=== PATIENT | male | born 1945 | race Caucasian/White ===

== ENCOUNTER → 2017-09-06 08:28 | Outpatient (CLI) | payer OTHER, SELFPAY ==
[2017-09-06 11:47] LABS: Hemoglobin A1C 7.4 % (4.5-6.2)
== END ==
PROVIDERS: PCP Family Medicine; Visit Provider Family Medicine
DX: E11.9 Type 2 diabetes mellitus without complications (principal)
CPT/HCPCS: 36415; 83036

== ENCOUNTER 2018-03-05 10:18 | Outpatient (CLI) | payer OTHER, SELFPAY ==
[2018-03-05 11:39] LABS: Hemoglobin A1C 7.7 % (4.5-6.2)
[2018-03-05 11:51] LABS: Anion Gap 10.9 mmol/L (3-11); BUN 19 mg/dL (7-18); CO2 28.1 mmol/L (21.0-32.0); CREATININE 0.82 mg/dL (0.70-1.30); Calcium 9.5 mg/dL (8.5-10.1); Chloride 101 mmol/L (98-107); Glucose 154 mg/dL (70-100); Potassium 4.8 mmol/L (3.5-5.1); Sodium 140 mmol/L (136-145)
== END 2018-03-05 10:38 ==
PROVIDERS: PCP Family Medicine; Visit Provider Family Medicine
DX: E11.9 Type 2 diabetes mellitus without complications (principal)
CPT/HCPCS: 36415; 80048; 83036

== ENCOUNTER 2018-06-04 09:30 | Outpatient (CLI) | payer OTHER, SELFPAY ==
[2018-06-04 11:18] LABS: Hemoglobin A1C 7.7 % (4.5-6.2)
== END 2018-06-04 09:50 ==
PROVIDERS: PCP Family Medicine; Visit Provider Family Medicine
DX: E11.9 Type 2 diabetes mellitus without complications (principal)
CPT/HCPCS: 36415; 83036

== ENCOUNTER 2019-01-28 07:51 | Outpatient (CLI) | payer OTHER, SELFPAY ==
--- NOTE | 2019-01-28 08:14 | DI.RAD_ITS ---
EXAM: XR KNEE RT 3V AP,LAT,FLAVIA INDICATION: Right knee pain M25.561. COMPARISON: No exams were available for comparison TECHNIQUE: 2D digital imaging was performed. FINDINGS: There is marked narrowing of the medial femoral tibial joint space. Periarticular spurring is seen i nvolving all 3 joint compartments. No acute fracture or dislocation is identified. Soft tissues are unremarkable. IMPRESSION: Osteoarthritis of the right knee.
== END 2019-01-28 08:11 ==
PROVIDERS: PCP Family Medicine; Visit Provider Family Medicine
DX: M25.561 Pain in right knee (principal); M17.11 Unilateral primary osteoarthritis, right knee
CPT/HCPCS: 73562

== ENCOUNTER 2019-04-02 07:56 | Outpatient (CLI) | payer OTHER, SELFPAY ==
[2019-04-02 10:42] LABS: Anion Gap 9.5 mmol/L (3-11); BUN 19 mg/dL (7-18); CO2 27.5 mmol/L (21.0-32.0); CREATININE 0.82 mg/dL (0.70-1.30); Calcium 9.2 mg/dL (8.5-10.1); Calculated LDL 108 mg/dL (<100); Chloride 103 mmol/L (98-107); Cholesterol 172 mg/dL (<200); Glucose 157 mg/dL (74-106); HDL Cholesterol 36 mg/dL (40-60); Hemoglobin A1C 8.1 % (3.8-5.6); Potassium 4.6 mmol/L (3.5-5.1); Sodium 140 mmol/L (136-145); Triglyceride 144 mg/dL (<150)
== END 2019-04-02 08:16 ==
PROVIDERS: PCP Family Medicine; Visit Provider Family Medicine
DX: I10 Essential (primary) hypertension (principal); E11.9 Type 2 diabetes mellitus without complications
CPT/HCPCS: 36415; 80048; 80061; 83036

== ENCOUNTER 2020-06-08 02:31 | Outpatient (CLI) | payer OTHER, SELFPAY ==
[2020-06-08 12:03] LABS: Hemoglobin A1C 6.9 % (<5.7)
[2020-06-08 12:38] LABS: Calculated LDL 105 mg/dL (<100); Cholesterol 179 mg/dL (<200); HDL Cholesterol 34 mg/dL (40-60); Triglyceride 201 mg/dL (<150)
== END 2020-06-08 02:32 | disposition home or self-care (01) ==
LOC: LBO 02:32
PROVIDERS: PCP Family Medicine; Visit Provider Nurse Practitioner Family
DX: E11.9 Type 2 diabetes mellitus without complications (principal); E78.5 Hyperlipidemia, unspecified; N40.1 Benign prostatic hyperplasia with lower urinary tract symptoms; N13.8 Other obstructive and reflux uropathy
CPT/HCPCS: 36415; 80061; 83036; 84154

== ENCOUNTER 2020-11-21 06:31 | Inpatient (IN) | payer OTHER, SELFPAY ==
[2020-11-21] VITALS (48 sets, daily range): BP systolic 117–158; BP diastolic 45–75; PULSE 46–79; RESP 14–30; TEMP 36.2–37.1; O2SAT 89–96
--- NOTE | 2020-11-21 06:42 | ED.GENADUL_ITS ---
Discharge Plan Disposition Patient Disposition: [facility] INPATIENT Condition: Fair Discharge Details Clinical Impression: Cellulitis of left lower extremity Primary Care Provider: Arsh Holland ED Provider: Keith Faulkner [place] Meds and New Rx's Prescriptions: No Action metoprolol succinate 100 mg tablet extended release 24 hr 100 mg PO DAILY Qty: 90 RF: 4 aspirin [Aspir-81] 81 MG tablet,delayed release (DR/EC) 81 mg PO DAILY Qty: 90 RF: 4 (DME) blood-glucose meter [FreeStyle Lite Meter] 1 EACH kit 1 ea Miscellaneous BID Qty: 1 RF: 0 (DME) lancets [FreeStyle Lancets] 28 gauge misc 1 ea Miscellaneous BID Qty: 200 RF: 5 (DME) FreeStyle Lite Strips Strip 1 ea Miscellaneous BID Qty: 200 RF: 4 glipizide 10 mg tablet 10 mg PO DAILY Qty: 90 RF: 4 metformin 1,000 mg tablet 1,000 mg PO BID Qty: 180 RF: 4 tamsulosin 0.4 mg capsule See Rx Instructions PO HS Qty: 180 RF: 4 amlodipine 10 mg tablet 10 mg PO DAILY Qty: 90 RF: 4 losartan-hydrochlorothiazide 100-25 mg tablet 1 tab PO DAILY Qty: 90 RF: 4 ibuprofen 800 mg tablet 800 mg PO DAILY Qty: 90 RF: 3 empagliflozin 10 mg tablet 20 mg PO QAM Qty: 180 RF: 4 Fish Oil 1 EACH capsule 2,000 mg PO DAILY RF: 0 Medical Decision Making Patient presenting with left lower extremity cellulitis that has worsened rather rapidly. He does not appear toxic. He is diabetic with venous stasis, peripheral vascular disease, prior history of MRSA though not recent. He is not febrile here. He does report rapid progression of pain, redness, swelling. IV established and laboratory studies sent including blood cultures. Will dose with IV vancomycin and consider brief admission for continued IV antibiotic until symptomatic improvement. Labs look okay. White count minimally elevated. Sugar a little high but electrolytes and kidney function otherwise normal. Will discuss with hospitalist regarding admission for IV antibiotics. HPI General Mode of arrival: ambulatory . Date/Time Provider Initiated Documentation: 11/21/20 06:41 . Limitations to Documentation: no limitations . Information obtained by: patient, RN notes reviewed and old records reviewed . HPI Narrative: Patient presents to the ED with left lower extremity pain and redness. Patient is followed at [facility] in the wound clinic there for right lower extremity venous ulcers. He was seen there on Sunday. He did have a small open area on his left johnson but did not think much of it and did not have them look at it. Since that visit his left leg has become painful, red, hot to touch, more swollen. He felt hot and had chills overnight. Leg more painful this morning. No drainage. Does have history of diabetes. Just finished round of ampicillin for the right lower extremity a week ago. Has remote history of MRSA. 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 He denies any cough, chest pain, shortness of breath, abdominal pain. His blood sugars have been elevated since Sunday. Related Data Home Medications Medication Instructions Recorded Confirmed omega-3 fatty acids-fish oil [Fish 2,000 mg PO DAILY 01/17/13 11/21/20 Oil 1,000 mg Capsule] aspirin [Aspir 81] 81 mg PO DAILY #90 tab-cap 03/12/15 11/21/20 blood-glucose meter [Freestyle #1 kit 07/05/16 11/21/20 Lite Meter] metoprolol succinate 100 mg 100 mg PO DAILY #90 tab-cap 10/24/19 11/21/20 tablet,extended release 24 hr lancets 28 gauge #200 each 01/02/20 11/21/20 blood sugar diagnostic #200 strip 02/17/20 11/21/20 glipizide 10 mg tablet 10 mg PO DAILY #90 tab 03/18/20 11/21/20 metformin 1,000 mg tablet 1,000 mg PO BID #180 tab-cap 03/18/20 11/21/20 tamsulosin 0.4 mg capsule See Rx Instructions PO HS #180 cap 03/18/20 11/21/20 amlodipine 10 mg tablet 10 mg PO DAILY #90 tab 04/28/20 11/21/20 losartan 100 1 tab PO DAILY #90 tab 09/10/20 11/21/20 mg-hydrochlorothiazide 25 mg tablet ibuprofen 800 mg tablet 800 mg PO DAILY #90 tab-cap 10/06/20 11/21/20 empagliflozin 10 mg tablet 20 mg PO QAM #180 tab 10/08/20 11/21/20 Previous Rx's Medication Instructions Recorded metoprolol succinate 100 mg 100 mg PO DAILY #90 tab-cap 10/24/19 tablet,extended release 24 hr lancets 28 gauge #200 each 01/02/20 blood sugar diagnostic #200 strip 02/17/20 glipizide 10 mg tablet 10 mg PO DAILY #90 tab 03/18/20 metformin 1,000 mg tablet 1,000 mg PO BID #180 tab-cap 03/18/20 tamsulosin 0.4 mg capsule See Rx Instructions PO HS #180 cap 03/18/20 amlodipine 10 mg tablet 10 mg PO DAILY #90 tab 04/28/20 losartan 100 1 tab PO DAILY #90 tab 09/10/20 mg-hydrochlorothiazide 25 mg tablet ibuprofen 800 mg tablet 800 mg PO DAILY #90 tab-cap 10/06/20 empagliflozin 10 mg tablet 20 mg PO QAM #180 tab 10/08/20 Allergies Allergy/AdvReac Type Severity Reaction Status Date / Time atorvastatin calcium AdvReac INTOLERANCE Verified 11/21/20 06:44 [From Lipitor] Review of Systems Narrative: 11/18 Review of Systems completed and is negative except as stated above in HPI (Systems reviewed: Const, Eyes, ENT, Resp, CV, GI, , MSK, Skin, Neuro) [facility] Medical History Essential hypertension Hyperlipidemia Morbid obesity MRSA infection (09/03/15) ISAAC (obstructive sleep apnea) Peripheral vascular disease Tubular adenoma 07/24/14 DR. ALLEN X 3 Venous stasis ulcers of both lower extremities (03/09/16) Surgical History Amputation of toe of right foot 04/08/20 - Right second toe ([facility]) Appendectomy (~08/1973) Colonoscopy - MAC (~02/2004) neg FX ANKLE 02/2013; [facility] [place] [place] knee repair (~1964) cartilage repair Family History (Updated 06/07/20 @ 10:02 by Lainey Quintero) Mother , age 78 Cancer Father , age 70 Heart disease Cancer Sister Essential hypertension Hyperlipidemia Breast cancer Brother Essential hypertension Skin cancer Brother Diabetes Essential hypertension Heart disease Hyperlipidemia Alcohol abuse Substance abuse Cancer Maternal Grandfather Heart disease Paternal Grandfather No problems noted. Maternal Grandmother Diabetes Essential hypertension Paternal Grandmother Heart disease Son Essential hypertension Heart disease Hyperlipidemia Daughter No problems noted. Daughter No problems noted. Brother , age 69 Diabetes Essential hypertension Hyperlipidemia Social History Smoking/Tobacco Use Status: Never Second Hand Exposure: Yes Smoking risk assessment performed?: Yes Alcohol Intake: never Drug use: Never Substance use type: does not use Caregiver/Support person: No Household members: spouse Housing: house Communication Needs: Corrective Lenses Pets and animals: Yes Pets and animals: cat(s) and dog(s) Sexually active: No Do you think of yourself as: straight/heterosexual Current gender identity: male What is your relationship status?: How often do you talk on the phone with friends or family?: once per week How often do you get together with friends or relatives?: once per week How often do you attend latter day or lutheran services?: 4 or more times per year Do you belong to any clubs or organized social groups?: no Panel score (0-1 are the most socially isolated patients): 2 What type of physical activity do you participate in: decline to answer Duration: decline to answer Frequency: decline to answer Mally/Pentecostal: Restorationism Special mally needs: No Seatbelt use: sometimes Helmet use: No 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 HEENT: NC/AT. Normal facial exam. Eyes: Normal conjunctiva and sclera. Neck: Supple. Trachea midline. Lungs: Normal respiratory effort. Cor: RRR. DP pulses present. GI: Soft. ND. Neuro: A+O x 3. Normal speech, mentation. Cranial nerves II - XII grossly intact. No gross motor or sensory deficit. Ext: No C/C. Venous stasis changes noted. Left lower extremity edema. Marked and erythema with tenderness involving majority of left anterior johnson. Right lower extremity in dressing/Unna boot. Skin: Warm and dry. Changes as noted above on the extremities.
[2020-11-21 07:30] LABS: Lactate 1.7 mmol/L (0.9-1.7)
[2020-11-21 07:31] LABS: Abs Immature Grans 0.06 10^3/uL (0.0-0.06); Absolute Basophil Count 0.05 10^3/uL (0.0-0.2); Absolute Eosinophil Count 0.02 10^3/uL (0.0-0.7); Absolute Lymphocyte Count 1.34 10^3/uL (1.2-3.4); Absolute Monocyte Count 1.04 10^3/uL (0.1-0.8); Absolute Neutrophil Count 8.75 10^3/uL (1.2-6.7); Basophils % 0.4; Eosinophils % 0.2; HCT 46.7 % (40.0-50.0); HGB 14.8 g/dL (13.5-17.5); Immature Grans % 0.5; Lymphocytes % 11.9; MCH 29.1 pg (27.0-33.0); MCHC 31.7 % (32.0-36.0); MCV 91.7 fL (80-95); MPV 9.3 fL (8.0-11.0); Monocytes % 9.2; Neutrophils % 77.8; Nucleated RBC 0 %; Platelet Count 164 10^3/uL (130-400); RBC 5.09 10^6/uL (4.36-5.78); RDW 14.4 % (11.8-14.1); RDW-SD 48.8 fL; WBC 11.25 10^3/uL (4.4-10.8)
[2020-11-21] MEDS: Normal Saline 1,000 ML 125 ML IV ×2 (07:32→16:20)
[2020-11-21 07:36] LABS: Anion Gap 8.5 mmol/L (3-11); BUN 18 mg/dL (7-18); CO2 30.5 mmol/L (21.0-32.0); Calcium 9.3 mg/dL (8.5-10.1); Chloride 105 mmol/L (98-107); Glucose 173 mg/dL (74-106); Potassium 3.9 mmol/L (3.5-5.1); Sodium 144 mmol/L (136-145)
[2020-11-21] MEDS: VANCOMYCIN/WATER (PEG) 2 GM/400 ML BAG IV (07:43)
[2020-11-21 08:16] LABS: Source Nasal/Nares
[2020-11-21] MEDS: cefTRIAXone 2 GM/50 ML BAG IVPB (10:02)
[2020-11-21] MEDS: Enoxaparin 40 MG/0.4 ML SYR SC (10:40)
[2020-11-21 16:01] LABS: COVID-19 PCR Negative (Negative)
--- NOTE | 2020-11-21 16:18 | W.PM.HP.N ---
Date of service: 11/21/20 Time of Service: 16:19 Assessment and Plan Assessment and plan (1) Cellulitis of left lower extremity: Start date: 11/21/20 Start time: 13:00 Status: Acute Assessment and plan: LLE cellulitis started on Sunday worsening today. found to have erythema with scab in middle of leg. Initiated on vanco an ceftriaxone. Blood cultures pending MRSA swab pending. (2) Wound of right lower extremity: Start date: 11/21/20 Start time: 13:00 Status: Acute Assessment and plan: Seen at [facility] for wound care of RLE. At this time it is wrapped and unable to visulize He has appt on sunday to have it looked at. Qualifiers: Encounter type: initial encounter Qualified Code(s): S81.801A - Unspecified open wound, right lower leg, initial encounter (3) Peripheral vascular disease: Start date: 11/21/20 Start time: 13:00 Status: Chronic Assessment and plan: Poor circulation with lymphedema contributing to wounds and cellulitis, may require longer course of antibiotic therapy due to PVD (4) Diabetic neuropathy: Start date: 11/21/20 Start time: 13:00 Status: Chronic Assessment and plan: Very little to no feeling in his feet. Qualifiers: Diabetes mellitus type: type 2 Diabetes mellitus complication detail: diabetic mononeuropathy Qualified Code(s): E11.41 - Type 2 diabetes mellitus with diabetic mononeuropathy (5) BPH w urinary obs/LUTS: Start date: 11/21/20 Start time: 16:34 Status: Chronic Assessment and plan: continue flomax (6) Essential hypertension: Start date: 11/21/20 Start time: 13:00 Status: Chronic Assessment and plan: continue home regimen and monitor bp (7) Hyperlipidemia: Start date: 11/21/20 Start time: 13:00 Status: Chronic Assessment and plan: on omega 3 fatty acids will continue along with Heart healthy/ cho diet. Qualifiers: Hyperlipidemia type: mixed hyperlipidemia Qualified Code(s): E78.2 - Mixed hyperlipidemia (8) Morbid obesity: Start date: 11/21/20 Start time: 13:00 Status: Chronic Assessment and plan: Dietary consult (9) Type 2 diabetes mellitus without complication, without long-term current use of insulin: Start date: 11/21/20 Start time: 13:00 Status: Chronic Assessment and plan: SSI monitor FS Hold orals at this time (10) Discharge planning issues: Start date: 11/21/20 Start time: 13:00 Status: Acute Assessment and plan: Home when medically ready (11) DVT prophylaxis: Start date: 11/21/20 Start time: 13:00 Status: Acute Assessment and plan: Enoxaparin discussed with Dr. Fisher History of Present Illness History of Present Illness Chief Complaint: LLE cellulitis Narrative: 74 y.o male with PMH of DM 2, HTN, HLD, BPH, morbid obesity, RLE wounds followed by [facility] wound clinic, PVD, OA, ISAAC, presents to [facility] with c/o LLE pain and erythema to johnson. He first noticed an ulcer to his leg on Sunday but it has progressively gotten worse since and today it is red from below the knee to mid johnson half way around the leg to calf. Labs in ED significant for wbc 11.23, afebrile. Blood cx pending. he has been asked to be admitted for further management. He has been initiated on vanco and ceftriaxone. MRSA swab ordered and pending. He will be on SSI. He denies CP, SOB , N/V/d. Review of Systems All systems reviewed & are unremarkable except as noted in HPI and below Constitutional Constitutional: Reports as per HPI [facility] Medical History (Updated 11/21/20 @ 16:33 by Angelica Palacio NP) Essential hypertension Fatty liver (08/04/16) Hyperlipidemia Morbid obesity MRSA infection (09/03/15) ISAAC (obstructive sleep apnea) Peripheral vascular disease Tubular adenoma 07/24/14 DR. ALLEN X 3 Venous stasis ulcers of both lower extremities (03/09/16) Surgical History Amputation of toe of right foot 04/08/20 - Right second toe ([facility]) Appendectomy (~08/1973) Colonoscopy - MAC (~02/2004) neg FX [place]KLE 02/2013[place] [facility] [place] repair (~1964) cartilage repair Family History (Updated 06/07/20 @ 10:02 by Lainey Quintero) Mother , age 78 Cancer Father , age 70 Heart disease Cancer Sister Essential hypertension Hyperlipidemia Breast cancer Brother Essential hypertension Skin cancer Brother Diabetes Essential hypertension Heart disease Hyperlipidemia Alcohol abuse Substance abuse Cancer Maternal Grandfather Heart disease Paternal Grandfather No problems noted. Maternal Grandmother Diabetes Essential hypertension Paternal Grandmother Heart disease Son Essential hypertension Heart disease Hyperlipidemia Daughter No problems noted. Daughter No problems noted. Brother , age 69 Diabetes Essential hypertension Hyperlipidemia Social History Smoking/Tobacco Use Status: Never Second Hand Exposure: Yes Smoking risk assessment performed?: Yes Alcohol Intake: never Drug use: Never Substance use type: does not use Caregiver/Support person: No Household members: spouse Housing: house Communication Needs: Corrective Lenses Pets and animals: Yes Pets and animals: cat(s) and dog(s) Sexually active: No Do you think of yourself as: straight/heterosexual Current gender identity: male What is your relationship status?: How often do you talk on the phone with friends or family?: once per week How often do you get together with friends or relatives?: once per week How often do you attend yarsanism or latter-day services?: 4 or more times per year Do you belong to any clubs or organized social groups?: no Panel score (0-1 are the most socially isolated patients): 2 What type of physical activity do you participate in: decline to answer Duration: decline to answer Frequency: decline to answer Mally/Church: Congregation Special mally needs: No Seatbelt use: sometimes Helmet use: No 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 Do you feel safe at home: Yes Do you feel safe in your relationship?: Yes Meds Allergies and Home Medications Allergies Allergy/AdvReac Type Severity Reaction Status Date / Time atorvastatin calcium AdvReac INTOLERANCE Verified 11/21/20 06:44 [From Lipitor] Home Medications Medication Instructions Recorded Confirmed Type omega-3 fatty acids-fish oil [Fish 2,000 mg PO DAILY 01/17/13 11/21/20 History Oil 1,000 mg Capsule] aspirin [Aspir 81] 81 mg PO DAILY #90 tab-cap 03/12/15 11/21/20 History blood-glucose meter [Freestyle #1 kit 07/05/16 11/21/20 History Lite Meter] metoprolol succinate 100 mg 100 mg PO DAILY #90 tab-cap 10/24/19 11/21/20 Rx tablet,extended release 24 hr lancets 28 gauge #200 each 01/02/20 11/21/20 Rx blood sugar diagnostic #200 strip 02/17/20 11/21/20 Rx glipizide 10 mg tablet 10 mg PO DAILY #90 tab 03/18/20 11/21/20 Rx metformin 1,000 mg tablet 1,000 mg PO BID #180 tab-cap 03/18/20 11/21/20 Rx tamsulosin 0.4 mg capsule See Rx Instructions PO HS #180 cap 03/18/20 11/21/20 Rx amlodipine 10 mg tablet 10 mg PO DAILY #90 tab 04/28/20 11/21/20 Rx losartan 100 1 tab PO DAILY #90 tab 09/10/20 11/21/20 Rx mg-hydrochlorothiazide 25 mg tablet ibuprofen 800 mg tablet 800 mg PO DAILY #90 tab-cap 10/06/20 11/21/20 Rx empagliflozin 10 mg tablet 20 mg PO QAM #180 tab 10/08/20 11/21/20 Rx Exam Const General: cooperative, comfortable and no acute distress Nutritional Appearance: obese Orientation: alert, awake and oriented x3 Eyes Eyelids: eyelids normal Pupils: PERRL EOM: EOM intact bilaterally Neck Neck: normal visual inspection and no JVD Lymphatic: no lymphadenopathy noted Resp Effort & Inspection: normal respiratory effort Auscultation: clear to auscultation bilaterally Cardio Jugular venous pressure: no JVD Rhythm: regular rhythm Heart Sounds: S1 normal GI Auscultation: normal bowel sounds General: No CVA tenderness and deferred Skin General skin exam: no rashes or lesions noted Neuro General: patient alert, patient awake and patient oriented x3 Cognition: normal cognition Speech: speech normal Gait: normal gait Extrem General: full ROM Right lower extremity: abnormal to inspection (unable to visulaize as patient has wrapped from [facility] ) Left lower extremity: lower leg Details: erythema Location: of the mid lower leg (johnson with ulcer to mid area. ) Location: anteriorly; abnormal to inspection Results Labs Result diagrams: 11/21/20 07:14 11/21/20 07:14 Labs: Laboratory Results - last 24 hr 11/21/20 11/21/20 11/21/20 07:14 07:14 07:14 WBC 11.25 H RBC 5.09 Hgb 14.8 Hct 46.7 MCV 91.7 MCH 29.1 MCHC 31.7 L RDW 14.4 H Plt Count 164 MPV 9.3 Immature Gran % 0.5 Neutrophils % 77.8 Lymphocytes % 11.9 Monocytes % 9.2 Eosinophils % 0.2 Basophils % 0.4 Nucleated RBC % 0 Absolute Neutrophils 8.75 H Absolute Lymphocytes 1.34 Absolute Monocytes 1.04 H Absolute Eosinophils 0.02 Absolute Basophils 0.05 VBG Lactate 1.7 Sodium 144 Potassium 3.9 Chloride 105 Carbon Dioxide 30.5 Anion Gap 8.5 BUN 18 Creatinine 1.0 Estimated GFR/1.73 m2 >= 60.00 Glucose 173 H Calcium 9.3 COVID-19 Source SARS-CoV-2 (PCR) 11/21/20 08:12 WBC RBC Hgb Hct MCV MCH MCHC RDW Plt Count MPV Immature Gran % Neutrophils % Lymphocytes % Monocytes % Eosinophils % Basophils % Nucleated RBC % Absolute Neutrophils Absolute Lymphocytes Absolute Monocytes Absolute Eosinophils Absolute Basophils VBG Lactate Sodium Potassium Chloride Carbon Dioxide Anion Gap BUN Creatinine Estimated GFR/1.73 m2 Glucose Calcium COVID-19 Source Nasal/Nares SARS-CoV-2 (PCR) Negative Last Vital Signs Temp 36.2 C L 11/21/20 11:09 Pulse 65 11/21/20 11:09 Resp 20 11/21/20 11:09 BP 117/63 11/21/20 11:09 Pulse Ox 94 11/21/20 11:09
[2020-11-21] MEDS: VANCOMYCIN/WATER (PEG) 1.5 GM/300 ML BAG IV (19:46)
[2020-11-21] MEDS: Tamsulosin 0.4 MG CAPCR 0.8 MG PO (22:16)
[2020-11-22] MEDS: Normal Saline 1,000 ML 125 ML IV ×2 (01:33→13:04)
[2020-11-22 03:42] VITALS: BP 144/76; PULSE 64; RESP 20; TEMP 36.8; O2SAT 90
[2020-11-22 07:24] LABS: Abs Immature Grans 0.05 10^3/uL (0.0-0.06); Absolute Basophil Count 0.03 10^3/uL (0.0-0.2); Absolute Eosinophil Count 0.08 10^3/uL (0.0-0.7); Absolute Lymphocyte Count 1.19 10^3/uL (1.2-3.4); Absolute Neutrophil Count 6.45 10^3/uL (1.2-6.7); Basophils % 0.3; Eosinophils % 0.9; HCT 46.5 % (40.0-50.0); HGB 14.5 g/dL (13.5-17.5); Immature Grans % 0.6; Lymphocytes % 13.8; MCH 28.7 pg (27.0-33.0); MCHC 31.2 % (32.0-36.0); MCV 92.1 fL (80-95); MPV 9.2 fL (8.0-11.0); Monocytes % 9.3; Neutrophils % 75.1; Nucleated RBC 0 %; Platelet Count 154 10^3/uL (130-400); RBC 5.05 10^6/uL (4.36-5.78); RDW 14.5 % (11.8-14.1); RDW-SD 49.1 fL
[2020-11-22 07:31] LABS: Anion Gap 9.5 mmol/L (3-11); BUN 14 mg/dL (7-18); CO2 25.5 mmol/L (21.0-32.0); CREATININE 0.7 mg/dL (0.70-1.30); Calcium 8.5 mg/dL (8.5-10.1); Chloride 106 mmol/L (98-107); Glucose 149 mg/dL (74-106); Magnesium 1.9 mg/dL (1.8-2.4); Potassium 4.2 mmol/L (3.5-5.1); Sodium 141 mmol/L (136-145)
[2020-11-22 07:41] VITALS: BP 155/76; PULSE 72; RESP 20; TEMP 36.3; O2SAT 95
[2020-11-22] MEDS: Aspirin E.C. 81 MG TABEC PO (08:21)
[2020-11-22] MEDS: Metoprolol CR 100 MG TABCR PO (08:21)
[2020-11-22] MEDS: Losartan 50 MG TAB 100 MG PO (08:21)
[2020-11-22] MEDS: hydroCHLOROthiazide 25 MG TAB PO (08:22)
[2020-11-22] MEDS: amLODIPine 10 MG TAB PO (08:22)
[2020-11-22] MEDS: Omega-3 Fatty Acids 1000 MG CAP 2000 MG PO (08:22)
[2020-11-22] MEDS: cefTRIAXone 2 GM/50 ML BAG IVPB (08:23)
[2020-11-22] MEDS: Normal Saline Flush 10 ML SYR IVP (08:24)
--- NOTE | 2020-11-22 09:28 | INITIAL_ITS ---
- If Service Date Differs Date of service: 11/22/20 Time of Service: 09:28 Care Management Initial Assess REASON FOR HOSPITALIZATION:: Cellulitis. PAST MEDICAL HISTORY/PAST SURGICAL HISTORY:: Medical History: Essential hypertension, Fatty liver (08/04/16), Hyperlipidemia, Morbid obesity, MRSA infection (09/03/15), ISAAC (obstructive sleep apnea), Peripheral vascular disease, Tubular adenoma - 07/24/14 DR. ALLEN X 3, and Venous stasis ulcers of both lower extremities (03/09/16). Surgical History: Amputation of toe of right foot - 04/08/20 - Right second toe ([facility]), Appendectomy (~08/1973), Colonoscopy - MAC (~02/2004) - neg, FX ANKLE - 02/2013; [facility] [place], and. knee repair (~1964) - cartilage repair. PREVIOUS FUNCTIONAL STATUS/SOCIAL/FAMILY SUPPORTS:: Sukhjinder lives in [place] with his , Wendi. 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 He was also in the [employer] for 27 years. He now spends his time caring for their property and playing with their [employer] lab. His and adult children are supportive of him. CURRENT FUNCTIONAL STATUS:: Sukhjinder is sitting in a chair watching television when CM comes to meet with him. He is pleasant and easily engages in conversation. He shares that he has an appointment at the Wound [facility] at [facility] tomorrow morning at 8:00 am that he can't miss. CM reassures him that he will be discharged in enough time to make that appointment. ADVANCE DIRECTIVES:: On file; daughter Mary Hagen is appointed as Health Care Agent. Has patient been provided with info about the portal/API?: Yes Did the patient sign up for the portal?: No CODE STATUS:: Full Code INSURANCE COVERAGE / FINANCIAL ISSUES:: [employer] and Medicare. CURRENT HOME/COMMUNITY SERVICES/EQUIPMENT:: Sukhjinder is independent at baseline and has no in-home or community services. He owns a C-PAP machine, walker and cane. PRIMARY CARE PHYSICIAN:: TORY Cloud ([facility]). POTENTIAL DISCHARGE NEEDS:: Follow up appointment with PCP and discharge plan of care. PATIENT/FAMILY EDUCATION NEEDS:: Review discharge instructions re medications, activity level and follow up plan of care, and discuss Ask Me Three. ANTICIPATED BARRIERS TO DISCHARGE:: No anticipated barriers at this time. TRANSPORTATION:: Via private vehicle with family. PLAN:: Sukhjinder will likely be discharged home with no new services when medically cleared by provider. He will follow up with his PCP, the [facility] as previously scheduled, and discharge plan of care as directed. His , Wendi, will drive him home via private vehicle when ready. CM will continue to follow.
[2020-11-22] MEDS: VANCOMYCIN/WATER (PEG) 1.5 GM/300 ML BAG IV (10:35)
[2020-11-22] MEDS: Enoxaparin 40 MG/0.4 ML SYR SC (10:46)
--- NOTE | 2020-11-22 11:49 | W.NUTCONSULT ---
Date of service: 11/22/20 Time of Service: 11:49 Nutritional Consult ASSESSMENT: Unable to meet with Sukhjinder today as busy with treatment when visited. Sukhjinder is a 74 year old male with right foot Dm ulcer that is followed by wound care. PMH: PVD, DM2, HTN, HLD, DM neuropathy, fatty liver with class 3 obesity. DM meds include jardiance 10 mg qd, glipizide 10 mg qd and metformin 1000 mg BID. Most recent A1C (11/05/20) 7% indicating good glycemic control on current home DM meds. Following CHO/low salt diet with excellent intake. Recommend supplementing diet with liquid protein 1 oz TID, MVI, Vit C 500 mg BID, 220 zinc sulfate x 14 days to aid in wound healing. Estimated Needs: 2088 (BEE x 1.2 ABW), 120-130 g pro (1.2-1.3 g pro/kg ABW), 2400 ml fluid NUTRITIONAL DIAGNOSIS: class 3 obesity as evidenced by BMI 55 Increased nutrient needs due to increased macro/micro nutrient requirements for optimal wound healing INTERVENTION: continue current meal plan 1 oz liquid protein TID, 500 mg Vit C BID, 220 mg Zinc Sulfate qd x 14 days MONITORING AND EVALUATION: weight, po intake, labs Time Spent in Nutritional Counseling and Treatment: 0
[2020-11-22] MEDS: Insulin Aspart 300 UNITS/3 ML PEN SC ×2 (12:02→16:54)
[2020-11-22 13:22] VITALS: O2SAT 89
--- NOTE | 2020-11-22 14:43 | PGE_ITS ---
Date of Service Date of service: 11/22/20 Time of Service: 12:30 Assessment and Plan Assessment and plan (1) Cellulitis of left lower extremity: Start date: 11/22/20 Start time: 12:30 Status: Acute Assessment and plan: LLE cellulitis started on Sunday worsening, no improvement will add doxy for psuedomonas coverage, d/c vanco at this time as MRSA swab negative. no receeding in markings Continue 2 gm ceftriaxone Blood cultures NGTD MRSA negative (2) Wound of right lower extremity: Start date: 11/22/20 Start time: 12:30 Status: Acute Assessment and plan: Seen at weeks for wound care of RLE. At this time it is wrapped and unable to visulize Appt tomorrow see note for plan Qualifiers: Encounter type: initial encounter Qualified Code(s): S81.801A - Unspecified open wound, right lower leg, initial encounter (3) Peripheral vascular disease: Start date: 11/22/20 Start time: 12:30 Status: Chronic Assessment and plan: Poor circulation with lymphedema contributing to wounds and cellulitis, may require longer course of antibiotic therapy due to PVD venous stasis discoloration to bilater lower extremities (4) Diabetic neuropathy: Start date: 11/22/20 Start time: 12:30 Status: Chronic Assessment and plan: Very little to no feeling in his feet. Qualifiers: Diabetes mellitus type: type 2 Diabetes mellitus complication detail: diabetic mononeuropathy Qualified Code(s): E11.41 - Type 2 diabetes mellitus with diabetic mononeuropathy (5) BPH w urinary obs/LUTS: Start date: 11/22/20 Start time: 12:30 Status: Chronic Assessment and plan: continue flomax (6) Essential hypertension: Start date: 11/22/20 Start time: 12:30 Status: Chronic Assessment and plan: continue home regimen and monitor bp (7) Hyperlipidemia: Start date: 11/22/20 Start time: 12:30 Status: Chronic Assessment and plan: on omega 3 fatty acids will continue along with Heart healthy/ cho diet. Qualifiers: Hyperlipidemia type: mixed hyperlipidemia Qualified Code(s): E78.2 - Mi xed hyperlipidemia (8) Morbid obesity: Start date: 11/22/20 Start time: 12:30 Status: Chronic Assessment and plan: Dietary consult (9) Type 2 diabetes mellitus without complication, without long-term current use of insulin: Start date: 11/22/20 Start time: 12:30 Status: Chronic Assessment and plan: SSI monitor FS 160 at this time Hold orals at this time (10) Discharge planning issues: Start date: 11/22/20 Start time: 12:30 Status: Acute Assessment and plan: Home when medically ready (11) DVT prophylaxis: Start date: 11/22/20 Start time: 12:30 Status: Acute Assessment and plan: Enoxaparin discussed with Dr. Fisher Subjective Subjective Patient reports: other Interval history since last seen: Patient wound looking the same. His oxygen status with ear probe 99%. He does not require oxygen at this time. However will place on psudeomonas coverage in a diabetic. He had an appt with [facility] wound care for f/u for RLE wound change, will have administrative office specialist get orders from them, consult wound and follow orders for wound care. Otherwise monitor LLE. Markings have not receeded. Continues to be erythemic, MRSA swab negative. D/C doxy continue ceftriaxone 2 gm and add doxy Exam Const General: cooperative, comfortable and no acute distress Nutritional Appearance: obese Orientation: alert, awake and oriented x3 Eyes Eyelids: eyelids normal Pupils: PERRL EOM: EOM intact bilaterally Neck Neck: normal visual inspection and no JVD Lymphatic: no lymphadenopathy noted Resp Effort & Inspection: normal respiratory effort Auscultation: clear to auscultation bilaterally Cardio Jugular venous pressure: no JVD Rhythm: regular rhythm Heart Sounds: S1 normal GI Auscultation: normal bowel sounds General: No CVA tenderness and deferred Skin General skin exam: no rashes or lesions noted Neuro General: patient alert, patient awake and patient oriented x3 Cognition: normal cognition Speech: speech normal Gait: normal gait Extrem General: full ROM Right lower extremity: abnormal to inspection (unable to visulaize as patient has wrapped from weeks ) Left lower extremity: lower leg Details: erythema Location: of the mid lower leg (johnson with ulcer to mid area. ) Location: anteriorly; abnormal to inspection Objective Last Vital Signs Temp 36.3 C L 11/22/20 07:41 Pulse 72 11/22/20 07:41 Resp 20 11/22/20 07:41 BP 155/76 H 11/22/20 07:41 Pulse Ox 89 L 11/22/20 13:22 Laboratory Results - last 24 hr 11/21/20 11/22/20 11/22/20 08:12 07:08 07:08 WBC 8.60 RBC 5.05 Hgb 14.5 Hct 46.5 MCV 92.1 MCH 28.7 MCHC 31.2 L RDW 14.5 H Plt Count 154 MPV 9.2 Immature Gran % 0.6 Neutrophils % 75.1 Lymphocytes % 13.8 Monocytes % 9.3 Eosinophils % 0.9 Basophils % 0.3 Nucleated RBC % 0 Absolute Neutrophils 6.45 Absolute Lymphocytes 1.19 L Absolute Monocytes 0.80 Absolute Eosinophils 0.08 Absolute Basophils 0.03 Sodium 141 Potassium 4.2 Chloride 106 Carbon Dioxide 25.5 Anion Gap 9.5 BUN 14 Creatinine 0.7 Estimated GFR/1.73 m2 >= 60.00 Glucose 149 H Calcium 8.5 Magnesium 1.9 SARS-CoV-2 (PCR) Negative
[2020-11-22 15:23] VITALS: BP 159/64; PULSE 66; RESP 20; TEMP 36.2; O2SAT 92
--- NOTE | 2020-11-22 15:39 | PHACLINREV_ITS ---
Pharmacy Admission Review - Admission Clinical Review (Last Updated 11/21/20 @ 16:28 by Angelica Palacio NP) Wound of right lower extremity (Acute) DVT prophylaxis (Acute) Discharge planning issues (Acute) Cellulitis of left lower extremity (Acute) atorvastatin calcium [From Lipitor] Adverse Reaction (Verified 11/21/20 06:44) INTOLERANCE Resuscitation Status Full Code Height 5 ft 10 in Weight 175.4 kg - Renal Dosing Renal Dosing: BUN 14 mg/dL (7-18) 11/22/20 07:08 Creatinine 0.7 mg/dL (0.70-1.30) 11/22/20 07:08 Medications needing adjustments: Reviewed (Crcl over 100 mL/min using adjusted body weight. Current meds okay.) - Anticoagulation Anticoagulation: Hgb 14.5 g/dL (13.5-17.5) 11/22/20 07:08 Hct 46.5 % (40.0-50.0) 11/22/20 07:08 Plt Count 154 10^3/uL (130-400) 11/22/20 07:08 Creatinine 0.7 mg/dL (0.70-1.30) 11/22/20 07:08 DVT Prophylaxis: Reviewed Medications: Enoxaparin Therapeutic Anticoagulation: N/A - Opiate Usage Evaluate Pain Scale/Pains Meds: N/A - Relevant Labs Sodium 141 mmol/L (136-145) 11/22/20 07:08 Potassium 4.2 mmol/L (3.5-5.1) 11/22/20 07:08 Chloride 106 mmol/L (98-107) 11/22/20 07:08 Magnesium 1.9 mg/dL (1.8-2.4) 11/22/20 07:08 Electrolytes, C-Reactive P, ESR: Reviewed - DM Control DM Control: Glucose 149 mg/dL (74-106) H 11/22/20 07:08 Finger Stick Blood Glucose 160 Finger Stick Blood Glucose 160 Finger Stick Blood Glucose 160 Finger Stick Blood Glucose 139 Finger Stick Blood Glucose 139 Finger Stick Blood Glucose 139 Insulin Dosing: Reviewed (Sliding scale aspart ordered.) - Heart Failure/ND EF%, DWIGHT's, B-Blockers, Diuretics: N/A - BP Control BP Control: Blood Pressure 159/64 Blood Pressure 155/76 Blood Pressure 144/76 If elevated: Reviewed (BP has been elevated so far today. Was up and down ye sterday. Amlodipine, HCTZ, losartan and metoprolol currently ordered.) - Qtc Review If Elevated: N/A - IV to PO Switch IV Medications: Reviewed - Home Meds Home Med List reviewed: Reviewed Relevent Home Meds Not ordered & why?: empagliflozin, glipizide, ibuprofen, metformin (has sliding scale aspart ordered). - Current meds Current Medication Order Review: Reviewed - Comments Comments/Follow Ups: Watch BP, BG, labs, for culture results and for med changes. Antibiotic Activity - Pharmacy Antibiotic Review Pharmacy Antibiotic Activity: C/S review (MRSA swab was negative so vanco was discontinued. Blood cultures no growth @24 hours. Ceftriaxone (day 2) and doxycycline (day 1) ordered.)
[2020-11-22] MEDS: DOXYCYCLINE 100 MG in Normal Saline 100 ML IVPB (16:07)
[2020-11-22 16:13] VITALS: O2SAT 97
[2020-11-22] MEDS: levoFLOXacin 750 MG/150 ML BAG 100 MG IVPB (17:58)
[2020-11-22] MEDS: Tamsulosin 0.4 MG CAPCR 0.8 MG PO (21:52)
[2020-11-22 22:50] VITALS: BP 125/69; PULSE 66; RESP 20; TEMP 36.5; O2SAT 93
[2020-11-23 04:26] VITALS: BP 131/68; PULSE 58; RESP 18; TEMP 35.6; O2SAT 96
[2020-11-23 07:29] VITALS: BP 120/72; PULSE 68; RESP 18; TEMP 36; O2SAT 95
[2020-11-23] MEDS: Normal Saline 500 ML 30 ML IV (08:04)
[2020-11-23] MEDS: cefTRIAXone 2 GM/50 ML BAG IVPB (08:05)
[2020-11-23] MEDS: Insulin Aspart 300 UNITS/3 ML PEN SC ×3 (08:06→17:21)
[2020-11-23] MEDS: amLODIPine 10 MG TAB PO (08:07)
[2020-11-23] MEDS: Omega-3 Fatty Acids 1000 MG CAP 2000 MG PO (08:07)
[2020-11-23] MEDS: Aspirin E.C. 81 MG TABEC PO (08:07)
[2020-11-23] MEDS: Metoprolol CR 100 MG TABCR PO (08:07)
[2020-11-23] MEDS: hydroCHLOROthiazide 25 MG TAB PO (08:07)
[2020-11-23] MEDS: Losartan 50 MG TAB 100 MG PO (08:07)
[2020-11-23] MEDS: Normal Saline Flush 10 ML SYR IVP (08:11)
[2020-11-23] MEDS: Enoxaparin 40 MG/0.4 ML SYR SC (10:17)
--- NOTE | 2020-11-23 12:35 | PGE_ITS ---
Date of Service Date of service: 11/23/20 Time of Service: 12:35 Assessment and Plan Assessment and plan (1) Cellulitis of left lower extremity: Status: Acute Assessment and plan: improved on levaquin. Blood cultures NGTD MRSA negative (2) Wound of right lower extremity: Status: Acute Assessment and plan: followed by [facility] Qualifiers: Encounter type: initial encounter Qualified Code(s): S81.801A - Unspecified open wound, right lower leg, initial encounter (3) Peripheral vascular disease: Status: Chronic Assessment and plan: Poor circulation with lymphedema contributing to wounds and cellulitis, may require longer course of antibiotic therapy due to PVD venous stasis discoloration to bilater lower extremities (4) Diabetic neuropathy: Status: Chronic Assessment and plan: Very little to no feeling in his feet. Qualifiers: Diabetes mellitus type: type 2 Diabetes mellitus complication detail: diabetic mononeuropathy Qualified Code(s): E11.41 - Type 2 diabetes mellitus with diabetic mononeuropathy (5) BPH w urinary obs/LUTS: Status: Chronic Assessment and plan: continue flomax (6) Essential hypertension: Status: Chronic Assessment and plan: continue home regimen and monitor bp (7) Hyperlipidemia: Status: Chronic Assessment and plan: on omega 3 fatty acids will continue along with Heart healthy/ cho diet. Qualifiers: Hyperlipidemia type: mixed hyperlipidemia Qualified Code(s): E78.2 - Mixed hyperlipidemia (8) Morbid obesity: Status: Chronic Assessment and plan: Dietary consult (9) Type 2 diabetes mellitus without complication, without long-term current use of insulin: Status: Chronic Assessment and plan: SSI monitor FS 160 at this time Hold orals at this time (10) Discharge planning issues: Status: Acute Assessment and plan: Home when medically ready (11) DVT prophylaxis: Status: Acute Assessment and plan: Enoxaparin discussed with Dr. Fisher Subjective Subjective Patient reports: no new complaints Exam Const General: cooperative, comfortable and no acute distress Nutritional Appearance: obese Orientation: alert, awake and oriented x3 Eyes Eyelids: eyelids normal Pupils: PERRL EOM: EOM intact bilaterally Neck Neck: normal visual inspection and no JVD Lymphatic: no lymphadenopathy noted Resp Effort & Inspection: normal respiratory effort Auscultation: clear to auscultation bilaterally Cardio Jugular venous pressure: no JVD Rhythm: regular rhythm Heart Sounds: S1 normal GI Auscultation: normal bowel sounds General: No CVA tenderness and deferred Skin General skin exam: no rashes or lesions noted Neuro General: patient alert, patient awake and patient oriented x3 Cognition: normal cognition Speech: speech normal Gait: normal gait Extrem General: full ROM (well within skin markings, erythema improved per patient) Left lower extremity: lower leg Details: erythema Location: of the mid lower leg (johnson with ulcer to mid area. ) Location: anteriorly Objective Last Vital Signs Temp 36.0 C L 11/23/20 07:29 Pulse 68 11/23/20 07:29 Resp 18 11/23/20 07:29 BP 120/72 11/23/20 07:29 Pulse Ox 95 11/23/20 07:29
--- NOTE | 2020-11-23 13:08 | CMPROGNOTE_ITS ---
- If Service Date Differs Date of service: 11/23/20 Time of Service: 19:02 Care Management Progress Note S/O: Sukhjinder continues to be closely monitored and treated for cellulitis. Per provider, likely Ed will be able to discharge on oral antibiotics and follow up with [facility] wound clinic-Ed anticipates on Sunday. Wendi was sitting next to him, CM reviewed options for Portal access. No concerns shared at this time. CM continues to follow. A: 74 year old male admitted to [facility] 11/21/20 for Cellulitis P: Sukhjinder will likely be discharged home with no new services when medically cleared by provider. He will follow up with his PCP, the Wound Clinic at [facility] as previously scheduled, and discharge plan of care as directed. His , Wendi, will drive him home via private vehicle when ready. CM will continue to follow.
--- NOTE | 2020-11-23 13:41 | WOUNDCONS_ITS ---
- If Service Date Differs Date of service: 11/23/20 Time of Service: 13:42 Wound Initial Evaluation Narrative: Patient is a 74 yom, he is seen here for left leg cellulitis. Patient is followed by [facility] wound clinic for a chronic wound on his right medial ankle and an amputated right second toe. Besides reading patient's H&P. I spoke to Stacia, who's a nurse at [facility] wound clinic and is familiar with the patient. She sent me his progress notes from last week back to the start of his treatment in 2019. After reviewing all of the progress notes with the patient , he consented to the wound consult. - Wound Right Medial Ankle Wound Type: Statis Ulcer Wound General Appearance: Reddened, Draining Wound Bed Greatest Portion: Red (Granulation) Wound Surrounding Tissue Appearance: Dark Red, Edematous-pitting Percent of Wound Bed Granulated/Red: 100 Wound Length: 1.2 cm Wound Width: 0.4 cm Wound Depth: 0.3 cm Wound Drainage Amount: Minimal Wound Drainage Odor: None/Absent Wound Drainage Description: Bloody Wound Topical Solution/Irrigant: Saline Irrigant Wound Debridement Method: Gauze Wound Debridement Result: Healthy Tissue Revealed Wound Debridement Amount of Tissue Removed: Minimal - Circulation, Sensation, Motion Edema Degree: 2+ Peripheral Pulse Strength: Weak Capillary Refill: Less than 3 seconds Sensation Description: Numbness, Tingling Skin Temperature: Warm Skin Color: Normal, Erythema - GORDO Comment:: not indicated Patient has been treating this wound at [facility] for nearly 2 years, it closes over and opens up again. Wang things to note, 2+ pitting edema on the medial ankle, 1+ pitting edema on the foot. Patient stated he felt current treatment was being effective. Speaking to Stacia, A wound nurse at [facility], she concurs that she feels patients course of treatment is being effective. Current treatment will be recommended to continue while patient is here. construction secretary is aware, that [facility] wants patient scheduled for a follow up there upon discharge - Treatment/Dressing Change Topicals/Ointments: None Dressing Types: Foam, Mepilex (contact layer), Other Dressing Comment: coflex - Recomendation Recomendation:: Cleanse leg with Skintegrity and gauze, then pat dry. Apply a piece of Aquacell AG cut big enough to fit in the wound bed. Cover with a Mepilex foam 6X6 cut in half. Secure with Coflex 2 layer compression system. Change twice weekly or PRN. Physcian/Nurse Practioner Notified: Yes (Dr. Fisher)
[2020-11-23 15:41] VITALS: BP 138/68; PULSE 74; RESP 24; TEMP 37.1; O2SAT 97
--- NOTE | 2020-11-23 17:30 | CHAPLAIN ---
Sukhjinder was sitting up in his chair watching TV when I visited. He told me that his is Wendi Suarez RN, who was a supervisor word processing at [employer] for many years. He expects that Wendi will be in to visit later today.
[2020-11-23] MEDS: levoFLOXacin 750 MG/150 ML BAG 100 MG IVPB (17:50)
[2020-11-23] MEDS: Tamsulosin 0.4 MG CAPCR 0.8 MG PO (20:31)
[2020-11-23 20:39] VITALS: BP 122/63; PULSE 74; RESP 20; TEMP 35.9; O2SAT 94
[2020-11-23 20:46] VITALS: RESP 18
[2020-11-24 05:41] VITALS: BP 110/72; PULSE 65; RESP 22; TEMP 35.8; O2SAT 94
[2020-11-24] MEDS: cefTRIAXone 2 GM/50 ML BAG IVPB (07:52)
[2020-11-24] MEDS: amLODIPine 10 MG TAB PO (07:53)
[2020-11-24] MEDS: Normal Saline Flush 10 ML SYR IVP (07:53)
[2020-11-24] MEDS: hydroCHLOROthiazide 25 MG TAB PO (07:53)
[2020-11-24] MEDS: Omega-3 Fatty Acids 1000 MG CAP 2000 MG PO (07:53)
[2020-11-24] MEDS: Aspirin E.C. 81 MG TABEC PO (07:53)
[2020-11-24] MEDS: Losartan 50 MG TAB 100 MG PO (07:53)
[2020-11-24] MEDS: Metoprolol CR 100 MG TABCR PO (07:53)
[2020-11-24 07:55] VITALS: BP 117/72; PULSE 73; RESP 20; TEMP 36.5; O2SAT 91
[2020-11-24] MEDS: Insulin Aspart 300 UNITS/3 ML PEN SC ×2 (08:14→11:41)
--- NOTE | 2020-11-24 10:15 | DSE_ITS ---
Date of service: 11/24/20 Time of Service: 10:15 DS: Diagnosis Discharge Diagnosis (1) Cellulitis of left lower extremity: Status: Acute (2) Wound of right lower extremity: Status: Acute (3) Peripheral vascular disease: Status: Chronic (4) Diabetic neuropathy: Status: Chronic (5) BPH w urinary obs/LUTS: Status: Chronic (6) Essential hypertension: Status: Chronic (7) Hyperlipidemia: Status: Chronic (8) Morbid obesity: Status: Chronic (9) Type 2 diabetes mellitus without complication, without long-term current use of insulin: Status: Chronic Discharge Plan Disposition Patient Disposition: HOME Condition: Improving Discharge Details Reason For Visit: Cellulitis Admit Date/Time: 11/21/20 08:05 Admit Provider: Huseyin Fisher Attending Provider: Huseyin Fisher Primary Care Provider: Arsh Holland Hospital Course Hospital Course: This is a 74 year old male with history of diabetes mellitus type 2, morbid obesity, hypertension, BPH, non healing RLE wounds followed by wound care center in [facility] who presented to the ED after developing pain swelling and increased redness to his left lower extremity. He was initiated on ceftriaxone and vancomycin but area worsened quickly so vanco discontinued and levaquin added. His symptoms improved rapidly on levaquin. His blood cultures remained with no growth. He was afebrile with normalized white count. He is stable and ready for discharge and will be discharged to home to complete 10 days of levaquin. discharge discussed with Dr Fisher. Home Meds and New Rx's Prescriptions: New levofloxacin 750 mg tablet 750 mg PO DAILY Qty: 10 RF: 0 Continued metoprolol succinate 100 mg tablet extended release 24 hr 100 mg PO DAILY Qty: 90 RF: 4 aspirin [Aspir-81] 81 MG tablet,delayed release (DR/EC) 81 mg PO DAILY Qty: 90 RF: 4 (DME) blood-glucose meter [FreeStyle Lite Meter] 1 EACH kit 1 ea Miscellaneous BID Qty: 1 RF: 0 (DME) lancets [FreeStyle Lancets] 28 gauge misc 1 ea Miscellaneous BID Qty: 200 RF: 5 (DME) FreeStyle Lite Strips Strip 1 ea Miscellaneous BID Qty: 200 RF: 4 glipizide 10 mg tablet 10 mg PO DAILY Qty: 90 RF: 4 metformin 1,000 mg tablet 1,000 mg PO BID Qty: 180 RF: 4 tamsulosin 0.4 mg capsule See Rx Instructions PO HS Qty: 180 RF: 4 amlodipine 10 mg tablet 10 mg PO DAILY Qty: 90 RF: 4 losartan-hydrochlorothiazide 100-25 mg tablet 1 tab PO DAILY Qty: 90 RF: 4 ibuprofen 800 mg tablet 800 mg PO DAILY Qty: 90 RF: 3 empagliflozin 10 mg tablet 20 mg PO QAM Qty: 180 RF: 4 Fish Oil 1 EACH capsule 2,000 mg PO DAILY RF: 0 Discharge Instructions Instructions: Cellulitis (DC) Additional Instructions: elevate lower extremity above the level of your heart as much as possible during the day. call your pcp or return for worsening symptoms immediately. wound care instruction: Cleanse leg with Skintegrity and gauze, then pat dry. Apply a piece of Aquacell AG cut big enough to fit in the wound bed. Cover with a Mepilex foam 6X6 cut in half. Secure with Coflex 2 layer compression system. Change twice weekly or PRN. or as directed by wound care center. follow up with wound care center as soon as possible. Stand Alone Forms: Nursing Discharge Form Referrals: Arsh Holland SCHEDULING AGENT [Primary Care Provider] - Activity:: Activity as Tolerated Equipment/Supplies:: No Equipment Needed Diet:: Carb Counting Discharge Orders Discharge Orders: Discharge Order (Routine); Ordered 11/24/20 Ordered By: Ashley Garcia DS: Summary Time Spent with Patient providing and/or coordinating discharge services: Greater than 30 minutes Status at Discharge Functional status at discharge: uses cane/walker Overall status at discharge: patient is progressing back to baseline Mental Status: mental status grossly normal Speech and Movement: speech and movement normal Mood: congruent mood Affect: normal affect Exam Const General: cooperative, comfortable and no acute distress Nutritional Appearance: obese Orientation: alert, awake and oriented x3 Eyes Eyelids: eyelids normal Pupils: PERRL EOM: EOM intact bilaterally Neck Neck: normal visual inspection and no JVD Lymphatic: no lymphadenopathy noted Resp Effort & Inspection: normal respiratory effort Auscultation: clear to auscultation bilaterally Cardio Jugular venous pressure: no JVD Rhythm: regular rhythm Heart Sounds: S1 normal GI Auscultation: normal bowel sounds General: No CVA tenderness and deferred Skin General skin exam: no rashes or lesions noted Neuro General: patient alert, patient awake and patient oriented x3 Cognition: normal cognition Speech: speech normal Gait: normal gait Extrem General: full ROM (well within skin markings, erythema improved per patient) Left lower extremity: lower leg Details: erythema Location: of the mid lower leg (johnson with ulcer to mid area. ) Location: anteriorly Psych Mental Status: mental status grossly normal Speech and Movement: speech and movement normal Mood: congruent mood Affect: normal affect DS: Data Vitals/I&O Vitals and I&O: Vital Signs Temperature 36.5 C 11/24/20 07:55 Temperature Source Temporal Artery Scan 11/24/20 07:55 Pulse 73 11/24/20 07:55 Pulse Rhythm Regular 11/24/20 07:55 Pulse 56 L 11/21/20 10:40 Respiratory Rate 20 11/24/20 07:55 Respiratory Effort Short of Breath 11/24/20 07:55 Respiratory Depth Normal 11/24/20 07:55 Respiratory Pattern Normal 11/24/20 07:55 Blood Pressure 117/72 11/24/20 07:55 Blood Pressure Mean 84 11/21/20 10:31 Blood Pressure Position Supine 11/21/20 06:37 Pulse Oximetry 91 L 11/24/20 07:55 Oxygen Delivery Method Room Air 11/24/20 07:55 Oxygen Flow Rate 0 11/24/20 07:55 Fraction of Inspired Oxygen (FIO2) 30 11/23/20 20:46 Pain Level 0 11/24/20 07:55 Intake & Output 11/23/20 11/23/20 11/24/20 11:59 23:59 11:59 Intake Total 160 / 560 400 / 560 850 / 850 Output Total 1550 / 2225 675 / 2225 1075 / 1075 Balance -1390 / -1665 -275 / -1665 -225 / -225 Intake: IV 60 / 70 10 510 / 510 Oral 100 / 490 390 / 490 340 / 340 Output: Urine 1550 / 2225 675 / 2225 1075 / 1075 Other: Urine Color Yellow Yellow Yellow Urine Appearance Clear Cloudy Cloudy Urine Odor Normal Normal Normal Comment void x 1 Voiding Methods Toilet Urinal Toilet Data Completed and Pending Labs on day of discharge: Preliminary micro results at discharge 11/21/20 07:35 Blood Culture - Preliminary Blood NO GROWTH 72 HOURS 11/21/20 07:14 Blood Culture - Preliminary Blood NO GROWTH 72 HOURS [facility] Medical History (Updated 11/21/20 @ 16:33 by Angelica Palacio NP) Essential hypertension Fatty liver (08/04/16) Hyperlipidemia Morbid obesity MRSA infection (09/03/15) ISAAC (obstructive sleep apnea) Peripheral vascular disease Tubular adenoma 07/24/14 DR. ALLEN X 3 Venous stasis ulcers of both lower extremities (03/09/16) Surgical History Amputation of toe of right foot 04/08/20 - Right second toe ([facility]) Appendectomy (~08/1973) Colonoscopy - MAC (~02/2004) neg FX [place] 02/2013[place] [facility] [place] ([place]) cartilage repair Family History (Updated 06/07/20 @ 10:02 by Lainey Quintero) Mother , age 78 Cancer Father , age 70 Heart disease Cancer Sister Essential hypertension Hyperlipidemia Breast cancer Brother Essential hypertension Skin cancer Brother Diabetes Essential hypertension Heart disease Hyperlipidemia Alcohol abuse Substance abuse Cancer Maternal Grandfather Heart disease Paternal Grandfather No problems noted. Maternal Grandmother Diabetes Essential hypertension Paternal Grandmother Heart disease Son Essential hypertension Heart disease Hyperlipidemia Daughter No problems noted. Daughter No problems noted. Brother , age 69 Diabetes Essential hypertension Hyperlipidemia Social History Smoking/Tobacco Use Status: Never Second Hand Exposure: Yes Smoking risk assessment performed?: Yes Alcohol Intake: never Drug use: Never Substance use type: does not use Caregiver/Support person: No Household members: spouse Housing: house Communication Needs: Corrective Lenses Pets and animals: Yes Pets and animals: cat(s) and dog(s) Sexually active: No Do you think of yourself as: straight/heterosexual Current gender identity: male What is your relationship status?: How often do you talk on the phone with friends or family?: once per week How often do you get together with friends or relatives?: once per week How often do you attend mu-ism or bahai services?: 4 or more times per year Do you belong to any clubs or organized social groups?: no Panel score (0-1 are the most socially isolated patients): 2 What type of physical activity do you participate in: decline to answer Duration: decline to answer Frequency: decline to answer Mally/Jewish: Faith Special mally needs: No Seatbelt use: sometimes Helmet use: No Drive intox or 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 guard driver: No Do you feel safe at home: Yes Do you feel safe in your relationship?: Yes
[2020-11-24] MEDS: Enoxaparin 40 MG/0.4 ML SYR SC (11:01)
--- NOTE | 2020-11-24 17:36 | PDOC.CMDIS ---
- If Service Date Differs Date of service: 11/24/20 Time of Service: 17:36 LACE Index Scoring Tool - Questions: Length of Stay (in days): 3 Acuity (Admit via E.D.?): Yes Comorbidities: Diabetes w/o Complication E.D. Visits: 1 - Answers: Total Score: 8 Risk of Readmission: Low Risk Care Management Discharge Reason for Hospitalization: Cellulitis. Discharge Plan: Sukhjinder will return home today with no new services. His will drive him home via private vehicle. He will follow up with his PCP and discharge plan of care. He is happy to be going home. Patient/Family Education Needs: Review discharge instructions regarding activity levels and medications, discussion of self care needs including ask me three.
== END 2020-11-24 14:31 | disposition home or self-care (01) | DRG 603 ==
LOC: ER 08:48 → MS 10:55
PROVIDERS: Emergency Medicine; Nurse Practitioner Family; Admitting Provider Family Medicine; Emergency Provider Emergency Medicine; PCP Nurse Practitioner Family; Visit Provider Family Medicine
DX: L03.116 Cellulitis of left lower limb (principal); Z68.43 Body mass index [BMI] 50.0-59.9, adult; L97.829 Non-pressure chronic ulcer of other part of left lower leg with unspecified severity; E11.42 Type 2 diabetes mellitus with diabetic polyneuropathy; I73.9 Peripheral vascular disease, unspecified; I89.0 Lymphedema, not elsewhere classified; N40.1 Benign prostatic hyperplasia with lower urinary tract symptoms; I10 Essential (primary) hypertension; E78.5 Hyperlipidemia, unspecified; E66.01 Morbid (severe) obesity due to excess calories; Z79.84 Long term (current) use of oral hypoglycemic drugs; G47.33 Obstructive sleep apnea (adult) (pediatric); K76.0 Fatty (change of) liver, not elsewhere classified; I87.2 Venous insufficiency (chronic) (peripheral); L97.519 Non-pressure chronic ulcer of other part of right foot with unspecified severity
CPT/HCPCS: 36415; 80048; 87040; 87081; 87635; 96361; 96365; 96366; 96372; 99285; J1650; 83605; 83735; 85025; 94660; 99222; 99232; 99233; 99239; J1956

== ENCOUNTER 2020-11-29 09:52 | Outpatient (CLI) | payer OTHER, SELFPAY ==
[2020-11-29 12:31] LABS: COMMENT (LAB VIEW ONLY) 94.33 mg/dL; Microalb ug/mg Crea 18.2 ug/mg Cr
[2020-11-29 12:35] LABS: Anion Gap 8.5 mmol/L (3-11); BUN 16 mg/dL (7-18); CO2 30.5 mmol/L (21.0-32.0); CREATININE 0.8 mg/dL (0.70-1.30); Calcium 9.3 mg/dL (8.5-10.1); Chloride 103 mmol/L (98-107); Glucose 111 mg/dL (74-106); Potassium 4.2 mmol/L (3.5-5.1); Sodium 142 mmol/L (136-145)
== END 2020-11-29 09:53 | disposition home or self-care (01) ==
LOC: LOS 09:53
PROVIDERS: PCP Nurse Practitioner Family; Visit Provider Family Medicine
DX: E11.621 Type 2 diabetes mellitus with foot ulcer (principal); E11.40 Type 2 diabetes mellitus with diabetic neuropathy, unspecified; L97.519 Non-pressure chronic ulcer of other part of right foot with unspecified severity
CPT/HCPCS: 36415; 80048; 82043; 82570

== ENCOUNTER 2021-08-31 04:04 | Outpatient (CLI) | payer OTHER, SELFPAY ==
[2021-08-31 12:45] LABS: Calculated LDL 98 mg/dL (<100); Cholesterol 175 mg/dL (<200); HDL Cholesterol 36 mg/dL (40-60); Triglyceride 209 mg/dL (<150)
== END 2021-08-31 04:05 | disposition home or self-care (01) ==
LOC: LOS 04:04
PROVIDERS: PCP Nurse Practitioner Family; Visit Provider Nurse Practitioner Family
DX: E78.5 Hyperlipidemia, unspecified (principal)
CPT/HCPCS: 80061

== ENCOUNTER 2021-10-24 18:56 | Inpatient (IN) | payer OTHER, SELFPAY ==
[2021-10-24] VITALS (33 sets, daily range): BP systolic 81–127; BP diastolic 37–62; PULSE 45–133; RESP 15–28; TEMP 35.8–36.2; O2SAT 86–97
[2021-10-24] MEDS: dilTIAZem 125 MG in Normal Saline 100 ML 12 MG IV ×2 (10:00→20:05)
--- NOTE | 2021-10-24 19:40 | HPE_ITS ---
Date of service: 10/24/21 Time of Service: 19:40 Assessment and Plan Assessment and plan (1) PSVT (paroxysmal supraventricular tachycardia): Status: Acute Assessment and plan: Despite being on Toprol XL 100 mg at home the patient still went into this rhythm. For tonight he will be treated w/ diltiazem drip; oral diltiazem has been added. I will ask Dr. Sanches to assist w/ management in the morning. Will check echo to evaluate for any structural heart disease. Patient denie any hx of CHF, or HI and no cardiac cath. He has ISAAC which is a major contributor to supraventricular arrhythmias although he says he uses his CPAP (2) Essential hypertension: Assessment and plan: cont. losartan/HCTZ, cont. Toprol XL (3) ISAAC (obstructive sleep apnea): Assessment and plan: cont. CPAP (4) Type 2 diabetes mellitus without complication, without long-term current use of insulin: Status: Chronic Assessment and plan: cont. metformin (patient has not required any contrast studies); use Novolog sliding scale and monitor glucose AC/HS History of Present Illness History of Present Illness Chief Complaint: PSVT Narrative: 75-year-old male type II diabetic with history hypertension hyperlipidemia morbid obesity, obstructive sleep apnea, diabetic peripheral neuropathy, peripheral vascular disease, fatty liver, BPH, osteoarthritis who presented emergency department after presenting to [facility] for outpatient elective colonoscopy where he was found to be in PSVT with a heart rate of 160 bpm he was totally asymptomatic but was sent down the emergency department at [facility] for evaluation. He denies any palpitations shortness of breath dizziness or lightheadedness. He was evaluated by the emergency doctor at [facility] Dr. Miguel. Patient initially was given a 6 mg dose of adenosine without effect. Second dose of 12 mg was administered he had brief moments was heart rate came down in the 80s and then he went back into an SVT in the 160s. They tried him on some metoprolol to no effect. When he was in sinus rhythm he was found to have first-degree AV block. He finally was given a bolus of diltiazem and started on diltiazem drip which I titrated. Dr. Miguel call me for transfer to [facility] as there were no beds available at [facility] and he had already tried [facility] also had no bed availability. Bed was available at but patient's declined transfer to [facility]. A fter coordinating with the nursing blending supervisor and delaying transfer while we arranged to move patients out of ICU out to the medical/surgical floor patient was eventually transferred to [facility] intensive care unit on diltiazem drip at a rate of 12 mg/h. Patient would intermittently go back into a normal sinus rhythm with some PACs and PVCs but then would have runs of PSVT into the 130s and 140s. At other times he appears to be in a sinus tachycardia in the 110s to 120s. Prior to transfer I did recommend the Dr. Miguel that the patient be started on oral diltiazem he was given 120 mg of diltiazem CD at [facility] but of no avail. Patient is admitted to the intensive care unit at [facility] for further titration of his diltiazem drip and administration of oral calcium channel blockers. Patient will have an echocardiogram in the morning. Laboratory work-up that [facility] was unremarkable. CBC showed normal white count 6800 normal hemoglobin hematocrit 15.749% normal platelet count 186,000. TSH was normal at 1.58. Troponin I level was 35 ng/L with an upper limit of normal being 76. Chemistry profile showed some mild elevation of his transaminases with an ALT of 67 AST of 50 with a normal bilirubin of 0.9. Alkaline phosphatase was normal at 68. Of note patient has known had hepatic steatosis. Electrolytes are within normal limits. Blood sugar was 178. BUN 23 creatinine 1.13. Patient remains pain-free denies any shortness of breath or palpitations. We will do a second troponin so that we have at least 2 points of reference so that we can say that he ruled out for an acute ischemic event. We will get an echocardiogram and repeat his EKG in the morning. If oral and IV diltiazem is not working we will try beta-blockers. Review of Systems Constitutional Constitutional: Reports as per HPI PFSH All Active Problems (Updated 10/24/21 @ 20:29 by Beto Bailey MD) PSVT (paroxysmal supraventricular tachycardia) (Acute) Inguinal hernia (Acute) Carotid artery stenosis (Acute) Fatty liver (Chronic 08/04/16) Peripheral vascular disease (Chronic) Diabetic neuropathy (Chronic) Right knee pain (Acute) BPH w urinary obs/LUTS (Chronic) Essential hypertension (Chronic) Generalized osteoarthrosis (Chronic) knees; R>L Hyperlipidemia (Chronic) Type IV Morbid obesity (Chronic) Obstructive sleep apnea, adult (Chronic) C-PAP Spondylolisthesis (Chronic) L5-S1 Type 2 diabetes mellitus without complication, without long-term current use of insulin (Chronic 07/04/16) Medical History (Updated 10/24/21 @ 20:29 by Beto Bailey MD) Essential hypertension Hyperlipidemia Morbid obesity MRSA infection (09/03/15) ISAAC (obstructive sleep apnea) Tubular adenoma 07/24/14 DR. ALLEN X 3 Umbilical hernia Repaired Venous stasis ulcers of both lower extremities (03/09/16) Surgical History (Updated 10/24/21 @ 20:17 by Beto Bailey MD) Amputation of toe of right foot 04/08/20 - Right second toe ([facility]) Appendectomy (~08/1973) Colonoscopy - MAC (~02/2004) neg FX ANKLE 02/2013; [facility] [place] knee repair (~1964) cartilage repair Family History Mother , age 78 Cancer Father , age 70 Heart disease Cancer Sister Essential hypertension Hyperlipidemia Breast cancer Brother Essential hypertension Skin cancer Brother Diabetes Essential hypertension Heart disease Hyperlipidemia Alcohol abuse Substance abuse Cancer Maternal Grandfather Heart disease Paternal Grandfather No problems noted. Maternal Grandmother Diabetes Essential hypertension Paternal Grandmother Heart disease Son Essential hypertension Heart disease Hyperlipidemia Daughter No problems noted. Daughter No problems noted. Brother , age 69 Diabetes Essential hypertension Hyperlipidemia Social History (Updated 05/30/21 @ 12:12 by Bethany Atkins) Smoking/Tobacco Use Status: Never Second Hand Exposure: Yes Smoking risk assessment performed?: Yes Alcohol Intake: never Drug use: Never Substance use type: does not use Household members: spouse Communication Needs: Corrective Lenses Do you need help understanding health information?: Rarely Pets and animals: Yes Pets and animals: cat(s) and dog(s) Do you think of yourself as: straight/heterosexual Current gender identity: male What is your relationship status?: How often do you talk on the phone with friends or family?: twice per week How often do you get together with friends or relatives?: twice per week Do you belong to any clubs or organized social groups?: no Panel score (0-1 are the most socially isolated patients): 2 Mally/Orthodox: Oriental Orthodox Special mally needs: No Seatbelt use: sometimes Helmet use: No Drive intox or 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 driver material handler: No Do you feel safe at home: Yes Do you feel safe in your relationship?: Yes Meds Allergies and Home Medications Allergies Allergy/AdvReac Type Severity Reaction Status Date / Time atorvastatin calcium AdvReac INTOLERANCE Verified 08/31/21 09:26 [From Lipitor] Home Medications Medication Instructions Recorded Confirmed Type omega-3 fatty acids-fish oil 340 2,000 mg PO DAILY 01/17/13 10/24/21 History mg-1,000 mg capsule (Fish Oil) aspirin 81 mg tablet,delayed 81 mg PO DAILY #90 tab-caps 03/12/15 10/24/21 History release (Aspir-) blood-glucose meter (FreeStyle ##1 07/05/16 10/24/21 History Lite Meter kit) lancets 28 gauge (FreeStyle #200 ea 01/02/20 10/24/21 Rx Lancets) metoprolol succinate 100 mg 100 mg PO DAILY #90 tab-caps 01/26/21 10/24/21 Rx tablet,extended release 24 hr blood sugar diagnostic (FreeStyle #200 strips 04/01/21 10/24/21 Rx Lite Strips) metformin 1,000 mg tablet 1,000 mg PO BID #180 tab-caps 04/14/21 10/24/21 Rx glipizide 10 mg tablet 10 mg PO DAILY #90 tabs 05/13/21 10/24/21 Rx empagliflozin 10 mg tablet 20 mg PO QAM #180 tabs 06/17/21 10/24/21 Rx amlodipine 10 mg tablet 10 mg PO DAILY #90 tabs 07/12/21 10/24/21 Rx ibuprofen 800 mg tablet 800 mg PO DAILY 10/24/21 10/24/21 History losartan 100 1 tab PO DAILY 10/24/21 10/24/21 History mg-hydrochlorothiazide 25 mg tablet red yeast rice 600 mg capsule 1,200 mg PO BID 10/24/21 10/24/21 History tamsulosin 0.4 mg capsule 0.8 mg PO HS 10/24/21 10/24/21 History Exam Narrative Exam Narrative: Alert and oriented x4 HEENT: Atraumatic normocephalic, pupils equally round reactive to light and accommodation, extraocular motion intact, TMs intact, nares moist and patent without exudate or bleeding, oropharynx noninjected without exudate, Neck: short and obese, supple, nontender, without thyromegaly or lymphadenopathy or JVD. Normal carotid pulses Lungs: Clear to auscultation and percussion although diminished at the bases Heart: variable rate control, varying between regular and controlled to tachycardia; no appreciable murmur, rub or gallop Abdomen: Nondistended, normal bowel sounds, nontender to palpation or percussion, no organomegaly, no bruits, no palpable masses, he had abdominal wall hernia Genitalia and rectal exam: Deferred Extremities: Normal range of motion with normal strength. He has stasis dermatitis bronze discoloration of his legs and some thickening of the skin; right foot s/p amputation of the 2nd toe at the MTP joint, skin is macerated and reddened w/ some serous drainage Neurologic: Cranial nerves II through XII grossly within normal limits. normal strength, sensory decreased light touch over feet. Results Imaging EKG: image reviewed Last Vital Signs Temp 35.8 C L 10/24/21 18:38 Pulse 74 10/24/21 19:01 Resp 18 10/24/21 19:10 BP 117/62 10/24/21 19:01 Pulse Ox 92 10/24/21 19:10
[2021-10-24] MEDS: Enoxaparin 40 MG/0.4 ML SYR SC (19:41)
[2021-10-24] MEDS: dilTIAZem 25 MG/5 ML VIAL 15 MG IVP (19:45)
[2021-10-24] MEDS: dilTIAZem 30 MG TAB 60 MG PO (19:46)
[2021-10-24 20:04] LABS: Troponin I < 50 ng/L (<or=60)
[2021-10-24 22:51] LABS: Lab Add On Test DONE
[2021-10-25] VITALS (44 sets, daily range): BP systolic 105–159; BP diastolic 42–100; PULSE 46–151; RESP 10–25; TEMP 36.3–37.1; O2SAT 82–96
[2021-10-25 06:43] LABS: Hemoglobin A1C 7.6 % (<5.7)
--- NOTE | 2021-10-25 08:00 | RT.EKG_ITS ---
APPROVED REPORT Exam: Resting ECG Reason for Exam: PSVT Patient Location: I HR:77 bpm ECG Measurements Heart Rate 77 AXIS MS 232 P -2 QRSd 113 QRS -25 QT 436 T 101 QTc 494 Conclusion Sinus rhythm...normal P axis, V-rate 50- 99 Atrial premature complex...SV complex w/ short R-R interval Prolonged MS interval...MS >220, V-rate 50- [address]-T abnormalities
--- NOTE | 2021-10-25 08:00 | DI.US_ITS ---
APPROVED REPORT EXAM: Comprehensive 2D, Doppler, and color-flow Echocardiogram Patient Location: In-Patient Room/Bed: 222 ICU Diaphragm Builder: Mariposa Glover RDCS (AE) Indications: PSVT Other Information Study Quality: Fair. Technically limited study due to body habitus, inability to position patient exa m done siupine bedside. Conclusion Left ventricle is top normal in size. There is mild concentric left ventricular hypertrophy. Estima brittny ejection fraction is 50 to 55%. There are no segmental wall motion abnormalities Right ventricle appears grossly normal in size. Wall motion could not be assessed Both atria are normal in size The aortic valve is sclerotic and trileaflet with mild regurgitation Normal mitral valve with trace to mild regurgitation Normal tricuspid valve with trace to mild regurgitation. Right ventricular systolic pressure could n ot be estimated Mildly dilated aortic root and ascending aorta Patient was in supraventricular tachycardia rate approximately 1 30-1 35 throughout the majority of t he recording, briefly in sinus rhythm with first-degree AV block Wall motion Left Ventricle LV is top normal in size Left ventricular systolic function is mildly decreased. Mild concentric left ventricular hypertrophy. There are no segmental wall motion abnormalities There is no ventricular se ptal defect visualized. LVEF is 50-55%. Right Ventricle Right ventricle is grossly normal in size. Right ventricular systolic function could not be assessed. Atria The left atrium size is normal. The right atrium size is normal. The interatrial septum is intact wit h no evidence for an atrial septal defect. Aortic Valve The Aortic valve is sclerotic. There is no aortic valvular stenosis. Mild aortic regurgitation. Mitral Valve The mitral valve is normal in structure. No evidence of mitral valve stenosis. Trace to mild mitral r egurgitation. Tricuspid Valve The tricuspid valve is normal in structure. There is no tricuspid valve stenosis. Trace to mild tricu spid regurgitation. Pulmonic Valve The pulmonary valve is normal in structure. There is no pulmonic valvular stenosis. Trace pulmonic re gurgitation. Great Vessels Aortic root is mildly dilated. The ascending aorta is mildly dilated. The IVC was not visualized. Pericardium Technically limited subcostal views. 2D Dimensions IVSD d PLAX 1.34 cm M: 0.6-1.2 LV Vol A2C d MOD 205.6 mL LVPW d PLAX 1.33 cm M: 0.6 - 1.2 LV Vol A4C d MOD 164.2 mL LVID d PLAX 5.87 cm M: 4.2 - 5.8 LA vol/ BSA A2C s A-L 39.5 mL/m2 LVDs 4.45 cm M: 2.5 - 4.0 LA vol/ BSA A4C s A-L 28.3 mL/m2 Ao Root d 4.17 cm M: 3.1 - 3.7 LA Vol/ BSA Biplane s A-L 34.8 mL/m2 RA Area A4C 18.74 cm2 LA Area A4C s MOD 24.73 cm2 RA Vol/ BSA A4C s A-L 16.6 mL/m2 LA Area A2C s MOD 28.05 cm2 Ao Asc Diam d 3.82 cm M: 2.6 - 3.4 LV EF A4C MOD 50.9 % LV EF Teichholz 46.4 % LV EF A2C MOD 51.2 % LVEF (Troy's) 51.58 % M: 52 - 72 LV EF Biplane MOD 51.6 % LV Volume 127.03 mL M: 62 - 150 SV 95.90 mL LV Volume Index 46.53 mL/m2 M: 34 - 74 SV Index 35.15 mL/m2 LV Vol Biplane MOD 185.9 mL FS 23.55 % M-Mode TAPSE 0.95 cm (M/F) >1.7 Aortic Valve LVOT Area 4.06 cm2 AoV Area Vmax 2.92 cm2 LVOT Vmax 0.87 m/s AoV Area/ BSA (Vmax) 1.07 cm2/m2 LVOT Mean Orlin. 0.57 m/s DEBORAH Mean Orlin. 2.49 cm2 LVOT Peak Grad 3.0 mmHg DEBORAH Mean Orlin. Index 0.91 cm2/m2 LVOT Mean Grad 1.5 mmHg LVOT VTI 0.114 m LVOT Diam s 2.25 cm AoV Vmax 1.21 m/s Velocity Ratio 0.71 AoV Mean Orlin. 0.93 m/s AoV Peak Grad 5.8 mmHg LVOT SV 46.44 mL AoV Mean Grad 3.8 mmHg AoV VTI 0.156 m AoV Area VTI 2.97 cm2 AoV Area/ BSA (VTI) 1.09 cm/m2 Mitral Valve MR Vmax 1.09 m/s MR VTI 0.168 m MR Peak Grad 4.7 mmHg MR Mean Grad 2.5 mmHg Pulmonary Valve PV Vmax 0.77 (0.5-1.5 m/s) RVOT Peak Gr. 1.16 mmHg PV Peak Grad 2.4 mmHg RVOT Mean Gr. 0.70 mmHg PV Mean Grad 1.4 mmHg RVOT VTI 0.089 m PV VTI 0.125 m RVOT Vmax 0.54 m/s Tricuspid Valve TR Peak Grad 27.7 mmHg TR Vmax 2.64 m/s
[2021-10-25 08:06] LABS: Anion Gap 8.7 mmol/L (3-11); BUN 16 mg/dL (7-18); CO2 26.3 mmol/L (21.0-32.0); CREATININE 0.8 mg/dL (0.70-1.30); Calcium 8.8 mg/dL (8.5-10.1); Chloride 105 mmol/L (98-107); Estimated GFR 92.29 (mL/min/1.73m2); Glucose 144 mg/dL (74-106); Potassium 3.9 mmol/L (3.5-5.1); Sodium 140 mmol/L (136-145)
[2021-10-25 08:15] LABS: ALT 54 U/L (16-63); AST 36 U/L (15-37); Albumin 3.1 g/dL (3.4-5.0); Alkaline Phosphatase 64 U/L (46-116); Bilirubin, Direct 0.2 mg/dL (0.0-0.2); Bilirubin, Total 0.9 mg/dL (0.2-1.0); Total Protein 6.5 g/dL (6.4-8.2); Troponin I < 50 ng/L (<or=60)
[2021-10-25] MEDS: metFORMIN 500 MG TAB 1000 MG PO ×2 (08:44→18:01)
[2021-10-25] MEDS: Empaglifozin 10 MG TAB 20 MG PO (08:44)
[2021-10-25] MEDS: dilTIAZem 60 MG TAB PO ×3 (08:44→21:15)
[2021-10-25] MEDS: Metoprolol CR 100 MG TABCR PO (08:45)
[2021-10-25] MEDS: hydroCHLOROthiazide 25 MG TAB PO (08:45)
[2021-10-25] MEDS: Aspirin E.C. 81 MG TABEC PO (08:45)
[2021-10-25] MEDS: Losartan 50 MG TAB 100 MG PO (08:45)
[2021-10-25] MEDS: Enoxaparin 40 MG/0.4 ML SYR SC ×2 (08:45→21:15)
--- NOTE | 2021-10-25 08:58 | PDOC.CMIN ---
- If Service Date Differs Date of service: 10/25/21 Time of Service: 08:58 Care Management Initial Assess REASON FOR HOSPITALIZATION:: PSVT PAST MEDICAL HISTORY/PAST SURGICAL HISTORY:: All Active Problems (Updated 10/24/21 @ 20:29 by Beto Bailey MD). PSVT (paroxysmal supraventricular tachycardia) (Acute). Inguinal hernia (Acute). Carotid artery stenosis (Acute). Fatty liver (Chronic 08/04/16). Peripheral vascular disease (Chronic). Diabetic neuropathy (Chronic). Right knee pain (Acute). BPH w urinary obs/LUTS (Chronic). Essential hypertension (Chronic). Generalized osteoarthrosis (Chronic). knees; R>L. Hyperlipidemia (Chronic). Type IV. Morbid obesity (Chronic). Obstructive sleep apnea, adult (Chronic). C-PAP. Spondylolisthesis (Chronic). L5-S1. Type 2 diabetes mellitus without complication, without long-term current use of insulin (Chronic 07/04/16). Medical History (Updated 10/24/21 @ 20:29 by Beto Bailey MD). Essential hypertension. Hyperlipidemia. Morbid obesity. MRSA infection (09/03/15). ISAAC (obstructive sleep apnea). Tubular adenoma. 07/24/14 DR. ALLEN X 3. Umbilical hernia. Repaired. Venous stasis ulcers of both lower extremities (03/09/16). Surgical History (Updated 10/24/21 @ 20:17 by Beto Bailey MD). Amputation of toe of right foot. 04/08/20 - Right second toe ([facility]). Appendectomy (~08/1973). Colonoscopy - MAC (~02/2004). neg. FX ANKLE. 02/2013; [facility] [place]. knee repair (~1964). cartilage repair. . PREVIOUS FUNCTIONAL STATUS/SOCIAL/FAMILY SUPPORTS:: Sukhjinder lives in [place] with his , Wendi. 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 He was also in the [employer] for 27 years. He now spends his time caring for their property and playing with their [employer] lab. His and adult children are supportive of him. CURRENT FUNCTIONAL STATUS:: Sukhjinder was lying in bed visiting with his Wendi when met with him. He is awake, alert and able to engage in conversation. He is using his own CPAP during this admission and requires close cardiac monitoring and medication management. He has a non-healing wound on his RLE and a wound care consult is ordered. ADVANCE DIRECTIVES:: On file; daughter Mary Hagen is appointed as Health Care Agent. Has patient been provided with info about the portal/API?: Yes Did the patient sign up for the portal?: Yes (Prior to admission) CODE STATUS:: Full Code INSURANCE COVERAGE / FINANCIAL ISSUES:: Medicare. [facility] CURRENT HOME/COMMUNITY SERVICES/EQUIPMENT:: Sukhjinder is independent at baseline and has no in-home or community services. He owns a C-PAP machine, walker and cane. PRIMARY CARE PHYSICIAN:: [facility] POTENTIAL DISCHARGE NEEDS:: Follow up appointment with PCP, cardiology, podiatry and discharge plan of care. [facility] RN for wound care. PATIENT/FAMILY EDUCATION NEEDS:: Review discharge instructions, limitations, medications and plan to follow up with community providers. Review Ask Me Three. ANTICIPATED BARRIERS TO DISCHARGE:: No anticipated barriers at this time. TRANSPORTATION:: Via private vehicle with family. PLAN:: Sukhjinder requires close cardiac monitoring and treatment and Podiatry consult. Anticipate Sukhjinder will discharge home via private vehicle with family when medically ready. He will likely need follow up appointments with his PCP, Furnace Repairer and podiatry in addition to [facility] RN services for wound care.
--- NOTE | 2021-10-25 09:32 | W.PM.PROGNOT ---
Date of Service Date of service: 10/25/21 Time of Service: 09:32 Assessment and Plan Assessment and plan (1) PSVT (paroxysmal supraventricular tachycardia): Status: Acute Assessment and plan: This morning, back to SVT. Trialing lopressor 2.5 mg IV push. If ineffective, Would resume cardizem gtt. Did receive both cardizem 60 mg PO and toprol XL 100 mg PO x1. Await echo. Keep in ICU. (2) Essential hypertension: Assessment and plan: No change in tx (3) ISAAC (obstructive sleep apnea): Assessment and plan: continue CPAP (4) Type 2 diabetes mellitus without complication, without long-term current use of insulin: Status: Chronic Assessment and plan: continue metformin, SSI (5) Non-healing wound of right lower extremity: Status: Acute Assessment and plan: C/s podiatry; await wound care consult (6) DVT prophylaxis: Status: Acute Assessment and plan: SC enoxaparin (7) Discharge planning issues: Status: Acute Assessment and plan: Full code Keep in ICU Subjective Subjective Interval history since last seen: Mr Suarez states that he feels a smidge dizzy, and he is wondering if it's because his ears feel plugged up. Otherwise, he is completely unaware of his HR being in 150s right now. He denies CP, palpitations, SOB, nausea. He spent the night on CPAP. He was taken off of cardizem gtt last night and had been in NSR until this am. Exam Narrative Exam Narrative: General: Pleasant obese male who is sitting up at the edge of the bed, A&Ox3, NAD HEENT: EOMI, MMM Heart: RRR, tachycardic, no m/r/g Lungs: CTAB Abdomen: soft, obese, nontender Extremities: RLE wound post 2nd toe amputation appears to be extending beyond dressing, serosanguenous drainage. Objective Last Vital Signs Temp 36.4 C L 10/25/21 04:00 Pulse 63 10/25/21 04:00 Resp 18 10/25/21 04:00 BP 123/79 10/25/21 04:00 Pulse Ox 93 10/25/21 04:00 Laboratory Results - last 24 hr 10/24/21 10/24/21 10/24/21 19:36 19:36 22:44 Sodium Potassium Chloride Carbon Dioxide Anion Gap BUN Creatinine Est GFR (CKD-EPI 2020) Glucose Hemoglobin A1c Calcium Magnesium 2.0 Total Bilirubin Conjugated Bilirubin AST ALT Alkaline Phosphatase Troponin I < 50 Total Protein Albumin Add-On Test Request DONE 10/25/21 10/25/21 10/25/21 05:31 05:31 07:32 Sodium Potassium Chloride Carbon Dioxide Anion Gap BUN Creatinine Est GFR (CKD-EPI 2020) Glucose Hemoglobin A1c 7.6 H Calcium Magnesium 2.0 Cancelled Total Bilirubin Conjugated Bilirubin AST ALT Alkaline Phosphatase Troponin I Total Protein Albumin Add-On Test Request 10/25/21 10/25/21 07:42 07:42 Sodium 140 Potassium 3.9 Chloride 105 Carbon Dioxide 26.3 Anion Gap 8.7 BUN 16 Creatinine 0.8 Est GFR (CKD-EPI 2020) 92.29 Glucose 144 H Hemoglobin A1c Calcium 8.8 Magnesium Total Bilirubin 0.9 Conjugated Bilirubin 0.2 AST 36 ALT 54 Alkaline Phosphatase 64 Troponin I < 50 Total Protein 6.5 Albumin 3.1 L Add-On Test Request
[2021-10-25] MEDS: Omega-3 Fatty Acids 1000 MG CAP 2000 MG PO (09:37)
[2021-10-25] MEDS: Insulin Aspart 300 UNITS/3 ML PEN SC ×2 (09:38→17:55)
[2021-10-25] MEDS: Metoprolol 5 MG/5 ML VIAL 2.5 MG IVP (09:39)
--- NOTE | 2021-10-25 15:25 | PHA.REVIEW2 ---
Pharmacy Admission Review - Admission Clinical Review (Last Updated 06/17/21 @ 15:36 by Arsh Holland NP) Discharge planning issues (Acute) DVT prophylaxis (Acute) Non-healing wound of right lower extremity (Acute) PSVT (paroxysmal supraventricular tachycardia) (Acute) atorvastatin calcium [From Lipitor] Adverse Reaction (Verified 08/31/21 09:26) INTOLERANCE Resuscitation Status Full Code Weight 173.7 kg - Renal Dosing Renal Dosing: BUN 16 mg/dL (7-18) 10/25/21 07:42 Creatinine 0.8 mg/dL (0.70-1.30) 10/25/21 07:42 Medications needing adjustments: Reviewed (eCrCl >100) - Anticoagulation Anticoagulation: Creatinine 0.8 mg/dL (0.70-1.30) 10/25/21 07:42 DVT Prophylaxis: Reviewed Medications: Enoxaparin (BID dosing due to BMI) - Opiate Usage Evaluate Pain Scale/Pains Meds: N/A - Relevant Labs Sodium 140 mmol/L (136-145) 10/25/21 07:42 Potassium 3.9 mmol/L (3.5-5.1) 10/25/21 07:42 Chloride 105 mmol/L (98-107) 10/25/21 07:42 Magnesium Cancelled 10/25/21 07:32 Electrolytes, C-Reactive P, ESR: Reviewed (all WNL) - DM Control DM Control: Glucose 144 mg/dL (74-106) H 10/25/21 07:42 Hemoglobin A1c 7.6 % (<5.7) H 10/25/21 05:31 Finger Stick Blood Glucose 119 Finger Stick Blood Glucose 119 Finger Stick Blood Glucose 119 Finger Stick Blood Glucose 144 Finger Stick Blood Glucose 144 DM Control: Reviewed (aspart per SS while acute (NIDDM)) - Cardiac Review Cardiac Review: Troponin I < 50 ng/L (<or=60) 10/25/21 07:42 BP, HR, EF%: Reviewed - Qtc Review If Elevated, List meds needing intervention: QTc 494 on admission - IV to PO Switch IV Medications: Reviewed - Home Meds Home Med List reviewed: Reviewed (not ordered: amlodipine, glipizide) - Current meds Current Medication Order Review: Reviewed (dilt gtt stopped, PO started today + metoprolol IVP prn)
--- NOTE | 2021-10-25 15:58 | CHAPLAIN ---
Sukhjinder was sitting on the edge of his bed when I visited, his , Wendi, a former [facility] Nursing Trace Clerk, was with him. Sukhjinder and his are [place]. He remembered meeting me at this last admission. I offered support and let them know grain cleaner is available 28/08. I will continue to visit.
--- NOTE | 2021-10-25 15:58 | WOUNDCONS ---
- If Service Date Differs Date of service: 10/25/21 Time of Service: 15:58 Wound Initial Evaluation Narrative: Patient is a 75 yom. He is seen here in the ICU for PVST. He also has a hx significant for morbid obesity, Diabetes, ISAAC, He had a toe amputated in May of 2020, The wound has not fully healed since then. Patient is seen by the wound clinic at [facility]. Current treatment from the clinic is donating Collagen to the wound , covering and changing every 2 days. Both patient and his spouse have expressed they feel the treatment has helped the wound get closer to closing over. Discussed Goal of care with patient. Also discussed other modalities to help with healing, such as protein diet, and off loading pressure, and having podiatry consult. Patient consents to the wound consult. - Wound right second toe Wound Type: Amputation Wound General Appearance: Reddened, Draining, Unapproximated Wound Bed Greatest Portion: Red (Granulation) Wound Bed Lesser Portion: Pale [place] Wound Surrounding Tissue Appearance: Taut Percent of Wound Bed Granulated/Red: 95 Percent of Wound Bed Slough/Yellow: 0 Percent of Wound Bed Eschar/Black: 0 Wound Length: 3.7 cm Wound Width: 0.8 cm Wound Depth: 0.3 cm Wound Drainage Amount: Minimal Wound Drainage Odor: None/Absent Wound Drainage Description: Bloody Wound Topical Solution/Irrigant: Saline Irrigant Wound Debridement Method: Gauze Wound Debridement Result: Healthy Tissue Revealed Wound Debridement Amount of Tissue Removed: Minimal - Circulation, Sensation, Motion Edema Degree: 2+ Peripheral Pulse Strength: Weak Capillary Refill: Greater than 3 seconds Sensation Description: Numbness, Tingling (No feeling on the underside of his feet) - Pain Pain Level: 0 Long standing wound that has not closed over. Current wound care clinic is donating Collagen to the wound bed. Both the patient and spouse feel that improvement has been see with the treatment. Will continue to add collagen to the wound. Discussed diet, in regards to protein. He stated he has had the discussion and feels he has a strong protein intake. He is open to having podiatry consult as well. - Photo Photo: - Treatment/Dressing Change Topicals/Ointments: None Cleanse With: Saline Dressing Types: Collagen (Promagran Prism, Telfa - Recomendation Recomendation:: Right Second Toe: Clean with normal saline, then pat dry. Fit a piece of slightly moistened Promagan Prism in the wound bed. Cover with Telfa pad. Secure with tape. Change every other day or PRN. Physcian/Nurse Practioner Notified: Yes (Dr. Dc) Referrals: Dietary, Podiatry Treatment Time - Time Total Time Spent with Patient: 35 minutes - Patient Will be Seen Weekly Treatment: 3x/wk - For: For:: 1 week
[2021-10-25] MEDS: Tamsulosin 0.4 MG CAPCR 0.8 MG PO (21:15)
[2021-10-25] MEDS: Nystatin POWDER 60 GM JAR TP (21:16)
[2021-10-26] VITALS (29 sets, daily range): BP systolic 104–133; BP diastolic 44–72; PULSE 44–147; RESP 13–32; TEMP 36.3–37.1; O2SAT 81–95
[2021-10-26] MEDS: dilTIAZem 60 MG TAB PO (02:36)
[2021-10-26 07:08] LABS: Abs Immature Grans 0.02 10^3/uL (0.0-0.06); Absolute Basophil Count 0.03 10^3/uL (0.0-0.2); Absolute Eosinophil Count 0.06 10^3/uL (0.0-0.7); Absolute Lymphocyte Count 1.45 10^3/uL (1.2-3.4); Absolute Monocyte Count 0.59 10^3/uL (0.1-0.8); Absolute Neutrophil Count 3.54 10^3/uL (1.2-6.7); Basophils % 0.5; Eosinophils % 1.1; HCT 45.8 % (40.0-50.0); HGB 14.5 g/dL (13.5-17.5); Immature Grans % 0.4; Lymphocytes % 25.5; MCH 28.7 pg (27.0-33.0); MCHC 31.7 % (32.0-36.0); MCV 91 fL (80-95); MPV 9.9 fL (8.0-11.0); Monocytes % 10.4; Neutrophils % 62.1; Platelet Count 164 10^3/uL (130-400); RBC 5.05 10^6/uL (4.36-5.78); RDW 14.1 % (11.8-14.1); WBC 5.69 10^3/uL (4.4-10.8)
[2021-10-26 07:14] LABS: Anion Gap 10.8 mmol/L (3-11); BUN 16 mg/dL (7-18); CO2 25.2 mmol/L (21.0-32.0); CREATININE 0.8 mg/dL (0.70-1.30); Calcium 8.7 mg/dL (8.5-10.1); Calculated LDL 87 mg/dL (<100); Chloride 105 mmol/L (98-107); Cholesterol 149 mg/dL (<200); Estimated GFR 92.29 (mL/min/1.73m2); Glucose 130 mg/dL (74-106); HDL Cholesterol 30 mg/dL (40-60); Magnesium 1.9 mg/dL (1.8-2.4); Potassium 3.8 mmol/L (3.5-5.1); Sodium 141 mmol/L (136-145); Triglyceride 161 mg/dL (<150)
[2021-10-26] MEDS: Metoprolol CR 100 MG TABCR PO (08:14)
[2021-10-26] MEDS: metFORMIN 500 MG TAB 1000 MG PO (08:14)
[2021-10-26] MEDS: Aspirin E.C. 81 MG TABEC PO (08:14)
[2021-10-26] MEDS: Empaglifozin 10 MG TAB 20 MG PO (08:14)
[2021-10-26] MEDS: Omega-3 Fatty Acids 1000 MG CAP 2000 MG PO (08:14)
[2021-10-26] MEDS: Losartan 50 MG TAB 100 MG PO (08:15)
[2021-10-26] MEDS: hydroCHLOROthiazide 25 MG TAB PO (08:15)
[2021-10-26] MEDS: Enoxaparin 40 MG/0.4 ML SYR SC (08:15)
--- NOTE | 2021-10-26 08:37 | PDOC.CMPRO ---
- If Service Date Differs Date of service: 10/26/21 Time of Service: 08:37 Care Management Progress Note S/O: A: 75 year old male admitted to [facility] on 10/24/21 with PSVT P: Edward requires close cardiac monitoring and treatment and Podiatry consult. Anticipate, Edward will discharge home via private vehicle with family when medically ready. He will likely need follow up appointments with his PCP, [employer] [facility] and podiatry in addition to [facility] RN services for wound care.
[2021-10-26 08:49] LABS: Lab Add On Test DONE
[2021-10-26] MEDS: dilTIAZem CD 120 MG CAPCR 240 MG PO (09:07)
[2021-10-26] MEDS: Metoprolol 5 MG/5 ML VIAL IVP (09:10)
[2021-10-26 09:14] LABS: TSH 1.73 uIU/mL (0.36-3.74)
[2021-10-26] MEDS: Nystatin POWDER 60 GM JAR TP (09:14)
[2021-10-26] MEDS: Insulin Aspart 300 UNITS/3 ML PEN SC (13:08)
--- NOTE | 2021-10-26 13:17 | DSE_ITS ---
Date of service: 10/26/21 Time of Service: 13:18 DS: Diagnosis Discharge Diagnosis (1) PSVT (paroxysmal supraventricular tachycardia): Status: Acute (2) Essential hypertension: (3) ISAAC (obstructive sleep apnea): (4) Type 2 diabetes mellitus without complication, without long-term current use of insulin: Status: Chronic (5) Non-healing wound of right lower extremity: Status: Acute Discharge Plan Disposition Patient Disposition: HOME Condition: Stable Discharge Details Reason For Visit: PSVT Admit Date/Time: 10/24/21 18:56 Admit Provider: Beto Bailey Attending Provider: Beto Bailey Primary Care Provider: Arsh Holland Hospital Course Hospital Course: Mr Suarez is a 75 year old male with PMHx of NIDDM2, Hypertension, ISAAC on CPAP, obesity with BMI of 56 kg/m2, who was a patient in [facility] ICU from 10/24/21 until 10/26/21 for paroxysmal SVT. He was transferred to our facility from the [facility] where he was found to be in SVT having presented for a routine outpatient colonoscopy there. His HR at the [facility] was 160. Two doses of adenosine did not have an effect. Metoprolol also had no effect. He was started on diltiazem gtt and transferred to our facility, where he was transitioned to cardizem 60 mg PO q6hrs and eventually to cardizem CD 240 mg PO daily in addition to maintenance of his metoprolol XL 100 mg daily. With this, he had a couple of brief episodes of breakthrough SVT but has done significantly better. He is asymptomatic of his SVT. His echo did not reveal any significant abnormalities. His LVEF was 50-55% without segmental wall motion abnormalities. RV and both atria appeared normal in size. RVSP could not be estimated. There were no hemodynamically significant valvular issues. He is being discharged home today with a cardiac event recorder and follow up with his PCP and cardiology. In regards to his poorly healing wound on his R foot from amputation of the 2nd digit, the patient follws with Elsa at the [facility] and should follow up with her ISAÍAS. Care for patient as well as completion of his discharge summary on day of discharge took 40 minutes. Home Meds and New Rx's Prescriptions: New diltiazem HCl 240 mg capsule,extended release 24hr 240 mg PO DAILY Qty: 30 0RF Continued empagliflozin 10 mg tablet 20 mg PO QAM Qty: 180 4RF aspirin [Aspir-81] 81 MG tablet,delayed release (DR/EC) 81 mg PO DAILY Qty: 90 metoprolol succinate 100 mg tablet extended release 24 hr 100 mg PO DAILY Qty: 90 4RF metformin 1,000 mg tablet 1,000 mg PO BID Qty: 180 4RF glipizide 10 mg tablet 10 mg PO DAILY Qty: 90 4RF Fish Oil 1 EACH capsule 2,000 mg PO DAILY ibuprofen 800 mg tablet 800 mg PO DAILY Rx Instructions: Take 1 tablet by mouth daily losartan-hydrochlorothiazide 100-25 mg tablet 1 tab PO DAILY Rx Instructions: Take 1 tablet by mouth daily tamsulosin 0.4 mg capsule 0.8 mg PO HS red yeast rice 600 mg capsule 1,200 mg PO BID Rx Instructions: give with meal/snack Discontinued amlodipine 10 mg tablet 10 mg PO DAILY Qty: 90 4RF No Action (DME) blood-glucose meter [FreeStyle Lite Meter] 1 EACH kit 1 ea Miscellaneous BID Qty: 1 (DME) lancets [FreeStyle Lancets] 28 gauge misc 1 ea Miscellaneous BID Qty: 200 5RF Rx Instructions: One BID (DME) FreeStyle Lite Strips Strip 1 ea Miscellaneous BID Qty: 200 4RF Rx Instructions: 1 twice a day Discharge Instructions Instructions: Diltiazem (By mouth), Supraventricular Tachycardia (DC) Additional Instructions: Return to the hospital with any fever, bleeding, chest pain, shortness of breath, fainting. Follow up with your PCP in 1-2 weeks. Follow up with podiatry and wound care ISAÍAS. Follow up with cardiology - referral was sent. Referrals: Arsh Holland NP [Primary Care Provider] - Michelle Sanches MD [ [facility] STAFF PHYSICIAN] - Activity:: Activity as Tolerated Equipment/Supplies:: cardiac event recorder Diet:: heart healthy carb consistent Discharge Orders Discharge Orders: Discharge Order (Routine); Ordered 10/26/21 Ordered By: Rola Dc Other Ambulatory Orders: Cardiac Event Recorder (Routine) Timeframe: 1 Day Facility: [facility] - Location: Respiratory Therapy Ordered By: Rola Dc DS: Summary Time Spent with Patient providing and/or coordinating discharge services: Greater than 30 minutes Status at Discharge Functional status at discharge: independent ambulation Overall status at discharge: patient is back to baseline Mental Status: mental status grossly normal Speech and Movement: speech and movement normal Mood: congruent mood Affect: normal affect Exam Narrative Exam Narrative: General: Pleasant obese male who is sitting up at the edge of the bed, A&Ox3, NAD HEENT: EOMI, MMM Heart: RRR, not tachycardic, no m/r/g Lungs: CTAB Abdomen: soft, obese, nontender Extremities: RLE wound post 2nd toe amputation appears to be extending beyond dressing, serosanguenous drainage. Psych Mental Status: mental status grossly normal Speech and Movement: speech and movement normal Mood: congruent mood Affect: normal affect DS: Data Vitals/I&O Vitals and I&O: Vital Signs Temperature 36.3 C L 10/26/21 08:00 Temperature Source Temporal Artery Scan 10/26/21 08:00 Pulse 55 L 10/26/21 10:01 Pulse 74 10/26/21 11:00 Respiratory Rate 19 10/26/21 11:00 Respiratory Effort 10/26/21 08:00 Respiratory Depth Normal 10/26/21 08:00 Respiratory Pattern Tachypnea 10/26/21 08:00 Blood Pressure 133/66 10/26/21 10:01 Blood Pressure Mean 75 10/26/21 10:01 Blood Pressure Position Right Lateral 10/26/21 08:00 Pulse Oximetry 87 L 10/26/21 11:00 Oxygen Delivery Method Room Air 10/26/21 08:30 Oxygen Flow Rate 0 10/26/21 08:30 Pain Level 0 10/26/21 08:00 Intake & Output 10/25/21 10/26/21 10/26/21 23:59 11:59 23:59 Intake Total 480.042 / 480.042 720 / 720 Output Total 750 / 1600 1799 / 1999 / 1999 Balance -269.958 / -1119.958 -1080 / -1280 -200 / -1280 Weight 173.7 kg 171.9 kg Intake: IV 0.042 / 0.042 Oral 480 / 480 720 / 720 Output: Urine 750 / 1600 1800 / 1999 / 1999 Other: Urine Color Yellow Yellow Yellow Urine Appearance Clear Clear Urine Odor Normal None Comment urine clear yuni Stool Size Large Stool Characteristics Soft Formed Liquid Voiding Methods Urinal Urinal Data Completed and Pending Completed studies during hospitalization [Text1]: echo; Left ventricle is top normal in size.? There is mild concentric left ventricular hypertrophy.? Estimated ejection fraction is 50 to 55%.? There are no segmental wall motion abnormalities Right ventricle appears grossly normal in size.? Wall motion could not be assessed Both atria are normal in size The aortic valve is sclerotic and trileaflet with mild regurgitation Normal mitral valve with trace to mild regurgitation Normal tricuspid valve with trace to mild regurgitation.? Right ventricular systolic pressure could not be estimated Mildly dilated aortic root and ascending aorta Patient was in supraventricular tachycardia rate approximately 1 30-1 35 throughout the majority of the recording, briefly in sinus rhythm with first- degree AV block Labs on day of discharge: Labs from last 24 hours 10/26/21 10/26/21 10/26/21 08:48 05:40 05:40 WBC 5.69 RBC 5.05 Hgb 14.5 Hct 45.8 MCV 91 MCH 28.7 MCHC 31.7 L RDW 14.1 Plt Count 164 MPV 9.9 Immature Gran % 0.4 Neutrophils % 62.1 Lymphocytes % 25.5 Monocytes % 10.4 Eosinophils % 1.1 Basophils % 0.5 Nucleated RBC % 0.0 Absolute Neutrophils 3.54 Absolute Lymphocytes 1.45 Absolute Monocytes 0.59 Absolute Eosinophils 0.06 Absolute Basophils 0.03 Sodium Potassium Chloride Carbon Dioxide Anion Gap BUN Creatinine Est GFR (CKD-EPI 2020) Glucose Calcium Magnesium Triglycerides Total Cholesterol LDL Cholesterol, Calc HDL Cholesterol TSH 1.73 Add-On Test Request DONE 10/26/21 05:40 WBC RBC Hgb Hct MCV MCH MCHC RDW Plt Count MPV Immature Gran % Neutrophils % Lymphocytes % Monocytes % Eosinophils % Basophils % Nucleated RBC % Absolute Neutrophils Absolute Lymphocytes Absolute Monocytes Absolute Eosinophils Absolute Basophils Sodium 141 Potassium 3.8 Chloride 105 Carbon Dioxide 25.2 Anion Gap 10.8 BUN 16 Creatinine 0.8 Est GFR (CKD-EPI 2020) 92.29 Glucose 130 H Calcium 8.7 Magnesium 1.9 Triglycerides 161 H Total Cholesterol 149 LDL Cholesterol, Calc 87 HDL Cholesterol 30 L TSH Add-On Test Request PFSH All Active Problems (Updated 10/25/21 @ 09:38 by Rola Dc MD) Discharge planning issues (Acute) DVT prophylaxis (Acute) Non-healing wound of right lower extremity (Acute) PSVT (paroxysmal supraventricular tachycardia) (Acute) Inguinal hernia (Acute) Carotid artery stenosis (Acute) Fatty liver (Chronic 08/04/16) Peripheral vascular disease (Chronic) Diabetic neuropathy (Chronic) Right knee pain (Acute) BPH w urinary obs/LUTS (Chronic) Essential hypertension (Chronic) Generalized osteoarthrosis (Chronic) knees; R>L Hyperlipidemia (Chronic) Type IV Morbid obesity (Chronic) Obstructive sleep apnea, adult (Chronic) C-PAP Spondylolisthesis (Chronic) L5-S1 Type 2 diabetes mellitus without complication, without long-term current use of insulin (Chronic 07/04/16) Medical History (Updated 10/25/21 @ 09:38 by Rola Dc MD) Essential hypertension Hyperlipidemia Morbid obesity MRSA infection (09/03/15) ISAAC (obstructive sleep apnea) Tubular adenoma 07/24/14 DR. ALLEN X 3 Umbilical hernia Repaired Venous stasis ulcers of both lower extremities (03/09/16) Surgical History (Updated 10/24/21 @ 20:17 by Beto Bailey MD) Amputation of toe of right foot 04/08/20 - Right second toe ([facility]) Appendectomy (~08/1973) Colonoscopy - MAC (~02/2004) neg FX ANKLE 02/2013; [facility] [place] knee repair (~1964) cartilage repair Family History Mother , age 78 Cancer Father , age 70 Heart disease Cancer Sister Essential hypertension Hyperlipidemia Breast cancer Brother Essential hypertension Skin cancer Brother Diabetes Essential hypertension Heart disease Hyperlipidemia Alcohol abuse Substance abuse Cancer Maternal Grandfather Heart disease Paternal Grandfather No problems noted. Maternal Grandmother Diabetes Essential hypertension Paternal Grandmother Heart disease Son Essential hypertension Heart disease Hyperlipidemia Daughter No problems noted. Daughter No problems noted. Brother , age 69 Diabetes Essential hypertension Hyperlipidemia Social History (Updated 05/30/21 @ 12:12 by Bethany Atkins) Smoking/Tobacco Use Status: Never Second Hand Exposure: Yes Smoking risk assessment performed?: Yes Alcohol Intake: never Drug use: Never Substance use type: does not use Household members: spouse Communication Needs: Corrective Lenses Do you need help understanding health information?: Rarely Pets and animals: Yes Pets and animals: cat(s) and dog(s) Do you think of yourself as: straight/heterosexual Current gender identity: male What is your relationship status?: How often do you talk on the phone with friends or family?: twice per week How often do you get together with friends or relatives?: twice per week Do you belong to any clubs or organized social groups?: no Panel score (0-1 are the most socially isolated patients): 2 Mally/Sikh: Anglican Special mally needs: No Seatbelt use: sometimes Helmet use: No Drive intox or 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 dumpcart driver: No Do you feel safe at home: Yes Do you feel safe in your relationship?: Yes
--- NOTE | 2021-10-26 14:15 | PDOC.CMDIS ---
- If Service Date Differs Date of service: 10/26/21 Time of Service: 14:15 LACE Index Scoring Tool - Questions: Length of Stay (in days): 2 Acuity (Admit via E.D.?): No Comorbidities: PVD E.D. Visits: 1 - Answers: Total Score: 4 Risk of Readmission: Low Risk Care Management Discharge Reason for Hospitalization: PSVT Discharge Plan: Sukhjinder is discharged home via private vehicle with . New RX for diltiazem is printed. Cardiac Recorder is ordered for tomorrow, and will be issued by [facility] as an outpatient. Sukhjinder will follow up with his PCP/ Arsh Holland on 11/03/21 and [facility]Elsa Bridges on 11/02/21 for wound care, as scheduled. A referral is sent to Dr. Sanches in Cardiology and will reach out to Sukhjinder directly to schedule. Sukhjinder is encouraged to follow up with community providers and discharge plan of care as precribed. In the meantime, he should return to the hospital with any fever, bleeding, chest pain, shortness of breath or fainting. There is no anticipated need at this time for [facility] services to follow discharge. Patient/Family Education Needs: Review discharge instructions, limitations, medications and plan to follow up with community providers. Discuss ask me three.: Services Needed at Discharge: Outpatient Therapy (Cardiology and Woundcare), Respiratory Care Services (satellite project site monitor needed. Time Frame: 1 day)
== END 2021-10-26 16:15 | disposition home or self-care (01) | DRG 309 ==
PROVIDERS: Internal Medicine; Admitting Provider Internal Medicine; PCP Nurse Practitioner Family; Visit Provider Internal Medicine
DX: I47.1 Supraventricular tachycardia (principal); Z68.43 Body mass index [BMI] 50.0-59.9, adult; I10 Essential (primary) hypertension; G47.33 Obstructive sleep apnea (adult) (pediatric); Z79.84 Long term (current) use of oral hypoglycemic drugs; E78.5 Hyperlipidemia, unspecified; E66.01 Morbid (severe) obesity due to excess calories; E11.42 Type 2 diabetes mellitus with diabetic polyneuropathy; I73.9 Peripheral vascular disease, unspecified; K76.0 Fatty (change of) liver, not elsewhere classified; I44.0 Atrioventricular block, first degree; N40.1 Benign prostatic hyperplasia with lower urinary tract symptoms; M15.9 Polyosteoarthritis, unspecified; M43.17 Spondylolisthesis, lumbosacral region; I87.2 Venous insufficiency (chronic) (peripheral); T87.89 Other complications of amputation stump
CPT/HCPCS: 36415; 80048; 80061; 80076; 93306; J1650; 83036; 83735; 84443; 84484; 85025; 93005; 93010; 99223; 99233; 99239

== ENCOUNTER 2021-10-26 15:03 | Outpatient (CLI) | payer OTHER, SELFPAY | END 2021-10-26 15:04 | disposition home or self-care (01) | LOC: RT 15:04 | PROVIDERS: PCP Nurse Practitioner Family; Visit Provider Nurse Practitioner Family | DX: I47.1 Supraventricular tachycardia (principal) | CPT/HCPCS: 93270 ==

== ENCOUNTER 2021-11-28 14:37 | Outpatient (CLI) | payer OTHER, SELFPAY ==
--- NOTE | 2021-11-28 15:11 | W.CARDEVENT ---
Date of service: 11/28/21 Time of Service: 15:11 Cardiac Event Recorder Referring Provider:: Arsh Holland Indications:: Supraventricular tachycardia Cardiac Event Note: This is a 30-day event monitor Predominant rhythm was sinus with an average heart rate of 75. Minimum was 57, maximum 122. First-degree AV block was present There were rare ventricular ectopic beats. Several runs of nonsustained ventricular tachycardia were seen. These ranged from 5-10 beats in duration Periods of supraventricular tachycardia were noted. Rates of SVT were 150 -160. These were regular. It is possible they were atrial flutter. SVT lasted up to a maximum of 45 seconds No atrial fibrillation was seen There was no high-grade AV block, no pauses greater than 3 seconds It was unclear if there were any patient's symptom
== END 2021-11-28 14:38 | disposition home or self-care (01) ==
LOC: CARDOPNVT 14:37
PROVIDERS: PCP Nurse Practitioner Family; Visit Provider Internal Medicine Cardiovascular Disease
DX: I47.1 Supraventricular tachycardia (principal); I49.3 Ventricular premature depolarization

== ENCOUNTER 2022-03-23 03:06 | Observation (INO) | payer OTHER, SELFPAY ==
[2022-03-23] VITALS (54 sets, daily range): BP systolic 105–149; BP diastolic 48–84; PULSE 50–150; RESP 16–29; TEMP 35.9–36.6; O2SAT 92–96
--- NOTE | 2022-03-23 | DI.US_ITS ---
APPROVED REPORT EXAM: Comprehensive 2D, Doppler, and color-flow Echocardiogram Patient Location: In-Patient Room/Bed: 231 Cleat Feeder: Mariposa Glover RDCS (AE) Indications: Paroxysmal SVT, Concern for cardiomyopathy Other Information Study Quality: Adequate. Technically limited study due to body habitus, inability to position patient exam done supine bedside.. Conclusion Technically difficult study Mildly dilated left ventricle. Wall thickness is normal. Estimated ejection fraction is 50%. There are no segmental wall motion abnormalities Normal right ventricular size and systolic function The left atrium is mildly dilated. Right atrial size is normal Aortic valve sclerosis with mild to moderate regurgitation Normal mitral valve with trace to mild regurgitation Estimated right ventricular systolic pressure is 27 mmHg Dilated aortic root and ascending aorta Wall motion Left Ventricle Left ventricle is moderately dilated. Left ventricular systolic function is mild to moderately decre ased. There is normal left ventricular wall thickness. There is global hypokinesis of the left ventri jovany. There is no ventricular septal defect visualized. LVEF is50%. Right Ventricle The right ventricle is normal size. The RVSP is 27.4_ mmHg. Atria Left atrium is mildly dilated. The right atrium size is normal. The interatrial septum is intact with no evidence for an atrial septal defect. Aortic Valve The Aortic valve is sclerotic. Number of aortic valve leaflets could not be assessed. There is no aor tic valvular stenosis. Mild to moderate aortic regurgitation. Mitral Valve The mitral valve is normal in structure. No evidence of mitral valve stenosis. Trace to mild mitral r egurgitation. Tricuspid Valve The tricuspid valve is normal in structure. There is no tricuspid valve stenosis. Trace tricuspid reg urgitation. Pulmonic Valve Pulmonic valve is not well visualized. There is no pulmonic valvular stenosis. Trace pulmonic regurgi tation. Great Vessels Aortic root is severely dilated. The ascending aorta is mildly dilated. Aortic arch is not well visua lized. IVC is normal in size and collapses >50% with inspiration. Pericardium There is no pericardial effusion. 2D Dimensions IVSD d PLAX 1.13 cm M: 0.6-1.2 LV Vol A2C d MOD 151.9 mL LVPW d PLAX 1.18 cm M: 0.6 - 1.2 LV Vol A4C d MOD 245.3 mL LVID d PLAX 6.35 cm M: 4.2 - 5.8 LA vol/ BSA A2C s A-L 21.1 mL/m2 LVDs 4.90 cm M: 2.5 - 4.0 LA vol/ BSA A4C s A-L 30.8 mL/m2 Ao Root d 4.29 cm M: 3.1 - 3.7 LA Vol/ BSA Biplane s A-L 27.5 mL/m2 Ao Asc Diam d 3.84 cm M: 2.6 - 3.4 LA Area A4C s MOD 25.71 cm2 LV EF Teichholz 44.2 % LA Area A2C s MOD 19.75 cm2 LVEF (Troy's) 42.00 % M: 52 - 72 LV EF A4C MOD 40.5 % LV Volume 132.15 mL M: 62 - 150 LV EF A2C MOD 46.5 % LV Volume Index 48.05 mL/m2 M: 34 - 74 LV EF Biplane MOD 42.0 % LV Vol Biplane MOD 193.7 mL SV 81.37 mL FS 22.40 % SV Index 29.64 mL/m2 M-Mode TAPSE 1.60 cm (M/F) >1.7 LV Diastology MV E' medial 0.064 (>0.07 m/s) E/A Ratio 0.7 LV E/e MED 8.60 (<14) MV E Vmax 0.55 (0.4-1.3 m/s) MV E' lateral 0.102 (>0.1 m/s) MV A Vmax 0.75 (0.4-1.3 m/s) LV E/e LAT 5.35 (<14) MV E/A Ratio 0.72 MV E/E' medial 8.62 MV E/E' lateral 5.38 Aortic Valve LVOT Area 3.49 cm2 AoV Area Vmax 2.19 cm2 LVOT Vmax 1.02 m/s AoV Area/ BSA (Vmax) 0.80 cm2/m2 LVOT Mean Orlin. 0.68 m/s DEBORAH Mean Orlin. 2.00 cm2 LVOT Peak Grad 4.1 mmHg DEBORAH Mean Orlin. Index 0.73 cm2/m2 LVOT Mean Grad 2.2 mmHg AR DT 2113 msec LVOT VTI 0.239 m AR PHT 613 msec LVOT Diam s 2.10 cm AoV Vmax 1.62 m/s Velocity Ratio 0.63 AoV Mean Orlin. 1.19 m/s AoV Peak Grad 10.5 mmHg LVOT SV 83.49 mL AoV Mean Grad 6.2 mmHg AoV VTI 0.347 m AoV Area VTI 2.41 cm2 AoV Area/ BSA (VTI) 0.88 cm/m2 Mitral Valve MV DT 385 (160-240 msec) MV PHT 112 msec MV Area PHT 1.97 cm2 MV VTI 0.199 m MV Area VTI 4.20 (4.0-6.0 cm2) Pulmonary Valve PV Vmax 0.88 (0.5-1.5 m/s) RVOT Peak Gr. 1.09 mmHg PV Peak Grad 3.1 mmHg RVOT Mean Gr. 0.65 mmHg PV Mean Grad 1.9 mmHg RVOT VTI 0.132 m PV VTI 0.182 m RVOT Vmax 0.52 m/s Tricuspid Valve TR Peak Grad 24.3 mmHg TR Vmax 2.47 m/s RA Pressure 3.00 mmHg RVSP (TR) 27.4 mmHg
--- NOTE | 2022-03-23 02:45 | RT.EKG_ITS ---
APPROVED REPORT Exam: Resting ECG Reason for Exam: rapid heart rate Patient Location: E HR:80 bpm ECG Measurements Heart Rate 80 AXIS [place] 233 P 14 QRSd 119 QRS -23 QT 387 T 54 QTc 446 Conclusion Sinus rhythm Atrial premature complex.. Prolonged [place] interval. Nonspecific intraventricular conduction delay
--- NOTE | 2022-03-23 03:09 | W.ED.GENAD ---
Discharge Plan Disposition Patient Disposition: Admit to [facility] Condition: Stable Discharge Details Clinical Impression: PSVT (paroxysmal supraventricular tachycardia) Admit Date/Time: 03/23/22 06:22 Admit Provider: Rola Dc Attending Provider: Rola Dc Primary Care Provider: Arsh Holland ED Provider: Munir Jackson Discharge Data Discharge Date/Time-TO BE ENTERED AT DEPARTURE: 03/23/22 08:36 Medical Decision Making 76-year-old male with previous history of SVT once in the past. He called the ambulance tonight after feeling weakness, slight shortness of breath and rapid heart rate approximately 11 PM. He was found to have SVT with a rate of approximately 160 on arrival by EMS. As IV access was established the patient spontaneously converted to a normal sinus rhythm with a narrow complex QRS. He was subsequent transported to the emergency department and arrives feeling improved, no persistent weakness or shortness of breath. He arrives with a pulse in the 70s. Records reviewed which note the patient first had SVT in association with prep for colonoscopy in the fall of this year. He was admitted to the ICU at [facility] and eventually converted to a normal sinus rhythm. At that time an echocardiogram noted?LVEF was 50-55% without segmental wall motion abnormalities. Differential diagnosis today would include dehydration, electrolyte abnormality provoking recurrent SVT. 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 CBC shows white count 7, hematocrit 51, platelets 177. Chemistries will note a sodium 141, potassium 4.1, chloride 103, bicarb 26, BUN 19, creatinine 1.0. Magnesium is 1.9. Troponin negative. Chest x-ray: formal read pending After approximately 2-1/2 hours in the emergency department, the patient rolled over to try and get up and perform a urine sample. This provoked recurrent SVT for which the patient was given 6 mg and then 12 mg of adenosine with successful conversion to sinus rhythm. A previous event monitor had recorded episodes of SVT, and during his admission this fall the patient did have some breakthrough SVT. He may require more AV magda blockade. I have initiated his morning dose of diltiazem and will discuss an observation admission with the hospitalist team. HPI General Mode of arrival: EMS. Date/Time Provider Initiated Documentation: 03/23/22 03:19. Limitations to Documentation: no limitations. Information obtained by: patient and EMS. History of Present Illness 76 year old M presents to the emergency department with the chief complaint of Weakness and rapid heart rate, improved, described as moderate, Quality is described as other (Weakness), Patient started experiencing this hour(s) and it has been now resolved. No relieving factors improve symptom(s), No exacerbating factors reported . Patient notes cough, shortness of breath and weakness; denies chest pain and syncope. Patient did receive the following treatments prior to arrival, none Related Data Home Medications Medication Instructions Recorded Confirmed omega-3 fatty acids-fish oil 340 2,000 mg PO DAILY 01/17/13 03/26/22 mg-1,000 mg capsule (Fish Oil) aspirin 81 mg tablet,delayed 81 mg PO DAILY #90 tab-caps 03/12/15 03/26/22 release (Aspir-) blood-glucose meter (FreeStyle ##1 07/05/16 03/26/22 Lite Meter kit) lancets 28 gauge (FreeStyle #200 ea 01/02/20 03/26/22 Lancets) metoprolol succinate 100 mg 100 mg PO DAILY #90 tab-caps 01/26/21 03/26/22 tablet,extended release 24 hr blood sugar diagnostic (FreeStyle #200 strips 04/01/21 03/26/22 Lite Strips) metformin 1,000 mg tablet 1,000 mg PO BID #180 tab-caps 04/14/21 03/26/22 glipizide 10 mg tablet 10 mg PO DAILY #90 tabs 05/13/21 03/26/22 empagliflozin 10 mg tablet 20 mg PO QAM #180 tabs 06/17/21 03/26/22 ibuprofen 800 mg tablet 800 mg PO DAILY 10/24/21 03/26/22 losartan 100 1 tab PO DAILY 10/24/21 03/26/22 mg-hydrochlorothiazide 25 mg tablet red yeast rice 600 mg capsule 1,200 mg PO BID 10/24/21 03/26/22 tamsulosin 0.4 mg capsule 0.8 mg PO HS 10/24/21 03/26/22 diltiazem HCl 240 mg 240 mg PO DAILY #90 caps 11/07/21 03/26/22 capsule,extended release 24 hr cefpodoxime 200 mg tablet 200 mg PO BID #14 tabs 03/24/22 03/26/22 Previous Rx's Medication Instructions Recorded lancets 28 gauge (FreeStyle #200 ea 01/02/20 Lancets) metoprolol succinate 100 mg 100 mg PO DAILY #90 tab-caps 01/26/21 tablet,extended release 24 hr blood sugar diagnostic (FreeStyle #200 strips 04/01/21 Lite Strips) metformin 1,000 mg tablet 1,000 mg PO BID #180 tab-caps 04/14/21 glipizide 10 mg tablet 10 mg PO DAILY #90 tabs 05/13/21 empagliflozin 10 mg tablet 20 mg PO QAM #180 tabs 06/17/21 diltiazem HCl 240 mg 240 mg PO DAILY #90 caps 11/07/21 capsule,extended release 24 hr cefpodoxime 200 mg tablet 200 mg PO BID #14 tabs 03/24/22 Allergies Allergy/AdvReac Type Severity Reaction Status Date / Time atorvastatin calcium AdvReac INTOLERANCE Verified 03/26/22 00:44 [From Lipitor] General JOSE: 2 Review of Systems Narrative: Recently . Noted a cough today. No congestion or sputum production. Believes he has had SVT beginning approximately 11 PM. Now improved. 8 systems were reviewed. PFSH All Active Problems (Updated 03/26/22 @ 15:24 by Beto Bailey MD) Elevated troponin I level (Acute) SVT (supraventricular tachycardia) (Chronic) Chest pain (Acute) Grief (Chronic) Cerumen impaction (Acute) Non-healing wound of right lower extremity (Acute) PSVT (paroxysmal supraventricular tachycardia) (Acute) Inguinal hernia (Acute) Carotid artery stenosis (Acute) Fatty liver (Chronic 08/04/16) Peripheral vascular disease (Chronic) Diabetic neuropathy (Chronic) Right knee pain (Acute) BPH w urinary obs/LUTS (Chronic) Essential hypertension (Chronic) Generalized osteoarthrosis (Chronic) knees; R>L Hyperlipidemia (Chronic) Type IV Morbid obesity (Chronic) Obstructive sleep apnea, adult (Chronic) C-PAP Spondylolisthesis (Chronic) L5-S1 Type 2 diabetes mellitus without complication, without long-term current use of insulin (Chronic 07/04/16) Medical History Essential hypertension Hyperlipidemia Morbid obesity MRSA infection (09/03/15) ISAAC (obstructive sleep apnea) Tubular adenoma 07/24/14 DR. ALLEN X 3 Umbilical hernia Repaired Venous stasis ulcers of both lower extremities (03/09/16) Surgical History Amputation of toe of right foot 04/08/20 - Right second toe ([facility]) Appendectomy (~08/1973) Colonoscopy - MAC (~02/2004) neg FX [place]KLE 02[place]2013[place] [facility] [place]) cartilage repair Family History Mother , age 78 Cancer Father , age 70 Heart disease Cancer Sister Essential hypertension Hyperlipidemia Breast cancer Brother Essential hypertension Skin cancer Brother Diabetes Essential hypertension Heart disease Hyperlipidemia Alcohol abuse Substance abuse Cancer Maternal Grandfather Heart disease Paternal Grandfather No problems noted. Maternal Grandmother Diabetes Essential hypertension Paternal Grandmother Heart disease Son Essential hypertension Heart disease Hyperlipidemia Daughter No problems noted. Daughter No problems noted. Brother , age 69 Diabetes Essential hypertension Hyperlipidemia Social History Smoking/Tobacco Use Status: Never Second Hand Exposure: Yes Smoking risk assessment performed?: Yes Alcohol Intake: never Drug use: Never Substance use type: does not use Household members: spouse Communication Needs: Corrective Lenses Do you need help understanding health information?: Rarely Pets and animals: Yes Pets and animals: cat(s) and dog(s) Do you think of yourself as: straight/heterosexual Current gender identity: male What is your relationship status?: How often do you talk on the phone with friends or family?: twice per week How often do you get together with friends or relatives?: twice per week Do you belong to any clubs or organized social groups?: no Panel score (0-1 are the most socially isolated patients): 2 Mally/Roman Catholic: Zoroastrianism Special mally needs: No Seatbelt use: sometimes Helmet use: No 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 Pleasant, well groomed, interactive. HEAD: Normocephalic, atraumatic ENT: Mucous membranes moist, oropharynx unremarkable, External ear exam unremarkable EYES: PERRL, EOMI NECK: Full ROM, no BARTOLO, no menigismus CHEST/RESP: Nontender, clear to auscultation bilateral, no wheeze/rhonchi/rales CARDIOVASCULAR: RRR, no murmur, rub kalyan. 2+ Rad pulse bilateral ABDOMEN: Soft, nontender, no mass. +Bowel sounds EXT: Full ROM, pretibial edema bilaterally Neuro: Grossly normal neurologic exam, conversant, interactive. Psych: Speech fluent, thoughts congruent, affect normal
--- NOTE | 2022-03-23 03:15 | DI.RAD_ITS ---
Exam(s) XR CHEST 2V PA LATERAL EXAM: XR CHEST 2V PA LATERAL CLINICAL HISTORY: rapid HR. TECHNIQUE: 2D digital imaging was performed. COMPARISON: No exams were available for comparison FINDINGS: 2 views: Study limited by artifact over the lower half of the chest. Cardiomegaly. Mediastinum unremarkable Lungs are clear. No infiltrates nor pleural effusions. IMPRESSION: No acute pulmonary findings.Cardiomegaly. DATA REPOSITORY: RADIATION DOSE DELIVERED:
[2022-03-23 03:29] LABS: Abs Immature Grans 0.03 10^3/uL (0.0-0.06); Absolute Basophil Count 0.04 10^3/uL (0.0-0.2); Absolute Eosinophil Count 0.06 10^3/uL (0.0-0.7); Absolute Lymphocyte Count 1.37 10^3/uL (1.2-3.4); Absolute Monocyte Count 0.67 10^3/uL (0.1-0.8); Absolute Neutrophil Count 5.14 10^3/uL (1.2-6.7); Basophils % 0.5; Eosinophils % 0.8; HGB 16.4 g/dL (13.5-17.5); Immature Grans % 0.4; Lymphocytes % 18.7; MCH 28.8 pg (27.0-33.0); MCHC 32.2 % (32.0-36.0); MCV 90 fL (80-95); MPV 9.3 fL (8.0-11.0); Monocytes % 9.2; Neutrophils % 70.4; Platelet Count 177 10^3/uL (130-400); RDW 14.5 % (11.8-14.1); WBC 7.31 10^3/uL (4.4-10.8)
[2022-03-23 04:11] LABS: ALT 47 U/L (16-63); AST 27 U/L (15-37); Albumin 3.5 g/dL (3.4-5.0); Alkaline Phosphatase 88 U/L (46-116); Anion Gap 11.7 mmol/L (3-11); BUN 19 mg/dL (7-18); Bilirubin, Total 0.4 mg/dL (0.2-1.0); CO2 26.3 mmol/L (21.0-32.0); Calcium 9.5 mg/dL (8.5-10.1); Chloride 103 mmol/L (98-107); Glucose 190 mg/dL (74-106); Magnesium 1.9 mg/dL (1.8-2.4); Potassium 4.1 mmol/L (3.5-5.1); Sodium 141 mmol/L (136-145); Total Protein 6.7 g/dL (6.4-8.2); Troponin I < 50 ng/L (<or=60)
[2022-03-23] MEDS: Normal Saline 250 ML IV (04:42)
--- NOTE | 2022-03-23 05:15 | RT.EKG_ITS ---
APPROVED REPORT Exam: Resting ECG Reason for Exam: elevasted HR Patient Location: E HR:148 bpm ECG Measurements Heart Rate 148 AXIS HI [id number] P 0 QRSd 103 QRS -26 QT 322 T 59 QTc 507 Conclusion Supraventricular tachycardia.. Multiform ventricular premature complexes. ST depression, probably rate related.
[2022-03-23] MEDS: Adenosine 6 MG/2 ML VIAL (05:42)
[2022-03-23] MEDS: Adenosine 6 MG/2 ML VIAL 12 MG IVP (05:44)
--- NOTE | 2022-03-23 05:45 | RT.EKG_ITS ---
APPROVED REPORT Exam: Resting ECG Reason for Exam: rhythm change Patient Location: E HR:76 bpm ECG Measurements Heart Rate 76 AXIS AR 255 P 31 QRSd 112 QRS -12 QT 431 T 67 QTc 488 Conclusion Sinus rhythm Multiple premature complexes Prolonged AR interval
--- NOTE | 2022-03-23 06:26 | NUR.NOTE ---
@0557 pt requested to use urinal, pt rolled on right side and heart rhythm changed to svt, rate 143, pt continues to be A&O, denies pain. Dr Jackson made aware. Orders for adenosine rec'd and carried out with MD at bedside. See MAR. Pt tolerated well, converted to sinus rhythm.
--- NOTE | 2022-03-23 06:28 | HPE_ITS ---
Date of service: 03/23/22 Time of Service: 06:28 Assessment and Plan Assessment and plan (1) PSVT (paroxysmal supraventricular tachycardia): Status: Acute Assessment and plan: Observe on telemetry with an increased dose of metoprolol 50 mg PO Q6 hrs and home dose of cardizem CD 240 mg. Obtain TSH, echocardiogram, pro-BNP. (2) Non-healing wound of right lower extremity: Status: Acute Assessment and plan: Obtain XR R foot and CRP. Normally follows with [facility]. THe wound has been there for 1 year. Obtain podiatry consult. (3) Type 2 diabetes mellitus without complication, without long-term current use of insulin: Status: Chronic Assessment and plan: Continue home medications. (4) Essential hypertension: Assessment and plan: Hold HCTZ/acei while adjusting the dose of metoprolol and continuing cardizem. (5) Hyperlipidemia: Assessment and plan: Continue red yeast rice and fish oil. (6) Obstructive sleep apnea, adult: Status: Chronic Assessment and plan: Contiue home CPAP (7) DVT prophylaxis: Status: Acute Assessment and plan: SC enoxaparin (8) Discharge planning issues: Status: Acute Assessment and plan: DNI per my conversation with the patient. History of Present Illness History of Present Illness Chief Complaint: not feeling well, SVT Narrative: Mr Suarez is a 76 year old male with PMHx of paroxysmal SVT, NIDDM2, HTN, Hyperlipidemia, ISAAC on CPAP, who was brought to [facility] ED by ambulance for SVT. Mr Suarez just recently lost his and has not been feeling well at home starting at 11 pm last night. When EMS arrived to his house, he was found to be in SVT, but converted spontaneously to NSR when an IV was being placed into him. On arrival to the ER, he was feeling better and was in NSR, but then went back into SVT when rolling over. He was given adenosine 6 mg followed by 12 mg with conversion to NSR. Clinically, he was felt to be dehydrated and received a 250 cc bolus of LR. Observation on hospitalist service was requested while medications are being adjusted. The patient is being given his home cardizem CD 240 mg and, rather than the long acting toprol XL 100 mg, is being converted to an effectively increased dose of metoprolol tartrate 50 mg PO Q6H. The patient states that he has had no palpitations, chest pain, dizziness, nausea. He does endorse RUE pain which lasted for a couple of hours last night but resolved on its own. He is not sure that it was associated with the heart rate. His SULTANA appears to be chronic. He does note that his chronically non-healing wound on RLE is being followed by [facility] and that his right foot is generally a little bit darker than the R. Review of Systems All systems reviewed & are unremarkable except as noted in HPI and below PFSH All Active Problems (Updated 03/23/22 @ 06:44 by Rola Dc MD) Discharge planning issues (Acute) DVT prophylaxis (Acute) Cerumen impaction (Acute) Non-healing wound of right lower extremity (Acute) PSVT (paroxysmal supraventricular tachycardia) (Acute) Inguinal hernia (Acute) Carotid artery stenosis (Acute) Fatty liver (Chronic 08/04/16) Peripheral vascular disease (Chronic) Diabetic neuropathy (Chronic) Right knee pain (Acute) BPH w urinary obs/LUTS (Chronic) Essential hypertension (Chronic) Generalized osteoarthrosis (Chronic) knees; R>L Hyperlipidemia (Chronic) Type IV Morbid obesity (Chronic) Obstructive sleep apnea, adult (Chronic) C-PAP Spondylolisthesis (Chronic) L5-S1 Type 2 diabetes mellitus without complication, without long-term current use of insulin (Chronic 07/04/16) Medical History Essential hypertension Hyperlipidemia Morbid obesity MRSA infection (09/03/15) ISAAC (obstructive sleep apnea) Tubular adenoma 07/24/14 DR. ALLEN X 3 Umbilical hernia Repaired Venous stasis ulcers of both lower extremities (03/09/16) Surgical History Amputation of toe of right foot 04/08/20 - Right second toe ([facility]) Appendectomy (~08/1973) Colonoscopy - MAC (~02/2004) neg FX ANKLE 02/2013; [facility] [place] repair (~1964) cartilage repair Family History Mother , age 78 Cancer Father , age 70 Heart disease Cancer Sister Essential hypertension Hyperlipidemia Breast cancer Brother Essential hypertension Skin cancer Brother Diabetes Essential hypertension Heart disease Hyperlipidemia Alcohol abuse Substance abuse Cancer Maternal Grandfather Heart disease Paternal Grandfather No problems noted. Maternal Grandmother Diabetes Essential hypertension Paternal Grandmother Heart disease Son Essential hypertension Heart disease Hyperlipidemia Daughter No problems noted. Daughter No problems noted. Brother , age 69 Diabetes Essential hypertension Hyperlipidemia Social History Smoking/Tobacco Use Status: Never Second Hand Exposure: Yes Smoking risk assessment performed?: Yes Alcohol Intake: never Drug use: Never Substance use type: does not use Household members: spouse Communication Needs: Corrective Lenses Do you need help understanding health information?: Rarely Pets and animals: Yes Pets and animals: cat(s) and dog(s) Do you think of yourself as: straight/heterosexual Current gender identity: male What is your relationship status?: How often do you talk on the phone with friends or family?: twice per week How often do you get together with friends or relatives?: twice per week Do you belong to any clubs or organized social groups?: no Panel score (0-1 are the most socially isolated patients): 2 Mally/Mormonism: Hindu Special mally needs: No Seatbelt use: sometimes Helmet use: No 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 Do you feel safe at home: Yes Do you feel safe in your relationship?: Yes Meds Allergies and Home Medications Allergies Allergy/AdvReac Type Severity Reaction Status Date / Time atorvastatin calcium AdvReac INTOLERANCE Verified 03/03/22 09:30 [From Lipitor] Home Medications Medication Instructions Recorded Confirmed Type omega-3 fatty acids-fish oil 340 2,000 mg PO DAILY 01/17/13 03/23/22 History mg-1,000 mg capsule (Fish Oil) aspirin 81 mg tablet,delayed 81 mg PO DAILY #90 tab-caps 03/12/15 03/23/22 History release (Aspir-) blood-glucose meter (FreeStyle ##1 07/05/16 03/23/22 History Lite Meter kit) lancets 28 gauge (FreeStyle #200 ea 01/02/20 03/23/22 Rx Lancets) metoprolol succinate 100 mg 100 mg PO DAILY #90 tab-caps 01/26/21 03/23/22 Rx tablet,extended release 24 hr blood sugar diagnostic (FreeStyle #200 strips 04/01/21 03/23/22 Rx Lite Strips) metformin 1,000 mg tablet 1,000 mg PO BID #180 tab-caps 04/14/21 03/23/22 Rx glipizide 10 mg tablet 10 mg PO DAILY #90 tabs 05/13/21 03/23/22 Rx empagliflozin 10 mg tablet 20 mg PO QAM #180 tabs 06/17/21 03/23/22 Rx ibuprofen 800 mg tablet 800 mg PO DAILY 10/24/21 03/23/22 History losartan 100 1 tab PO DAILY 10/24/21 03/23/22 History mg-hydrochlorothiazide 25 mg tablet red yeast rice 600 mg capsule 1,200 mg PO BID 10/24/21 03/23/22 History tamsulosin 0.4 mg capsule 0.8 mg PO HS 10/24/21 03/23/22 History diltiazem HCl 240 mg 240 mg PO DAILY #90 caps 11/07/21 03/23/22 Rx capsule,extended release 24 hr Exam Narrative Exam Narrative: General: Very pleasant obese male, A&Ox3, appears mildly dyspneic after just moving Neurological: A&Ox3, no focal deficits Psychiatric: tearful (appropriately) Skin: R foot erythema; nonhealed wound post 2nd digit amputation is dressed, chronic venous stasis BLEs. HEENT: Atraumatic, normocephalic, EOMI, dry MM, clear oropharynx, no submandibular or cervical lymphadenopathy, ?goiter, no JVD. Cardiovascular: RRR,no m/r/g Lungs: crackles R base Gastrointestinal: soft, nontender, nondistended Genitourinary: deferred Extremities: see skin exam; 1 + pedal pulse B. +1 BLE edema. R foot is slightly more swollen than left. Results Imaging Additional studies: CXR: official read pending. Per my read, poor inspiratory effort. Cardiomegaly, suggestion of cephalization/pulmonary vascular congestion. EKG #1: NSR, HR 80, 1st degree AV block, no aucte ischemia EKG #2: HR 148, SVT, inferiolateral ST depressions EKG#3: NSR, 1st degree AV block, HR 76, no acute ischemia Labs 03/23/22 03:15 03/23/22 03:15 Labs: Laboratory Results - last 24 hr 03/23/22 03/23/22 03:15 03:15 WBC 7.31 RBC 5.70 Hgb 16.4 Hct 51.0 H MCV 90 MCH 28.8 MCHC 32.2 RDW 14.5 H Plt Count 177 MPV 9.3 Immature Gran % 0.4 Neutrophils % 70.4 Lymphocytes % 18.7 Monocytes % 9.2 Eosinophils % 0.8 Basophils % 0.5 Nucleated RBC % 0.0 Absolute Neutrophils 5.14 Absolute Lymphocytes 1.37 Absolute Monocytes 0.67 Absolute Eosinophils 0.06 Absolute Basophils 0.04 Sodium 141 Potassium 4.1 Chloride 103 Carbon Dioxide 26.3 Anion Gap 11.7 H BUN 19 H Creatinine 1.0 Est GFR (CKD-EPI 2020) 78.00 Glucose 190 H Calcium 9.5 Magnesium 1.9 Total Bilirubin 0.4 AST 27 ALT 47 Alkaline Phosphatase 88 Troponin I < 50 Total Protein 6.7 Albumin 3.5 Last Vital Signs Temp 36.6 C 03/23/22 03:06 Pulse 67 03/23/22 05:16 Resp 21 03/23/22 05:20 BP 135/65 03/23/22 05:16 Pulse Ox 96 03/23/22 03:06 Time Spent Time spent with Patient: 55-74 minutes Time was spent: preparing to see the patient(eg.review tests), obtaining and/or reviewing separately otained hiistory, ordering medications,tests, procedures, referring, communicating with other health care team coordinator scheduler, indepentently interpreting results, counseling the patient and care coordination
[2022-03-23 06:50] LABS: Troponin I 52 ng/L (<or=60)
--- NOTE | 2022-03-23 06:55 | DI.VRAD_ITS ---
PROCEDURE INFORMATION: Exam: XR Chest Exam date and time: 03/23/2022 4:21 AM Age: 76 years old Clinical indication: Other: Rapid hr TECHNIQUE: Imaging protocol: Radiologic exam of the chest. Views: 2 views. COMPARISON: No relevant prior studies available. FINDINGS: Limitations: The presence of soft tissue density or pannus overlying the right lung base and cardiac silhouette limits evaluation. Lungs: There is incomplete lung expansion and crowding of the vascular markings. There is no evidence of focal pulmonary consolidation. Pleural spaces: No pleural effusion or pneumothorax. Heart/Mediastinum: Normal in size. Bones/joints: No acute fracture is identified. IMPRESSION: 1. Cardiomegaly. 2. No acute findings. 3. Limited examination as above. Dictated and Authenticated by: Cuate Villalobos MD. Ordering:YOHAN Amaral MD
[2022-03-23 07:14] LABS: Lab Add On Test DONE
[2022-03-23 07:21] LABS: Source Nasal/Nares
--- NOTE | 2022-03-23 07:27 | DI.RAD_ITS ---
Exam(s) XR FOOT RT COMPLETE EXAM: XR FOOT RT COMPLETE CLINICAL HISTORY: diabetic foot infection. TECHNIQUE: 2D digital imaging was performed. COMPARISON: No exams were available for comparison FINDINGS: 3 views Hardware noted in both malleoli at level the ankles. Inferior calcaneal spur noted. Distally there is absence of the phalanges of the 2nd toe. No evidence of fracture nor dislocation. No radiographic evidence of osteomyelitis. No osseous lesions nor erosions. No metatarsal fracture s. Lisfranc joint unremarkable. Soft tissue swelling noted dorsally. IMPRESSION: Dorsal soft tissue swelling. Absence phalanges of the 2nd toe. No fractures evident. DATA REPOSITORY: RADIATION DOSE DELIVERED:
[2022-03-23 07:32] LABS: C-Reactive Protein 1.36 mg/dL (0.0-0.3)
[2022-03-23 07:43] LABS: NT-proBNP 318 pg/mL (<300)
[2022-03-23] MEDS: Metoprolol 50 MG TAB PO ×3 (07:44→17:40)
--- NOTE | 2022-03-23 07:49 | DI.VRAD_ITS ---
PROCEDURE INFORMATION: Exam: XR Right Foot Exam date and time: 03/23/2022 7:24 AM Age: 76 years old Clinical indication: Pain; Right; Patient HX: Diabetic foot injection. TECHNIQUE: Imaging protocol: Radiologic exam of the Right foot. Views: 3 or more views. COMPARISON: CR XR KNEE RT 3V AP,LAT,FLAVIA 01/28/2019 8:14 AM FINDINGS: Bones/joints: There is partially visualized orthopedic hardware of the distal tibia and fibula without evidence of complication. There has been disarticulation of the 2nd metatarsophalangeal joint. The reminder of the joints maintain anatomic alignment. There is no acute fracture. There is nonspecific solid periosteal reaction at the base of the proximal 3rd metatarsal bone. Soft tissues: There is soft tissue swelling of the forefoot. No radiopaque foreign body is identified. IMPRESSION: 1. Right foot soft tissue swelling. 2. No evidence of acute fracture, dislocation or bone destruction. 3. 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 4. Mild nonspecific periostitis at the base of the 3rd metatarsal. Dictated and Authenticated by: Cuate Villalobos MD. Ordering:ISELA Canela MD
[2022-03-23 07:53] LABS: COVID-19 PCR Negative (Negative)
[2022-03-23] MEDS: dilTIAZem CD 120 MG CAPCR 240 MG PO (08:10)
[2022-03-23 08:13] LABS: Lab Add On Test DONE; TSH (W/Ref FT4) 1.36 uIU/mL (0.36-3.74)
[2022-03-23 08:44] LABS: Procalcitonin < 0.1 ng/mL
[2022-03-23] MEDS: Omega-3 Fatty Acids 1000 MG CAP 2000 MG PO (09:52)
[2022-03-23] MEDS: metFORMIN 500 MG TAB 1000 MG PO ×2 (09:52→17:41)
[2022-03-23] MEDS: glipiZIDE 10 MG TAB PO (09:53)
[2022-03-23] MEDS: Ibuprofen 800 MG TAB PO (09:53)
[2022-03-23] MEDS: Empaglifozin 10 MG TAB 20 MG PO (09:53)
[2022-03-23] MEDS: Aspirin E.C. 81 MG TABEC PO (09:53)
[2022-03-23] MEDS: Enoxaparin 40 MG/0.4 ML SYR SC (09:53)
[2022-03-23] MEDS: Furosemide 20 MG/2 ML VIAL IVP (09:54)
--- NOTE | 2022-03-23 12:06 | PT.INIE ---
Date of service: 03/23/22 Time of Service: 10:36 PT Notes Visit Reasons: Paroxysmal SVT Physical Therapy Inpatient Initial Evaluation Date: 03/23/2022 Referring Doctor: Rola Dc MD PT Orders: PT CONSULT: Limited ability Precautions: Standard. Activity as tolerated. Patient Profile/Admitting Diagnosis: Sukhjinder is a 76-year-old male who presented to the ED on 03/23/2022 for management of of PSVT, nonhealing wound of right LE, type II DM, essential hypertension, hyperlipidemia, and ISAAC. PMHX: All Active Problems?(Updated 03/23/22 @ 06:44 by Rola Dc MD) Discharge planning issues (Acute) DVT prophylaxis (Acute) Cerumen impaction (Acute) Non-healing wound of right lower extremity (Acute) PSVT (paroxysmal supraventricular tachycardia) (Acute) Inguinal hernia (Acute) Carotid artery stenosis (Acute) Fatty liver (Chronic 08/04/16) Peripheral vascular disease (Chronic) Diabetic neuropathy (Chronic) Right knee pain (Acute) BPH w urinary obs/LUTS (Chronic) Essential hypertension (Chronic) Generalized osteoarthrosis (Chronic) knees; R>L Hyperlipidemia (Chronic) Type IV Morbid obesity (Chronic) Obstructive sleep apnea, adult (Chronic) C-PAP Spondylolisthesis (Chronic) L5-S1 Type 2 diabetes mellitus without complication, without long-term current use of insulin (Chronic 07/04/16) Medical History? Essential hypertension Hyperlipidemia Morbid obesity MRSA infection (09/03/15) ISAAC (obstructive sleep apnea) Tubular adenoma 07/24/14 DR. ALLEN X 3 Umbilical hernia RepairedVenous stasis ulcers of both lower extremities (03/09/16) Surgical History? Amputation of toe of right foot 04/08/20 - Right second toe ([facility]) Appendectomy (~08/1973) Colonoscopy - MAC (~02/2004) neg FX ANKLE 02/2013; [facility] [place] knee repair (~1964) cartilage repair Social History/Home Situation: Lives with a family member in a private home with 6 steps to enter with rails on both sides. recently passed. Independent with all mobility ADL performance using 4 wheeled walker. Still drives. Does his own groceries. Equipment Owned/DME: FWW, 4WW Subjective: Denies headache, lightheadedness throughout session. Denies pain in right LE. Objective: General Observation: Telemetry monitoring in place. In NAD. High BMI. Abdominal panniculus does not limit bed mobility, transfers, and ambulation Mental Status: Alert and oriented as to person, place, time, and purpose. Able to pay attention, focus, and respond appropriately. Pain: Denies Vital Signs: No vital signs abnormality during ambulation activity as monitored via telemetry ROM: Right Upper Extremity: Shoulder Flexion WFL. Shoulder abduction WFL. Elbow flexion WFL. Wrist flexion WFL. Functional opening and closing of hand WFL. Left Upper Extremity: Shoulder Flexion WFL. Shoulder abduction WFL. Elbow flexion WFL. Wrist flexion WFL. Functional opening and closing of hand WFL. Right Lower Extremity: Hip flexion WFL. Hip abduction WFL. Knee flexion WFL. Ankle dorsiflexion WFL. Ankle plantarflexion WFL. Left Lower Extremity: Hip flexion WFL. Hip abduction WFL. Knee flexion WFL. Ankle dorsiflexion WFL. Ankle plantarflexion WFL. Strength: Right Upper Extremity: Shoulder flexors 4/5. Shoulder abductors 4/5. Elbow flexors 5/5. Elbow extensors 5/5. Manager Business Information strong. Left Upper Extremity: Shoulder flexors 4/5. Shoulder abductors 4/5. Elbow flexors 5/5. Elbow extensors 5/5. Manager Business Information strong. Right Lower Extremity: Hip flexors 4/5. Hip abductors 4/5. Knee flexors 5/5. Knee extensors 4/5. Ankle dorsiflexors 5/5. Ankle plantarflexors 5/5. Left Lower Extremity: Hip flexors 4/5. Hip abductors 4/5. Knee flexors 5/5. Knee extensors 4/5. Ankle dorsiflexors 5/5. Ankle plantarflexors 5/5. Bed Mobility/Transfers: Rolling independent Supine to sit independent with HOB at 30 degrees Sit to stand stand by assist with FWW Stand to sit stand by assist with FWW Bed to reclining chair stand by assist with FWW Gait: Instructed patient with level surface ambulation of 150 feet requiring stand by assist. Gait mildly antalgic but no report of pain in R LE. Minimally short of breath. Balance: Static Sitting: Normal Dynamic Sitting: Normal Static Standing: Fair Dynamic Standing: Fair Special Tests: Mobility Limitations Standardized Measure [facility] AM-PAC 6 clicks Basic Mobility Inpatient Short Form: Raw Score: 23 CMS Score: 11% deficit Informed Consent/Education: Patient was instructed in purpose of PT consult and plan of care. Agreeable to proceed with established PT POC to achieve personal goals. Assessment: Sukhjinder is a 76-year-old male who presented to the ED on 03/23/2022 for management of of PSVT, nonhealing wound of right LE, type II DM, essential hypertension, hyperlipidemia, and ISAAC. Patient presents with clinical signs and symptoms consistent with current/admitting diagnoses that have resulted to mobility limitations, gait instability, generalized weakness, and overall ADL decline as demonstrated by the following impairment level findings: 1. Impaired activity tolerance 2. Shortness of breath 3. Non-healing wound in R LE Impairments are contributing to the following functional limitations: 1. Increased completion time for mobility ADL performance 2. Increased risk for falls 3. Difficulty with managing steps alone safely [place] 39590 moderate complexity based on the following: History: 76-year-old male with past medical history as indicated above Examination: Demonstrable impairment in strength, balance, and mobility level with underlying impairments and functional limitations as exhibited above as well as deficit score of 11% utilizing the [facility] Mobility Inpatient Short Form Presentation: Evolving Decision Makin moderate complexity Goals: Goals X1 week 1. Supine-Sit independent 2. Sit-Supine independent 3. Sit-Stand independent 4. Stand-Sit independent with 4WW 5. Bed-Chair independent with 4WW 6. Chair-Bed independent with 4WW 7. Independent gait on level surface with use of 4WW for at least 300 feet without report of pain nor dyspnea 8. Independent stair negotiation while holding onto B rails for at least 6 steps without report of pain nor dyspnea 9. Independent with home exercise program 10. Good static and dynamic standing balance/tolerance Plan of Care/Treatment Plan: 1-2x/day, 7 days/week x 1 week. Plan of care has been reviewed with the NURSING CARE ATTENDANT providing the service under Physical Therapy direction. Initiate Physical Therapy intervention for pain management as needed, strengthening, bed mobility, transfers, gait, stairs, balance training, and use of assistive device. DISCHARGE RECOMMENDATIONS: [] Home with no services [] [X] Home with services. Patient will benefit from home health PT services in order to progress mobility level using least restrictive assistive ambulatory device, assess home safety, identify additional equipment needs, and establish a functional maintenance program that will increase ability of patient to remain at home. [] Home with outpatient PT [] [] SNF for continued rehabilitation [] [] Correction Care [] [] SNF versus LTC based on ability to participate and progress [] TREATMENT CODE/TIME: 93816 x 20 minutes, 47798 x 15 minutes beginning at 10:36 AM. Thank you for the opportunity to participate in the care of this patient. Mine Kauffman PT, DPT, CLT [facility] [place], [place]
[2022-03-23] MEDS: Insulin Aspart 300 UNITS/3 ML PEN SC (12:09)
--- NOTE | 2022-03-23 13:32 | POCOE_ITS ---
Date of service: 03/23/22 Time of Service: 12:30 Assessment and Plan Assessment and plan (1) Venous stasis ulcers of both lower extremities: (2) Type 2 diabetes mellitus without complication, without long-term current use of insulin: Status: Chronic (3) Peripheral vascular disease: Status: Chronic (4) Diabetic neuropathy: Status: Chronic Qualifiers: Diabetes mellitus type: type 2 Diabetes mellitus complication detail: diabetic mononeuropathy Qualified Code(s): E11.41 - Type 2 diabetes mellitus with diabetic mononeuropathy (5) Non-healing wound of right lower extremity: Status: Acute Assessment and plan: The patient was evaluated at bedside for a R foot wound, Type II DM, PAD, managed by [facility], with next appt Sunday. Notes have been requested to determine if any trends exist with labs (CRP history). Xrays are inconclusive with no definitive signs of osteomyelitis. CRP only slightly elevated at 1.36 but CBC not elevated at 7. Recommend continued management at [facility]. Further intervention not indicated at this time. Call with questions, History of Present Illness History of Present Illness Chief Complaint: R foot wound, possible infection Narrative: Sukhjinder Suarez is a 76 year old male with diabetes whom I've been asked to evaluate at bedside today for a R foot wound and possible infection. He reports he is treated at [facility] for the wound, present since the 2nd digital amputation that he underwent nearly a year ago. When asked if the area ever healed up, he reports it had once, but then the skin peals off and it opens up again. When asked about any redness, he reports that the foot and toe is not any more red or swollen than baseline, that he was told his feet are red ordinarily due to his circulation. He denies N/V/NS/F. He denies red streaks. He has been keeping the area covered and his daughter will be bringing in the dressings prescribed by the wound center. He reports his daughter can also bring the notes from the wound center, which are in the car Consults Consult date: 03/23/22 [facility] All Active Problems (Updated 03/23/22 @ 06:44 by Rola Dc MD) Discharge planning issues (Acute) DVT prophylaxis (Acute) Cerumen impaction (Acute) Non-healing wound of right lower extremity (Acute) PSVT (paroxysmal supraventricular tachycardia) (Acute) Inguinal hernia (Acute) Carotid artery stenosis (Acute) Fatty liver (Chronic 08/04/16) Peripheral vascular disease (Chronic) Diabetic neuropathy (Chronic) Right knee pain (Acute) BPH w urinary obs/LUTS (Chronic) Essential hypertension (Chronic) Generalized osteoarthrosis (Chronic) knees; R>L Hyperlipidemia (Chronic) Type IV Morbid obesity (Chronic) Obstructive sleep apnea, adult (Chronic) C-PAP Spondylolisthesis (Chronic) L5-S1 Type 2 diabetes mellitus without complication, without long-term current use of insulin (Chronic 07/04/16) Medical History Essential hypertension Hyperlipidemia Morbid obesity MRSA infection (09/03/15) ISAAC (obstructive sleep apnea) Tubular adenoma 07/24/14 DR. ALLEN X 3 Umbilical hernia Repaired Venous stasis ulcers of both lower extremities (03/09/16) Surgical History Amputation of toe of right foot 04/08/20 - Right second toe ([facility]) Appendectomy (~08/1973) Colonoscopy - MAC (~02/2004) neg FX ANKLE 02/2013; [facility] [place] knee repair (~1964) cartilage repair Family History Mother , age 78 Cancer Father , age 70 Heart disease Cancer Sister Essential hypertension Hyperlipidemia Breast cancer Brother Essential hypertension Skin cancer Brother Diabetes Essential hypertension Heart disease Hyperlipidemia Alcohol abuse Substance abuse Cancer Maternal Grandfather Heart disease Paternal Grandfather No problems noted. Maternal Grandmother Diabetes Essential hypertension Paternal Grandmother Heart disease Son Essential hypertension Heart disease Hyperlipidemia Daughter No problems noted. Daughter No problems noted. Brother , age 69 Diabetes Essential hypertension Hyperlipidemia Social History Smoking/Tobacco Use Status: Never Second Hand Exposure: Yes Smoking risk assessment performed?: Yes Alcohol Intake: never Drug use: Never Substance use type: does not use Household members: spouse Communication Needs: Corrective Lenses Do you need help understanding health information?: Rarely Pets and animals: Yes Pets and animals: cat(s) and dog(s) Do you think of yourself as: straight/heterosexual Current gender identity: male What is your relationship status?: How often do you talk on the phone with friends or family?: twice per week How often do you get together with friends or relatives?: twice per week Do you belong to any clubs or organized social groups?: no Panel score (0-1 are the most socially isolated patients): 2 Mally/Lutheran: Lutheran Special mally needs: No Seatbelt use: sometimes Helmet use: No Drive intox or 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 equipment driver: No Do you feel safe at home: Yes Do you feel safe in your relationship?: Yes Exam Cardio Other: DP/PT 1/4 bilaterally with thin shiny skin, dependent rubor, bilateral LE edema, hyperpigmentary skin changes, and atrophic skin changes Skin Other: partial thickness wound at the proximal lateral aspect of the L hallux, without deep probe, undermining, surrounding erythema, purulence, fluctuance or even significant drainage noted on the dressing (small amount of serosanguinous drainage) Neuro Other: protective sensation absent Extrem Other: Lesser digital deformities noted, reducible, with prominent metatarsal heads plantarly. Decreased ROM of bilateral ankle joints is noted. No other significant musculoskeletal abnormalities noted. No pain to palpation Results Last Vital Signs Temp 97.5 F L 03/23/22 11:26 Pulse 66 03/23/22 11:26 Resp 17 03/23/22 11:26 BP 131/67 03/23/22 11:26 Pulse Ox 92 03/23/22 11:26 Labs 03/23/22 03:15 03/23/22 03:15 Labs: Laboratory Results - last 24 hr 03/23/22 03/23/22 03/23/22 03:15 03:15 06:20 WBC 7.31 RBC 5.70 Hgb 16.4 Hct 51.0 H MCV 90 MCH 28.8 MCHC 32.2 RDW 14.5 H Plt Count 177 MPV 9.3 Immature Gran % 0.4 Neutrophils % 70.4 Lymphocytes % 18.7 Monocytes % 9.2 Eosinophils % 0.8 Basophils % 0.5 Nucleated RBC % 0.0 Absolute Neutrophils 5.14 Absolute Lymphocytes 1.37 Absolute Monocytes 0.67 Absolute Eosinophils 0.06 Absolute Basophils 0.04 Sodium 141 Potassium 4.1 Chloride 103 Carbon Dioxide 26.3 Anion Gap 11.7 H BUN 19 H Creatinine 1.0 Est GFR (CKD-EPI 2020) 78.00 Glucose 190 H Calcium 9.5 Magnesium 1.9 Total Bilirubin 0.4 AST 27 ALT 47 Alkaline Phosphatase 88 Troponin I < 50 52 C-Reactive Protein NT-Pro-B Natriuret Pep Total Protein 6.7 Albumin 3.5 Procalcitonin TSH COVID-19 Source SARS-CoV-2 (PCR) Add-On Test Request 03/23/22 03/23/22 03/23/22 06:20 06:20 06:20 WBC RBC Hgb Hct MCV MCH MCHC RDW Plt Count MPV Immature Gran % Neutrophils % Lymphocytes % Monocytes % Eosinophils % Basophils % Nucleated RBC % Absolute Neutrophils Absolute Lymphocytes Absolute Monocytes Absolute Eosinophils Absolute Basophils Sodium Potassium Chloride Carbon Dioxide Anion Gap BUN Creatinine Est GFR (CKD-EPI 2020) Glucose Calcium Magnesium Total Bilirubin AST ALT Alkaline Phosphatase Troponin I C-Reactive Protein 1.36 H NT-Pro-B Natriuret Pep Total Protein Albumin Procalcitonin TSH COVID-19 Source SARS-CoV-2 (PCR) Add-On Test Request DONE DONE 03/23/22 03/23/22 03/23/22 06:20 06:20 06:20 WBC RBC Hgb Hct MCV MCH MCHC RDW Plt Count MPV Immature Gran % Neutrophils % Lymphocytes % Monocytes % Eosinophils % Basophils % Nucleated RBC % Absolute Neutrophils Absolute Lymphocytes Absolute Monocytes Absolute Eosinophils Absolute Basophils Sodium Potassium Chloride Carbon Dioxide Anion Gap BUN Creatinine Est GFR (CKD-EPI 2020) Glucose Calcium Magnesium Total Bilirubin AST ALT Alkaline Phosphatase Troponin I C-Reactive Protein NT-Pro-B Natriuret Pep 318 H Total Protein Albumin Procalcitonin TSH 1.36 COVID-19 Source SARS-CoV-2 (PCR) Add-On Test Request DONE 03/23/22 03/23/22 06:20 07:16 WBC RBC Hgb Hct MCV MCH MCHC RDW Plt Count MPV Immature Gran % Neutrophils % Lymphocytes % Monocytes % Eosinophils % Basophils % Nucleated RBC % Absolute Neutrophils Absolute Lymphocytes Absolute Monocytes Absolute Eosinophils Absolute Basophils Sodium Potassium Chloride Carbon Dioxide Anion Gap BUN Creatinine Est GFR (CKD-EPI 2020) Glucose Calcium Magnesium Total Bilirubin AST ALT Alkaline Phosphatase Troponin I C-Reactive Protein NT-Pro-B Natriuret Pep Total Protein Albumin Procalcitonin < 0.1 TSH COVID-19 Source Nasal/Nares SARS-CoV-2 (PCR) Negative Add-On Test Request
--- NOTE | 2022-03-23 13:48 | PTTR_ITS ---
Date of service: 03/23/22 Time of Service: 12:49 PT Notes Visit Reasons: Paroxysmal SVT Physical Therapy Inpatient Treatment Note Date: 03/23/2022 Precautions: Standard. Activity as tolerated. Subjective: Denies headache, lightheadedness throughout session.? Denies pain in right LE. Objective: General Observation: Telemetry monitoring in place.? In NAD.? High BMI.? Abdominal panniculus does not limit bed mobility, transfers, and ambulation Mental Status: Alert and oriented as to person, place, time, and purpose. Able to pay attention, focus, and respond appropriately. Pain: Denies Vital Signs: No vital signs abnormality during ambulation activity as monitored via telemetry Bed Mobility/Transfers: Rolling independent Supine to sit independent with HOB at 30 degrees Sit to stand supervision with FWW Stand to sit supervision with FWW Bed to reclining chair supervisionwith FWW Gait: Instructed patient with level surface ambulation of 150 feet requiring stand by assist. Gait mildly antalgic but no report of pain in R LE.? Minimally short of breath. Balance: Static Sitting: Normal Dynamic Sitting: Normal Static Standing: Fair Dynamic Standing: Fair Assessment: Sukhjinder is a 76-year-old male who presented to the ED on 03/23/2022 for management of of PSVT, nonhealing wound of right LE, type II DM, essential hypertension, hyperlipidemia, and ISAAC. Patient presents with clinical signs and symptoms consistent with current/admitting diagnoses that have resulted to mobility limitations, gait instability, generalized weakness, and overall ADL decline as demonstrated by the following impairment level findings: 1.? Impaired activity tolerance 2.? Shortness of breath 3.? Non-healing wound in R LE Impairments are contributing to the following functional limitations: 1.? Increased completion time for mobility ADL performance 2.? Increased risk for falls 3.? Difficulty with managing steps alone safely DISCHARGE RECOMMENDATIONS: [] ? Home with no services [] [X] ? Home with services.? Patient will benefit from home health PT services in order to progress mobility level using least restrictive assistive ambulatory device, assess home safety, identify additional equipment needs, and establish a functional maintenance program that will increase ability of patient to remain at home. [] ? Home with outpatient PT [] [] ? SNF for continued rehabilitation [] [] ? Implementation Analyst Care [] [] ? SNF versus LTC based on ability to participate and progress [] TREATMENT CODE/TIME: 12466 x 14 minutes beginning at 12:49 PM.
[2022-03-23] MEDS: Acetaminophen 325 MG TAB PO (18:21)
[2022-03-23] MEDS: Tamsulosin 0.4 MG CAPCR 0.8 MG PO (21:07)
[2022-03-24] VITALS: PULSE 52
--- NOTE | 2022-03-24 | DI.CT_ITS ---
Exam(s) CT ABDOMEN PELVIS WO EXAM: CT ABDOMEN PELVIS WO CLINICAL HISTORY: UTI, ? obstructive pathology. TECHNIQUE: Imaging Protocol: Axial computed tomography images with coronal and sagittal reformatted images were created and reviewed. Oral: / no COMPARISON: CT CT PELVIC WO from 10/13/2021 FINDINGS: Exam is limited by patient body habitus. ABDOMEN: Lung Bases: Normal where visualized. Liver: Enlarged with severe fatty infiltration. No measurable mass. Gallbladder and biliary tract: Single gallstone visible. No gallbladder wall thickening. No radiode nse biliary dilation. Stomach and small bowel: No dilatation. No wall thickening. Pancreas: Normal density, no abnormal calcifications or inflammatory process. Spleen: Normal. Kidneys: Normal size, contour and axis. No radiodense stones or obstructive uropathy. Right renal cy sts. 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 Lymph nodes: Within normal limits. Abdominal Aorta: Abdominal portion non-dilated. Atherosclerotic changes. Soft tissues: Stable appearance of fatty containing umbilical hernia. Small amount of air seen withi n anterior dominant wall consistent with injection site. PELVIS: Bladder: Symmetric distention, no gross wall thickening. Bowel: No obstruction or bowel wall thickening. Peritoneal cavity: No ascites, collection or mesenteric inflammatory response. Reproductive organs: Within normal limits. Bones: Degenerative changes. Stable appearance of L5 spondylolysis and mild L5-S1 spondylolisthesis. IMPRESSION: No acute abnormality. No evidence of urinary tract calculi, hydronephrosis or bladder wall thickenin g. RADIATION DOSE DELIVERED: 3,601.08mGy.cm Total DLP DATA REPOSITORY: All CT scans at this facility are submitted to the National Radiology Data Registry (NRDR) Dose Index Registry (DIR) with the [employer] (ACR). RADIATION OPTIMIZATION: All CT scans at this facility use at least one of these dose optimization te chniques: automated exposure control; mA and/or kV adjustment per patient size (includes targeted exa ms where dose is matched to clinical indication); or iterative reconstruction.
[2022-03-24 03:10] VITALS: BP 100/50; PULSE 63; RESP 18; TEMP 36.7; O2SAT 97
[2022-03-24 06:29] LABS: Abs Immature Grans 0.02 10^3/uL (0.0-0.06); Absolute Basophil Count 0.06 10^3/uL (0.0-0.2); Absolute Eosinophil Count 0.08 10^3/uL (0.0-0.7); Absolute Lymphocyte Count 1.66 10^3/uL (1.2-3.4); Absolute Neutrophil Count 3.85 10^3/uL (1.2-6.7); Eosinophils % 1.3; HCT 48.9 % (40.0-50.0); HGB 15.8 g/dL (13.5-17.5); Immature Grans % 0.3; Lymphocytes % 26.9; MCH 28.8 pg (27.0-33.0); MCHC 32.3 % (32.0-36.0); MCV 89 fL (80-95); MPV 9.5 fL (8.0-11.0); Monocytes % 8.1; Neutrophils % 62.4; Platelet Count 175 10^3/uL (130-400); RBC 5.49 10^6/uL (4.36-5.78); RDW 14.7 % (11.8-14.1); RDW-SD 48.4 fL; WBC 6.17 10^3/uL (4.4-10.8)
--- NOTE | 2022-03-24 06:38 | NUR.NOTE ---
Nursing Note: 05:20 AM Patient converted from sinus sue to afib. ICU Tah CURRY confirmed hes afib.Held metoprolol 50 mg due for 06:00 03/24/22 due to patient's Heart rate dips to low 50's even though current reading is on high 60's to high 80's. ICU nurses advised to hold the metoprolol. Charge Nurse is aware and agreed to hold the metoprolol.
[2022-03-24 06:43] LABS: BUN 19 mg/dL (7-18); CREATININE 0.8 mg/dL (0.70-1.30); Calcium 9.3 mg/dL (8.5-10.1); Chloride 104 mmol/L (98-107); Estimated GFR 91.72 (mL/min/1.73m2); Glucose 148 mg/dL (74-106); Magnesium 1.8 mg/dL (1.8-2.4); Potassium 4.1 mmol/L (3.5-5.1); Sodium 140 mmol/L (136-145)
[2022-03-24 07:00] VITALS: PULSE 70
[2022-03-24 07:50] VITALS: BP 153/72; PULSE 67; RESP 16; TEMP 36.1; O2SAT 94
[2022-03-24] MEDS: glipiZIDE 10 MG TAB PO (08:32)
[2022-03-24] MEDS: Omega-3 Fatty Acids 1000 MG CAP 2000 MG PO (08:33)
[2022-03-24] MEDS: Insulin Aspart 300 UNITS/3 ML PEN SC (08:33)
[2022-03-24] MEDS: Ibuprofen 800 MG TAB PO (08:33)
[2022-03-24] MEDS: metFORMIN 500 MG TAB 1000 MG PO (08:33)
[2022-03-24] MEDS: Empaglifozin 10 MG TAB 20 MG PO (08:33)
[2022-03-24] MEDS: Aspirin E.C. 81 MG TABEC PO (08:33)
[2022-03-24 08:51] LABS: Bilirubin Negative (Negative); Blood Trace-intact (Negative); Clarity Cloudy (Clear); Glucose 500 mg/dL (Negative); Ketones 15 mg/dL (Negative); Leukocyte Esterase Trace (Negative); Nitrite Positive (Negative)
[2022-03-24 09:02] LABS: Bacteria Moderate HPF (Negative); C & S Indicated? Yes; Casts Negative LPF (Negative); Crystals Negative HPF (Negative); Epithelial Cells Rare HPF (Negative); Mucus Negative (Negative); RBC 0-2 HPF (0-2); WBC 20-50 HPF (0-5)
[2022-03-24] MEDS: Enoxaparin 40 MG/0.4 ML SYR SC (09:47)
[2022-03-24] MEDS: Normal Saline Flush 10 ML SYR IVP (11:49)
[2022-03-24] MEDS: Normal Saline 500 ML 30 ML IV (11:49)
[2022-03-24] MEDS: cefTRIAXone 1 GM/50 ML BAG IVPB (11:50)
--- NOTE | 2022-03-24 12:07 | W.PM.DS.N ---
Date of service: 03/24/22 Time of Service: 12:07 DS: Diagnosis Discharge Diagnosis (1) Venous stasis ulcers of both lower extremities: (2) Type 2 diabetes mellitus without complication, without long-term current use of insulin: Status: Chronic (3) Peripheral vascular disease: Status: Chronic (4) Diabetic neuropathy: Status: Chronic (5) Non-healing wound of right lower extremity: Status: Acute Discharge Plan Disposition Patient Disposition: Home Condition: Stable Discharge Details Reason For Visit: Paroxysmal SVT Admit Date/Time: 03/23/22 06:22 Admit Provider: Rola Dc Attending Provider: Rola Dc Primary Care Provider: Arsh Holland Hospital Course Hospital Course: Mr Suarez is a 76 year old male with history of paroxysmal SVT, NIDDM2, HTN, Hyperlipidemia, ISAAC on CPAP, who was brought to [facility] ED by ambulance for SVT. Mr Suarez just recently lost his and has not been feeling well. When EMS arrived to his house, he was found to be in SVT, but converted spontaneously to NSR when an IV was being placed into him. On arrival to the ER, he was feeling better and was in NSR, but then went back into SVT when rolling over. He was given adenosine 6 mg followed by 12 mg with conversion to NSR. Clinically, he was felt to be dehydrated and received a 250 cc bolus of LR. otherwise work up unremarkable. He was placed on observation on hospitalist service while medications are being adjusted. The patient is being given his home cardizem CD 240 mg and, rather than the long acting toprol XL 100 mg, is being converted to an effectively increased dose of metoprolol tartrate 50 mg PO Q6H. This was reduced back to his home dose for some bradycardia into the 30's. His delta troponin negative with no acute st segment changes. The patient states that he has had no palpitations, chest pain, dizziness, nausea. He does endorse RUE pain which lasted for a couple of hours last night but resolved on its own. He is not sure that it was associated with the heart rate. Also noted that his chronically non-healing wound on RLE is being followed by [facility] and that his right foot is generally a little bit darker than the right. He was seen by podiatry and thought not be experiencing an acute infection, advised to follow up with wound care as previously arranged. no change in current treatment added. he was also c/o dysuria and UA concerning for UTI. he was given ceftriaxone 1 gm IVPB and will be discharged on 7 days of cefpodoxime while cultures pending. he is being discharged with no new services and will f/u with pcp or return sooner for concerns. discussed with DR Bailey [place] Meds and New Rx's Prescriptions: New cefpodoxime 200 mg tablet 200 mg PO BID Qty: 14 0RF Rx Instructions: must administer with a meal/food Continued diltiazem HCl 240 mg capsule,extended release 24hr 240 mg PO DAILY Qty: 90 3RF empagliflozin 10 mg tablet 20 mg PO QAM Qty: 180 4RF aspirin [Aspir-81] 81 MG tablet,delayed release (DR/EC) 81 mg PO DAILY Qty: 90 (DME) blood-glucose meter [FreeStyle Lite Meter] 1 EACH kit 1 ea Miscellaneous BID Qty: 1 (DME) lancets [FreeStyle Lancets] 28 gauge misc 1 ea Miscellaneous BID Qty: 200 5RF Rx Instructions: One BID metoprolol succinate 100 mg tablet extended release 24 hr 100 mg PO DAILY Qty: 90 4RF (DME) FreeStyle Lite Strips Strip 1 ea Miscellaneous BID Qty: 200 4RF Rx Instructions: 1 twice a day metformin 1,000 mg tablet 1,000 mg PO BID Qty: 180 4RF glipizide 10 mg tablet 10 mg PO DAILY Qty: 90 4RF Fish Oil 1 EACH capsule 2,000 mg PO DAILY ibuprofen 800 mg tablet 800 mg PO DAILY Rx Instructions: Take 1 tablet by mouth daily losartan-hydrochlorothiazide 100-25 mg tablet 1 tab PO DAILY Rx Instructions: Take 1 tablet by mouth daily tamsulosin 0.4 mg capsule 0.8 mg PO HS red yeast rice 600 mg capsule 1,200 mg PO BID Rx Instructions: give with meal/snack Discharge Instructions Instructions: Supraventricular Tachycardia (DC), Urinary Tract Infection in Men (DC) Stand Alone Forms: Nursing Discharge Form Referrals: Arsh Holland NP [Primary Care Provider] - 03/31/22 11:20 am Activity:: Activity as Tolerated Equipment/Supplies:: No Equipment Needed Diet:: As Tolerated Discharge Orders Discharge Orders: Discharge Order (Routine); Ordered 03/24/22 Ordered By: Ashley Garcia Discharge Data Discharge Date/Time-TO BE ENTERED AT DEPARTURE: 03/24/22 14:24 DS: Summary Time Spent with Patient providing and/or coordinating discharge services: Less than 30 minutes Status at Discharge Functional status at discharge: independent ambulation Overall status at discharge: patient is progressing back to baseline Mental Status: mental status grossly normal Speech and Movement: speech and movement normal Mood: congruent mood Affect: normal affect Exam Const General: cooperative, healthy appearing and comfortable Nutritional Appearance: obese Orientation: alert HENMT Head: normal to inspection, normocephalic and atraumatic Mouth: oral mucosae normal Chest Chest: normal inspection of the chest Resp Effort & Inspection: normal respiratory effort Auscultation: clear to auscultation bilaterally Cardio Rate: regular rate Rhythm: regular rhythm GI Inspection: obesity Palpation: soft Auscultation: normal bowel sounds Skin General skin exam: no rashes or lesions noted Neuro General: patient alert, patient awake, patient oriented x3 and no focal motor deficits Cognition: normal cognition Speech: speech normal Gait: normal gait Motor: muscle tone normal throughout Extrem General: normal to inspection and full ROM Psych Mental Status: mental status grossly normal Speech and Movement: speech and movement normal Mood: congruent mood Affect: normal affect DS: Data Vitals/I&O Vitals and I&O: Vital Signs Temperature 36.1 C L 03/24/22 07:50 Temperature Source Tympanic 03/24/22 07:50 Pulse 67 03/24/22 07:50 Pulse Rhythm Regular 03/24/22 07:45 Pulse 70 03/23/22 08:10 Respiratory Rate 16 03/24/22 07:50 Respiratory Effort Normal, Non-Labored, Short of Breath 03/24/22 07:45 Respiratory Depth Normal 03/24/22 07:45 Respiratory Pattern Normal 03/24/22 07:45 Blood Pressure 153/72 H 03/24/22 07:50 Blood Pressure Mean 68 03/23/22 08:01 Blood Pressure Position Sitting 03/23/22 03:06 Pulse Oximetry 94 03/24/22 07:50 Oxygen Delivery Method Room Air 03/24/22 07:50 Oxygen Flow Rate 0 03/24/22 07:50 Fraction of Inspired Oxygen (FIO2) 21 03/24/22 10:25 Pain Level 0 03/24/22 07:50 Intake & Output 03/23/22 03/24/22 03/24/22 23:59 11:59 23:59 Intake Total 340 / 590 Output Total 200 / 500 600 / 600 Balance 140 / 90 -600 / -600 Weight 169.9 kg Intake: Oral 340 / 340 Output: Urine 200 / 500 600 / 600 Other: Urine Color Yellow Yellow Urine Appearance Clear Clear Urine Odor Normal None Voiding Methods Urinal Urinal Data Completed and Pending Labs on day of discharge: Labs from last 24 hours 03/24/22 03/24/22 03/24/22 05:55 05:55 05:15 WBC 6.17 RBC 5.49 Hgb 15.8 Hct 48.9 MCV 89 MCH 28.8 MCHC 32.3 RDW 14.7 H Plt Count 175 MPV 9.5 Immature Gran % 0.3 Neutrophils % 62.4 Lymphocytes % 26.9 Monocytes % 8.1 Eosinophils % 1.3 Basophils % 1.0 Nucleated RBC % 0.0 Absolute Neutrophils 3.85 Absolute Lymphocytes 1.66 Absolute Monocytes 0.50 Absolute Eosinophils 0.08 Absolute Basophils 0.06 Sodium 140 Potassium 4.1 Chloride 104 Carbon Dioxide 26.0 Anion Gap 10.0 BUN 19 H Creatinine 0.8 Est GFR (CKD-EPI 2020) 91.72 Glucose 148 H Calcium 9.3 Magnesium 1.8 Urine Color Yellow Urine Clarity Cloudy Urine pH 7.0 Ur Specific [place] 1.020 Urine Protein Negative Urine Ketones 15 H Urine Blood Trace-intact H Urine Nitrite Positive H Urine Bilirubin Negative Urine Urobilinogen 1.0 H Ur Leukocyte Esterase Trace H Urine RBC 0-2 Urine WBC 20-50 H Ur Epithelial Cells Rare Urine Crystals Negative Urine Bacteria Moderate Urine Casts Negative Urine Mucus Negative Ur Culture Indicated? Yes Urine Glucose 500 H 03/24/22 05:15 Urine - Reflex from Urine Culture - Pending Preliminary micro results at discharge 03/24/22 05:15 Urine Culture - Pending Urine - Reflex from [facility] All Active Problems (Updated 03/23/22 @ 06:44 by Rola Dc MD) Discharge planning issues (Acute) DVT prophylaxis (Acute) Cerumen impaction (Acute) Non-healing wound of right lower extremity (Acute) PSVT (paroxysmal supraventricular tachycardia) (Acute) Inguinal hernia (Acute) Carotid artery stenosis (Acute) Fatty liver (Chronic 08/04/16) Peripheral vascular disease (Chronic) Diabetic neuropathy (Chronic) Right knee pain (Acute) BPH w urinary obs/LUTS (Chronic) Essential hypertension (Chronic) Generalized osteoarthrosis (Chronic) knees; R>L Hyperlipidemia (Chronic) Type IV Morbid obesity (Chronic) Obstructive sleep apnea, adult (Chronic) C-PAP Spondylolisthesis (Chronic) L5-S1 Type 2 diabetes mellitus without complication, without long-term current use of insulin (Chronic 07/04/16) Medical History Essential hypertension Hyperlipidemia Morbid obesity MRSA infection (09/03/15) ISAAC (obstructive sleep apnea) Tubular adenoma 07/24/14 DR. ALLEN X 3 Umbilical hernia Repaired Venous stasis ulcers of both lower extremities (03/09/16) Surgical History Amputation of toe of right foot 04/08/20 - Right second toe ([facility]) Appendectomy (~08/1973) Colonoscopy - MAC (~02/2004) neg FX ANKLE 02/2013; [facility] [place] knee repair (~1964) cartilage repair Family History Mother , age 78 Cancer Father , age 70 Heart disease Cancer Sister Essential hypertension Hyperlipidemia Breast cancer Brother Essential hypertension Skin cancer Brother Diabetes Essential hypertension Heart disease Hyperlipidemia Alcohol abuse Substance abuse Cancer Maternal Grandfather Heart disease Paternal Grandfather No problems noted. Maternal Grandmother Diabetes Essential hypertension Paternal Grandmother Heart disease Son Essential hypertension Heart disease Hyperlipidemia Daughter No problems noted. Daughter No problems noted. Brother , age 69 Diabetes Essential hypertension Hyperlipidemia Social History Smoking/Tobacco Use Status: Never Second Hand Exposure: Yes Smoking risk assessment performed?: Yes Alcohol Intake: never Drug use: Never Substance use type: does not use Household members: spouse Communication Needs: Corrective Lenses Do you need help understanding health information?: Rarely Pets and animals: Yes Pets and animals: cat(s) and dog(s) Do you think of yourself as: straight/heterosexual Current gender identity: male What is your relationship status?: How often do you talk on the phone with friends or family?: twice per week How often do you get together with friends or relatives?: twice per week Do you belong to any clubs or organized social groups?: no Panel score (0-1 are the most socially isolated patients): 2 Mally/Alevism: Hinduism Special mally needs: No Seatbelt use: sometimes Helmet use: No Drive intox or 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
--- NOTE | 2022-03-24 12:08 | CHAPLAIN ---
Sukhjinder was sitting at the edge of his bed working on a word find when I visited. He was teary at times when we spoke about his Wendi, an [facility] [facility] nurse of 50 years) who recently. Her is tomorrow. We talked about how grief is wearing emotionally and physically. They were 53 years. Sukhjinder told me how they met. They both few up in [place] and knew each other when they were younger. 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 We talked about grief and loss and how much a person's world changes when their spouse dies. Sukhjinder is supported by his children and grandchildren. He recently had a new greatgrandson.
[2022-03-24 12:10] VITALS: BP 158/79; PULSE 67; RESP 16; TEMP 36.7; O2SAT 98
--- NOTE | 2022-03-24 13:03 | PT.INTREAT ---
PT Notes Visit Reasons: Paroxysmal SVT Precuation: Activity as tolerated SUBJECTIVE: ?pt sitting at the EOB working on word puzzles, pt looking froward to going home this afternoon.? OBJECTIVE: ? PAIN: No c/o pain ? BED MOBILITY/TRANSFERS? Sit-stand: S? Stand-sit: S ? GAIT? Assistive Device: FWW? Weight bearing: Full Assist: SBA ? Distance:? 300' ? Deviation: Cueing for increased step length, slow pacing ? STAIRS: Up/down 3x4 and 2x6 using B rails and a step-to pattern with SBA ? ASSESSMENT:? Patient tolerated session well without complaint.? She requires seated rests with gait training due to limited activity tolerance. PLAN: Continue with global strengthening and general conditioning for improved mobility and activity tolerance. TREATMENT CODE/TIME: ?30minutes;? [id number] (8:35-9:05am)
[2022-03-24 13:26] VITALS: PULSE 96
== END 2022-03-24 14:24 | disposition home or self-care (01) ==
LOC: ER 07:14 → MS 08:40
PROVIDERS: Internal Medicine; Admitting Provider Internal Medicine; Emergency Provider Emergency Medicine; PCP Nurse Practitioner Family; Visit Provider Internal Medicine
DX: I47.1 Supraventricular tachycardia (principal); T81.89XA Other complications of procedures, not elsewhere classified, initial encounter; E11.41 Type 2 diabetes mellitus with diabetic mononeuropathy; E86.0 Dehydration; R06.02 Shortness of breath; R53.1 Weakness; I65.29 Occlusion and stenosis of unspecified carotid artery; K76.0 Fatty (change of) liver, not elsewhere classified; I73.9 Peripheral vascular disease, unspecified; N40.1 Benign prostatic hyperplasia with lower urinary tract symptoms; I10 Essential (primary) hypertension; Z79.899 Other long term (current) drug therapy; M15.9 Polyosteoarthritis, unspecified; Z79.84 Long term (current) use of oral hypoglycemic drugs; E78.5 Hyperlipidemia, unspecified; E66.01 Morbid (severe) obesity due to excess calories; Z68.43 Body mass index [BMI] 50.0-59.9, adult; G47.33 Obstructive sleep apnea (adult) (pediatric); L97.829 Non-pressure chronic ulcer of other part of left lower leg with unspecified severity; L97.819 Non-pressure chronic ulcer of other part of right lower leg with unspecified severity; Z89.421 Acquired absence of other right toe(s); I44.0 Atrioventricular block, first degree
CPT/HCPCS: 36416; 80048; 80053; 82962; 84145; 87077; 87635; 93005; 96361; 96365; 96372; 96374; 96375; 97162; 97530; 99285; J1650; 71046; 73630; 74176; 81003; 81015; 83735; 83880; 84443; 84484; 85025; 86140; 87086; 87186; 93010; 93306; 99223; 99238; G0378; J0153; J0696; J1941

== ENCOUNTER 2022-03-26 00:35 | Inpatient (IN) | payer OTHER, SELFPAY ==
[2022-03-26] VITALS (69 sets, daily range): BP systolic 82–135; BP diastolic 31–76; PULSE 54–155; RESP 12–28; TEMP 36.2–36.8; O2SAT 90–98
--- NOTE | 2022-03-26 00:30 | RT.EKG_ITS ---
APPROVED REPORT Exam: Resting ECG Reason for Exam: SVT Patient Location: E HR:148 bpm ECG Measurements Heart Rate 148 AXIS RI 72 P 0 QRSd 99 QRS -43 QT 307 T 50 QTc 483 Conclusion Supraventricular tachycardia...V-rate>(220-age), QRSd<120 Paired ventricular premature complexes...sequence of 2 V complexes Left axis deviation...QRS axis (-30,-90) SVT. PVCs. Diffuse 1mm ST depression. No STEMI. I have reviewed and interpreted ECG and agree with software generated interpretation.
[2022-03-26] MEDS: Adenosine 6 MG/2 ML VIAL IVP (00:55)
[2022-03-26] MEDS: Normal Saline 1,000 ML 1000 ML IV (00:55)
[2022-03-26] MEDS: Adenosine 6 MG/2 ML VIAL 12 MG IVP ×2 (00:57→01:00)
--- NOTE | 2022-03-26 01:00 | RT.EKG_ITS ---
APPROVED REPORT Exam: Resting ECG Reason for Exam: chest tightness Patient Location: E HR:135 bpm ECG Measurements Heart Rate 135 AXIS NV [id number] P [id number] QRSd 102 QRS -21 QT 335 T 53 QTc 503 Conclusion Junctional tachycardia...absent P waves, rapid V-rate Prolonged QT interval...QTc >500mS. Junctional. 1mm ST depression in lead II, V3-6. No STEMI. I have reviewed and interpreted ECG and agree with software generated interpretation.
[2022-03-26] MEDS: Verapamil 5 MG/2 ML VIAL IVP ×2 (01:05→02:00)
--- NOTE | 2022-03-26 01:07 | W.ED.GENAD ---
Discharge Plan Disposition Patient Disposition: Admit to [facility] Discharge Details Clinical Impression: SVT (supraventricular tachycardia), Chest pain, Grief Admit Date/Time: 03/26/22 02:14 Admit Provider: David Torres Attending Provider: David Torres Primary Care Provider: Arsh Holland ED Provider: Rin Olmedo Discharge Data Discharge Date/Time-TO BE ENTERED AT DEPARTURE: 03/26/22 03:45 Medical Decision Making 0045 -- 76-year-old male with a history of morbid obesity, hypertension, hyperlipidemia, obstructive sleep apnea, diabetes, chronic venous stasis of lower extremities, peripheral vascular disease who was admitted here recently for SVT presents for feeling generalized weakness, chest tightness, shortness of breath and lightheadedness today. EKG on arrival notes a rate of 148, SVT with diffuse ST depression but no STEMI. His blood pressure on arrival is soft at 101/38. His oxygen saturation in the low to mid 90s on room air. Patient is morbidly obese, alert and oriented x3. He has chronic venous stasis in his lower extremities. Attempted modified Valsalva x3 without any response. Patient was given 3 doses of adenosine, 6 mg, 12 mg then 12 mg without any effect. His blood pressure became as low as 88/63 after these medications but with fluid bolus. He was then given 5 mg of verapamil with slight improvement of heart rate to 135 and junctional rhythm. May need cardioversion. Blood pressure 99/61. We will consult [facility] cardiology. 0145 --patient's heart rate remains 130s and now inching up to 140 again. His blood pressure has become more hypotensive, now 86/59. He is still mentating well and answering questions appropriately. He states his symptoms are overall improved. Still have not heard back from [facility] cardiology. We will call in respiratory for potential cardioversion. IV Fentanyl and Versed ordered. Will attempt another dose of IV verapamil to see if improvement while awaiting respiratory arrival. 0200 --within minutes of second dose of 5 mg verapamil IV, patient converted to sinus rhythm, heart rate 70s. Blood pressure significantly improved now 124/60. Patient feels better at this time, no acute complaints. Still awaiting callback from cardiology. Case discussed with hospitalist who accepts patient for admission. 0230 -- Case discussed with [facility] cardiology: -- initially he did not recommend any changes to his medications and states he can continue on his regular regimen. He had been previously seen by [facility] electrophysiology in January for SVT and they had discussed ablation but states his risks outweigh his benefits secondary to his multiple comorbidities -- Recommend follow-up with [facility] electrophysiology and Zio patch upon discharge. -- I discussed recommendations if patient converts back to SVT or family concerned about another episode --can increase his Cardizem to 360 mg daily as this is more of an antiarrhythmic. Can also consider increase in his metoprolol to [address] Torres informed of [facility] cardiology recommendations. We will plan to increase his Cardizem and spread the dose throughout the day. Cardizem 90 mg every 6 hours p.o. ordered. Medical Records Medical records reviewed: Yes I reviewed the patient's medical records. Imaging Data Radiologic Study: Radiologist's impression: XR Chest Exam date and time: 03/26/2022 1:28 AM Age: 76 years old Clinical indication: Other: Chest tightness, R/O acute disease TECHNIQUE: Imaging protocol: Radiologic exam of the chest. Views: 1 view. COMPARISON: CR XR CHEST 2V PA LATERAL 03/23/2022 4:21 AM FINDINGS: Lungs: Clear lungs. No infiltrates or edema. Pleural spaces: No pleural effusion. Heart/Mediastinum: Moderate cardiac enlargement. No acute features. Bones/joints: Unremarkable. IMPRESSION: 1. No infiltrates or edema. 2. No pleural effusion. 3. Moderate cardiac enlargement. No acute features. Lab Data Lab results reviewed: Yes I reviewed the patient's lab results. Labs: Laboratory Tests Range/Units 03/26/22 03/26/22 03/26/22 00:48 00:48 02:13 WBC (4.4-10.8) 10^3/uL 9.27 RBC (4.36-5.78) 10^6/uL 5.95 H Hgb (13.5-17.5) g/dL 17.3 Hct (40.0-50.0) % 52.6 H MCV (80-95) fL 88 MCH (27.0-33.0) pg 29.1 MCHC (32.0-36.0) % 32.9 RDW (11.8-14.1) % 14.5 H Plt Count (130-400) 10^3/uL 203 MPV (8.0-11.0) fL 9.9 Immature Gran % 0.3 Neutrophils % 63.5 Lymphocytes % 25.4 Monocytes % 9.4 Eosinophils % 0.9 Basophils % 0.5 Nucleated RBC % (0.0-0.3) % 0.0 Absolute Neutrophils (1.2-6.7) 10^3/uL 5.89 Absolute Lymphocytes (1.2-3.4) 10^3/uL 2.35 Absolute Monocytes (0.1-0.8) 10^3/uL 0.87 H Absolute Eosinophils (0.0-0.7) 10^3/uL 0.08 Absolute Basophils (0.0-0.2) 10^3/uL 0.05 Sodium (136-145) mmol/L 140 Potassium (3.5-5.1) mmol/L 4.1 Chloride (98-107) mmol/L 103 Carbon Dioxide (21.0-32.0) mmol/L 25.8 Anion Gap (3-11) mmol/L 11.2 H BUN (7-18) mg/dL 18 Creatinine (0.70-1.30) mg/dL 1.1 Est GFR (CKD-EPI 2020) (mL/min/1.73m2) 69.57 Glucose (74-106) mg/dL 188 H Calcium (8.5-10.1) mg/dL 9.4 Magnesium (1.8-2.4) mg/dL 1.9 Total Bilirubin (0.2-1.0) mg/dL 0.5 AST (15-37) U/L 47 H ALT (16-63) U/L 64 H Alkaline Phosphatase (46-116) U/L 83 Troponin I (<or=60) ng/L 51 Total Protein (6.4-8.2) g/dL 7.2 Albumin (3.4-5.0) g/dL 3.7 COVID-19 Source Nasal/Nares SARS-CoV-2 (PCR) (Negative) Negative ECG Data Attestation: I personally reviewed and interpreted this ECG (s) as follows: Interpretation: #1 -- rate of 148, svt, pvcs, diffuse 1mm st depression, no stemi. #2 -- rate of 135, junctional, diffuse 1mm st depression, no stemi. #3 -- rate of 76, sinus, no ST depression or elevation. HPI General Mode of arrival: wheelchair. Date/Time Provider Initiated Documentation: 03/26/22 00:38. Limitations to Documentation: physical limitation. Information obtained by: patient and family. HPI Narrative: Pt is a 76 yo M w/ a h/o morbid obesity, hypertension, hyperlipidemia, diabetes, obstructive sleep apnea, venous stasis b/l lower extremities who presents to the ED w/ a c/o generalized weakness, chest tightness, shortness of breath and lightheadedness today. Pt denies any fever, cough, abdominal pain, nausea or vomiting. Pt was admitted here a few days ago for paroxysmal SVT and continued on his home Cardizem dose at 240 mg once daily and metoprolol 100 mg once daily. The discharge summary had mentioned changing metoprolol to 50 mg every 6 but this was changed to continue on his normal home dose. Patient states he did take both these medications yesterday morning. Patient's recently and per his daughter he has been feeling very sad and it was thought that his grief has been contributing to his symptoms and SVT. Patient has not been sleeping or eating well. He was also diagnosed with possible dehydration and a UTI on this recent admission and started on cefpodoxime which she has been taking. Related Data Home Medications Medication Instructions Recorded Confirmed omega-3 fatty acids-fish oil 340 2,000 mg PO DAILY 01/17/13 03/26/22 mg-1,000 mg capsule (Fish Oil) aspirin 81 mg tablet,delayed 81 mg PO DAILY #90 tab-caps 03/12/15 03/26/22 release (Aspir-) blood-glucose meter (FreeStyle ##1 07/05/16 03/26/22 Lite Meter kit) lancets 28 gauge (FreeStyle #200 ea 01/02/20 03/26/22 Lancets) blood sugar diagnostic (FreeStyle #200 strips 04/01/21 03/26/22 Lite Strips) metformin 1,000 mg tablet 1,000 mg PO BID #180 tab-caps 04/14/21 03/26/22 glipizide 10 mg tablet 10 mg PO DAILY #90 tabs 05/13/21 03/26/22 empagliflozin 10 mg tablet 20 mg PO QAM #180 tabs 06/17/21 03/26/22 ibuprofen 800 mg tablet 800 mg PO DAILY 10/24/21 03/26/22 losartan 100 1 tab PO DAILY 10/24/21 03/26/22 mg-hydrochlorothiazide 25 mg tablet red yeast rice 600 mg capsule 1,200 mg PO BID 10/24/21 03/26/22 tamsulosin 0.4 mg capsule 0.8 mg PO HS 10/24/21 03/26/22 cefpodoxime 200 mg tablet 200 mg PO BID #14 tabs 03/24/22 03/26/22 citalopram 10 mg tablet 10 mg PO DAILY #30 tabs 03/28/22 diltiazem HCl 180 mg 180 mg PO QPM #30 caps 03/28/22 capsule,extended release 24 hr metoprolol succinate 100 mg 100 mg PO 0430 #90 tab-caps 03/28/22 03/26/22 tablet,extended release 24 hr polyethylene glycol 3350 17 gram 17 g PO DAILY PRN PRN Constipation 03/28/22 oral powder packet #0 ea Previous Rx's Medication Instructions Recorded lancets 28 gauge (FreeStyle #200 ea 01/02/20 Lancets) blood sugar diagnostic (FreeStyle #200 strips 04/01/21 Lite Strips) metformin 1,000 mg tablet 1,000 mg PO BID #180 tab-caps 04/14/21 glipizide 10 mg tablet 10 mg PO DAILY #90 tabs 05/13/21 empagliflozin 10 mg tablet 20 mg PO QAM #180 tabs 06/17/21 cefpodoxime 200 mg tablet 200 mg PO BID #14 tabs 03/24/22 citalopram 10 mg tablet 10 mg PO DAILY #30 tabs 03/28/22 diltiazem HCl 180 mg 180 mg PO QPM #30 caps 03/28/22 capsule,extended release 24 hr metoprolol succinate 100 mg 100 mg PO 0430 #90 tab-caps 03/28/22 tablet,extended release 24 hr polyethylene glycol 3350 17 gram 17 g PO DAILY PRN PRN Constipation 03/28/22 oral powder packet #0 ea Allergies Allergy/AdvReac Type Severity Reaction Status Date / Time atorvastatin calcium AdvReac INTOLERANCE Verified 03/26/22 00:44 [From Lipitor] General Stated Complaint: GenMedical JOSE: 2 Review of Systems All systems reviewed & are unremarkable except as noted in HPI and below Constitutional Constitutional: Reports as per HPI, Denies chills, Denies fever(s) and Reports weakness Eyes Eyes: Denies blurry vision ENT Ears, Nose, Mouth, and Throat: Reports dizziness, Denies sore throat and Denies throat swelling Cardiovascular Cardiovascular: Reports chest pain (chest tightness) and Reports dyspnea Respiratory Respiratory: Denies cough and Reports dyspnea Gastrointestinal Gastrointestinal: Denies abdominal pain, Denies diarrhea and Denies vomiting Genitourinary Genitourinary: Denies hematuria and Denies dysuria Musculoskeletal Musculoskeletal: Denies back pain and Denies numbness Integumentary/Breasts Skin/Breast: Denies lesions and Denies rash Neurologic Neurologic: Reports dizziness, Denies localized weakness, Denies numbness and Reports weakness Allergic/Immunologic Allergic/Immunologic: Denies throat swelling PFSH All Active Problems (Updated 03/29/22 @ 00:05 by EVELIN RIDDLE) SVT (supraventricular tachycardia) (Chronic) Grief (Chronic) Cerumen impaction (Acute) Non-healing wound of right lower extremity (Acute) PSVT (paroxysmal supraventricular tachycardia) (Acute) Inguinal hernia (Acute) Carotid artery stenosis (Acute) Fatty liver (Chronic 08/04/16) Peripheral vascular disease (Chronic) Diabetic neuropathy (Chronic) Right knee pain (Acute) BPH w urinary obs/LUTS (Chronic) Essential hypertension (Chronic) Generalized osteoarthrosis (Chronic) knees; R>L Hyperlipidemia (Chronic) Type IV Morbid obesity (Chronic) Obstructive sleep apnea, adult (Chronic) C-PAP Spondylolisthesis (Chronic) L5-S1 Type 2 diabetes mellitus without complication, without long-term current use of insulin (Chronic 07/04/16) Medical History Essential hypertension Hyperlipidemia Morbid obesity MRSA infection (09/03/15) ISAAC (obstructive sleep apnea) Tubular adenoma 07/24/14 DR. ALLEN X 3 Umbilical hernia Repaired Venous stasis ulcers of both lower extremities (03/09/16) Surgical History Amputation of toe of right foot 04/08/20 - Right second toe ([facility]) Appendectomy (~08/1973) Colonoscopy - MAC (~02/2004) neg FX ANK[place] 02/2013[place] [facility] [place] repair (~1964) cartilage repair Family History Mother , age 78 Cancer Father , age 70 Heart disease Cancer Sister Essential hypertension Hyperlipidemia Breast cancer Brother Essential hypertension Skin cancer Brother Diabetes Essential hypertension Heart disease Hyperlipidemia Alcohol abuse Substance abuse Cancer Maternal Grandfather Heart disease Paternal Grandfather No problems noted. Maternal Grandmother Diabetes Essential hypertension Paternal Grandmother Heart disease Son Essential hypertension Heart disease Hyperlipidemia Daughter No problems noted. Daughter No problems noted. Brother , age 69 Diabetes Essential hypertension Hyperlipidemia Social History Smoking/Tobacco Use Status: Never Second Hand Exposure: Yes Smoking risk assessment performed?: Yes Alcohol Intake: never Drug use: Never Substance use type: does not use Household members: spouse Communication Needs: Corrective Lenses Do you need help understanding health information?: Rarely Pets and animals: Yes Pets and animals: cat(s) and dog(s) Do you think of yourself as: straight/heterosexual Current gender identity: male What is your relationship status?: How often do you talk on the phone with friends or family?: twice per week How often do you get together with friends or relatives?: twice per week Do you belong to any clubs or organized social groups?: no Panel score (0-1 are the most socially isolated patients): 2 Mally/Roman Catholic: Taoism Special mally needs: No Seatbelt use: sometimes Helmet use: No Drive intox or 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 clark driver: No Do you feel safe at home: Yes Do you feel safe in your relationship?: Yes Exam Const General: cooperative Nutritional Appearance: obese morbidly obese Orientation: alert, awake and oriented x3 HENMT Head: normal to inspection Face and sinus: normal facial exam Eyes General: appearance normal, both eyes and all related structures Pupils: PERRL EOM: EOM intact bilaterally Neck Neck: normal visual inspection and No submandibular swelling Lymphatic: no lymphadenopathy noted Chest Chest: normal inspection of the chest and no tenderness Resp Effort & Inspection: normal respiratory effort and able to speak in complete sentences Auscultation: clear to auscultation bilaterally Cardio Rate: tachycardic Rhythm: regular rhythm GI Inspection: normal to inspection Palpation: soft, not firm, not rigid and nontender Auscultation: normal bowel sounds Skin General skin exam: no rashes or lesions noted Neuro General: patient alert, patient awake and patient oriented x3 Cognition: normal cognition Speech: speech normal Motor: muscle tone normal throughout Sensory Exam: no sensory deficits noted Extrem General: normal to inspection, full ROM and capillary refill normal Other: b/l lower extremities with purplish/brownish discoloration c/w venous stasis. Stage II open ulcer noted to area between right 1st/2nd toes with yellow fibrous tissue around edges but no significant erythema, induration or fluctuance. B/L DP pulses intact. Psych Appearance: grossly normal Mental Status: mental status grossly normal Speech and Movement: speech and movement normal Affect: normal affect Course Vital Signs Vital signs: Vital Signs Temperature 97.2 F L 03/26/22 00:38 Pulse 148 H 03/26/22 00:38 Respiratory Rate 22 03/26/22 00:38 Blood Pressure 101/38 L 03/26/22 00:38 Pulse Oximetry 91 L 03/26/22 00:38 Temperature 97.2 F L 03/26/22 00:38 Pulse 148 H 03/26/22 00:38 Respiratory Rate 22 03/26/22 00:38 Respiratory Effort Short of Breath 03/26/22 00:38 Blood Pressure 101/38 L 03/26/22 00:38 Blood Pressure Position Supine 03/26/22 00:38 Pulse Oximetry 91 L 03/26/22 00:38 Oxygen Delivery Method Room Air 03/26/22 00:38 Oxygen Flow Rate 0 03/26/22 00:38 Pain Level 4 03/26/22 00:38 Critical Care Time Critical Care Time Critical Care Time: Yes Total Critical Care Time: 120 Attestation: I spent 120 minutes of critical care time with this patient. This does not include time spent on separately reported billable procedures.
--- NOTE | 2022-03-26 01:23 | NUR.NOTE ---
EKG sent to [facility] [place] for consult:
[2022-03-26] MEDS: LORazepam 2 MG/ML VIAL 0.5 MG IVP (01:27)
--- NOTE | 2022-03-26 01:30 | DI.RAD_ITS ---
Exam(s) XR PORTABLE CHEST AP EXAM: XR PORTABLE CHEST AP CLINICAL HISTORY: chest tightness, r/o acute disease TECHNIQUE: 2D digital imaging was performed. COMPARISON: CR,XR XR CHEST 2V PA LATERAL from 03/23/2022 FINDINGS: Exam limited by patient body habitus. There is artifact from leads of over the chest. LUNGS: Grossly clear. No pleural abnormality seen. HEART: Enlarged AORTA: Normal diameter. BONES: Unremarkable for age. Soft tissues: Unremarkable. IMPRESSION: Limited exam. Cardiomegaly. No acute findings. DATA REPOSITORY: RADIATION DOSE DELIVERED:
[2022-03-26] MEDS: Normal Saline 1,000 ML 100 ML IV ×2 (01:38→10:12)
[2022-03-26 01:50] LABS: Abs Immature Grans 0.03 10^3/uL (0.0-0.06); Absolute Basophil Count 0.05 10^3/uL (0.0-0.2); Absolute Eosinophil Count 0.08 10^3/uL (0.0-0.7); Absolute Lymphocyte Count 2.35 10^3/uL (1.2-3.4); Absolute Monocyte Count 0.87 10^3/uL (0.1-0.8); Absolute Neutrophil Count 5.89 10^3/uL (1.2-6.7); Basophils % 0.5; Eosinophils % 0.9; HCT 52.6 % (40.0-50.0); HGB 17.3 g/dL (13.5-17.5); Immature Grans % 0.3; Lymphocytes % 25.4; MCH 29.1 pg (27.0-33.0); MCHC 32.9 % (32.0-36.0); MCV 88 fL (80-95); MPV 9.9 fL (8.0-11.0); Monocytes % 9.4; Neutrophils % 63.5; Platelet Count 203 10^3/uL (130-400); RBC 5.95 10^6/uL (4.36-5.78); RDW 14.5 % (11.8-14.1); WBC 9.27 10^3/uL (4.4-10.8)
--- NOTE | 2022-03-26 02:00 | RT.EKG_ITS ---
APPROVED REPORT Exam: Resting ECG Reason for Exam: chest pain Patient Location: E HR:76 bpm ECG Measurements Heart Rate 76 AXIS KS 290 P 23 QRSd 106 QRS -12 QT 392 T 61 QTc 440 Conclusion Sinus rhythm...normal P axis, V-rate 60- 99 Multiform ventricular premature complexes...short R-R, variable morphology Prolonged KS interval...KS >220, V-rate 50- 90. Sinus. PVCs. No ST depression or elevation. I have reviewed and interpreted ECG and agree with software generated interpretation.
--- NOTE | 2022-03-26 02:04 | DI.VRAD_ITS ---
PROCEDURE INFORMATION: Exam: XR Chest Exam date and time: 03/26/2022 1:28 AM Age: 76 years old Clinical indication: Other: Chest tightness, R/O acute disease TECHNIQUE: Imaging protocol: Radiologic exam of the chest. Views: 1 view. COMPARISON: CR XR CHEST 2V PA LATERAL 03/23/2022 4:21 AM FINDINGS: Lungs: Clear lungs. No infiltrates or edema. Pleural spaces: No pleural effusion. Heart/Mediastinum: Moderate cardiac enlargement. No acute features. Bones/joints: Unremarkable. IMPRESSION: 1. No infiltrates or edema. 2. No pleural effusion. 3. Moderate cardiac enlargement. No acute features. Dictated and Authenticated by: José Larson MD. Ordering:BEREKET Gar MD
[2022-03-26 02:08] LABS: ALT 64 U/L (16-63); AST 47 U/L (15-37); Albumin 3.7 g/dL (3.4-5.0); Alkaline Phosphatase 83 U/L (46-116); Anion Gap 11.2 mmol/L (3-11); BUN 18 mg/dL (7-18); Bilirubin, Total 0.5 mg/dL (0.2-1.0); CO2 25.8 mmol/L (21.0-32.0); CREATININE 1.1 mg/dL (0.70-1.30); Calcium 9.4 mg/dL (8.5-10.1); Chloride 103 mmol/L (98-107); Estimated GFR 69.57 (mL/min/1.73m2); Glucose 188 mg/dL (74-106); Magnesium 1.9 mg/dL (1.8-2.4); Potassium 4.1 mmol/L (3.5-5.1); Sodium 140 mmol/L (136-145); Total Protein 7.2 g/dL (6.4-8.2); Troponin I 51 ng/L (<or=60)
[2022-03-26 02:23] LABS: Source Nasal/Nares
[2022-03-26 02:53] LABS: COVID-19 PCR Negative (Negative)
[2022-03-26] MEDS: dilTIAZem 30 MG TAB 90 MG PO ×2 (05:55→11:41)
--- NOTE | 2022-03-26 05:57 | HPE_ITS ---
Date of service: 03/26/22 Time of Service: 05:58 Assessment and Plan Assessment and plan (1) PSVT (paroxysmal supraventricular tachycardia): Start date: 03/26/22 Status: Acute Assessment and plan: This is a 76-year-old gentleman with a history of PSVT presenting with tachycardia and hypotension with persistent SVT causing chest pressure with a negative troponin and no acute EKG changes. He did eventually convert with IV verapamil and was admitted for adjustment of oral therapy not being a surgical candidate for ablation. He did almost require cardioversion in the ED which was aborted when he converted to normal sinus rhythm. He does tend to be sinus bradycardic but does not have a soft blood pressure chronically and in fact has hypertension with medications adjusted with his soft blood pressure upon this admission. He will continue on increased dose of Cardizem 90 mg every 6 hours which was at a total dose of 240 mg daily previously now attempting 360 mg daily. His antihypertensive may need to be adjusted with this increased and Cardizem. For now his losartan with hydrochlorothiazide is being held. He is a full code. (2) Chest pain: Start date: 03/26/22 Status: Acute Assessment and plan: Patient did have chest pressure when he had tachycardia with low blood pressure but this has resolved. His first troponin was negative and this will be repeated in the morning. Monitor closely for ischemic changes. He is on telemetry. (3) Essential hypertension: Status: Chronic Assessment and plan: Patient's systolic blood pressure is slightly soft when he presented with SVT w hich was prompting consideration of cardioversion. He is on multiple medical therapies which could cause low blood pressure and for now his losartan/HCTZ will be held while adjusting his oral Cardizem up to 360 mg daily dose. This can be reinitiated possibly at a lower dose if needed. He will continue his metoprolol with his increasing Cardizem for treatment of PSVT which is more problematic. (4) Type 2 diabetes mellitus without complication, without long-term current use of insulin: Status: Chronic Assessment and plan: With patient being generally stable he will continue his outpatient oral medical therapy for diabetes mellitus type 2. He appears fairly well controlled over hi s last measurements when hospitalized. His admission glucose was not markedly elevated despite stress. He is not in metabolic acidosis. (5) Hyperlipidemia: Status: Chronic Assessment and plan: Patient is on fish oil and red yeast rice which will be continued if available. He is intolerant of statins. Qualifiers: Hyperlipidemia type: mixed hyperlipidemia Qualified Code(s): E78.2 - Mixed hyperlipidemia (6) Obstructive sleep apnea, adult: Status: Chronic Assessment and plan: Continue treatment with BiPAP during the night. (7) Grief: Status: Chronic Assessment and plan: Supportive care and consider antidepressant. Patient should have ongoing counseling and appears to have a supportive family. History of Present Illness History of Present Illness Chief Complaint: Palpitations with chest pressure and shortness of breath Narrative: This is a 76-year-old male patient who was just discharged 2 days ago who has a history of morbid obesity with ISAAC, hypertension with PSVT and hyperlipidemia as well as recent UTI with urinary outlet obstruction symptoms on Flomax as well as comorbidities of diabetes and peripheral vascular disease with chronic peripheral edema who presented to the ED with generalized weakness and chest tightness with shortness of breath and lightheadedness with palpitations the evening prior to presentation. He was recently admitted for SVT with discharge 03/24/2022 and presented with recurrent SVT in the ED. His EKG revealed no acute ischemic or ST-T changes and blood pressure was soft with systolic around 101. His heart rate was about 148 and he did receive 2 doses of adenosine but did not break his tachyarrhythmia and was about to be cardioverted when he was given 1 more dose of IV verapamil which converted him to sinus rhythm. Presently he is in sinus bradycardia and not hypotensive but is on multiple medications for hypertension which will be reviewed and adjusted while advancing his Cardizem with split dosing during this acute hospitalization. During his last hospitalization it was entertained whether he should have ablation for his PSVT but was thought not to be a surgical candidate because of his multiple comorbid diseases. [facility] was reconsulted in the ED by . He is still on antibiotics for his UTI and this will be continued. He feels much better and when I approached the patient he was on BiPAP for his night treatment for admitted early in the morning. He was comfortable lying flat in bed and not complaining of chest discomfort or palpitations. He was not short of breath. He is grieving the loss of his recently and does have a very supportive family. He is a full code. Review of Systems Narrative: 13 point review of systems otherwise unrevealing or stable. PFSH All Active Problems SVT (supraventricular tachycardia) (Chronic) Chest pain (Acute) Grief (Chronic) Cerumen impaction (Acute) Non-healing wound of right lower extremity (Acute) PSVT (paroxysmal supraventricular tachycardia) (Acute) Inguinal hernia (Acute) Carotid artery stenosis (Acute) Fatty liver (Chronic 08/04/16) Peripheral vascular disease (Chronic) Diabetic neuropathy (Chronic) Right knee pain (Acute) BPH w urinary obs/LUTS (Chronic) Essential hypertension (Chronic) Generalized osteoarthrosis (Chronic) knees; R>L Hyperlipidemia (Chronic) Type IV Morbid obesity (Chronic) Obstructive sleep apnea, adult (Chronic) C-PAP Spondylolisthesis (Chronic) L5-S1 Type 2 diabetes mellitus without complication, without long-term current use of insulin (Chronic 07/04/16) Medical History Essential hypertension Hyperlipidemia Morbid obesity MRSA infection (09/03/15) ISAAC (obstructive sleep apnea) Tubular adenoma 07/24/14 DR. ALLEN X 3 Umbilical hernia Repaired Venous stasis ulcers of both lower extremities (03/09/16) Surgical History Amputation of toe of right foot 04/08/20 - Right second toe ([facility]) Appendectomy (~08/1973) Colonoscopy - MAC (~02/2004) neg FX ANKLE 02/2013; [facility] knee repair (~1964) cartilage repair Family History Mother , age 78 Cancer Father , age 70 Heart disease Cancer Sister Essential hypertension Hyperlipidemia Breast cancer Brother Essential hypertension Skin cancer Brother Diabetes Essential hypertension Heart disease Hyperlipidemia Alcohol abuse Substance abuse Cancer Maternal Grandfather Heart disease Paternal Grandfather No problems noted. Maternal Grandmother Diabetes Essential hypertension Paternal Grandmother Heart disease Son Essential hypertension Heart disease Hyperlipidemia Daughter No problems noted. Daughter No problems noted. Brother , age 69 Diabetes Essential hypertension Hyperlipidemia Social History Smoking/Tobacco Use Status: Never Second Hand Exposure: Yes Smoking risk assessment performed?: Yes Alcohol Intake: never Drug use: Never Substance use type: does not use Household members: spouse Communication Needs: Corrective Lenses Do you need help understanding health information?: Rarely Pets and animals: Yes Pets and animals: cat(s) and dog(s) Do you think of yourself as: straight/heterosexual Current gender identity: male What is your relationship status?: How often do you talk on the phone with friends or family?: twice per week How often do you get together with friends or relatives?: twice per week Do you belong to any clubs or organized social groups?: no Panel score (0-1 are the most socially isolated patients): 2 Mally/Mosque: Hoahaoism Special mally needs: No Seatbelt use: sometimes Helmet use: No Drive intox or 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 auto carrier driver: No Do you feel safe at home: Yes Do you feel safe in your relationship?: Yes Meds Allergies and Home Medications Allergies Allergy/AdvReac Type Severity Reaction Status Date / Time atorvastatin calcium AdvReac INTOLERANCE Verified 03/26/22 00:44 [From Lipitor] Home Medications Medication Instructions Recorded Confirmed Type omega-3 fatty acids-fish oil 340 2,000 mg PO DAILY 01/17/13 03/26/22 History mg-1,000 mg capsule (Fish Oil) aspirin 81 mg tablet,delayed 81 mg PO DAILY #90 tab-caps 03/12/15 03/26/22 History release (Aspir-) blood-glucose meter (FreeStyle ##1 07/05/16 03/26/22 History Lite Meter kit) lancets 28 gauge (FreeStyle #200 ea 01/02/20 03/26/22 Rx Lancets) metoprolol succinate 100 mg 100 mg PO DAILY #90 tab-caps 01/26/21 03/26/22 Rx tablet,extended release 24 hr blood sugar diagnostic (FreeStyle #200 strips 04/01/21 03/26/22 Rx Lite Strips) metformin 1,000 mg tablet 1,000 mg PO BID #180 tab-caps 04/14/21 03/26/22 Rx glipizide 10 mg tablet 10 mg PO DAILY #90 tabs 05/13/21 03/26/22 Rx empagliflozin 10 mg tablet 20 mg PO QAM #180 tabs 06/17/21 03/26/22 Rx ibuprofen 800 mg tablet 800 mg PO DAILY 10/24/21 03/26/22 History losartan 100 1 tab PO DAILY 10/24/21 03/26/22 History mg-hydrochlorothiazide 25 mg tablet red yeast rice 600 mg capsule 1,200 mg PO BID 10/24/21 03/26/22 History tamsulosin 0.4 mg capsule 0.8 mg PO HS 10/24/21 03/26/22 History diltiazem HCl 240 mg 240 mg PO DAILY #90 caps 11/07/21 03/26/22 Rx capsule,extended release 24 hr cefpodoxime 200 mg tablet 200 mg PO BID #14 tabs 03/24/22 03/26/22 Rx Exam Narrative Exam Narrative: General: Patient appears older than stated age, alert and oriented at least to person and place, in no acute distress wearing BiPAP being awakened for exam. He is morbidly obese. HEENT: Normocephalic, coarsened facial features, eyes with pupils equal and react to light symmetrically, extraocular movement tact and sclera anicteric. Oropharynx with moist mucosa. Neck: Supple without JVD. Back: Stooped posture without CVA tenderness. Lungs: Fair aeration and clear to auscultation and percussion. Heart: Distant heart sounds with regular rhythm and bradycardic rate, no appreciable murmur or gallop. Abdomen: Obese contour, soft and nontender to palpation with no palpable hepatosplenomegaly. Bowel sounds positive in all quadrants. Genitalia/rectal: Exam deferred. Extremities: Moderate 2+ edema with trace pitting lower extremity bilaterally with skin changes of loss of hair, slightly atrophic skin but no hyper pigmentation or ulceration. There is no atrophy. Decreased cap refill both lower extremities. Joints have fair range of motion with no acute joint swelling. Skin: Normal color, warm and dry. Neuro: Cranial nerves II through XII grossly intact, no focalized motor deficits and no tremor. Psych: Flattened affect with depressed mood. No abnormal thought processes. Remote and recent memory appear grossly intact. Results Imaging Imaging Studies: Exam: XR Chest Exam date and time: 03/26/2022 1:28 AM Age: 76 years old Clinical indication: Other: Chest tightness, R/O acute disease TECHNIQUE: Imaging protocol: Radiologic exam of the chest. Views: 1 view. COMPARISON: CR XR CHEST 2V PA LATERAL 03/23/2022 4:21 AM FINDINGS: Lungs: Clear lungs. No infiltrates or edema. Pleural spaces: No pleural effusion. Heart/Mediastinum: Moderate cardiac enlargement. No acute features. Bones/joints: Unremarkable. IMPRESSION: 1. No infiltrates or edema. 2. No pleural effusion. 3. Moderate cardiac enlargement. No acute features. Labs 03/26/22 00:48 03/26/22 00:48 Labs: Laboratory Results - last 24 hr 03/26/22 03/26/22 03/26/22 00:48 00:48 02:13 WBC 9.27 RBC 5.95 H Hgb 17.3 Hct 52.6 H MCV 88 MCH 29.1 MCHC 32.9 RDW 14.5 H Plt Count 203 MPV 9.9 Immature Gran % 0.3 Neutrophils % 63.5 Lymphocytes % 25.4 Monocytes % 9.4 Eosinophils % 0.9 Basophils % 0.5 Nucleated RBC % 0.0 Absolute Neutrophils 5.89 Absolute Lymphocytes 2.35 Absolute Monocytes 0.87 H Absolute Eosinophils 0.08 Absolute Basophils 0.05 Sodium 140 Potassium 4.1 Chloride 103 Carbon Dioxide 25.8 Anion Gap 11.2 H BUN 18 Creatinine 1.1 Est GFR (CKD-EPI 2020) 69.57 Glucose 188 H Calcium 9.4 Magnesium 1.9 Total Bilirubin 0.5 AST 47 H ALT 64 H Alkaline Phosphatase 83 Troponin I 51 Total Protein 7.2 Albumin 3.7 COVID-19 Source Nasal/Nares SARS-CoV-2 (PCR) Negative Last Vital Signs Temp 36.3 C L 03/26/22 04:17 Pulse 63 03/26/22 05:55 Resp 23 03/26/22 04:17 BP 120/63 03/26/22 05:55 Pulse Ox 94 03/26/22 05:55 Time Spent Time spent with Patient: >75 minutes Time was spent: preparing to see the patient(eg.review tests), obtaining and/or reviewing separately otained hiistory, ordering medications,tests, procedures, referring, communicating with other health foster care social worker, indepentently interpreting results and care coordination
[2022-03-26 07:37] LABS: TSH (W/Ref FT4) 1.58 uIU/mL (0.36-3.74)
[2022-03-26 07:49] LABS: Troponin I 70 ng/L (<or=60)
--- NOTE | 2022-03-26 08:00 | RT.EKG_ITS ---
APPROVED REPORT Exam: Resting ECG Reason for Exam: rising troponin Patient Location: I HR:58 bpm ECG Measurements Heart Rate 58 AXIS NY 268 P 13 QRSd 110 QRS -28 QT 426 T 48 QTc 419 Conclusion Sinus rhythm...normal P axis, V-rate 50- 99 Supraventricular bigeminy...bigeminy string>4 w/ SV complexes Prolonged NY interval...NY >220, V-rate 50- 90 Borderline left axis deviation...QRS axis (-15,-29) Abnormal R-wave progression, early transition...QRS area>0 in V2 Borderline T wave abnormalities...T/QRS ratio < 1/20 or flat T
[2022-03-26] MEDS: Omega-3 Fatty Acids 1000 MG CAP 2000 MG PO (08:02)
[2022-03-26] MEDS: Aspirin E.C. 81 MG TABEC PO (08:02)
[2022-03-26] MEDS: Ibuprofen 800 MG TAB PO (08:02)
[2022-03-26] MEDS: Enoxaparin 40 MG/0.4 ML SYR SC (08:02)
[2022-03-26] MEDS: glipiZIDE 10 MG TAB PO (08:02)
[2022-03-26] MEDS: Metoprolol CR 100 MG TABCR PO (08:03)
[2022-03-26] MEDS: Empaglifozin 10 MG TAB 20 MG PO (08:03)
[2022-03-26] MEDS: metFORMIN 500 MG TAB 1000 MG PO ×2 (08:03→16:34)
[2022-03-26] MEDS: Cefpodoxime 200 MG TAB PO ×2 (08:35→20:47)
--- NOTE | 2022-03-26 10:45 | PGE_ITS ---
Date of Service Date of service: 03/26/22 Time of Service: 10:45 Assessment and Plan Assessment and plan (1) SVT (supraventricular tachycardia): Status: Chronic Assessment and plan: Resumption of home dose of diltiazem CD tonight continue Toprol XL. Recommend referral to EP cardiology upon discharge as well as manager monitoring to assess stability of his rhythm. (2) Chest pain: Status: Acute Assessment and plan: Likely d/t SVT, no ongoing CP, no ischemic EKG changes. troponin I mildly elevated in the 70's (3) Elevated troponin I level: Status: Acute Assessment and plan: as above. No evidence for ACS either clinically nor on EKG. (4) Type 2 diabetes mellitus without complication, without long-term current use of insulin: Status: Chronic Assessment and plan: continue home meds glipizied and metformin; monitor glucose AC and cover w/ low dose sliding scale if over 180 (5) Obstructive sleep apnea, adult: Status: Chronic Assessment and plan: continue home CPAP (6) Essential hypertension: Status: Chronic Assessment and plan: losartan/HCTZ on hold while titration of his cardizem and metoprolol. However he appears to have some mild CHF for which I will give him couple doses of lasix. (7) Amputation of toe of right foot: Assessment and plan: resume wound care as he has been having through [facility] (8) Grief: Status: Chronic Assessment and plan: consider anti-depressants Subjective Subjective Interval history since last seen: Mr. Suarez came in the hospital last night with palpitations and chest pressure and dyspnea. He was found to be in PSVT. He converted back to sinus rhythm after IV verapamil. He remains in normal sinus rhythm with first-degree AV block. He is now on short acting diltiazem 90 mg every 6 hours as well as his Toprol XL 100 mg daily. He is also finishing out oral antibiotic treatment for recent UTI. I talked with Sukhjinder about going to [facility] and seeing an information technology specialist. He believes that he has been to [facility] and has seen a glass polisher there but cannot recall her name. Upon discharge we will be sure that he has an appointment set up with an information technology specialist as I feel that he would benefit from cardio ablation of his SVT pathway. Exam Narrative Exam Narrative: Sukhjinder is sitting up at the bedside, he is in no acute distress, currently pain free, does not appear to be dyspneic Neck: obese, difficult to discern JVD LUngs: some bibasilar rales; no rhonchi or wheezing Heart: regular Legs: 1+pedal and pretibial edema, venous stasis skin changes w/ bronze, dark red skin changes; right 2nd MTP s/p resection of 2nd digit; chronic wound w/out purulent discharge Abdomen: obese, soft, nontender Objective Last Vital Signs Temp 36.5 C 03/26/22 07:47 Pulse 61 03/26/22 07:47 Resp 20 03/26/22 07:47 BP 110/69 03/26/22 07:47 Pulse Ox 92 03/26/22 08:50 Laboratory Results - last 24 hr 03/26/22 03/26/22 03/26/22 00:48 00:48 02:13 WBC 9.27 RBC 5.95 H Hgb 17.3 Hct 52.6 H MCV 88 MCH 29.1 MCHC 32.9 RDW 14.5 H Plt Count 203 MPV 9.9 Immature Gran % 0.3 Neutrophils % 63.5 Lymphocytes % 25.4 Monocytes % 9.4 Eosinophils % 0.9 Basophils % 0.5 Nucleated RBC % 0.0 Absolute Neutrophils 5.89 Absolute Lymphocytes 2.35 Absolute Monocytes 0.87 H Absolute Eosinophils 0.08 Absolute Basophils 0.05 Sodium 140 Potassium 4.1 Chloride 103 Carbon Dioxide 25.8 Anion Gap 11.2 H BUN 18 Creatinine 1.1 Est GFR (CKD-EPI 2020) 69.57 Glucose 188 H Calcium 9.4 Magnesium 1.9 Total Bilirubin 0.5 AST 47 H ALT 64 H Alkaline Phosphatase 83 Troponin I 51 Total Protein 7.2 Albumin 3.7 TSH COVID-19 Source Nasal/Nares SARS-CoV-2 (PCR) Negative 03/26/22 07:03 WBC RBC Hgb Hct MCV MCH MCHC RDW Plt Count MPV Immature Gran % Neutrophils % Lymphocytes % Monocytes % Eosinophils % Basophils % Nucleated RBC % Absolute Neutrophils Absolute Lymphocytes Absolute Monocytes Absolute Eosinophils Absolute Basophils Sodium Potassium Chloride Carbon Dioxide Anion Gap BUN Creatinine Est GFR (CKD-EPI 2020) Glucose Calcium Magnesium Total Bilirubin AST ALT Alkaline Phosphatase Troponin I 70 H* Total Protein Albumin TSH 1.58 COVID-19 Source SARS-CoV-2 (PCR) Time Spent with Patient Time Spent with Patient: <25 minutes Time was spent: care coordination
[2022-03-26] MEDS: Potassium Chloride 10 MEQ CAPCR 20 MEQ PO (11:05)
[2022-03-26] MEDS: Furosemide 20 MG/2 ML VIAL IVP (11:05)
[2022-03-26 11:21] LABS: Troponin I 74 ng/L (<or=60)
--- NOTE | 2022-03-26 13:16 | PDOC.CMIN ---
- If Service Date Differs Date of service: 03/26/22 Time of Service: 13:16 Care Management Initial Assess REASON FOR HOSPITALIZATION:: PSVT, Chest Pain PAST MEDICAL HISTORY/PAST SURGICAL HISTORY:: All Active Problems. SVT (supraventricular tachycardia) (Chronic). Chest pain (Acute). Grief (Chronic). Cerumen impaction (Acute). Non-healing wound of right lower extremity (Acute). PSVT (paroxysmal supraventricular tachycardia) (Acute). Inguinal hernia (Acute). Carotid artery stenosis (Acute). Fatty liver (Chronic 08/04/16). Peripheral vascular disease (Chronic). Diabetic neuropathy (Chronic). Right knee pain (Acute). BPH w urinary obs/LUTS (Chronic). Essential hypertension (Chronic). Generalized osteoarthrosis (Chronic). knees; R>L. Hyperlipidemia (Chronic). Type IV. Morbid obesity (Chronic). Obstructive sleep apnea, adult (Chronic). C-PAP. Spondylolisthesis (Chronic). L5-S1. Type 2 diabetes mellitus without complication, without long-term current use of insulin (Chronic 07/04/16). Medical History. Essential hypertension. Hyperlipidemia. Morbid obesity. MRSA infection (09/03/15). ISAAC (obstructive sleep apnea). Tubular adenoma. 07/24/14 DR. ALLEN X 3. Umbilical hernia. Repaired. Venous stasis ulcers of both lower extremities (03/09/16). Surgical History. Amputation of toe of right foot. 04/08/20 - Right second toe ([facility]). Appendectomy (~08/1973). Colonoscopy - MAC (~02/2004). neg. FX ANKLE. 02/2013; [facility]. knee repair (~1964). cartilage repair PREVIOUS FUNCTIONAL STATUS/SOCIAL/FAMILY SUPPORTS:: Sukhjinder lives in [place]. He recently lost his of over 50 years. He has a very supportive family, including his daughter, Mary, who lives nearby. 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 He was also in the [employer] for 27 years. He is independent with ADL's at baseline. CURRENT FUNCTIONAL STATUS:: Ed was lying in bed when CM met with him. He reported that he is doing ok today, and feeling better than when he arrived. Per report, is adjusting his meds and will make a referral to [facility], as he would benefit from cardio ablation of his SVT pathway. He is on tele currently. Nursing advocated for a shower, once he is no longer requiring tele. Ed stated that he does his own dressing changes but may benefit from some support from HH RN. He is not home bound, although he stated that he has a child care center administrator through his insurance, [employer], that he talks to monthly. CM will advocate for HH services, if indicated. CM will continue to follow. ADVANCE DIRECTIVES:: On file. Mary listed as agent. Dada listed as alternate agent. Has patient been provided with info about the portal/API?: Yes Did the patient sign up for the portal?: Yes (active) CODE STATUS:: Full Code INSURANCE COVERAGE / FINANCIAL ISSUES:: [employer] CURRENT HOME/COMMUNITY SERVICES/EQUIPMENT:: No current services. He owns a CPAP machine, walker and cane. PRIMARY CARE PHYSICIAN:: Arsh Holland POTENTIAL DISCHARGE NEEDS:: Evaluations for further needs, follow up appointments. PATIENT/FAMILY EDUCATION NEEDS:: Review discharge instructions, limitations, medications and plan to follow up with community providers. Review [employer]. ANTICIPATED BARRIERS TO DISCHARGE:: None. TRANSPORTATION:: Via private vehicle by family. PLAN:: Edmatt will likely return home once medically cleared. His daughter will drive him home via private vehicle. He will follow up with his PCP and discharge plan of care. CM will continue to follow.
[2022-03-26] MEDS: Potassium Chloride 20 MEQ TABCR PO (20:48)
[2022-03-26] MEDS: dilTIAZem CD 180 MG CAPCR PO (20:48)
[2022-03-26] MEDS: Normal Saline Flush 10 ML SYR IVP (20:48)
[2022-03-26] MEDS: Nystatin POWDER 60 GM JAR TP (20:49)
[2022-03-26] MEDS: Tamsulosin 0.4 MG CAPCR 0.8 MG PO (23:03)
[2022-03-27] VITALS (10 sets, daily range): BP systolic 122–150; BP diastolic 61–81; PULSE 51–152; RESP 16–18; TEMP 36–36.8; O2SAT 92–98
[2022-03-27 06:50] LABS: HCT 46.9 % (40.0-50.0); HGB 14.7 g/dL (13.5-17.5); MCH 28.1 pg (27.0-33.0); MCHC 31.3 % (32.0-36.0); MCV 90 fL (80-95); MPV 9.9 fL (8.0-11.0); Platelet Count 156 10^3/uL (130-400); RBC 5.23 10^6/uL (4.36-5.78); RDW 14.4 % (11.8-14.1); RDW-SD 47.1 fL; WBC 5.99 10^3/uL (4.4-10.8)
[2022-03-27 07:17] LABS: Magnesium 1.9 mg/dL (1.8-2.4); Troponin I 57 ng/L (<or=60)
[2022-03-27 07:36] LABS: ALT 52 U/L (16-63); AST 35 U/L (15-37); Albumin 3.2 g/dL (3.4-5.0); Alkaline Phosphatase 63 U/L (46-116); Anion Gap 8.4 mmol/L (3-11); BUN 15 mg/dL (7-18); Bilirubin, Total 0.8 mg/dL (0.2-1.0); CO2 25.6 mmol/L (21.0-32.0); CREATININE 0.6 mg/dL (0.70-1.30); Calcium 9.1 mg/dL (8.5-10.1); Chloride 107 mmol/L (98-107); Estimated GFR 100.04 (mL/min/1.73m2); Glucose 129 mg/dL (74-106); Potassium 4.1 mmol/L (3.5-5.1); Sodium 141 mmol/L (136-145); Total Protein 6.1 g/dL (6.4-8.2)
[2022-03-27] MEDS: Enoxaparin 40 MG/0.4 ML SYR SC (08:04)
[2022-03-27] MEDS: Nystatin POWDER 60 GM JAR TP ×2 (08:04→20:39)
[2022-03-27] MEDS: Omega-3 Fatty Acids 1000 MG CAP 2000 MG PO (08:05)
[2022-03-27] MEDS: Cefpodoxime 200 MG TAB PO ×2 (08:05→20:39)
[2022-03-27] MEDS: glipiZIDE 10 MG TAB PO (08:05)
[2022-03-27] MEDS: Empaglifozin 10 MG TAB 20 MG PO (08:05)
[2022-03-27] MEDS: Metoprolol CR 100 MG TABCR PO (08:05)
[2022-03-27] MEDS: Ibuprofen 800 MG TAB PO (08:05)
[2022-03-27] MEDS: Potassium Chloride 20 MEQ TABCR PO (08:05)
[2022-03-27] MEDS: Aspirin E.C. 81 MG TABEC PO (08:05)
[2022-03-27] MEDS: metFORMIN 500 MG TAB 1000 MG PO ×2 (08:05→17:05)
--- NOTE | 2022-03-27 15:27 | PDOC.CMPRO ---
- If Service Date Differs Date of service: 03/27/22 Time of Service: 15:27 Care Management Progress Note S/O: Ed was sitting up in his chair when CM met with him. His daughter Mary was in the room visiting. CM discussed home health services with Ed, as he had stated previously that he may benefit from additional support at home. His daughter agreed that it would be helpful to have HH services, even if it is for a short period of time, as he has been hospitalized twice in the last week. Ed stated that he expects to speak to his care attendant through [employer], and he will advocate for support in the home as well. Per MD, Ed will remain overnight for observation as his medications were adjusted today. Ed had an appointment at [facility] for wound care scheduled for tomorrow morning, which Mary rescheduled for 04/04/22. CM will continue to follow. A: Sukhjinder is a 76 year old male admitted to [facility] on 03/26/22 for PSVT, Chest Pain. P: Anticipate Ed will return home with new HH RN, PT, OT, GEOGRAPHIC INFORMATION SYSTEM ANALYST when medically cleared. His daughter will drive him home via private vehicle. He will follow up with [facility] wound care, his PCP and his discharge plan of care. CM will continue to follow.
--- NOTE | 2022-03-27 15:54 | W.PM.PROGNOT ---
Date of Service Date of service: 03/27/22 Time of Service: 15:55 Assessment and Plan Assessment and plan (1) SVT (supraventricular tachycardia): Status: Chronic Assessment and plan: Resumption of diltiazem CD 180mg last night; continue Toprol XL. Recommend referral to EP cardiology upon discharge as well as personnel monitor to assess stability of his rhythm. HR was stable overnight and this AM then had a short period of a HR up to 150; prior to receiving his AM dose of metoprolol. Will have metoprolol scheduled for 6AM. (2) Chest pain: Status: Acute Assessment and plan: Likely d/t SVT, no ongoing CP, no ischemic EKG changes. troponin I mildly elevated in the 70's (3) Elevated troponin I level: Status: Acute Assessment and plan: as above. No evidence for ACS either clinically nor on EKG. (4) Type 2 diabetes mellitus without complication, without long-term current use of insulin: Status: Chronic Assessment and plan: continue home meds glipizied and metformin; monitor glucose AC and cover w/ low dose sliding scale if over 180 (5) Obstructive sleep apnea, adult: Status: Chronic Assessment and plan: continue home CPAP (6) Essential hypertension: Status: Chronic Assessment and plan: losartan/HCTZ on hold while titration of his cardizem and metoprolol. However he appears to have some mild CHF and was administered couple doses of lasix prior to today. (7) Amputation of toe of right foot: Assessment and plan: resume wound care as he has been having through [facility] (8) Grief: Status: Chronic Assessment and plan: consider anti-depressants His just last week. Subjective Subjective Patient reports: no new complaints, feels better and afebrile; denies nausea, vomiting or shortness of breath Interval history since last seen: Mildly lightheaded this AM with rapid HR; prior to taking AM metoprolol. Exam Narrative Exam Narrative: Sukhjinder is sitting in chair. In no acute distress Neck: obese, difficult to discern JVD Lungs: some bibasilar rales; no rhonchi or wheezing. No increased WOB Heart: regular Legs: 1+pedal and pretibial edema, venous stasis skin changes w/ bronze, dark red skin changes; right 2nd MTP s/p resection of 2nd digit; chronic wound w/out purulent discharge Abdomen: obese, soft, nontender Objective Last Vital Signs Temp 36.0 C L 03/27/22 11:03 Pulse 57 L 03/27/22 11:03 Resp 17 03/27/22 11:03 BP 127/71 03/27/22 11:03 Pulse Ox 93 03/27/22 11:03 Laboratory Results - last 24 hr 03/27/22 03/27/22 03/27/22 05:56 05:56 05:56 WBC 5.99 RBC 5.23 Hgb 14.7 D Hct 46.9 MCV 90 MCH 28.1 MCHC 31.3 L RDW 14.4 H Plt Count 156 MPV 9.9 Sodium 141 Potassium 4.1 Chloride 107 Carbon Dioxide 25.6 Anion Gap 8.4 BUN 15 Creatinine 0.6 L Est GFR (CKD-EPI 2020) 100.04 Glucose 129 H Calcium 9.1 Magnesium 1.9 Total Bilirubin 0.8 AST 35 ALT 52 Alkaline Phosphatase 63 Troponin I 57 Total Protein 6.1 L Albumin 3.2 L Time Spent with Patient Time Spent with Patient: 25-34 minutes Time was spent: preparing to see the patient(eg.review tests), ordering medications,tests, procedures, indepentently interpreting results and counseling the patient
[2022-03-27] MEDS: Normal Saline Flush 10 ML SYR IVP (20:39)
[2022-03-27] MEDS: dilTIAZem CD 180 MG CAPCR PO (20:39)
[2022-03-27] MEDS: Tamsulosin 0.4 MG CAPCR 0.8 MG PO (22:56)
[2022-03-28 02:53] VITALS: BP 122/67; PULSE 64; RESP 16; TEMP 36.8; O2SAT 94
[2022-03-28] MEDS: Metoprolol CR 100 MG TABCR PO (05:24)
[2022-03-28 05:27] VITALS: BP 133/79; PULSE 144
[2022-03-28] MEDS: Metoprolol 5 MG/5 ML VIAL IVP (05:27)
[2022-03-28] MEDS: Normal Saline Flush 10 ML SYR IVP ×2 (05:28→05:39)
--- NOTE | 2022-03-28 05:52 | W.EVENT ---
Date of service: 03/28/22 Time of Service: 05:53 Event Note: Called for SVT. Chart reviewed, here with PSVT, currently on Lopressor and Cardizem. Initially presented with SVT, failed Adenosine, converted with Verapamil. Patient reports some tighness in chest and lightheadedness. Pulse 145/regular, BP 132/sys. No response to CSP. Given 5 mg Lopressor IV along with early dose of usual Toprol. Within approx 15 minutes converted to NSR rate approx 70 with BP 180/sys. Feels fine, no further CP or lightheadedness. Time Spent with Patient Time spent in critical care(minutes): 30 minutes Time Spent Included: Chart review, Documenting critically ill care, Time at immediate bedside and Discussing critically ill care with other medical staff
[2022-03-28 05:56] VITALS: BP 180/90
[2022-03-28 06:02] VITALS: BP 128/60; PULSE 57; RESP 18; O2SAT 97
[2022-03-28 07:11] VITALS: BP 128/76; PULSE 56; RESP 17; TEMP 36; O2SAT 96
[2022-03-28] MEDS: Nystatin POWDER 60 GM JAR TP (08:34)
[2022-03-28] MEDS: metFORMIN 500 MG TAB 1000 MG PO (08:34)
[2022-03-28] MEDS: glipiZIDE 10 MG TAB PO (08:34)
[2022-03-28] MEDS: Ibuprofen 800 MG TAB PO (08:34)
[2022-03-28] MEDS: Aspirin E.C. 81 MG TABEC PO (08:34)
[2022-03-28] MEDS: Omega-3 Fatty Acids 1000 MG CAP 2000 MG PO (08:35)
[2022-03-28] MEDS: Cefpodoxime 200 MG TAB PO (08:35)
[2022-03-28] MEDS: Empaglifozin 10 MG TAB 20 MG PO (08:35)
[2022-03-28] MEDS: Enoxaparin 40 MG/0.4 ML SYR SC (08:35)
[2022-03-28] MEDS: Citalopram 10 MG TAB PO (08:57)
--- NOTE | 2022-03-28 10:18 | DSE_ITS ---
Date of service: 03/28/22 Time of Service: 10:29 DS: Diagnosis Discharge Diagnosis (1) SVT (supraventricular tachycardia): Status: Chronic (2) Chest pain: Status: Acute (3) Elevated troponin I level: Status: Acute (4) Type 2 diabetes mellitus without complication, without long-term current use of insulin: Status: Chronic (5) Obstructive sleep apnea, adult: Status: Chronic (6) Essential hypertension: Status: Chronic (7) Amputation of toe of right foot: (8) Grief: Status: Chronic Discharge Plan Disposition Patient Disposition: Home Condition: Improving Discharge Details Reason For Visit: PSVT, Chest Pain, Grief with Loss of Admit Date/Time: 03/26/22 02:14 Admit Provider: David Torres Attending Provider: David Torres Primary Care Provider: Arsh Holland Home Meds and New Rx's Prescriptions: New polyethylene glycol 3350 17 gram Powder In Packet 17 g PO DAILY PRN PRN (Reason: Constipation) Qty: 0 0RF diltiazem HCl 180 mg Capsule,Extended Release 24hr 180 mg PO QPM Qty: 30 0RF citalopram 10 mg Tablet 10 mg PO DAILY Qty: 30 0RF Continued empagliflozin 10 mg tablet 20 mg PO QAM Qty: 180 4RF aspirin [Aspir-81] 81 MG tablet,delayed release (DR/EC) 81 mg PO DAILY Qty: 90 metformin 1,000 mg tablet 1,000 mg PO BID Qty: 180 4RF glipizide 10 mg tablet 10 mg PO DAILY Qty: 90 4RF Fish Oil 1 EACH capsule 2,000 mg PO DAILY ibuprofen 800 mg tablet 800 mg PO DAILY Rx Instructions: Take 1 tablet by mouth daily losartan-hydrochlorothiazide 100-25 mg tablet 1 tab PO DAILY Rx Instructions: Take 1 tablet by mouth daily tamsulosin 0.4 mg capsule 0.8 mg PO HS red yeast rice 600 mg capsule 1,200 mg PO BID Rx Instructions: give with meal/snack cefpodoxime 200 mg tablet 200 mg PO BID Qty: 14 0RF Rx Instructions: must administer with a meal/food Changed metoprolol succinate 100 mg tablet extended release 24 hr 100 mg PO 0430 Qty: 90 4RF Discontinued diltiazem HCl 240 mg capsule,extended release 24hr 240 mg PO DAILY Qty: 90 3RF No Action (DME) blood-glucose meter [FreeStyle Lite Meter] 1 EACH kit 1 ea Miscellaneous BID Qty: 1 (DME) lancets [FreeStyle Lancets] 28 gauge misc 1 ea Miscellaneous BID Qty: 200 5RF Rx Instructions: One BID (DME) FreeStyle Lite Strips Strip 1 ea Miscellaneous BID Qty: 200 4RF Rx Instructions: 1 twice a day Discharge Instructions Stand Alone Forms: Nursing Discharge Form Activity:: Activity as Tolerated Equipment/Supplies:: No Equipment Needed Diet:: Resume usual home diet DS: Summary Time Spent with Patient providing and/or coordinating discharge services: Greater than 30 minutes Status at Discharge Functional status at discharge: independent ambulation Overall status at discharge: patient is progressing back to baseline Mental Status: mental status grossly normal Speech and Movement: speech and movement normal Mood: congruent mood Affect: sad Exam Narrative Exam Narrative: Sukhjinder is sitting in chair. In no acute distress but tearful when speaking about his recently . Neck: obese, difficult to discern JVD Lungs: Clear anteriorly. Heart: regular Legs: 1+pedal and pretibial edema, venous stasis skin changes w/ bronze, dark red skin changes; right 2nd MTP s/p resection of 2nd digit; chronic wound w/out purulent discharge Abdomen: obese, soft, nontender Psych Mental Status: mental status grossly normal Speech and Movement: speech and movement normal Mood: congruent mood Affect: sad DS: Data Vitals/I&O Vitals and I&O: Vital Signs Temperature 36.0 C L 03/28/22 07:11 Temperature Source Tympanic 03/28/22 07:11 Pulse 56 L 03/28/22 07:11 Pulse Rhythm Irregular 03/28/22 06:53 Pulse 68 03/26/22 03:20 Respiratory Rate 17 03/28/22 07:11 Respiratory Effort Normal, Non-Labored 03/28/22 06:53 Respiratory Depth Normal 03/28/22 06:53 Respiratory Pattern Normal 03/28/22 06:53 Blood Pressure 128/76 03/28/22 07:11 Blood Pressure Mean 61 03/26/22 03:11 Blood Pressure Position Supine 03/26/22 00:38 Pulse Oximetry 96 03/28/22 07:11 Oxygen Delivery Method Nasal Cannula 03/28/22 06:02 Oxygen Flow Rate 2 03/28/22 06:02 Fraction of Inspired Oxygen (FIO2) 03/27/22 20:40 Pain Level 0 03/28/22 02:53 Comment RN Notified 03/26/22 23:20 Intake & Output 03/27/22 03/27/22 03/28/22 11:59 23:59 11:59 Intake Total 250 / 510 260 / 510 Output Total 400 / 650 250 / 650 600 / 600 Balance -150 / -140 10 / -140 -600 / -600 Weight 167.149 kg Intake: IV Oral 250 / 500 250 / 500 Output: Urine 400 / 650 250 / 650 600 / 600 Other: Urine Color Yellow Yellow Yellow Urine Appearance Clear Clear Clear Stool Size Moderate Voiding Methods Urinal Urinal Urinal PFSH All Active Problems Elevated troponin I level (Acute) SVT (supraventricular tachycardia) (Chronic) Chest pain (Acute) Grief (Chronic) Cerumen impaction (Acute) Non-healing wound of right lower extremity (Acute) PSVT (paroxysmal supraventricular tachycardia) (Acute) Inguinal hernia (Acute) Carotid artery stenosis (Acute) Fatty liver (Chronic 08/04/16) Peripheral vascular disease (Chronic) Diabetic neuropathy (Chronic) Right knee pain (Acute) BPH w urinary obs/LUTS (Chronic) Essential hypertension (Chronic) Generalized osteoarthrosis (Chronic) knees; R>L Hyperlipidemia (Chronic) Type IV Morbid obesity (Chronic) Obstructive sleep apnea, adult (Chronic) C-PAP Spondylolisthesis (Chronic) L5-S1 Type 2 diabetes mellitus without complication, without long-term current use of insulin (Chronic 07/04/16) Medical History Essential hypertension Hyperlipidemia Morbid obesity MRSA infection (09/03/15) ISAAC (obstructive sleep apnea) Tubular adenoma 07/24/14 DR. ALLEN X 3 Umbilical hernia Repaired Venous stasis ulcers of both lower extremities (03/09/16) Surgical History Amputation of toe of right foot 04/08/20 - Right second toe ([facility]) Appendectomy (~08/1973) Colonoscopy - MAC (~02/2004) neg FX ANKLE 02/2013; [facility] [place] [place] knee repair (~1965) cartilage repair Family History Mother , age 78 Cancer Father , age 70 Heart disease Cancer Sister Essential hypertension Hyperlipidemia Breast cancer Brother Essential hypertension Skin cancer Brother Diabetes Essential hypertension Heart disease Hyperlipidemia Alcohol abuse Substance abuse Cancer Maternal Grandfather Heart disease Paternal Grandfather No problems noted. Maternal Grandmother Diabetes Essential hypertension Paternal Grandmother Heart disease Son Essential hypertension Heart disease Hyperlipidemia Daughter No problems noted. Daughter No problems noted. Brother , age 69 Diabetes Essential hypertension Hyperlipidemia Social History Smoking/Tobacco Use Status: Never Second Hand Exposure: Yes Smoking risk assessment performed?: Yes Alcohol Intake: never Drug use: Never Substance use type: does not use Household members: spouse Communication Needs: Corrective Lenses Do you need help understanding health information?: Rarely Pets and animals: Yes Pets and animals: cat(s) and dog(s) Do you think of yourself as: straight/heterosexual Current gender identity: male What is your relationship status?: How often do you talk on the phone with friends or family?: twice per week How often do you get together with friends or relatives?: twice per week Do you belong to any clubs or organized social groups?: no Panel score (0-1 are the most socially isolated patients): 2 Mally/Congregational: Sabianist Special mally needs: No Seatbelt use: sometimes Helmet use: No Drive intox or 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 escort car driver: No Do you feel safe at home: Yes Do you feel safe in your relationship?: Yes Time Spent with Patient Time Spent with Patient: <45 minutes Time was spent: indepentently interpreting results, counseling the patient and care coordination
--- NOTE | 2022-03-28 10:38 | DSE_ITS ---
Date of service: 03/28/22 Time of Service: 10:42 DS: Diagnosis Discharge Diagnosis (1) SVT (supraventricular tachycardia): Status: Chronic Asessment and Plan: He did eventually convert with IV verapamil and was admitted for adjustment of oral therapy not being a surgical candidate for ablation.? He did almost require cardioversion in the ED which was aborted when he converted to normal sinus rhythm.? He did tend to be sinus bradycardic but does not have a soft blood pressure chronically and in fact has hypertension with medications adjusted with his soft blood pressure upon this admission.? His Cardizem dose was adjusted and was eventually continued at 180mg and changed to an evening dose. His metoprolol was given in the AM at his usual home dose of 100mg. He did continue to have breakthrough SVT early in the AM on the last 2 days of admission so the dose will be scheduled at 4:30AM; pt agreeable to this since he wakens typically at 4 AM. (2) Chest pain: Status: Acute Asessment and Plan: Patient did have chest pressure when he had tachycardia with low blood pressure but that resolved.? His first troponin was negative with subsequent low levels of elevation: 70 > 74 > 57..? He was monitored closely for ischemic changes and on telemetry. . (3) Elevated troponin I level: Status: Acute Asessment and Plan: As above. Echocardiogram: Study Quality: Adequate. Technically limited study due to body habitus, inability to position patient exam done supine bedside.. Conclusion Technically difficult study Mildly dilated left ventricle.? Wall thickness is normal.? Estimated ejection fraction is 50%.? There are no segmental wall motion abnormalities Normal right ventricular size and systolic function The left atrium is mildly dilated.? Right atrial size is normal Aortic valve sclerosis with mild to moderate regurgitation Normal mitral valve with trace to mild regurgitation Estimated right ventricular systolic pressure is 27 mmHg Dilated aortic root and ascending aorta (4) Type 2 diabetes mellitus without complication, without long-term current use of insulin: Status: Chronic Asessment and Plan: He was continued on his outpatient oral medical therapy for diabetes mellitus type 2. A1c of 7.3 on 03/03/22. (5) Obstructive sleep apnea, adult: Status: Chronic Asessment and Plan: Continued treatment with BiPAP during the night. (6) Essential hypertension: Status: Chronic Asessment and Plan: Losartan/HCTZ initially held until day of d/c due to low normal blood pressures. Cont with diltiazem and metoprolol as well as Losartan/HCTZ (7) Grief: Status: Chronic Asessment and Plan: Discussed with patient and daughter. Situational d/t spouses' recent . Citalopram 10mg po initiated on day of discharge. Artur need f/u with PCP to evaluate for effectiveness and any untoward side effects, including the possibility of hyponatremia. Discharge Plan Disposition Patient Disposition: Home Condition: Improving Discharge Details Reason For Visit: PSVT, Chest Pain, Grief with Loss of Admit Date/Time: 03/26/22 02:14 Admit Provider: David Torres Attending Provider: David Torres Primary Care Provider: Arsh Holland Hospital Course Hospital Course: This is a 76-year-old male patient who was just discharged 2 days ago who has a history of morbid obesity with ISAAC, hypertension with PSVT and hyperlipidemia as well as recent UTI with urinary outlet obstruction symptoms on Flomax as well as comorbidities of diabetes and peripheral vascular disease with chronic peripheral edema who presented to the ED with generalized weakness and chest tightness with shortness of breath and lightheadedness with palpitations the evening prior to presentation.? He was recently admitted for SVT with discharge 03/24/2022 and presented with recurrent SVT in the ED.? His EKG revealed no acute ischemic or ST-T changes and blood pressure was soft with systolic around 101.? His heart rate was about 148 and he did receive 2 doses of adenosine but did not break his tachyarrhythmia and was about to be cardioverted when he was given 1 more dose of IV verapamil which converted him to sinus rhythm.? Presently he is in sinus bradycardia and not hypotensive but is on multiple medications for hypertension which will be reviewed and adjusted while advancing his Cardizem with split dosing during this acute hospitalization.? During his last hospitalization it was entertained whether he should have ablation for his PSVT but was thought not to be a surgical candidate because of his multiple comorbid diseases.? [facility] [place] in the [place] by .? He is still on antibiotics for his UTI and this will be continued.? He was comfortable lying flat in bed and not complaining of chest discomfort or palpitations.? He was not short of breath.? He was grieving the loss of his recently and does have a very supportive family.? He is a full code. *See Diagnosis Pt has f/u scheduled for this Sunday with his PCP Home Meds and New Rx's Prescriptions: New polyethylene glycol 3350 17 gram Powder In Packet 17 g PO DAILY PRN PRN (Reason: Constipation) Qty: 0 0RF diltiazem HCl 180 mg Capsule,Extended Release 24hr 180 mg PO QPM Qty: 30 0RF citalopram 10 mg Tablet 10 mg PO DAILY Qty: 30 0RF Continued empagliflozin 10 mg tablet 20 mg PO QAM Qty: 180 4RF aspirin [Aspir-81] 81 MG tablet,delayed release (DR/EC) 81 mg PO DAILY Qty: 90 metformin 1,000 mg tablet 1,000 mg PO BID Qty: 180 4RF glipizide 10 mg tablet 10 mg PO DAILY Qty: 90 4RF Fish Oil 1 EACH capsule 2,000 mg PO DAILY ibuprofen 800 mg tablet 800 mg PO DAILY Rx Instructions: Take 1 tablet by mouth daily losartan-hydrochlorothiazide 100-25 mg tablet 1 tab PO DAILY Rx Instructions: Take 1 tablet by mouth daily tamsulosin 0.4 mg capsule 0.8 mg PO HS red yeast rice 600 mg capsule 1,200 mg PO BID Rx Instructions: give with meal/snack cefpodoxime 200 mg tablet 200 mg PO BID Qty: 14 0RF Rx Instructions: must administer with a meal/food Changed metoprolol succinate 100 mg tablet extended release 24 hr 100 mg PO 0430 Qty: 90 4RF Discontinued diltiazem HCl 240 mg capsule,extended release 24hr 240 mg PO DAILY Qty: 90 3RF No Action (DME) blood-glucose meter [FreeStyle Lite Meter] 1 EACH kit 1 ea Miscellaneous BID Qty: 1 (DME) lancets [FreeStyle Lancets] 28 gauge misc 1 ea Miscellaneous BID Qty: 200 5RF Rx Instructions: One BID (DME) FreeStyle Lite Strips Strip 1 ea Miscellaneous BID Qty: 200 4RF Rx Instructions: 1 twice a day Discharge Instructions Instructions: Supraventricular Tachycardia (DC), Chest Pain (DC) Stand Alone Forms: Nursing Discharge Form Referrals: Arsh Holland NP [Primary Care Provider] - 03/31/22 11:20 am Activity:: Activity as Tolerated Equipment/Supplies:: No Equipment Needed Diet:: Resume usual home diet Discharge Orders Discharge Orders: Discharge Order (Routine); Ordered 03/28/22 Ordered By: Huseyin Fisher DS: Summary Time Spent with Patient providing and/or coordinating discharge services: Greater than 30 minutes Status at Discharge Functional status at discharge: independent ambulation Overall status at discharge: patient is progressing back to baseline Mental Status: mental status grossly normal Speech and Movement: speech and movement normal Mood: congruent mood Affect: sad Exam Narrative Exam Narrative: Sukhjinder is sitting in chair. In no acute distress but tearful when speaking about his recently . Neck: obese, difficult to discern JVD Lungs: Clear anteriorly. Heart: regular Legs: 1+pedal and pretibial edema, venous stasis skin changes w/ bronze, dark red skin changes; right 2nd MTP s/p resection of 2nd digit; chronic wound w/out purulent discharge Abdomen: obese, soft, nontender Psych Mental Status: mental status grossly normal Speech and Movement: speech and movement normal Mood: congruent mood Affect: sad DS: Data Vitals/I&O Vitals and I&O: Vital Signs Temperature 36.0 C L 03/28/22 07:11 Temperature Source Tympanic 03/28/22 07:11 Pulse 56 L 03/28/22 07:11 Pulse Rhythm Irregular 03/28/22 06:53 Pulse 68 03/26/22 03:20 Respiratory Rate 17 03/28/22 07:11 Respiratory Effort Normal, Non-Labored 03/28/22 06:53 Respiratory Depth Normal 03/28/22 06:53 Respiratory Pattern Normal 03/28/22 06:53 Blood Pressure 128/76 03/28/22 07:11 Blood Pressure Mean 61 03/26/22 03:11 Blood Pressure Position Supine 03/26/22 00:38 Pulse Oximetry 96 03/28/22 07:11 Oxygen Delivery Method Nasal Cannula 03/28/22 06:02 Oxygen Flow Rate 2 03/28/22 06:02 Fraction of Inspired Oxygen (FIO2) 21 03/27/22 20:40 Pain Level 0 03/28/22 02:53 Comment RN Notified 03/26/22 23:20 Intake & Output 03/27/22 03/27/22 03/28/22 11:59 23:59 11:59 Intake Total 250 / 510 260 / 510 Output Total 400 / 650 250 / 650 600 / 600 Balance -150 / -140 10 / -140 -600 / -600 Weight 167.149 kg Intake: IV Oral 250 / 500 250 / 500 Output: Urine 400 / 650 250 / 650 600 / 600 Other: Urine Color Yellow Yellow Yellow Urine Appearance Clear Clear Clear Stool Size Moderate Voiding Methods Urinal Urinal Urinal PFSH All Active Problems Elevated troponin I level (Acute) SVT (supraventricular tachycardia) (Chronic) Chest pain (Acute) Grief (Chronic) Cerumen impaction (Acute) Non-healing wound of right lower extremity (Acute) PSVT (paroxysmal supraventricular tachycardia) (Acute) Inguinal hernia (Acute) Carotid artery stenosis (Acute) Fatty liver (Chronic 08/04/16) Peripheral vascular disease (Chronic) Diabetic neuropathy (Chronic) Right knee pain (Acute) BPH w urinary obs/LUTS (Chronic) Essential hypertension (Chronic) Generalized osteoarthrosis (Chronic) knees; R>L Hyperlipidemia (Chronic) Type IV Morbid obesity (Chronic) Obstructive sleep apnea, adult (Chronic) C-PAP Spondylolisthesis (Chronic) L5-S1 Type 2 diabetes mellitus without complication, without long-term current use of insulin (Chronic 07/04/16) Medical History Essential hypertension Hyperlipidemia Morbid obesity MRSA infection (09/03/15) ISAAC (obstructive sleep apnea) Tubular adenoma 07/24/14 DR. ALLEN X 3 Umbilical hernia Repaired Venous stasis ulcers of both lower extremities (03/09/16) Surgical History Amputation of toe of right foot 04/08/20 - Right second toe ([facility]) Appendectomy (~08/1973) Colonoscopy - MAC (~02/2004) neg FX ANKLE 02/2013[place] [facility] [place] [place] [facility] ([place]) cartilage repair Family History Mother , age 78 Cancer Father , age 70 Heart disease Cancer Sister Essential hypertension Hyperlipidemia Breast cancer Brother Essential hypertension Skin cancer Brother Diabetes Essential hypertension Heart disease Hyperlipidemia Alcohol abuse Substance abuse Cancer Maternal Grandfather Heart disease Paternal Grandfather No problems noted. Maternal Grandmother Diabetes Essential hypertension Paternal Grandmother Heart disease Son Essential hypertension Heart disease Hyperlipidemia Daughter No problems noted. Daughter No problems noted. Brother , age 69 Diabetes Essential hypertension Hyperlipidemia Social History Smoking/Tobacco Use Status: Never Second Hand Exposure: Yes Smoking risk assessment performed?: Yes Alcohol Intake: never Drug use: Never Substance use type: does not use Household members: spouse Communication Needs: Corrective Lenses Do you need help understanding health information?: Rarely Pets and animals: Yes Pets and animals: cat(s) and dog(s) Do you think of yourself as: straight/heterosexual Current gender identity: male What is your relationship status?: How often do you talk on the phone with friends or family?: twice per week How often do you get together with friends or relatives?: twice per week Do you belong to any clubs or organized social groups?: no Panel score (0-1 are the most socially isolated patients): 2 Mally/Orthodoxy: Yarsani Special mally needs: No Seatbelt use: sometimes Helmet use: No Drive intox or 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 regional company flatbed truck driver: No Do you feel safe at home: Yes Do you feel safe in your relationship?: Yes Time Spent with Patient Time Spent with Patient: <45 minutes Time was spent: preparing to see the patient(eg.review tests), indepentently interpreting results, counseling the patient and care coordination
--- NOTE | 2022-03-28 10:39 | CMPROGNOTE_ITS ---
- If Service Date Differs Date of service: 03/28/22 Time of Service: 10:39 Care Management Progress Note S/O: Ed remains inpatient. CM will continue to follow. A: Sukhjinder is a 76 year old male admitted to [facility] on 03/26/22 for PSVT, Chest Pain. P: Anticipate Ed will return home with new RN, PT, OT, TANK PUMPER PANELBOARD when medically cleared. His daughter will drive him home via private vehicle. He will follow up with [facility], his PCP and his discharge plan of care. CM will continue to follow.
--- NOTE | 2022-03-28 10:41 | CMDISCH_ITS ---
- If Service Date Differs Date of service: 03/28/22 Time of Service: 10:41 LACE Index Scoring Tool - Questions: Length of Stay (in days): 2 Acuity (Admit via E.D.?): Yes Comorbidities: PVD, Chronic Pulmonary Disease E.D. Visits: 2 - Answers: Total Score: 10 Risk of Readmission: High Risk Care Management Discharge Reason for Hospitalization: PSVT, Chest Pain Discharge Plan: Ed will return home with new RN, PT, OT, PICK AND SHOVEL WORKER when medically cleared. His daughter will drive him home via private vehicle. He will follow up with [facility], his PCP and his discharge plan of care. Patient/Family Education Needs: Review discharge instructions, discuss Ask Me Three. Services Needed at Discharge: Home Health Care Services (RN, PT, OT, PICK AND SHOVEL WORKER)
[2022-03-28 11:38] VITALS: PULSE 99
--- NOTE | 2022-03-28 11:44 | PDOC.HHF2F_ITS ---
Home Health Referral Registered Nurse: Check all that apply Instruct on new or changed medication(s)/assess compliance: Ordered Assess for exacerbation of medical condition, instruct patient/caregivers on signs and symptoms to report for early detection: Ordered Physical Therapist: Check all that apply Increase strength & endurance for safe mobility at home: Ordered Occupational Therapist: Evaluate and treat for patient unable to perform ADL/IADL/self-care: Ordered [employer]: Assist with community resources: Ordered Home Bound Status Assistance of another person (Describe assistance and medical necessity): Deconditioned state from hospitalization. Describe why leaving home would require a considerable and taxing effort: Requires frequent rest periods Encounter Date and Reason: I certify that a FTF encounter for this patient was performed on March 28, 2022 and that such encounter was related to the primary reason the patient requires home health services. The encounter was conducted in the following manner: * By me as the certifying physician, HOBBING PRESS OPERATOR, PA or * By an inpatient physician, HOBBING PRESS OPERATOR or PA during an inpatient stay who communicated findings to me, Certification And Authentication I certify that I composed the above information based on my clinical judgment relating to this patient's medical condition and, if applicable, clinical findings communicated to me by the NPP or inpatient physician who performed the FTF encounter. Name of Provider that will be monitoring home health services: Arsh Holland
== END 2022-03-28 11:38 | disposition home or self-care (01) | DRG 309 ==
LOC: ER 02:18 → MS 03:38
PROVIDERS: Internal Medicine; Admitting Provider Family Medicine; Emergency Provider Physician Assistant; PCP Nurse Practitioner Family; Visit Provider Family Medicine
DX: I47.1 Supraventricular tachycardia (principal); N39.0 Urinary tract infection, site not specified; Z68.43 Body mass index [BMI] 50.0-59.9, adult; I95.9 Hypotension, unspecified; R07.89 Other chest pain; I10 Essential (primary) hypertension; E78.2 Mixed hyperlipidemia; G47.33 Obstructive sleep apnea (adult) (pediatric); F43.29 Adjustment disorder with other symptoms; E66.01 Morbid (severe) obesity due to excess calories; K40.90 Unilateral inguinal hernia, without obstruction or gangrene, not specified as recurrent; K76.0 Fatty (change of) liver, not elsewhere classified; I73.9 Peripheral vascular disease, unspecified; E11.40 Type 2 diabetes mellitus with diabetic neuropathy, unspecified; N40.1 Benign prostatic hyperplasia with lower urinary tract symptoms; M15.9 Polyosteoarthritis, unspecified; I65.29 Occlusion and stenosis of unspecified carotid artery; Z79.84 Long term (current) use of oral hypoglycemic drugs; I87.2 Venous insufficiency (chronic) (peripheral); L97.512 Non-pressure chronic ulcer of other part of right foot with fat layer exposed; R74.8 Abnormal levels of other serum enzymes; Z89.421 Acquired absence of other right toe(s)
CPT/HCPCS: 36415; 80053; 85027; 87635; 93005; 96361; 96374; 96375; 97162; 97530; 99291; 99292; J1650; 71045; 83735; 84443; 84484; 85025; 93010; 99223; 99232; 99239; J0153; J1941; J2060

== ENCOUNTER 2022-06-14 20:00 | Inpatient (IN) | payer OTHER, SELFPAY ==
[2022-06-14] VITALS (29 sets, daily range): BP systolic 102–136; BP diastolic 41–78; PULSE 78–122; RESP 17–34; TEMP 38.5; O2SAT 90–94
--- NOTE | 2022-06-14 19:45 | RT.EKG_ITS ---
APPROVED REPORT Exam: Resting ECG Reason for Exam: weakness Patient Location: E HR:97 bpm ECG Measurements Heart Rate 97 AXIS ND [id number] P [id number] QRSd 104 QRS -18 QT 356 T 20 QTc 454 Conclusion sinus with pvc
--- NOTE | 2022-06-14 20:30 | DI.RAD_ITS ---
Exam(s) XR KNEE RT 4V AP,LAT,FLAVIA,PAT EXAM: XR KNEE RT 4V AP,LAT,FLAVIA,PAT CLINICAL HISTORY: pain anterior. TECHNIQUE: 2D digital imaging was performed. COMPARISON: CR XR KNEE RT 3V AP,LAT,FLAVIA from 01/28/2019 FINDINGS: Four views No evidence of acute fracture. May be a small joint effusion here. Again noted is vegg-vd-ishy narrowing the medial compartment. Lateral compartment continues to exhib it normal height and mild chondrocalcinosis. Mild degenerative changes patellofemoral compartment. Bone density normal. No osseous lesions. IMPRESSION: Degenerative changes with ubsd-me-ycba narrowing of the medial compartment. Small joint effusion. N o obvious fractures. DATA REPOSITORY: RADIATION DOSE DELIVERED:
[2022-06-14 20:31] LABS: Lactate 2.9 mmol/L (0.6-1.4)
--- NOTE | 2022-06-14 20:39 | DI.RAD_ITS ---
Exam(s) XR CHEST 1V IN DI DEPT EXAM: XR CHEST 1V IN DI DEPT CLINICAL HISTORY: fever. TECHNIQUE: 2D digital imaging was performed. COMPARISON: CR,XR XR PORTABLE CHEST AP from 03/26/2022 FINDINGS: Single AP portable view. Four-suboptimal inspiratory effort. Cardiomegaly. Mediastinum not widened No obvious infiltrates realized limitations of portable semi-erect view significant body habitus limi tations. IMPRESSION: No obvious acute pulmonary findings on this single AP portable view of the chest.Cardiomegaly. Recom mend nonportable PA and lateral clinically possible. DATA REPOSITORY: RADIATION DOSE DELIVERED:
--- NOTE | 2022-06-14 20:44 | W.ED.GENAD ---
Discharge Plan Disposition Patient Disposition: Admit to [facility] Discharge Details Clinical Impression: Cellulitis of abdominal wall, Sepsis Primary Care Provider: Arsh Holland ED Provider: Travis Multani Home Meds and New Rx's Prescriptions: No Action (DME) diabetic shoes See Rx Instructions .Route .MEDSUPPLY Qty: 1 0RF Rx Instructions: As directed - Custom molded diabetic shoes - 1 pair. empagliflozin 10 mg tablet 20 mg PO QAM Qty: 180 4RF aspirin [Aspir-81] 81 MG tablet,delayed release (DR/EC) 81 mg PO DAILY Qty: 90 (DME) blood-glucose meter [FreeStyle Lite Meter] 1 EACH kit 1 ea Miscellaneous BID Qty: 1 (DME) lancets [FreeStyle Lancets] 28 gauge misc 1 ea Miscellaneous BID Qty: 200 5RF Rx Instructions: One BID citalopram 10 mg tablet 10 mg PO DAILY Qty: 90 0RF diltiazem HCl 180 mg capsule,extended release 24hr 180 mg PO QPM Qty: 90 0RF turmeric root extract 500 mg capsule 500 mg PO BID metformin 1,000 mg tablet 1,000 mg PO BID Qty: 180 4RF tamsulosin 0.4 mg capsule 0.8 mg PO HS Qty: 180 3RF metoprolol succinate 100 mg tablet extended release 24 hr 100 mg PO 0430 Qty: 90 4RF (DME) FreeStyle Lite Strips Strip 1 ea Miscellaneous BID Qty: 200 4RF Rx Instructions: 1 twice a day glipizide 10 mg tablet 10 mg PO DAILY Qty: 90 4RF Fish Oil 1 EACH capsule 2,000 mg PO DAILY ibuprofen 800 mg tablet 800 mg PO DAILY Rx Instructions: Take 1 tablet by mouth daily losartan-hydrochlorothiazide 100-25 mg tablet 1 tab PO DAILY Rx Instructions: Take 1 tablet by mouth daily red yeast rice 600 mg capsule 1,200 mg PO BID Rx Instructions: give with meal/snack polyethylene glycol 3350 17 gram Powder In Packet 17 g PO DAILY PRN PRN (Reason: Constipation) Qty: 0 0RF Medical Decision Making 2100 --76-year-old male with multiple medical problems including history of gml-auhxkib-gthepcgqo diabetes type 2, obesity, here with generalized weakness, fever, abdominal cellulitis on exam. Patient does have faint expiratory wheeze on exam. Saturating well in no respiratory distress. He was given neb treatment by EMS for wheezing. Patient febrile and borderline tachycardic. Normotensive. Lactate elevated. Patient with sepsis secondary to likely abdominal wall cellulitis. Plan to initiate broad-spectrum coverage with vancomycin 2 g IV and cefepime 2 g IV. I will give to 250 mL IV fluid bolus and establish second IV. Patient also with complaint of right knee pain with past couple days. Does not recall any trauma. Patient has tenderness over suprapatellar and patellar area. Consider patellar fracture. Plan to obtain x-ray. 2339 -- Chest x-ray was interpreted by radiology: Moderate hypoaeration changes. Otherwise unremarkable chest. EKG was reviewed and interpreted by me: Please see report, nondiagnostic. Labs reviewed and leukocytosis noted. Repeat lactate improved after 250 cc bolus. I will repeat to 50 cc bolus. Patient received acetaminophen 1 g IV. Patient was reassessed and remains hemodynamically stable. I called and spoke with on-call hospitalist, Dr. Torres, discussed ED presentation and course, he will admit the patient. Care transitioned at time of admission. Lab Data Lab results reviewed: Yes I reviewed the patient's lab results. Labs: 06/14/22 20:50 Blood Blood Culture - Pending 06/14/22 20:40 Blood Blood Culture - Pending Laboratory Tests Range/Units 06/14/22 06/14/22 06/14/22 20:17 20:17 20:17 WBC (4.4-10.8) 10^3/uL 13.15 H RBC (4.36-5.78) 10^6/uL 5.40 Hgb (13.5-17.5) g/dL 15.6 Hct (40.0-50.0) % 48.5 MCV (80-95) fL 90 MCH (27.0-33.0) pg 28.9 MCHC (32.0-36.0) % 32.2 RDW (11.8-14.1) % 14.6 H Plt Count (130-400) 10^3/uL 167 MPV (8.0-11.0) fL 9.1 Immature Gran % 0.6 Neutrophils % 90.3 Lymphocytes % 3.2 Monocytes % 4.9 Eosinophils % 0.3 Basophils % 0.7 Nucleated RBC % (0.0-0.3) % 0.0 Absolute Neutrophils (1.2-6.7) 10^3/uL 11.87 H Absolute Lymphocytes (1.2-3.4) 10^3/uL 0.42 L Absolute Monocytes (0.1-0.8) 10^3/uL 0.64 Absolute Eosinophils (0.0-0.7) 10^3/uL 0.04 Absolute Basophils (0.0-0.2) 10^3/uL 0.09 VBG Lactate (0.6-1.4) mmol/L 2.9 H* Sodium (136-145) mmol/L 135 L Potassium (3.5-5.1) mmol/L 4.2 Chloride (98-107) mmol/L 100 Carbon Dioxide (21.0-32.0) mmol/L 26.5 Anion Gap (3-11) mmol/L 8.5 BUN (7-18) mg/dL 25 H Creatinine (0.70-1.30) mg/dL 1.0 Est GFR (CKD-EPI 2020) (mL/min/1.73m2) 78.00 Glucose (74-106) mg/dL 190 H Calcium (8.5-10.1) mg/dL 9.6 Total Bilirubin (0.2-1.0) mg/dL 0.9 AST (15-37) U/L 22 ALT (16-63) U/L 36 Alkaline Phosphatase (46-116) U/L 83 Total Protein (6.4-8.2) g/dL 7.1 Albumin (3.4-5.0) g/dL 3.5 Urine Color (Yellow) Urine Clarity (Clear) Urine pH (5-8) Ur Specific [place] (1.005-1.025) Urine Protein (Negative) mg/dL Urine Ketones (Negative) mg/dL Urine Blood (Negative) Urine Nitrite (Negative) Urine Bilirubin (Negative) Urine Urobilinogen (Up to 0.2) mg/dL Ur Leukocyte Esterase (Negative) Urine RBC (0-2) HPF Urine WBC (0-5) HPF Ur Epithelial Cells (Negative) HPF Urine Crystals (Negative) HPF Urine Bacteria (Negative) HPF Urine Mucus (Negative) Ur Culture Indicated? Urine Glucose (Negative) mg/dL COVID-19 Source SARS-CoV-2 (PCR) (Negative) Range/Units 06/14/22 06/14/22 06/14/22 20:41 21:26 23:03 WBC (4.4-10.8) 10^3/uL RBC (4.36-5.78) 10^6/uL Hgb (13.5-17.5) g/dL Hct (40.0-50.0) % MCV (80-95) fL MCH (27.0-33.0) pg MCHC (32.0-36.0) % RDW (11.8-14.1) % Plt Count (130-400) 10^3/uL MPV (8.0-11.0) fL Immature Gran % Neutrophils % Lymphocytes % Monocytes % Eosinophils % Basophils % Nucleated RBC % (0.0-0.3) % Absolute Neutrophils (1.2-6.7) 10^3/uL Absolute Lymphocytes (1.2-3.4) 10^3/uL Absolute Monocytes (0.1-0.8) 10^3/uL Absolute Eosinophils (0.0-0.7) 10^3/uL Absolute Basophils (0.0-0.2) 10^3/uL VBG Lactate (0.6-1.4) mmol/L 2.2 H* Sodium (136-145) mmol/L Potassium (3.5-5.1) mmol/L Chloride (98-107) mmol/L Carbon Dioxide (21.0-32.0) mmol/L Anion Gap (3-11) mmol/L BUN (7-18) mg/dL Creatinine (0.70-1.30) mg/dL Est GFR (CKD-EPI 2020) (mL/min/1.73m2) Glucose (74-106) mg/dL Calcium (8.5-10.1) mg/dL Total Bilirubin (0.2-1.0) mg/dL AST (15-37) U/L ALT (16-63) U/L Alkaline Phosphatase (46-116) U/L Total Protein (6.4-8.2) g/dL Albumin (3.4-5.0) g/dL Urine Color (Yellow) Yellow Urine Clarity (Clear) Clear Urine pH (5-8) 5.5 Ur Specific [place] (1.005-1.025) 1.015 Urine Protein (Negative) mg/dL Negative Urine Ketones (Negative) mg/dL Negative Urine Blood (Negative) Trace-intact H Urine Nitrite (Negative) Negative Urine Bilirubin (Negative) Negative Urine Urobilinogen (Up to 0.2) mg/dL 0.2 Ur Leukocyte Esterase (Negative) Negative Urine RBC (0-2) HPF 3-5 H Urine WBC (0-5) HPF 0-2 Ur Epithelial Cells (Negative) HPF Moderate Urine Crystals (Negative) HPF Negative Urine Bacteria (Negative) HPF Few Urine Mucus (Negative) Moderate Ur Culture Indicated? No Urine Glucose (Negative) mg/dL 500 H COVID-19 Source Nasal/Nares SARS-CoV-2 (PCR) (Negative) Negative HPI General Mode of arrival: EMS. Date/Time Provider Initiated Documentation: 06/14/22 20:23. Limitations to Documentation: no limitations. Information obtained by: patient and family. HPI Narrative: 76-year-old male with multiple medical problems including history of SVT, noninsulin-dependent type 2 diabetes, hyperlipidemia, hypertension, morbid obesity, urinary tract infections in the past, diabetic neuropathy, here with complaint of generalized weakness. Weakness increasing over the past couple days. Patient severely weak and unable to get off the toilet today. Patient has associated diaphoresis per EMS. Patient noted to have some wheezing was given albuterol neb treatment by EMS. On arrival patient denies pain. No complaint but does acknowledge recent weakness. Patient denies focal deficit. Related Data Home Medications Medication Instructions Recorded Confirmed omega-3 fatty acids-fish oil 340 2,000 mg PO DAILY 01/17/13 06/14/22 mg-1,000 mg capsule (Fish Oil) aspirin 81 mg tablet,delayed 81 mg PO DAILY #90 tab-caps 03/12/15 06/14/22 release (Aspir-) blood-glucose meter (FreeStyle ##1 07/05/16 06/14/22 Lite Meter kit) lancets 28 gauge (FreeStyle #200 ea 01/02/20 06/14/22 Lancets) empagliflozin 10 mg tablet 20 mg PO QAM #180 tabs 06/17/21 06/14/22 ibuprofen 800 mg tablet 800 mg PO DAILY 10/24/21 06/14/22 losartan 100 1 tab PO DAILY 10/24/21 06/14/22 mg-hydrochlorothiazide 25 mg tablet red yeast rice 600 mg capsule 1,200 mg PO BID 10/24/21 06/14/22 polyethylene glycol 3350 17 gram 17 g PO DAILY PRN PRN Constipation 03/28/22 06/14/22 oral powder packet #0 ea citalopram 10 mg tablet 10 mg PO DAILY #90 tabs 04/05/22 06/14/22 diltiazem HCl 180 mg 180 mg PO QPM #90 caps 04/05/22 06/14/22 capsule,extended release 24 hr diabetic shoes #1 ea 04/07/22 06/14/22 turmeric root extract 500 mg 500 mg PO BID 04/18/22 06/14/22 capsule metformin 1,000 mg tablet 1,000 mg PO BID #180 tab-caps 05/03/22 06/14/22 metoprolol succinate 100 mg 100 mg PO 0430 #90 tab-caps 05/03/22 06/14/22 tablet,extended release 24 hr tamsulosin 0.4 mg capsule 0.8 mg PO HS #180 caps 05/03/22 06/14/22 blood sugar diagnostic (FreeStyle #200 strips 06/07/22 06/14/22 Lite Strips) glipizide 10 mg tablet 10 mg PO DAILY #90 tabs 06/07/22 06/14/22 Previous Rx's Medication Instructions Recorded lancets 28 gauge (FreeStyle #200 ea 01/02/20 Lancets) empagliflozin 10 mg tablet 20 mg PO QAM #180 tabs 06/17/21 polyethylene glycol 3350 17 gram 17 g PO DAILY PRN PRN Constipation 03/28/22 oral powder packet #0 ea citalopram 10 mg tablet 10 mg PO DAILY #90 tabs 04/05/22 diltiazem HCl 180 mg 180 mg PO QPM #90 caps 04/05/22 capsule,extended release 24 hr diabetic shoes #1 ea 04/07/22 metformin 1,000 mg tablet 1,000 mg PO BID #180 tab-caps 05/03/22 metoprolol succinate 100 mg 100 mg PO 0430 #90 tab-caps 05/03/22 tablet,extended release 24 hr tamsulosin 0.4 mg capsule 0.8 mg PO HS #180 caps 05/03/22 blood sugar diagnostic (FreeStyle #200 strips 06/07/22 Lite Strips) glipizide 10 mg tablet 10 mg PO DAILY #90 tabs 06/07/22 Allergies Allergy/AdvReac Type Severity Reaction Status Date / Time atorvastatin calcium AdvReac INTOLERANCE Verified 05/17/22 13:58 [From Lipitor] General Stated Complaint: GenMedical JOSE: 3 Review of Systems Constitutional Constitutional: Reports as per HPI, Reports fatigue and Reports weakness Cardiovascular Cardiovascular: Denies chest pain Neurologic Neurologic: Reports weakness Endocrine Endocrine: Reports fatigue PFSH All Active Problems Cellulitis of abdominal wall (Acute) Sepsis (Acute) Lower urinary tract symptoms (LUTS) (Acute) SVT (supraventricular tachycardia) (Chronic) Grief (Chronic) Non-healing wound of right lower extremity (Acute) PSVT (paroxysmal supraventricular tachycardia) (Acute) Inguinal hernia (Acute) Carotid artery stenosis (Acute) Fatty liver (Chronic 08/04/16) Peripheral vascular disease (Chronic) Diabetic neuropathy (Chronic) Right knee pain (Acute) BPH w urinary obs/LUTS (Chronic) Essential hypertension (Chronic) Generalized osteoarthrosis (Chronic) knees; R>L Hyperlipidemia (Chronic) Type IV Morbid obesity (Chronic) Obstructive sleep apnea, adult (Chronic) C-PAP Spondylolisthesis (Chronic) L5-S1 Type 2 diabetes mellitus without complication, without long-term current use of insulin (Chronic 07/04/16) Medical History MRSA infection (09/03/15) Tubular adenoma 07/24/14 DR. ALLEN X 3 Umbilical hernia Repaired Venous stasis ulcers of both lower extremities (03/09/16) Surgical History Amputation of toe of right foot 04/08/20 - Right second toe ([facility]) Appendectomy (~08/1973) Colonoscopy - MAC (~02/2004) neg FX ANKLE 02/2013; [facility] [place] [place] knee repair (~1964) cartilage repair Family History Mother , age 78 Cancer Father , age 70 Heart disease Cancer Sister Essential hypertension Hyperlipidemia Breast cancer Brother Essential hypertension Skin cancer Brother Diabetes Essential hypertension Heart disease Hyperlipidemia Alcohol abuse Substance abuse Cancer Maternal Grandfather Heart disease Paternal Grandfather No problems noted. Maternal Grandmother Diabetes Essential hypertension Paternal Grandmother Heart disease Son Essential hypertension Heart disease Hyperlipidemia Daughter No problems noted. Daughter No problems noted. Brother , age 69 Diabetes Essential hypertension Hyperlipidemia Social History Smoking/Tobacco Use Status: Never Second Hand Exposure: Yes Smoking risk assessment performed?: Yes Alcohol Intake: never Drug use: Never Substance use type: does not use Household members: other Details: Nephew Housing: house Communication Needs: Corrective Lenses Do you need help understanding health information?: Rarely Pets and animals: Yes Pets and animals: cat(s) and dog(s) Sexually active: No Do you think of yourself as: straight/heterosexual Current gender identity: male What is your relationship status?: How often do you talk on the phone with friends or family?: three or more times per week How often do you get together with friends or relatives?: once per week How often do you attend anabaptism or sabianist services?: 4 or more times per year Do you belong to any clubs or organized social groups?: no Panel score (0-1 are the most socially isolated patients): 2 What type of physical activity do you participate in: none Frequency: does not exercise Mally/Islam: Yarsani Special mally needs: No Seatbelt use: sometimes Helmet use: No Drive intox or 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 school bus driver/teacher assistant: No Do you feel safe at home: Yes Do you feel safe in your relationship?: Yes Exam Const General: cooperative and no acute distress Nutritional Appearance: obese Orientation: alert and awake HENOK Mouth: moist mucous membranes Eyes Conjunctivae: normal conjunctivae Sclera: normal sclerae Neck Neck: trachea midline and supple Resp Effort & Inspection: normal respiratory effort and not labored Auscultation: clear to auscultation bilaterally, no rales, no rhonchi and wheezes (faint bilateral) Cardio Rate: regular rate and not tachycardic Rhythm: regular rhythm GI Palpation: soft, not firm, no guarding, no masses, not rigid and nontender Skin Rashes: rashes noted (Large abdominal cellulitis) Neuro General: patient alert and patient awake Cognition: normal cognition Speech: speech normal Motor: muscle tone normal throughout Extrem General: no edema Right lower extremity: hip/thigh Details: normal to inspection; no tenderness and knee Details: tenderness Location: of the patella Psych Appearance: grossly normal Mental Status: mental status grossly normal Course Vital Signs Vital signs: Vital Signs Temperature 38.5 C H 06/14/22 19:57 Pulse 97 H 06/14/22 19:57 Respiratory Rate 22 06/14/22 19:57 Blood Pressure 136/58 L 06/14/22 19:57 Pulse Oximetry 94 06/14/22 19:57 Temperature 38.5 C H 06/14/22 19:57 Temperature Source Tympanic 06/14/22 19:57 Pulse 97 H 06/14/22 19:57 Respiratory Rate 26 H 06/14/22 20:09 Respiratory Effort Normal 06/14/22 20:09 Respiratory Depth Normal 06/14/22 20:09 Respiratory Pattern Tachypnea 06/14/22 20:09 Blood Pressure 136/58 L 06/14/22 19:57 Blood Pressure Position Supine 06/14/22 19:57 Pulse Oximetry 94 06/14/22 19:57 Oxygen Delivery Method Nasal Cannula 06/14/22 19:57 Oxygen Flow Rate 4 06/14/22 19:57 Pain Level 0 06/14/22 19:57 Lab/Test Results Lab/Test Results: 06/14/22 20:23 Blood Blood Culture - Pending 06/14/22 20:23 Blood Blood Culture - Pending Laboratory Tests Range/Units 06/14/22 20:17 VBG Lactate (0.6-1.4) mmol/L 2.9 H*
[2022-06-14 20:52] LABS: Abs Immature Grans 0.08 10^3/uL (0.0-0.06); Absolute Basophil Count 0.09 10^3/uL (0.0-0.2); Absolute Eosinophil Count 0.04 10^3/uL (0.0-0.7); Absolute Lymphocyte Count 0.42 10^3/uL (1.2-3.4); Absolute Neutrophil Count 11.87 10^3/uL (1.2-6.7); Basophils % 0.7; Eosinophils % 0.3; HCT 48.5 % (40.0-50.0); HGB 15.6 g/dL (13.5-17.5); Immature Grans % 0.6; Lymphocytes % 3.2; MCH 28.9 pg (27.0-33.0); MCHC 32.2 % (32.0-36.0); MCV 90 fL (80-95); MPV 9.1 fL (8.0-11.0); Monocytes % 4.9; Neutrophils % 90.3; Platelet Count 167 10^3/uL (130-400); RDW 14.6 % (11.8-14.1); RDW-SD 47.4 fL; WBC 13.15 10^3/uL (4.4-10.8)
[2022-06-14 20:52] LABS: Source Nasal/Nares
[2022-06-14 20:54] LABS: Absolute Monocyte Count 0.64 10^3/uL (0.1-0.8)
[2022-06-14 21:02] LABS: ALT 36 U/L (16-63); AST 22 U/L (15-37); Albumin 3.5 g/dL (3.4-5.0); Alkaline Phosphatase 83 U/L (46-116); Anion Gap 8.5 mmol/L (3-11); BUN 25 mg/dL (7-18); Bilirubin, Total 0.9 mg/dL (0.2-1.0); CO2 26.5 mmol/L (21.0-32.0); Calcium 9.6 mg/dL (8.5-10.1); Chloride 100 mmol/L (98-107); Glucose 190 mg/dL (74-106); Potassium 4.2 mmol/L (3.5-5.1); Sodium 135 mmol/L (136-145); Total Protein 7.1 g/dL (6.4-8.2)
[2022-06-14] MEDS: CEFEPIME 2 GM in Normal Saline 100 ML IVPB (21:08)
[2022-06-14] MEDS: Normal Saline 250 ML 1000 ML IV (21:09)
[2022-06-14] MEDS: VANCOMYCIN 2,000 MG in Normal Saline 500 ML 250 MG IVPB (21:09)
[2022-06-14 21:33] LABS: COVID-19 PCR Negative (Negative)
[2022-06-14 21:33] LABS: Bilirubin Negative (Negative); Blood Trace-intact (Negative); Clarity Clear (Clear); Glucose 500 mg/dL (Negative); Ketones Negative (Negative); Leukocyte Esterase Negative (Negative); Nitrite Negative (Negative); Specific Gravity 1.015 (1.005-1.025); Urobilinogen 0.2 mg/dL (Up to 0.2); pH 5.5 (5-8)
[2022-06-14 21:41] LABS: Bacteria Few HPF (Negative); Epithelial Cells Moderate HPF (Negative); WBC 0-2 HPF (0-5)
[2022-06-14 21:50] LABS: C & S Indicated? No; Crystals Negative HPF (Negative); Mucus Moderate (Negative)
--- NOTE | 2022-06-14 22:51 | DI.VRAD_ITS ---
PROCEDURE INFORMATION: Exam: XR Chest Exam date and time: 06/14/2022 10:08 PM Age: 76 years old Clinical indication: Fever TECHNIQUE: Imaging protocol: Radiologic exam of the chest. Views: 1 view. COMPARISON: CR XR PORTABLE CHEST AP 03/26/2022 1:28 AM FINDINGS: Lungs: Lung volumes are low with crowding of the pulmonary vasculature. No sarita pulmonary consolidation. Pleural spaces: Unremarkable. No pleural effusion. No pneumothorax. Heart/Mediastinum: Cardiac silhouette is top-normal in size and stable. Bones/joints: Unremarkable. IMPRESSION: Moderate hypoaeration changes. Otherwise unremarkable chest. Dictated and Authenticated by: Phill Fairbanks MD. Ordering:DREW Robles MD
--- NOTE | 2022-06-14 23:01 | DI.VRAD_ITS ---
PROCEDURE INFORMATION: Exam: XR right knee Exam date and time: 06/14/2022 10:10 PM Age: 76 years old Clinical indication: Pain; Knee; Right; Additional info: Anterior knee pain TECHNIQUE: Imaging protocol: Radiologic exam of the right knee. Views: 4 or more views. COMPARISON: No relevant prior studies available. FINDINGS: Bones/joints: There is significant joint space narrowing in the medial compartment with associated genu varum. There is moderate tricompartmental osteophyte formation. No acute fracture. No significant joint fluid. Soft tissues: Normal. IMPRESSION: Osteoarthritis most pronounced in the medial compartment with associated genu varum. No definite acute abnormality. Dictated and Authenticated by: Phill Fairbanks MD. Ordering:DREW Robles MD
[2022-06-14] MEDS: Acetaminophen 500 MG TAB 1000 MG PO (23:09)
--- NOTE | 2022-06-14 23:13 | W.PM.HP.N ---
Date of service: 06/14/22 Time of Service: 23:38 Assessment and Plan Assessment and plan (1) Sepsis: Start date: 06/14/22 Status: Acute Assessment and plan: Presentation with fever and weakness and probable source cellulitis over her abdomen with patient appearing unkempt and morbidly obese with little mobility. He was started on vancomycin with cefepime which will be continued with follow-up blood cultures. Gentle IV hydration with follow-up labs in the morning. (2) Cellulitis of abdominal wall: Start date: 06/14/22 Status: Acute Assessment and plan: Over right abdomen with excoriations as possible nidus with patient scratching his skin and feeling pruritus frequently. He is morbidly obese and unkempt with poor hygiene. Antibiotic coverage with vancomycin and cefepime as mentioned and follow-up blood cultures. (3) Type 2 diabetes mellitus without complication, without long-term current use of insulin: Status: Chronic Assessment and plan: Glucometer measurements before meals and at bedtime with continuation of Farxiga but with holding other oral agents while acutely ill. Diabetic diet. (4) Lower urinary tract symptoms (LUTS): Status: Chronic Assessment and plan: Urinalysis was performed and urine culture will be followed up. (5) PSVT (paroxysmal supraventricular tachycardia): Status: Chronic Assessment and plan: Continue outpatient medical regimen and monitored with cardiac monitoring with patient being a full code. History of Present Illness History of Present Illness Chief Complaint: Progressive generalized weakness for days Narrative: This is a 76-year-old male patient with a history of multiple medical problems living at home who had a problem getting up from his toilet or to urinate after having 3 days of increasing weakness with fever the day of presentation but no diaphoresis. He was driving 2 days prior to admission. He has diabetic and morbidly obese with hypertension and history of UTI in the past. In the ED was found to have no focal neurological deficits but slight tachycardia with elevated WBC and low-grade fever. He also was slightly tachypneic. He was thought to be septic and source appeared to be abdominal wall with cellulitis. He was initiated on vancomycin and cefepime and will be admitted for IV antibiotic therapy and close monitoring with gentle IV hydration. He is a full code. Review of Systems Narrative: 13 point review of systems otherwise unrevealing or stable. [facility] All Active Problems (Updated 06/15/22 @ 06:34 by David Torres) Cellulitis of abdominal wall (Acute) Sepsis (Acute) Lower urinary tract symptoms (LUTS) (Chronic) SVT (supraventricular tachycardia) (Chronic) Grief (Chronic) Non-healing wound of right lower extremity (Acute) PSVT (paroxysmal supraventricular tachycardia) (Chronic) Inguinal hernia (Acute) Carotid artery stenosis (Acute) Fatty liver (Chronic 08/04/16) Peripheral vascular disease (Chronic) Diabetic neuropathy (Chronic) Right knee pain (Acute) BPH w urinary obs/LUTS (Chronic) Essential hypertension (Chronic) Generalized osteoarthrosis (Chronic) knees; R>L Hyperlipidemia (Chronic) Type IV Morbid obesity (Chronic) Obstructive sleep apnea, adult (Chronic) C-PAP Spondylolisthesis (Chronic) L5-S1 Type 2 diabetes mellitus without complication, without long-term current use of insulin (Chronic 07/04/16) Medical History MRSA infection (09/03/15) Tubular adenoma 07/24/14 DR. ALLEN X 3 Umbilical hernia Repaired Venous stasis ulcers of both lower extremities (03/09/16) Surgical History Amputation of toe of right foot 04/08/20 - Right second toe ([facility]) Appendectomy (~08/1973) Colonoscopy - MAC (~02/2004) neg [place]KLE [place] [facility] [place]) cartilage repair Family History Mother , age 78 Cancer Father , age 70 Heart disease Cancer Sister Essential hypertension Hyperlipidemia Breast cancer Brother Essential hypertension Skin cancer Brother Diabetes Essential hypertension Heart disease Hyperlipidemia Alcohol abuse Substance abuse Cancer Maternal Grandfather Heart disease Paternal Grandfather No problems noted. Maternal Grandmother Diabetes Essential hypertension Paternal Grandmother Heart disease Son Essential hypertension Heart disease Hyperlipidemia Daughter No problems noted. Daughter No problems noted. Brother , age 69 Diabetes Essential hypertension Hyperlipidemia Social History Smoking/Tobacco Use Status: Never Second Hand Exposure: Yes Smoking risk assessment performed?: Yes Alcohol Intake: never Drug use: Never Substance use type: does not use Household members: other Details: Nephew Housing: house Communication Needs: Corrective Lenses Do you need help understanding health information?: Rarely Pets and animals: Yes Pets and animals: cat(s) and dog(s) Sexually active: No Do you think of yourself as: straight/heterosexual Current gender identity: male What is your relationship status?: How often do you talk on the phone with friends or family?: three or more times per week How often do you get together with friends or relatives?: once per week How often do you attend bahai or denominational services?: 4 or more times per year Do you belong to any clubs or organized social groups?: no Panel score (0-1 are the most socially isolated patients): 2 What type of physical activity do you participate in: none Frequency: does not exercise Mally/Mu-Ism: Yarsani Special mally needs: No Seatbelt use: sometimes Helmet use: No Drive intox or 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 customer service driver: No Do you feel safe at home: Yes Do you feel safe in your relationship?: Yes Meds Allergies and Home Medications Allergies Allergy/AdvReac Type Severity Reaction Status Date / Time atorvastatin calcium AdvReac INTOLERANCE Verified 05/17/22 13:58 [From Lipitor] Home Medications Medication Instructions Recorded Confirmed Type omega-3 fatty acids-fish oil 340 2,000 mg PO DAILY 01/17/13 06/14/22 History mg-1,000 mg capsule (Fish Oil) aspirin 81 mg tablet,delayed 81 mg PO DAILY #90 tab-caps 03/12/15 06/14/22 History release (Aspir-) blood-glucose meter (FreeStyle ##1 07/05/16 06/14/22 History Lite Meter kit) lancets 28 gauge (FreeStyle #200 ea 01/02/20 06/14/22 Rx Lancets) empagliflozin 10 mg tablet 20 mg PO QAM #180 tabs 06/17/21 06/14/22 Rx ibuprofen 800 mg tablet 800 mg PO DAILY 10/24/21 06/14/22 History losartan 100 1 tab PO DAILY 10/24/21 06/14/22 History mg-hydrochlorothiazide 25 mg tablet red yeast rice 600 mg capsule 1,200 mg PO BID 10/24/21 06/14/22 History polyethylene glycol 3350 17 gram 17 g PO DAILY PRN PRN Constipation 03/28/22 06/14/22 Rx oral powder packet #0 ea citalopram 10 mg tablet 10 mg PO DAILY #90 tabs 04/05/22 06/14/22 Rx diltiazem HCl 180 mg 180 mg PO QPM #90 caps 04/05/22 06/14/22 Rx capsule,extended release 24 hr diabetic shoes #1 ea 04/07/22 06/14/22 Rx turmeric root extract 500 mg 500 mg PO BID 04/18/22 06/14/22 History capsule metformin 1,000 mg tablet 1,000 mg PO BID #180 tab-caps 05/03/22 06/14/22 Rx metoprolol succinate 100 mg 100 mg PO 0430 #90 tab-caps 05/03/22 06/14/22 Rx tablet,extended release 24 hr tamsulosin 0.4 mg capsule 0.8 mg PO HS #180 caps 05/03/22 06/14/22 Rx blood sugar diagnostic (FreeStyle #200 strips 06/07/22 06/14/22 Rx Lite Strips) glipizide 10 mg tablet 10 mg PO DAILY #90 tabs 06/07/22 06/14/22 Rx Exam Narrative Exam Narrative: General: Patient appears older than stated age, morbidly obese and very immobile. He has a strong odor. He appears to be deconditioned and does not appear to be very active by his physical appearance. He is in moderate distress from his discomfort over his abdomen with swelling and erythema with slight tenderness, alert and oriented at least to person and place. HEENT: Normocephalic, eyes with pupils equal reactive to light symmetrically, extraocular movement tact and sclera anicteric. Oropharynx with slightly dry mucosa fair dentition. Neck: Supple without JVD. Back: Stooped posture without CVA tenderness. Lungs: Bronchovesicular breath sounds diffusely with occasional rhonchi and coarse crackle and slight expiratory wheeze but no increased expiratory phase. No focalizing rales. Heart: Distant heart sounds with regular rate and rhythm and no appreciable murmur. Abdomen: Obese with large pannus, large area of erythema with slight swelling and induration over right lower and mid abdomen with aches correlated ulcerations which are dry larger over the lateral aspect of this large erythematous patch and smaller medially with tenderness to touch increased warmth to touch, soft palpation over other areas of the abdomen with bowel sounds positive. No palpable hepatosplenomegaly. Genitalia/rectal: Exam deferred. Extremities: Palpapable tenderness over the right patellar region without fluctuance with negative imaging for acute process, no clubbing or or cyanosis. Nonpitting edema which is 2+ and greater on the left and right ankle and foot with atrophic scar over medial right ankle with slight deformity of the joints and decreased range of motion of ankles. Shiny atrophic skin which appears cyanotic over the ankle and foot with pigmentation increased and loss of hair but no ulcerations. Decreased cap refill over both lower extremities but normal over upper extremities. All joints appear to have decreased range of motion. Skin: Skin changes over lower extremities and over abdomen as described, otherwise normal color, warm and dry. Neuro: Cranial nerves II through XII grossly intact, no focalizing motor deficits. No tremor. Psych: Flattened affect with depressed mood, no abnormal thought processes. Remote and recent memory grossly intact. Results Imaging Imaging Studies: Exam: XR Chest Exam date and time: 06/14/2022 10:08 PM Age: 76 years old Clinical indication: Fever TECHNIQUE: Imaging protocol: Radiologic exam of the chest. Views: 1 view. COMPARISON: CR XR PORTABLE CHEST AP 03/26/2022 1:28 AM FINDINGS: Lungs: Lung volumes are low with crowding of the pulmonary vasculature. No sarita pulmonary consolidation. Pleural spaces: Unremarkable. No pleural effusion. No pneumothorax. Heart/Mediastinum: Cardiac silhouette is top-normal in size and stable. Bones/joints: Unremarkable. IMPRESSION: Moderate hypoaeration changes.? Otherwise unremarkable chest. Exam: XR right knee Exam date and time: 06/14/2022 10:10 PM Age: 76 years old Clinical indication: Pain; Knee; Right; Additional info: Anterior knee pain TECHNIQUE: Imaging protocol: Radiologic exam of the right knee. Views: 4 or more views. COMPARISON: No relevant prior studies available. FINDINGS: Bones/joints: There is significant joint space narrowing in the medial compartment with associated genu varum. There is moderate tricompartmental osteophyte formation. No acute fracture. No significant joint fluid. Soft tissues: Normal. IMPRESSION: Osteoarthritis most pronounced in the medial compartment with associated genu varum.? No definite acute abnormality. Labs 06/14/22 20:17 06/14/22 20:17 Labs: Laboratory Results - last 24 hr 06/14/22 06/14/22 06/14/22 20:17 20:17 20:17 WBC 13.15 H RBC 5.40 Hgb 15.6 Hct 48.5 MCV 90 MCH 28.9 MCHC 32.2 RDW 14.6 H Plt Count 167 MPV 9.1 Immature Gran % 0.6 Neutrophils % 90.3 Lymphocytes % 3.2 Monocytes % 4.9 Eosinophils % 0.3 Basophils % 0.7 Nucleated RBC % 0.0 Absolute Neutrophils 11.87 H Absolute Lymphocytes 0.42 L Absolute Monocytes 0.64 Absolute Eosinophils 0.04 Absolute Basophils 0.09 VBG Lactate 2.9 H* Sodium 135 L Potassium 4.2 Chloride 100 Carbon Dioxide 26.5 Anion Gap 8.5 BUN 25 H Creatinine 1.0 Est GFR (CKD-EPI 2020) 78.00 Glucose 190 H Calcium 9.6 Total Bilirubin 0.9 AST 22 ALT 36 Alkaline Phosphatase 83 Total Protein 7.1 Albumin 3.5 Urine Color Urine Clarity Urine pH Ur Specific [place] Urine Protein Urine Ketones Urine Blood Urine Nitrite Urine Bilirubin Urine Urobilinogen Ur Leukocyte Esterase Urine RBC Urine WBC Ur Epithelial Cells Urine Crystals Urine Bacteria Urine Mucus Ur Culture Indicated? Urine Glucose COVID-19 Source SARS-CoV-2 (PCR) 06/14/22 06/14/22 20:41 21:26 WBC RBC Hgb Hct MCV MCH MCHC RDW Plt Count MPV Immature Gran % Neutrophils % Lymphocytes % Monocytes % Eosinophils % Basophils % Nucleated RBC % Absolute Neutrophils Absolute Lymphocytes Absolute Monocytes Absolute Eosinophils Absolute Basophils VBG Lactate Sodium Potassium Chloride Carbon Dioxide Anion Gap BUN Creatinine Est GFR (CKD-EPI 2020) Glucose Calcium Total Bilirubin AST ALT Alkaline Phosphatase Total Protein Albumin Urine Color Yellow Urine Clarity Clear Urine pH 5.5 Ur Specific [place] 1.015 Urine Protein Negative Urine Ketones Negative Urine Blood Trace-intact H Urine Nitrite Negative Urine Bilirubin Negative Urine Urobilinogen 0.2 Ur Leukocyte Esterase Negative Urine RBC 3-5 H Urine WBC 0-2 Ur Epithelial Cells Moderate Urine Crystals Negative Urine Bacteria Few Urine Mucus Moderate Ur Culture Indicated? No Urine Glucose 500 H COVID-19 Source Nasal/Nares SARS-CoV-2 (PCR) Negative Last Vital Signs Temp 38.5 C H 06/14/22 19:57 Pulse 78 06/14/22 22:31 Resp 32 H 06/14/22 22:31 BP 119/44 L 06/14/22 22:31 Pulse Ox 91 L 06/14/22 22:31 Time Spent Time spent with Patient: >75 minutes Time was spent: preparing to see the patient(eg.review tests), obtaining and/or reviewing separately otained hiistory, ordering medications,tests, procedures, referring, communicating with other health wound care coordinator, indepentently interpreting results and care coordination
[2022-06-14 23:16] LABS: Lactate 2.2 mmol/L (0.6-1.4)
[2022-06-14 23:58] LABS: TSH (W/Ref FT4) 1.23 uIU/mL (0.36-3.74)
[2022-06-15] VITALS (10 sets, daily range): BP systolic 96–148; BP diastolic 49–64; PULSE 62–89; RESP 14–24; TEMP 36.5–37.9; O2SAT 92–97
[2022-06-15] MEDS: VANCOMYCIN 1,000 MG in Normal Saline 250 ML 166.667 MG IVPB (02:01)
[2022-06-15] MEDS: CEFEPIME 2 GM in Normal Saline 50 ML IVPB (04:01)
[2022-06-15 06:52] LABS: HCT 44.4 % (40.0-50.0); HGB 14.2 g/dL (13.5-17.5); MCV 91 fL (80-95); MPV 9.3 fL (8.0-11.0); Platelet Count 147 10^3/uL (130-400); RBC 4.89 10^6/uL (4.36-5.78); RDW 14.7 % (11.8-14.1); RDW-SD 49.1 fL; WBC 11.22 10^3/uL (4.4-10.8)
[2022-06-15 07:16] LABS: ALT 32 U/L (16-63); AST 27 U/L (15-37); Albumin 2.9 g/dL (3.4-5.0); Alkaline Phosphatase 61 U/L (46-116); Anion Gap 8.8 mmol/L (3-11); BUN 19 mg/dL (7-18); Bilirubin, Total 1.1 mg/dL (0.2-1.0); CO2 26.2 mmol/L (21.0-32.0); CREATININE 0.8 mg/dL (0.70-1.30); Calcium 8.8 mg/dL (8.5-10.1); Chloride 103 mmol/L (98-107); Estimated GFR 91.72 (mL/min/1.73m2); Glucose 169 mg/dL (74-106); Magnesium 1.8 mg/dL (1.8-2.4); Potassium 3.9 mmol/L (3.5-5.1); Sodium 138 mmol/L (136-145); Total Protein 6.2 g/dL (6.4-8.2)
[2022-06-15 08:27] LABS: Lactate 1.6 mmol/L (0.6-1.4)
[2022-06-15 08:32] LABS: Lab Add On Test DONE
[2022-06-15] MEDS: Insulin Aspart 300 UNITS/3 ML PEN SC ×3 (08:37→16:36)
[2022-06-15] MEDS: hydroCHLOROthiazide 25 MG TAB PO (08:39)
[2022-06-15] MEDS: Aspirin E.C. 81 MG TABEC PO (08:39)
[2022-06-15] MEDS: Ibuprofen 800 MG TAB PO (08:39)
[2022-06-15] MEDS: Omega-3 Fatty Acids 1000 MG CAP 2000 MG PO (08:39)
[2022-06-15] MEDS: Empaglifozin 10 MG TAB 20 MG PO (08:40)
[2022-06-15] MEDS: Citalopram 10 MG TAB PO (08:40)
[2022-06-15] MEDS: Losartan 50 MG TAB 100 MG PO (08:40)
[2022-06-15] MEDS: Metoprolol CR 100 MG TABCR PO (08:40)
[2022-06-15] MEDS: Enoxaparin 40 MG/0.4 ML SYR SC ×2 (08:40→21:17)
[2022-06-15 08:43] LABS: Vancomycin, Trough 10.7 ug/mL (10.0-20.0)
[2022-06-15 09:17] LABS: Procalcitonin 0.7 ng/mL
[2022-06-15] MEDS: VANCOMYCIN/WATER (PEG) 1 GM/200 ML BAG IV ×3 (10:15→21:59)
[2022-06-15] MEDS: CEFEPIME 2 GM in Normal Saline 100 ML IVPB ×2 (11:51→21:15)
[2022-06-15 13:11] LABS: Vancomycin, Peak 19.6 ug/mL (25.0-40.0)
--- NOTE | 2022-06-15 13:26 | PT.INIE ---
Date of service: 06/15/22 Time of Service: 10:20 PT Notes Visit Reasons: Sepsis, Cellulitis Physical Therapy Inpatient Initial Evaluation Date: 06/15/2022 Referring Doctor: David Torres MD PT Orders: PT CONSULT: Safety consult for D/C Precautions: Standard. Activity as tolerated. Patient Profile/Admitting Diagnosis:? Sukhjinder is a 76-year-old male who presented to the ED on 03/23/2022 for management of sepsis, nonhealing wound of right LE, type II DM, UTI, and PSVT. PMHX: All Active Problems?(Updated 06/15/22 @ 06:34 by David Torres) Cellulitis of abdominal wall (Acute) Sepsis (Acute) Lower urinary tract symptoms (LUTS) (Chronic) SVT (supraventricular tachycardia) (Chronic) Grief (Chronic) Non-healing wound of right lower extremity (Acute) PSVT (paroxysmal supraventricular tachycardia) (Chronic) Inguinal hernia (Acute) Carotid artery stenosis (Acute) Fatty liver (Chronic 08/04/16) Peripheral vascular disease (Chronic) Diabetic neuropathy (Chronic) Right knee pain (Acute) BPH w urinary obs/LUTS (Chronic) Essential hypertension (Chronic) Generalized osteoarthrosis (Chronic) knees; R>L Hyperlipidemia (Chronic) Type IV Morbid obesity (Chronic) Obstructive sleep apnea, adult (Chronic) C-PAP Spondylolisthesis (Chronic) L5-S1 Type 2 diabetes mellitus without complication, without long-term current use of insulin (Chronic 07/04/16) Medical History? MRSA infection (09/03/15) Tubular adenoma 07/24/14 DR. ALLEN X 3 Umbilical hernia RepairedVenous stasis ulcers of both lower extremities (03/09/16) Surgical History? Amputation of toe of right foot 04/08/20 - Right second toe ([facility]) Appendectomy (~08/1973) Colonoscopy - MAC (~02/2004) neg FX [place]KLE 02/2013[place] [facility] [place] ([place]) cartilage repair Social History/Home Situation: Lives with a family member in a private home with 6 steps to enter with rails on both sides.? recently passed.? Independent with all mobility ADL performance using 4 wheeled walker.? Still drives.? Does his own groceries. Nephew no longer able to provide neede support at home as nephew is not well himself. Equipment Owned/DME: FWW, 4WW Subjective: Denies headache, lightheadedness throughout session.? Denies headache, chest pain, and lightheadedness throughout. Agreeable to walking to and from bathroom using FWW for a bowel movement. Agreeable to doing short-term rehab prior to going home to become more independent. States that he has good support at home from family whenever needed. Objective: General Observation: Telemetry monitoring in place.? In NAD.? High BMI.? Abdominal panniculus minimally limit bed mobility, transfers, and ambulation Mental Status: Alert and oriented as to person, place, time, and purpose. Able to pay attention, focus, and respond appropriately. Pain: Denies Vital Signs: No vital signs abnormality during ambulation activity as monitored via telemetry ROM: Right Upper Extremity: ? Shoulder Flexion WFL. Shoulder abduction WFL. Elbow flexion WFL. Wrist flexion WFL. Functional opening and closing of hand WFL. Left Upper Extremity:? Shoulder Flexion WFL. Shoulder abduction WFL. Elbow flexion WFL. Wrist flexion WFL. Functional opening and closing of hand WFL. Right Lower Extremity: Hip flexion WFL. Hip abduction WFL. Knee flexion WFL. Ankle dorsiflexion WFL. Ankle plantarflexion WFL. Left Lower Extremity: Hip flexion WFL. Hip abduction WFL. Knee flexion WFL. Ankle dorsiflexion WFL. Ankle plantarflexion WFL. Strength: Right Upper Extremity: Shoulder flexors 4-/5. Shoulder abductors 4-/5. Elbow flexors 4-/5. Elbow extensors 4-/5. Senior Game Advisor strong. Left Upper Extremity: Shoulder flexors 4-/5. Shoulder abductors 4-/5. Elbow flexors 4-/5. Elbow extensors 4-/5. Senior Game Advisor strong. Right Lower Extremity: Hip flexors 4-/5. Hip abductors 4-/5. Knee flexors 4-/5. Knee extensors 4-/5. Ankle dorsiflexors 4-/5. Ankle plantarflexors 4-/5. Left Lower Extremity: Hip flexors 4-/5. Hip abductors 4-/5. Knee flexors 4-/5. Knee extensors 4-/5. Ankle dorsiflexors 4-/5. Ankle plantarflexors 4-/5. Bed Mobility/Transfers: Supine to sit independent with HOB at 30 degrees Sit to stand stand by assist with FWW Stand to sit stand by assist with FWW Bed to reclining chair stand by assist with FWW Gait: Instructed patient with level surface ambulation of 20 feet + 20 feet requiring contact assist. Shortness of breath limited mobility performance but no LOB. Balance: Static Sitting: Normal Dynamic Sitting: Normal Static Standing: Fair Dynamic Standing: Fair Special Tests: Mobility Limitations Standardized Measure [facility] AM-PAC 6 clicks Basic Mobility Inpatient Short Form: Raw Score: 22? CMS Score: 21% deficit? ? ? Informed Consent/Education:? Patient was instructed in purpose of PT consult and plan of care. Agreeable to proceed with established PT POC to achieve personal goals. Assessment: Sukhjinder is a 76-year-old male who presented to the ED on 03/23/2022 for management of sepsis, nonhealing wound of right LE, type II DM, UTI, and PSVT. Patient presents with clinical signs and symptoms consistent with current/admitting diagnoses that have resulted to mobility limitations, gait instability, generalized weakness, and overall ADL decline as demonstrated by the following impairment level findings: 1.? Impaired activity tolerance 2.? Shortness of breath 3.? Non-healing wound in R LE 4. Decreased strength in B UE/LE increasing risk for falls Impairments are contributing to the following functional limitations: 1.? Increased completion time for mobility ADL performance 2.? Increased risk for falls 3.? Difficulty with managing steps alone safely Patient is assessed as a 35331 moderate complexity based on the following: History: 76-year-old male with past medical history as indicated above Examination: Demonstrable impairment in strength, balance, and mobility level with underlying impairments and functional limitations as exhibited above as well as deficit score of 11% utilizing the [facility] Mobility Inpatient Short Form Presentation: Evolving Decision Makin moderate complexity Goals: Goals X1 week 1. Supine-Sit independent 2. Sit-Supine independent 3. Sit-Stand independent 4. Stand-Sit independent with 4WW 5. Bed-Chair independent with 4WW 6. Chair-Bed independent with 4WW 7. Independent gait on level surface with use of 4WW for at least 300 feet without report of pain nor dyspnea 8. Independent stair negotiation while holding onto B rails for at least 6 steps without report of pain nor dyspnea 9. Independent with home exercise program 10. Good static and dynamic standing balance/tolerance PLAN OF CARE/TREATMENT PLAN: 1-2x/day, 7 days/week x 1 week. Plan of care has been reviewed with the MANAGER EMPLOYMENT providing the service under Physical Therapy direction. Monitor oxygen saturation and HR during and after sessions. Initiate Physical Therapy intervention for pain management as needed, strengthening, bed mobility, transfers, gait, stairs, balance training, and use of assistive device. May require wheelchair follow for safety. DISCHARGE RECOMMENDATIONS: [] ? Home with no services [] [] ? Home with services [] ? Home with outpatient PT [] [] ? SNF for continued rehabilitation [] [] ? [facility] [] [] ? SNF versus LTC based on ability to participate and progress [] [X] SNF vs PT based on ability to progress towards goals TREATMENT CODE/TIME: 78129 x 20 minutes, 56219 x 17 minutes beginning at 10:20 AM. Thank you for the opportunity to participate in the care of this patient. Mine Kauffman PT, DPT, CLT [facility] [place], [place]
[2022-06-15] MEDS: Nystatin POWDER 60 GM JAR TP ×2 (14:20→23:44)
--- NOTE | 2022-06-15 15:27 | CHAPLAIN ---
I had a brief visit with Ed. His daughter, Mary Daniela RN, director of public works for [facility], was visiting with him. Ed's , Wendi, within the past year. Wendi was a nursing house supervisor at [facility]. Ed and I know each other from previous admissions. I left when Ed' day care worker arrived and I will try to visit again tomorrow.
--- NOTE | 2022-06-15 17:16 | PTTR_ITS ---
Date of service: 06/15/22 Time of Service: 15:45 PT Notes Visit Reasons: Sepsis, Cellulitis Physical Therapy Inpatient Tretament Note Date: 06/15/2022 Precautions: Standard. Activity as tolerated. Subjective: Denies headache, chest pain, and lightheadedness throughout session.? Worsening SOB required one seated rest but with no desaturation episode. Objective: General Observation: Telemetry monitoring in place.? In NAD.? High BMI.? Abdominal panniculus minimally limit bed mobility, transfers, and ambulation. Truncal swelling noted. Erythema to trunk noted. Hemosiderin staining to B legs. Mental Status: Alert and oriented as to person, place, time, and purpose. Able to pay attention, focus, and respond appropriately. Pain: Denies Vital Signs: No vital signs abnormality during ambulation activity as monitored via telemetry Gait: Instructed patient with level surface ambulation of 100 feet + 120 feet requiring stand by assist. Wheelchair follow provided. Moderate shortness of breath needing one seated rest but no desaturation episode on room air. Balance: Static Sitting: Normal Dynamic Sitting: Normal Static Standing: Fair Dynamic Standing: Fair Assessment: Tolerated this afternoon's activity without the need for oxygen supplementation despite minimal shortness of breath. Required one seated ret due to fatigue level and breathlessness but oxygen sauration remained above 90% on room air. Continue PT POC to achive initially established goals. PLAN OF CARE/TREATMENT PLAN: 1-2x/day, 7 days/week x 1 week. Plan of care has been reviewed with the VICE PRESIDENT OF SOFTWARE DEVELOPMENT providing the service under Physical Therapy direction. Monitor oxygen saturation and HR during and after sessions. Initiate Physical Therapy intervention for pain management as needed, strengthening, bed mobility, transfers, gait, stairs, balance training, and use of assistive device. May require wheelchair follow for safety. DISCHARGE RECOMMENDATIONS: [] ? Home with no services [] [] ? Home with services [] ? Home with outpatient PT [] [] ? SNF for continued rehabilitation [] [] ? Group Home Care [] [] ? SNF versus LTC based on ability to participate and progress [] [X]? SNF vs HH PT based on ability to progress towards goals TREATMENT CODE/TIME: 97019 x 24 minutes beginning at 15:45 PM.
--- NOTE | 2022-06-15 19:06 | INITIAL_ITS ---
Date of service: 06/15/22 Time of Service: 19:06 Care Management Initial Assmt Initial Assessment REASON FOR HOSPITALIZATION:: Sepsis, Cellulitis PREVIOUS FUNCTIONAL STATUS/SOCIAL/FAMILY SUPPORTS:: Sukhjinder lives in [place]. He recently lost his of over 50 years. He has a very supportive family, including his daughter, Mary, who lives nearby. 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 He was also in the [employer] for 27 years. He is independent with ADL's at baseline. CURRENT FUNCTIONAL STATUS:: Ed was sitting up in his chair when CM met with him. He stated that he is feeling much better today than he did yesterday. He reported that he has been doing ok at home, and has maintained his independence, and he stated that his family is very supportive. He was evaluated by PT today, who recommended SNF vs HH, depending on his progress during this hospitalization. CM discussed these options with Ed and his daughter, Mary. He stated that he would prefer to return home, but he would consider short term rehab, if indicated. He agreed to referrals being sent to the [facility] and [facility], which are the closest facilities to his home. CM faxed these referrals today. CM will continue to follow. ADVANCE DIRECTIVES:: On file. Mary listed as agent. Dada listed as alternate agent. Has patient been provided with info about the portal/API?: Yes Did the patient sign up for the portal?: Yes CODE STATUS:: Full Code INSURANCE COVERAGE / FINANCIAL ISSUES:: [place] CURRENT HOME/COMMUNITY SERVICES/EQUIPMENT:: No current services. He owns a CPAP machine, walker and cane. PRIMARY CARE PHYSICIAN:: Arsh Holland POTENTIAL DISCHARGE NEEDS:: Evaluations for further needs, SNF placement vs HH services at home, follow up appointments. PATIENT/FAMILY EDUCATION NEEDS:: Review discharge instructions and limitations, discussion of self care needs including ask me three. ANTICIPATED BARRIERS TO DISCHARGE:: None TRANSPORTATION:: Via private vehicle by family. PLAN:: Ed continues to be closely monitored, and has been working with PT during this admission. Referrals are sent to the [facility], and [facility] for consideration. If he continues to improve, he may return home with new HH services. His daughter, Mary, is looking into [facility]. He will transport via private vehicle by family when medically ready for discharge. He will follow up with his PCP and discharge plan of care. CM will continue to follow. PFSH All Active Problems (Updated 06/15/22 @ 06:34 by David Torres) Cellulitis of abdominal wall (Acute) Sepsis (Acute) Lower urinary tract symptoms (LUTS) (Chronic) SVT (supraventricular tachycardia) (Chronic) Grief (Chronic) Non-healing wound of right lower extremity (Acute) PSVT (paroxysmal supraventricular tachycardia) (Chronic) Inguinal hernia (Acute) Carotid artery stenosis (Acute) Fatty liver (Chronic 08/04/16) Peripheral vascular disease (Chronic) Diabetic neuropathy (Chronic) Right knee pain (Acute) BPH w urinary obs/LUTS (Chronic) Essential hypertension (Chronic) Generalized osteoarthrosis (Chronic) knees; R>L Hyperlipidemia (Chronic) Type IV Morbid obesity (Chronic) Obstructive sleep apnea, adult (Chronic) C-PAP Spondylolisthesis (Chronic) L5-S1 Type 2 diabetes mellitus without complication, without long-term current use of insulin (Chronic 07/04/16) Medical History MRSA infection (09/03/15) Tubular adenoma 07/24/14 DR. ALLEN X 3 Umbilical hernia Repaired Venous stasis ulcers of both lower extremities (03/09/16) Surgical History Amputation of toe of right foot 04/08/20 - Right second toe ([facility]) Appendectomy (~08/1973) Colonoscopy - MAC (~02/2004) neg FX ANKLE 02/2013; [facility] [place] knee repair (~1964) cartilage repair Family History Mother , age 78 Cancer Father , age 70 Heart disease Cancer Sister Essential hypertension Hyperlipidemia Breast cancer Brother Essential hypertension Skin cancer Brother Diabetes Essential hypertension Heart disease Hyperlipidemia Alcohol abuse Substance abuse Cancer Maternal Grandfather Heart disease Paternal Grandfather No problems noted. Maternal Grandmother Diabetes Essential hypertension Paternal Grandmother Heart disease Son Essential hypertension Heart disease Hyperlipidemia Daughter No problems noted. Daughter No problems noted. Brother , age 69 Diabetes Essential hypertension Hyperlipidemia Social History Smoking/Tobacco Use Status: Never Second Hand Exposure: Yes Smoking risk assessment performed?: Yes Alcohol Intake: never Drug use: Never Substance use type: does not use Household members: other Details: Nephew Housing: house Communication Needs: Corrective Lenses Do you need help understanding health information?: Rarely Pets and animals: Yes Pets and animals: cat(s) and dog(s) Sexually active: No Do you think of yourself as: straight/heterosexual Current gender identity: male What is your relationship status?: How often do you talk on the phone with friends or family?: three or more times per week How often do you get together with friends or relatives?: once per week How often do you attend holiness or druze services?: 4 or more times per year Do you belong to any clubs or organized social groups?: no Panel score (0-1 are the most socially isolated patients): 2 What type of physical activity do you participate in: none Frequency: does not exercise Mally/Roman Catholic: Sikhism Special mally needs: No Seatbelt use: sometimes Helmet use: No Drive intox or 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 tow bar driver: No Do you feel safe at home: Yes Do you feel safe in your relationship?: Yes
--- NOTE | 2022-06-15 19:55 | W.PM.PROGNOT ---
Date of Service Date of service: 06/15/22 Time of Service: 16:45 Assessment and Plan Assessment and plan (1) Sepsis: Start date: 06/14/22 Status: Acute Assessment and plan: Due to cellulitis of the abdominal wall. Await blood culture results. Continue empiric vancomycin and cefepime, trending procalcitonin, CRP. (2) Cellulitis of abdominal wall: Start date: 06/14/22 Status: Acute Assessment and plan: As above (3) Type 2 diabetes mellitus without complication, without long-term current use of insulin: Status: Chronic Assessment and plan: BGs mostly well controlled. Will adjust SSi to AC/HS and add long acting insulin (4) Lower urinary tract symptoms (LUTS): Status: Chronic Assessment and plan: UA not c/w infection. Consider bladder scans, but I am not sure how accurate they will be given the patient's anatomy. (5) PSVT (paroxysmal supraventricular tachycardia): Status: Chronic Assessment and plan: Continue metoprolol and diltiazem. D/c tele. Controlled. (6) DVT prophylaxis: Status: Acute Assessment and plan: Sc enoxaparin (7) Discharge planning issues: Status: Acute Assessment and plan: Full code Would need home w/ home health vs SNF on d/c. Subjective Subjective Interval history since last seen: Mr Suarez feels better. He states he is able to get up and walk around easier. Otherwise, denies dizziness, chest pain, shortness of breath, nausea. His abdomen does not hurt, but is itchy. Per daughter, it may actually be looking a little worse today. We discussed how it has not been 24 hrs of abx yet, so it is too early to tell, but if it gets drastically worse, I would talk to an ID doctor. Exam Narrative Exam Narrative: General: Pleasant obese male who is walking with a walker with PT, A&Ox3, NAD HEENT: EOMI, MMM Heart: RRR, no m/r/g Lungs: CTAB Abdomen: soft, obese, nontender, abdominal wall erythematous within circumscribed borders, scabbed over ulceration L abdomen. Extremities: Objective Last Vital Signs Temp 36.5 C 06/15/22 17:35 Pulse 69 06/15/22 17:35 Resp 20 06/15/22 17:35 BP 114/55 L 06/15/22 17:35 Pulse Ox 93 06/15/22 17:35 Laboratory Results - last 24 hr 06/14/22 06/14/22 06/14/22 20:17 20:17 20:17 WBC 13.15 H RBC 5.40 Hgb 15.6 Hct 48.5 MCV 90 MCH 28.9 MCHC 32.2 RDW 14.6 H Plt Count 167 MPV 9.1 Immature Gran % 0.6 Neutrophils % 90.3 Lymphocytes % 3.2 Monocytes % 4.9 Eosinophils % 0.3 Basophils % 0.7 Nucleated RBC % 0.0 Absolute Neutrophils 11.87 H Absolute Lymphocytes 0.42 L Absolute Monocytes 0.64 Absolute Eosinophils 0.04 Absolute Basophils 0.09 VBG Lactate 2.9 H* Sodium 135 L Potassium 4.2 Chloride 100 Carbon Dioxide 26.5 Anion Gap 8.5 BUN 25 H Creatinine 1.0 Est GFR (CKD-EPI 2020) 78.00 Glucose 190 H Calcium 9.6 Magnesium Total Bilirubin 0.9 AST 22 ALT 36 Alkaline Phosphatase 83 Total Protein 7.1 Albumin 3.5 Procalcitonin TSH Urine Color Urine Clarity Urine pH Ur Specific Blackstone Urine Protein Urine Ketones Urine Blood Urine Nitrite Urine Bilirubin Urine Urobilinogen Ur Leukocyte Esterase Urine RBC Urine WBC Ur Epithelial Cells Urine Crystals Urine Bacteria Urine Mucus Ur Culture Indicated? Urine Glucose Vancomycin Peak Vancomycin Trough COVID-19 Source SARS-CoV-2 (PCR) Add-On Test Request 06/14/22 06/14/22 06/14/22 20:17 20:41 21:26 WBC RBC Hgb Hct MCV MCH MCHC RDW Plt Count MPV Immature Gran % Neutrophils % Lymphocytes % Monocytes % Eosinophils % Basophils % Nucleated RBC % Absolute Neutrophils Absolute Lymphocytes Absolute Monocytes Absolute Eosinophils Absolute Basophils VBG Lactate Sodium Potassium Chloride Carbon Dioxide Anion Gap BUN Creatinine Est GFR (CKD-EPI 2020) Glucose Calcium Magnesium Total Bilirubin AST ALT Alkaline Phosphatase Total Protein Albumin Procalcitonin TSH 1.23 Urine Color Yellow Urine Clarity Clear Urine pH 5.5 Ur Specific Blackstone 1.015 Urine Protein Negative Urine Ketones Negative Urine Blood Trace-intact H Urine Nitrite Negative Urine Bilirubin Negative Urine Urobilinogen 0.2 Ur Leukocyte Esterase Negative Urine RBC 3-5 H Urine WBC 0-2 Ur Epithelial Cells Moderate Urine Crystals Negative Urine Bacteria Few Urine Mucus Moderate Ur Culture Indicated? No Urine Glucose 500 H Vancomycin Peak Vancomycin Trough COVID-19 Source Nasal/Nares SARS-CoV-2 (PCR) Negative Add-On Test Request 06/14/22 06/15/22 06/15/22 23:03 06:16 06:16 WBC 11.22 H RBC 4.89 Hgb 14.2 Hct 44.4 MCV 91 MCH 29.0 MCHC 32.0 RDW 14.7 H Plt Count 147 MPV 9.3 Immature Gran % Neutrophils % Lymphocytes % Monocytes % Eosinophils % Basophils % Nucleated RBC % Absolute Neutrophils Absolute Lymphocytes Absolute Monocytes Absolute Eosinophils Absolute Basophils VBG Lactate 2.2 H* Sodium 138 Potassium 3.9 Chloride 103 Carbon Dioxide 26.2 Anion Gap 8.8 BUN 19 H Creatinine 0.8 Est GFR (CKD-EPI 2020) 91.72 Glucose 169 H Calcium 8.8 Magnesium 1.8 Total Bilirubin 1.1 H AST 27 ALT 32 Alkaline Phosphatase 61 Total Protein 6.2 L Albumin 2.9 L Procalcitonin TSH Urine Color Urine Clarity Urine pH Ur Specific [place] Urine Protein Urine Ketones Urine Blood Urine Nitrite Urine Bilirubin Urine Urobilinogen Ur Leukocyte Esterase Urine RBC Urine WBC Ur Epithelial Cells Urine Crystals Urine Bacteria Urine Mucus Ur Culture Indicated? Urine Glucose Vancomycin Peak Vancomycin Trough COVID-19 Source SARS-CoV-2 (PCR) Add-On Test Request 06/15/22 06/15/22 06/15/22 08:23 08:23 08:23 WBC RBC Hgb Hct MCV MCH MCHC RDW Plt Count MPV Immature Gran % Neutrophils % Lymphocytes % Monocytes % Eosinophils % Basophils % Nucleated RBC % Absolute Neutrophils Absolute Lymphocytes Absolute Monocytes Absolute Eosinophils Absolute Basophils VBG Lactate 1.6 H Sodium Potassium Chloride Carbon Dioxide Anion Gap BUN Creatinine Est GFR (CKD-EPI 2020) Glucose Calcium Magnesium Total Bilirubin AST ALT Alkaline Phosphatase Total Protein Albumin Procalcitonin TSH Urine Color Urine Clarity Urine pH Ur Specific [place] Urine Protein Urine Ketones Urine Blood Urine Nitrite Urine Bilirubin Urine Urobilinogen Ur Leukocyte Esterase Urine RBC Urine WBC Ur Epithelial Cells Urine Crystals Urine Bacteria Urine Mucus Ur Culture Indicated? Urine Glucose Vancomycin Peak Vancomycin Trough 10.7 COVID-19 Source SARS-CoV-2 (PCR) Add-On Test Request DONE 06/15/22 06/15/22 08:23 12:53 WBC RBC Hgb Hct MCV MCH MCHC RDW Plt Count MPV Immature Gran % Neutrophils % Lymphocytes % Monocytes % Eosinophils % Basophils % Nucleated RBC % Absolute Neutrophils Absolute Lymphocytes Absolute Monocytes Absolute Eosinophils Absolute Basophils VBG Lactate Sodium Potassium Chloride Carbon Dioxide Anion Gap BUN Creatinine Est GFR (CKD-EPI 2020) Glucose Calcium Magnesium Total Bilirubin AST ALT Alkaline Phosphatase Total Protein Albumin Procalcitonin 0.7 TSH Urine Color Urine Clarity Urine pH Ur Specific [place] Urine Protein Urine Ketones Urine Blood Urine Nitrite Urine Bilirubin Urine Urobilinogen Ur Leukocyte Esterase Urine RBC Urine WBC Ur Epithelial Cells Urine Crystals Urine Bacteria Urine Mucus Ur Culture Indicated? Urine Glucose Vancomycin Peak 19.6 L Vancomycin Trough COVID-19 Source SARS-CoV-2 (PCR) Add-On Test Request Time Spent with Patient Time Spent with Patient: 25-34 minutes Time was spent: preparing to see the patient(eg.review tests), obtaining and/or reviewing separately otained hiistory, ordering medications,tests, procedures, referring, communicating with other health child day care provider, indepentently interpreting results, counseling the patient and care coordination
[2022-06-15] MEDS: dilTIAZem CD 180 MG CAPCR PO (21:16)
[2022-06-15] MEDS: Tamsulosin 0.4 MG CAPCR 0.8 MG PO (21:16)
[2022-06-16] MEDS: CEFEPIME 2 GM in Normal Saline 100 ML IVPB ×3 (04:10→20:06)
[2022-06-16] MEDS: VANCOMYCIN/WATER (PEG) 1 GM/200 ML BAG IV ×4 (05:19→21:46)
[2022-06-16 07:01] LABS: Abs Immature Grans 0.04 10^3/uL (0.0-0.06); Absolute Basophil Count 0.03 10^3/uL (0.0-0.2); Absolute Eosinophil Count 0.04 10^3/uL (0.0-0.7); Absolute Lymphocyte Count 1.12 10^3/uL (1.2-3.4); Absolute Monocyte Count 0.71 10^3/uL (0.1-0.8); Absolute Neutrophil Count 5.77 10^3/uL (1.2-6.7); Basophils % 0.4; Eosinophils % 0.5; HCT 43.3 % (40.0-50.0); HGB 13.7 g/dL (13.5-17.5); Immature Grans % 0.5; Lymphocytes % 14.5; MCH 29.1 pg (27.0-33.0); MCHC 31.6 % (32.0-36.0); MCV 92 fL (80-95); MPV 9.4 fL (8.0-11.0); Monocytes % 9.2; Neutrophils % 74.9; Platelet Count 145 10^3/uL (130-400); RBC 4.71 10^6/uL (4.36-5.78); RDW 14.8 % (11.8-14.1); RDW-SD 50.5 fL; WBC 7.71 10^3/uL (4.4-10.8)
[2022-06-16 07:44] LABS: Anion Gap 9.1 mmol/L (3-11); BUN 21 mg/dL (7-18); CO2 24.9 mmol/L (21.0-32.0); CREATININE 0.8 mg/dL (0.70-1.30); Calcium 8.7 mg/dL (8.5-10.1); Chloride 105 mmol/L (98-107); Estimated GFR 91.72 (mL/min/1.73m2); Glucose 138 mg/dL (74-106); Magnesium 2.1 mg/dL (1.8-2.4); Potassium 3.8 mmol/L (3.5-5.1); Sodium 139 mmol/L (136-145)
[2022-06-16 07:51] VITALS: BP 115/69; PULSE 65; RESP 18; TEMP 36.4; O2SAT 92
[2022-06-16] MEDS: Insulin Aspart 300 UNITS/3 ML PEN SC ×2 (08:04→12:07)
[2022-06-16] MEDS: Citalopram 10 MG TAB PO (08:05)
[2022-06-16 08:06] VITALS: TEMP 36.4
[2022-06-16] MEDS: Ibuprofen 800 MG TAB PO (08:06)
[2022-06-16] MEDS: Aspirin E.C. 81 MG TABEC PO (08:06)
[2022-06-16] MEDS: Omega-3 Fatty Acids 1000 MG CAP 2000 MG PO (08:06)
[2022-06-16] MEDS: Metoprolol CR 100 MG TABCR PO (08:07)
[2022-06-16] MEDS: Empaglifozin 10 MG TAB 20 MG PO (08:07)
[2022-06-16] MEDS: Enoxaparin 40 MG/0.4 ML SYR SC ×2 (08:08→20:05)
[2022-06-16] MEDS: Nystatin POWDER 60 GM JAR TP ×3 (08:11→20:07)
--- NOTE | 2022-06-16 10:04 | CMPROGNOTE_ITS ---
Date of service: 06/16/22 Time of Service: 10:04 Care Management Progress Note Progress Note Text Progress Note Text: S/O: Sukhjinder was sitting up in his chair when CM met with him. He is awake, pleasant and easily engages in conversation. He shares that he spoke with his family and they are willing to take turns staying with him after discharge. Sukhjinder remains agreeable to discharge to a SNF, but his preference is to discharge home. Referral's are still pending at the [facility], and [facility]. The [facility] is reviewing his referral and anticipate bed availability next week. A: 76 year old male admitted to [facility] on 06/14/22 for Sepsis, Cellulitis P: Ed continues to be closely monitored, and has been working with PT during this admission. Referrals are sent to the [facility], and [facility] for consideration. If he continues to improve, he may return home with new services. His daughter, Mary, is looking into [facility]. He will follow up with his PCP and discharge plan of care. CM will continue to follow.
[2022-06-16 11:46] VITALS: BP 149/61; PULSE 83; RESP 24; TEMP 36.9; O2SAT 100
[2022-06-16 15:02] VITALS: BP 155/62; PULSE 61; RESP 20; TEMP 36.4; O2SAT 93
--- NOTE | 2022-06-16 17:02 | PT.INTREAT ---
Date of service: 06/16/22 Time of Service: 13:46 PT Notes Visit Reasons: Sepsis, Cellulitis Inpatient Physical Therapy Treatment Note [facility] Date: 06/16/22 PRECAUTIONS: Fall. Standard. Activity as tolerated. SUBJECTIVE: Patient sitting up in chair, agreeable to therapy OBJECTIVE: PAIN: none reported BED MOBILITY/TRANSFERS Rolling L/R: not assessed Supine-sit: not assessed Sit-supine: not assessed Sit-stand: Standby Stand-sit: standby Bed-Chair: standby Chair-bed: standby GAIT Assistive Device: front wheeled walker Weight bearing: full Assist: CGA Distance: 200 feet, seated rest, 100 feet Deviation: Reduced stride length. Even strides. Becomes short of breath, no desat. Recovers in <1 minute seated rest. STAIRS: Ascends and descends 2 stairs with bilateral rails easily with step to gait pattern, backing down the stairs as he reports he does at home. ASSESSMENT: Patient tolerates therapy well, is comfortably seated in recliner at end of treatment session PLAN: Continue treatment per plan of care. TREATMENT CODE/TIME: 77902 Gait 10 minutes beginning at 1346.
--- NOTE | 2022-06-16 18:31 | W.PM.PROGNOT ---
Date of Service Date of service: 06/16/22 Time of Service: 18:31 Assessment and Plan Assessment and plan (1) Sepsis: Start date: 06/14/22 Status: Acute Assessment and plan: Due to cellulitis of the abdominal wall. Blood cultures NGTD. Continue empiric vancomycin and cefepime, trending procalcitonin, CRP. Would d/c vancomycin tomorrow and monitor. (2) Cellulitis of abdominal wall: Start date: 06/14/22 Status: Acute Assessment and plan: As above (3) Type 2 diabetes mellitus without complication, without long-term current use of insulin: Status: Chronic Assessment and plan: BGs mostly well controlled. Continue basal bolus insulin. (4) Lower urinary tract symptoms (LUTS): Status: Chronic Assessment and plan: UA not c/w infection. Consider bladder scans, but I am not sure how accurate they will be given the patient's anatomy. (5) PSVT (paroxysmal supraventricular tachycardia): Status: Chronic Assessment and plan: Continue metoprolol and diltiazem. Controlled. Did sound slightly irregular today - ? sinus arrhythmia. If I hear this again, will obtain an EKG. (6) DVT prophylaxis: Status: Acute Assessment and plan: Sc enoxaparin (7) Discharge planning issues: Status: Acute Assessment and plan: Full code Would need home w/ home health vs SNF on d/c. Subjective Subjective Interval history since last seen: Mr Suarez feels better today. He feels that his abdominal erythema is better. He again worked with PT and did better. Denies dizziness, chest pain, shortness of breath, nausea. Exam Narrative Exam Narrative: General: Pleasant obese male who is sitting up in a chair, A&Ox3, NAD HEENT: EOMI, MMM Heart: irregularly irregular rhythm, no m/r/g Lungs: CTAB Abdomen: soft, obese, nontender, abdominal wall erythema receding and less intense Extremities: chronic venous stasis dermatitis, trace edema BLEs Objective Last Vital Signs Temp 36.4 C L 06/16/22 15:02 Pulse 61 06/16/22 15:02 Resp 20 06/16/22 15:02 BP 155/62 H 06/16/22 15:02 Pulse Ox 93 06/16/22 15:02 Laboratory Results - last 24 hr 06/16/22 06/16/22 06:22 06:22 WBC 7.71 RBC 4.71 Hgb 13.7 Hct 43.3 MCV 92 MCH 29.1 MCHC 31.6 L RDW 14.8 H Plt Count 145 MPV 9.4 Immature Gran % 0.5 Neutrophils % 74.9 Lymphocytes % 14.5 Monocytes % 9.2 Eosinophils % 0.5 Basophils % 0.4 Nucleated RBC % 0.0 Absolute Neutrophils 5.77 Absolute Lymphocytes 1.12 L Absolute Monocytes 0.71 Absolute Eosinophils 0.04 Absolute Basophils 0.03 Sodium 139 Potassium 3.8 Chloride 105 Carbon Dioxide 24.9 Anion Gap 9.1 BUN 21 H Creatinine 0.8 Est GFR (CKD-EPI 2020) 91.72 Glucose 138 H Calcium 8.7 Magnesium 2.1 C-Reactive Protein 19.40 H Time Spent with Patient Time Spent with Patient: 25-34 minutes Time was spent: preparing to see the patient(eg.review tests), obtaining and/or reviewing separately otained hiistory, ordering medications,tests, procedures, referring, communicating with other health child care specialist, indepentently interpreting results, counseling the patient and care coordination
[2022-06-16 19:15] VITALS: BP 129/61; PULSE 68; RESP 24; TEMP 36.3; O2SAT 92
[2022-06-16] MEDS: Normal Saline Flush 10 ML SYR IVP (20:06)
[2022-06-16] MEDS: dilTIAZem CD 180 MG CAPCR PO (20:07)
[2022-06-16] MEDS: Tamsulosin 0.4 MG CAPCR 0.8 MG PO (21:47)
[2022-06-16 22:25] VITALS: BP 127/72; PULSE 63; RESP 24; TEMP 36.5; O2SAT 92
[2022-06-17] MEDS: CEFEPIME 2 GM in Normal Saline 100 ML IVPB ×3 (03:58→20:11)
[2022-06-17] MEDS: VANCOMYCIN/WATER (PEG) 1 GM/200 ML BAG IV (04:44)
[2022-06-17 05:40] VITALS: BP 151/69; PULSE 56; RESP 24; TEMP 36.6; O2SAT 92
[2022-06-17 06:45] LABS: Abs Immature Grans 0.05 10^3/uL (0.0-0.06); Absolute Basophil Count 0.04 10^3/uL (0.0-0.2); Absolute Eosinophil Count 0.06 10^3/uL (0.0-0.7); Absolute Lymphocyte Count 1.15 10^3/uL (1.2-3.4); Absolute Monocyte Count 0.71 10^3/uL (0.1-0.8); Absolute Neutrophil Count 4.79 10^3/uL (1.2-6.7); Basophils % 0.6; Eosinophils % 0.9; HCT 43.1 % (40.0-50.0); HGB 13.5 g/dL (13.5-17.5); Immature Grans % 0.7; Lymphocytes % 16.9; MCH 28.5 pg (27.0-33.0); MCHC 31.3 % (32.0-36.0); MCV 91 fL (80-95); MPV 9.2 fL (8.0-11.0); Monocytes % 10.4; Neutrophils % 70.5; Platelet Count 142 10^3/uL (130-400); RBC 4.74 10^6/uL (4.36-5.78); RDW 14.5 % (11.8-14.1); RDW-SD 49.1 fL
[2022-06-17 07:06] LABS: Anion Gap 8.8 mmol/L (3-11); BUN 19 mg/dL (7-18); C-Reactive Protein 9.32 mg/dL (0.0-0.3); CO2 24.2 mmol/L (21.0-32.0); CREATININE 0.8 mg/dL (0.70-1.30); Calcium 8.7 mg/dL (8.5-10.1); Chloride 107 mmol/L (98-107); Estimated GFR 91.72 (mL/min/1.73m2); Glucose 135 mg/dL (74-106); Magnesium 2.1 mg/dL (1.8-2.4); Sodium 140 mmol/L (136-145)
[2022-06-17 07:24] VITALS: BP 152/66; PULSE 65; RESP 22; TEMP 35.9; O2SAT 92
[2022-06-17 07:52] LABS: Procalcitonin 0.3 ng/mL
[2022-06-17] MEDS: Ibuprofen 800 MG TAB PO (08:04)
[2022-06-17] MEDS: Metoprolol CR 100 MG TABCR PO (08:05)
[2022-06-17] MEDS: hydroCHLOROthiazide 25 MG TAB PO (08:05)
[2022-06-17] MEDS: Empaglifozin 10 MG TAB 20 MG PO (08:05)
[2022-06-17] MEDS: Citalopram 10 MG TAB PO (08:05)
[2022-06-17] MEDS: Aspirin E.C. 81 MG TABEC PO (08:05)
[2022-06-17] MEDS: Nystatin POWDER 60 GM JAR TP ×3 (08:06→22:32)
[2022-06-17] MEDS: Enoxaparin 40 MG/0.4 ML SYR SC ×2 (08:06→20:11)
[2022-06-17] MEDS: Omega-3 Fatty Acids 1000 MG CAP 2000 MG PO (08:06)
[2022-06-17 11:37] VITALS: BP 157/56; PULSE 52; RESP 22; TEMP 36; O2SAT 93
--- NOTE | 2022-06-17 14:05 | PT.INTREAT ---
PT Notes Visit Reasons: Sepsis, Cellulitis Inpatient Physical Therapy Treatment Note [facility] Date: 06/17/22 SUBJECTIVE: Ed offers no complaints to me today. OBJECTIVE: [] BED MOBILITY/TRANSFERS Sit-stand: CGA Stand-sit:CGA GAIT Assistive Device:FWW Weight bearing: full Assist: SBA Distance: approx 225' Deviation: one seated rest break x approx 2 min STAIRS:performed stair negotiation on clinic steps. Ascend/descend 2-6 steps and 3-4 steps with hand rail and SBA. Another sitting rest break required x 2 min. ASSESSMENT: tolerated session well. No LOB or SOB noted PLAN: will continue to progress his functional mobility and endurance/strength following PT POC TREATMENT CODE/TIME: 25 min TAx2
[2022-06-17 15:18] VITALS: BP 154/72; PULSE 59; RESP 22; TEMP 36.4; O2SAT 93
[2022-06-17 19:30] VITALS: BP 128/71; PULSE 61; RESP 22; TEMP 36.5; O2SAT 91
--- NOTE | 2022-06-17 20:04 | W.PM.PROGNOT ---
Date of Service Date of service: 06/17/22 Time of Service: 17:15 Assessment and Plan Assessment and plan (1) Sepsis: Start date: 06/14/22 Status: Acute Assessment and plan: Due to cellulitis of the abdominal wall. Blood cultures NGTD. D/c vancomycin; continue empiric cefepime. Procalcitonin and CRP are better. (2) Cellulitis of abdominal wall: Start date: 06/14/22 Status: Acute Assessment and plan: As above (3) Type 2 diabetes mellitus without complication, without long-term current use of insulin: Status: Chronic Assessment and plan: BGs mostly well controlled. Continue basal bolus insulin. (4) Lower urinary tract symptoms (LUTS): Status: Chronic Assessment and plan: UA not c/w infection. Consider bladder scans, but I am not sure how accurate they will be given the patient's anatomy. (5) PSVT (paroxysmal supraventricular tachycardia): Status: Chronic Assessment and plan: Continue metoprolol and diltiazem. Controlled. Sounded regular today. (6) DVT prophylaxis: Status: Acute Assessment and plan: Sc enoxaparin (7) Discharge planning issues: Status: Acute Assessment and plan: Full code Would need home w/ home health vs SNF on d/c. Subjective Subjective Interval history since last seen: Feels better. Getting stronger. Walked 1 lap with PT today. Denies dizziness, chest pain, shortness of breath, nausea. Exam Narrative Exam Narrative: General: Pleasant obese male who is sitting up in a chair, A&Ox3, NAD HEENT: EOMI, MMM Heart: RRR, no m/r/g Lungs: CTAB Abdomen: soft, obese, nontender, abdominal wall erythema looks significantly improved Extremities: chronic venous stasis dermatitis, trace edema BLEs Objective Last Vital Signs Temp 36.5 C 06/17/22 19:30 Pulse 61 06/17/22 19:30 Resp 22 06/17/22 19:30 BP 128/71 06/17/22 19:30 Pulse Ox 91 L 06/17/22 19:30 Laboratory Results - last 24 hr 06/17/22 06/17/22 06/17/22 06:04 06:04 06:04 WBC 6.80 RBC 4.74 Hgb 13.5 Hct 43.1 MCV 91 MCH 28.5 MCHC 31.3 L RDW 14.5 H Plt Count 142 MPV 9.2 Immature Gran % 0.7 Neutrophils % 70.5 Lymphocytes % 16.9 Monocytes % 10.4 Eosinophils % 0.9 Basophils % 0.6 Nucleated RBC % 0.0 Absolute Neutrophils 4.79 Absolute Lymphocytes 1.15 L Absolute Monocytes 0.71 Absolute Eosinophils 0.06 Absolute Basophils 0.04 Sodium 140 Potassium 4.0 Chloride 107 Carbon Dioxide 24.2 Anion Gap 8.8 BUN 19 H Creatinine 0.8 Est GFR (CKD-EPI 2020) 91.72 Glucose 135 H Calcium 8.7 Magnesium 2.1 C-Reactive Protein 9.32 H Procalcitonin 0.3 Time Spent with Patient Time Spent with Patient: 25-34 minutes Time was spent: preparing to see the patient(eg.review tests), obtaining and/or reviewing separately otained hiistory, ordering medications,tests, procedures, referring, communicating with other health interior plant caretaker, indepentently interpreting results, counseling the patient and care coordination
[2022-06-17] MEDS: dilTIAZem CD 180 MG CAPCR PO (20:11)
[2022-06-17] MEDS: Tamsulosin 0.4 MG CAPCR 0.8 MG PO (22:25)
[2022-06-17 23:36] VITALS: BP 122/66; PULSE 60; RESP 22; TEMP 36.6; O2SAT 95
[2022-06-18 03:10] VITALS: BP 129/79; PULSE 59; RESP 22; TEMP 36.5; O2SAT 95
[2022-06-18] MEDS: CEFEPIME 2 GM in Normal Saline 100 ML IVPB ×3 (04:53→20:07)
[2022-06-18] MEDS: Normal Saline Flush 10 ML SYR IVP (06:35)
[2022-06-18 07:36] LABS: Abs Immature Grans 0.03 10^3/uL (0.0-0.06); Absolute Basophil Count 0.03 10^3/uL (0.0-0.2); Absolute Eosinophil Count 0.05 10^3/uL (0.0-0.7); Absolute Lymphocyte Count 1.19 10^3/uL (1.2-3.4); Absolute Monocyte Count 0.54 10^3/uL (0.1-0.8); Absolute Neutrophil Count 4.12 10^3/uL (1.2-6.7); Basophils % 0.5; Eosinophils % 0.8; HCT 43.9 % (40.0-50.0); HGB 14.1 g/dL (13.5-17.5); Immature Grans % 0.5; MCH 29.2 pg (27.0-33.0); MCHC 32.1 % (32.0-36.0); MCV 91 fL (80-95); MPV 9.3 fL (8.0-11.0); Monocytes % 9.1; Neutrophils % 69.1; Platelet Count 151 10^3/uL (130-400); RBC 4.83 10^6/uL (4.36-5.78); RDW 14.5 % (11.8-14.1); RDW-SD 48.5 fL; WBC 5.96 10^3/uL (4.4-10.8)
[2022-06-18 07:44] LABS: Anion Gap 8.7 mmol/L (3-11); BUN 15 mg/dL (7-18); C-Reactive Protein 4.97 mg/dL (0.0-0.3); CO2 26.3 mmol/L (21.0-32.0); CREATININE 0.7 mg/dL (0.70-1.30); Calcium 8.6 mg/dL (8.5-10.1); Chloride 106 mmol/L (98-107); Estimated GFR 95.49 (mL/min/1.73m2); Glucose 122 mg/dL (74-106); Potassium 3.7 mmol/L (3.5-5.1); Sodium 141 mmol/L (136-145)
[2022-06-18 07:49] VITALS: BP 165/74; PULSE 59; RESP 20; TEMP 35.7; O2SAT 95
[2022-06-18] MEDS: Metoprolol CR 100 MG TABCR PO (07:57)
[2022-06-18] MEDS: Empaglifozin 10 MG TAB 20 MG PO (07:57)
[2022-06-18] MEDS: Ibuprofen 800 MG TAB PO (07:57)
[2022-06-18] MEDS: hydroCHLOROthiazide 25 MG TAB PO (07:57)
[2022-06-18] MEDS: Citalopram 10 MG TAB PO (07:58)
[2022-06-18] MEDS: Omega-3 Fatty Acids 1000 MG CAP 2000 MG PO (07:58)
[2022-06-18] MEDS: Aspirin E.C. 81 MG TABEC PO (07:58)
[2022-06-18] MEDS: Insulin Aspart 300 UNITS/3 ML PEN SC (07:58)
[2022-06-18] MEDS: Enoxaparin 40 MG/0.4 ML SYR SC ×2 (07:58→20:07)
[2022-06-18] MEDS: Nystatin POWDER 60 GM JAR TP ×3 (07:59→20:07)
[2022-06-18 08:00] VITALS: O2SAT 95
[2022-06-18 11:42] VITALS: BP 144/67; PULSE 57; RESP 22; TEMP 35.7; O2SAT 92
--- NOTE | 2022-06-18 13:52 | PT.INTREAT ---
PT Notes Visit Reasons: Sepsis, Cellulitis Inpatient Physical Therapy Treatment Note [facility] Date: 06/18/22 SUBJECTIVE: Ed states that he is doing well. He is hoping to go home soon. OBJECTIVE: [] BED MOBILITY/TRANSFERS Sit-stand: SBA Stand-sit:SBA GAIT Assistive Device: FWW Weight bearing: full Assist: SBA Distance: 250' Deviation: one sitting rest STAIRS:ascend/descend 2, 6 steps and 3 4 steps with hand rail and SBA. ASSESSMENT: safe transfers, no LOB. Is independent with ambulating to BR PLAN:will continue to progress his endurance and functional mobility TREATMENT CODE/TIME: 25 min TAx2
[2022-06-18 15:27] VITALS: BP 151/87; PULSE 65; RESP 22; TEMP 35.5; O2SAT 92
--- NOTE | 2022-06-18 16:42 | PGE_ITS ---
Date of Service Date of service: 06/18/22 Time of Service: 16:42 Assessment and Plan Assessment and plan (1) Sepsis: Start date: 06/14/22 Status: Acute Assessment and plan: Due to cellulitis of the abdominal wall. Blood cultures NGTD. Vancomycin d/c'ed 06/17/22. Continue empiric cefepime for now. Procalcitonin and CRP are better. (2) Cellulitis of abdominal wall: Start date: 06/14/22 Status: Acute Assessment and plan: As above (3) Type 2 diabetes mellitus without complication, without long-term current use of insulin: Status: Chronic Assessment and plan: BGs mostly well controlled. Continue basal bolus insulin. (4) Lower urinary tract symptoms (LUTS): Status: Chronic Assessment and plan: UA not c/w infection. Consider bladder scans, but I am not sure how accurate they will be given the patient's anatomy. (5) PSVT (paroxysmal supraventricular tachycardia): Status: Chronic Assessment and plan: Continue metoprolol and diltiazem. Controlled. (6) DVT prophylaxis: Status: Acute Assessment and plan: Sc enoxaparin (7) Discharge planning issues: Status: Acute Assessment and plan: Full code Continues to require hospitalization. Would need home w/ home health vs SNF on d/c. Subjective Subjective Interval history since last seen: Mr Suarez states he is doing well. No dizziness, CP, SOB, nausea. Exam Narrative Exam Narrative: General: Pleasant obese male who is sitting up in a chair, A&Ox3, NAD HEENT: EOMI, MMM Heart: RRR, no m/r/g Lungs: CTAB Abdomen: soft, obese, nontender, abdominal wall erythema has nearly resolved in the superior aspect of the abdomen; the more dependent portions do still appear erythematous and I am not sure that they look improved. Extremities: chronic venous stasis dermatitis, trace edema BLEs Objective Last Vital Signs Temp 35.5 C L 06/18/22 15:27 Pulse 65 06/18/22 15:27 Resp 22 06/18/22 15:27 BP 151/87 H 06/18/22 15:27 Pulse Ox 92 06/18/22 15:27 Laboratory Results - last 24 hr 06/18/22 06/18/22 06:00 06:00 WBC 5.96 RBC 4.83 Hgb 14.1 Hct 43.9 MCV 91 MCH 29.2 MCHC 32.1 RDW 14.5 H Plt Count 151 MPV 9.3 Immature Gran % 0.5 Neutrophils % 69.1 Lymphocytes % 20.0 Monocytes % 9.1 Eosinophils % 0.8 Basophils % 0.5 Nucleated RBC % 0.0 Absolute Neutrophils 4.12 Absolute Lymphocytes 1.19 L Absolute Monocytes 0.54 Absolute Eosinophils 0.05 Absolute Basophils 0.03 Sodium 141 Potassium 3.7 Chloride 106 Carbon Dioxide 26.3 Anion Gap 8.7 BUN 15 Creatinine 0.7 Est GFR (CKD-EPI 2020) 95.49 Glucose 122 H Calcium 8.6 Magnesium 2.0 C-Reactive Protein 4.97 H Time Spent with Patient Time Spent with Patient: 25-34 minutes Time was spent: preparing to see the patient(eg.review tests), obtaining and/or reviewing separately otained hiistory, ordering medications,tests, procedures, referring, communicating with other health veterinarian laboratory animal care, indepentently interpreting results, counseling the patient and care coordination
[2022-06-18 19:35] VITALS: BP 163/82; PULSE 78; RESP 22; TEMP 36; O2SAT 91
[2022-06-18] MEDS: Tamsulosin 0.4 MG CAPCR 0.8 MG PO (20:07)
[2022-06-18] MEDS: dilTIAZem CD 180 MG CAPCR PO (20:07)
[2022-06-19 02:07] VITALS: BP 130/63; PULSE 59; RESP 22; TEMP 36; O2SAT 92
[2022-06-19] MEDS: CEFEPIME 2 GM in Normal Saline 100 ML IVPB ×3 (03:35→20:03)
[2022-06-19 06:46] LABS: Abs Immature Grans 0.05 10^3/uL (0.0-0.06); Absolute Basophil Count 0.06 10^3/uL (0.0-0.2); Absolute Eosinophil Count 0.07 10^3/uL (0.0-0.7); Absolute Lymphocyte Count 1.32 10^3/uL (1.2-3.4); Absolute Monocyte Count 0.59 10^3/uL (0.1-0.8); Eosinophils % 1.1; HCT 44.6 % (40.0-50.0); HGB 14.4 g/dL (13.5-17.5); Immature Grans % 0.8; Lymphocytes % 21.3; MCH 29.3 pg (27.0-33.0); MCHC 32.3 % (32.0-36.0); MCV 91 fL (80-95); MPV 9.2 fL (8.0-11.0); Monocytes % 9.5; Neutrophils % 66.3; Platelet Count 163 10^3/uL (130-400); RBC 4.92 10^6/uL (4.36-5.78); RDW 14.2 % (11.8-14.1); WBC 6.19 10^3/uL (4.4-10.8)
[2022-06-19 07:11] LABS: BUN 13 mg/dL (7-18); C-Reactive Protein 2.99 mg/dL (0.0-0.3); CREATININE 0.7 mg/dL (0.70-1.30); Calcium 8.9 mg/dL (8.5-10.1); Chloride 105 mmol/L (98-107); Estimated GFR 95.49 (mL/min/1.73m2); Glucose 129 mg/dL (74-106); Potassium 4.1 mmol/L (3.5-5.1); Sodium 139 mmol/L (136-145)
[2022-06-19] MEDS: Ibuprofen 800 MG TAB PO (07:13)
[2022-06-19] MEDS: Omega-3 Fatty Acids 1000 MG CAP 2000 MG PO (07:14)
[2022-06-19] MEDS: Empaglifozin 10 MG TAB 20 MG PO (07:14)
[2022-06-19] MEDS: Citalopram 10 MG TAB PO (07:14)
[2022-06-19] MEDS: Metoprolol CR 100 MG TABCR PO (07:14)
[2022-06-19] MEDS: Aspirin E.C. 81 MG TABEC PO (07:14)
[2022-06-19] MEDS: Enoxaparin 40 MG/0.4 ML SYR SC ×2 (07:14→20:03)
[2022-06-19] MEDS: hydroCHLOROthiazide 25 MG TAB PO (07:14)
[2022-06-19] MEDS: Nystatin POWDER 60 GM JAR TP ×3 (07:15→20:04)
[2022-06-19 07:54] LABS: Procalcitonin 0.1 ng/mL
[2022-06-19 08:00] VITALS: BP 168/70; PULSE 67; RESP 18; TEMP 36.6; O2SAT 94
--- NOTE | 2022-06-19 10:11 | PT.INTREAT ---
Date of service: 06/19/22 Time of Service: 09:57 PT Notes Visit Reasons: Sepsis, Cellulitis Inpatient Physical Therapy Treatment Note [facility] Date: 06/19/22 PRECAUTIONS: Fall, standard, activity as tolerated. SUBJECTIVE: Patient sitting up in chair, agreeable to therapy. Reports being excited to go home, hopeful to D/C tomorrow. OBJECTIVE: PAIN: None reported BED MOBILITY/TRANSFERS Rolling L/R: Not assessed Supine-sit: Not assessed Sit-supine: Not assessed Sit-stand: standby Stand-sit: standby Bed-Chair: standby Chair-bed: standby GAIT Assistive Device: Front wheeled walker Weight bearing: full Assist: standby Distance: 300 feet Deviation: patient noted have reduced stance time right leg today, reduced step length left, limping. Patient reports previous ankle injury, knee arthritis right leg, weather seems to aggravate it. Patient noticeably less short of breath today than last week, patient reports he had fluid in lungs which has resolved. STAIRS: Ascends and Descends 2 six inch stairs and 3 four inch stairs. Step through gait pattern. Leans very far back when descending. ASSESSMENT: Patient tolerates therapy well today, is improving in terms of endurance and energy levels. PLAN: Assess quad strength, knee flexion for descending stairs appropriately. Continue general strengthening and endurance training per plan of care. TREATMENT CODE/TIME: 95885 Gait 11 minutes beginning at 9:57
--- NOTE | 2022-06-19 10:30 | RESPIRATORY ---
Patient uses a [employer] CPAP device settings 14 cmH2O on RA with a Mirage Ultra II nasal mask and DME is [facility].
--- NOTE | 2022-06-19 13:52 | CMPROGNOTE_ITS ---
Date of service: 06/19/22 Time of Service: 13:53 Care Management Progress Note Progress Note Text Progress Note Text: S/O: Ed was sitting up in his chair when CM met with him. He stated that he feels that he is progressing well, and is planning to return home once medically cleared. CM discussed this with PT, who agreed that he is safe for discharge home. Per PT, he walked stand by assist 300' today, and walked up stairs and had improved endurance. Ed stated that he has family that will check in with him daily, and that his nephew (who lives with him) will likely be returning home this week. He reported that Mary, his daughter, is working on obtaining L [facility] in the home. CM will continue to follow. A: Aisha is a 76 year old male admitted to [facility] on 06/14/22 for Sepsis, Cellulitis P: Ed continues to be closely monitored, and has been working with PT during this admission. Referrals are sent to the [facility], [facility], and [facility] for consideration. If he continues to improve, he may return home with new services. His daughter, Mary, is looking into [facility]. He will follow up with his PCP and discharge plan of care. CM will continue to follow.
--- NOTE | 2022-06-19 14:41 | W.NUTRFU ---
Date of service: 06/19/22 Time of Service: 14:41 Nutrition Note NOTE: ?76 year old male admitted to [facility] on 06/14/22 for Sepsis, Cellulitis. Following diabetic/heart healthy diet and meeting macronutrient/fluid needs at this time. BMI of 50 considered class 3 obesity. Weight loss not a priority at this time. Not considered at nutritional risk. Would offer outpatient nutrition counseling at discharge. Time Spent in Nutritional Counseling and Treatment: 0
--- NOTE | 2022-06-19 15:13 | PT.INTREAT ---
Date of service: 06/19/22 Time of Service: 14:55 PT Notes Visit Reasons: Sepsis, Cellulitis Inpatient Physical Therapy Treatment Note [facility] Date: 06/19/22 PRECAUTIONS: Fall, standard, activity as tolerated SUBJECTIVE: Patient reports today being a long day, feels pretty good, agreeable to therapy. OBJECTIVE: THEREX: Patient ambulates standby assists 600 feet with 2 seated rest breaks and 1 standing rest break. Therapist keeps up conversation via open ended questions to challenge patient's cardiovascular system. Patient does become somewhat short of break, but not nearly as bad as last week even with increased respiratory demand via talking. No change in O2 sat. Therapeutic exercise - walking for increased functional endurance and activity tolerance. STAIRS: Patient ascends and descends 2 six inch stairs and 3 four in stairs. ASSESSMENT: Patient gaining strength and endurance, increasing functional activity tolerance. At end of treatment, patient is resting comfortably in chair. Walker and call lopez are within reach. PLAN: Continue strengthening per plan of care. TREATMENT CODE/TIME: 67875 TherEx 17 minutes beginning at 14:55
--- NOTE | 2022-06-19 17:53 | W.PM.PROGNOT ---
Date of Service Date of service: 06/19/22 Time of Service: 17:54 Assessment and Plan Assessment and plan (1) Cellulitis of abdominal wall: Start date: 06/14/22 Status: Acute Assessment and plan: continue cefepime through tonight then dc home tomorrow on 5 more days of oral antibiotics. I would use Keflex. (2) Type 2 diabetes mellitus without complication, without long-term current use of insulin: Status: Chronic Assessment and plan: BGs mostly well controlled. Continue basal bolus insulin. (3) PSVT (paroxysmal supraventricular tachycardia): Status: Chronic Assessment and plan: Continue metoprolol and diltiazem. Controlled. (4) DVT prophylaxis: Status: Acute Assessment and plan: Sc enoxaparin (5) Discharge planning issues: Status: Acute Assessment and plan: Full code Continues to require hospitalization. Would need home w/ home health vs SNF on d/c. Subjective Subjective Patient reports: no new complaints, feels better and bowel movement; denies diarrhea, nausea, shortness of breath or fever Interval history since last seen: Abdominal redness has improved. No abdominal pain. Eating well, Voiding well. Normal BM. No fever or chills. Exam Narrative Exam Narrative: Sukhjinder is sitting up in his chair having finished dinner, talking w/ his daughter. LUngs: clear Heart: Regular Abdomen: obese, w/ large pannus, the margins of the erythema have shrunk from their original border and the redness has faded to faint pink to almost normal skin color Objective Last Vital Signs Temp 36.6 C 06/19/22 08:00 Pulse 67 06/19/22 08:00 Resp 18 06/19/22 08:00 BP 168/70 H 06/19/22 08:00 Pulse Ox 94 06/19/22 08:00 Laboratory Results - last 24 hr 06/19/22 06/19/22 06/19/22 06:16 06:16 06:16 WBC 6.19 RBC 4.92 Hgb 14.4 Hct 44.6 MCV 91 MCH 29.3 MCHC 32.3 RDW 14.2 H Plt Count 163 MPV 9.2 Immature Gran % 0.8 Neutrophils % 66.3 Lymphocytes % 21.3 Monocytes % 9.5 Eosinophils % 1.1 Basophils % 1.0 Nucleated RBC % 0.0 Absolute Neutrophils 4.10 Absolute Lymphocytes 1.32 Absolute Monocytes 0.59 Absolute Eosinophils 0.07 Absolute Basophils 0.06 Sodium 139 Potassium 4.1 Chloride 105 Carbon Dioxide 26.0 Anion Gap 8.0 BUN 13 Creatinine 0.7 Est GFR (CKD-EPI 2020) 95.49 Glucose 129 H Calcium 8.9 Magnesium 2.0 C-Reactive Protein 2.99 H Procalcitonin 0.1 Time Spent with Patient Time Spent with Patient: <25 minutes Time was spent: preparing to see the patient(eg.review tests), ordering medications,tests, procedures, indepentently interpreting results, counseling the patient and care coordination
[2022-06-19] MEDS: Insulin Aspart 300 UNITS/3 ML PEN SC (18:01)
[2022-06-19] MEDS: Normal Saline 500 ML 30 ML IV (20:00)
[2022-06-19 20:02] VITALS: BP 142/59; PULSE 56; RESP 18; TEMP 36.8; O2SAT 93
[2022-06-19] MEDS: Normal Saline Flush 10 ML SYR IVP (20:03)
[2022-06-19] MEDS: dilTIAZem CD 180 MG CAPCR PO (20:04)
[2022-06-19] MEDS: Tamsulosin 0.4 MG CAPCR 0.8 MG PO (21:37)
[2022-06-19 23:57] VITALS: BP 138/71; PULSE 58; RESP 16; TEMP 36.2; O2SAT 94
[2022-06-20 03:30] VITALS: BP 116/67; PULSE 55; RESP 15; TEMP 36.3; O2SAT 94
[2022-06-20] MEDS: CEFEPIME 2 GM in Normal Saline 100 ML IVPB ×2 (03:48→11:59)
[2022-06-20] MEDS: Metoprolol CR 100 MG TABCR PO (07:28)
[2022-06-20] MEDS: hydroCHLOROthiazide 25 MG TAB PO (07:28)
[2022-06-20] MEDS: Ibuprofen 800 MG TAB PO (07:28)
[2022-06-20] MEDS: Omega-3 Fatty Acids 1000 MG CAP 2000 MG PO (07:29)
[2022-06-20] MEDS: Aspirin E.C. 81 MG TABEC PO (07:29)
[2022-06-20] MEDS: Enoxaparin 40 MG/0.4 ML SYR SC (07:29)
[2022-06-20] MEDS: Citalopram 10 MG TAB PO (07:29)
[2022-06-20] MEDS: Empaglifozin 10 MG TAB 20 MG PO (07:35)
[2022-06-20] MEDS: Nystatin POWDER 60 GM JAR TP ×2 (07:35→13:07)
[2022-06-20 08:00] VITALS: O2SAT 96
[2022-06-20] MEDS: Insulin Aspart 300 UNITS/3 ML PEN SC (08:12)
[2022-06-20 08:30] VITALS: BP 136/78; PULSE 58; RESP 18; TEMP 35.8; O2SAT 90
[2022-06-20 11:20] VITALS: BP 129/63; PULSE 57; RESP 20; TEMP 36.1; O2SAT 92
--- NOTE | 2022-06-20 11:40 | W.PM.DS.N ---
Date of service: 06/20/22 Time of Service: 11:41 DS: Diagnosis Discharge Diagnosis (1) Cellulitis of abdominal wall: Status: Acute Asessment and Plan: patient admitted w/ general weakness, gait instability, abdominal wall swelling and redness, leukocytosis of 13,000 and elevated CRP of19.4 and procalcitonin of 0.7. (however the CRP and procalcitonin initial levels were not obtained until the next morning after patient had been on antibiotics overnight). Blood cultures were obtained and came back no growth. He was treated w/ vancomycin from 06/14 to 06/17 and cefepime from 06/14 to 06/20. Leukocytosis normalized and CRP came down to 2.99 and procalcitionin normalize to 0.1 Patient's abdominal wall redness and induration resolved. He was dc home on 7 days further of Keflex 500 mg qid. (2) Type 2 diabetes mellitus without complication, without long-term current use of insulin: Status: Chronic Asessment and Plan: patient's Jardiance, glipizide and metformin were held during his admission. He was treated w/ novolog insulin per sliding scale (3) PSVT (paroxysmal supraventricular tachycardia): Status: Chronic Asessment and Plan: patient was kept on telemetry overnight from 06/14 through the afternoon of 06/15 but had no arrhythmias and therefore telemetry was stopped. He was kept on his toprol XL Discharge Plan Disposition Patient Disposition: Home W/Home Health Services Condition: Improving Discharge Details Reason For Visit: Sepsis, Cellulitis Admit Date/Time: 06/14/22 23:18 Admit Provider: David Torres Attending Provider: David Torres Primary Care Provider: Arsh Holland Hospital Course Hospital Course: 76 yr old male w/ type II DM, obesity, PSVT, chronic UTI HLD, diabetic neuropathy who presented to the E.D. on 06/14/22 w/ complaints of generalized weakness, inability to ambulate and transfer off the toilet. He was found to be septic w/ abdominal wall cellulitis. He presented w/ erythema and induration over his lower abdominal wall and leukocytosis of 13,000, elevated procalcitonin of 0.7 and CRP 19. Xray of his right knee was done d/t cmplaints of knee pain (he has chronic DJD) and this showed bone on bone narrowing of the medial compartement fut no fracture but small joint effusion. CXR was negative for infiltrates or effusions but showed stable cardiomegaly. Blood cultures were obtained and came back no growth. UA was done and was contaminated w/ epithelial cells but showed no nitrites nor leukocyte esterase. Urine culture was never sent. Patient was begun on cefepime and vancomycin. MRSA screen was done and came back negative. He contiued on cefepime through the day of his discharge. His leukocytosis improved and his CRP came down to 2.9 and procalcitonin came down to 0.1. Patient's abdominal wall redness and induration resolved and he was discharged home on 7 more days of Keflex 500 mg QID. Patient received P.T. services to improve his ambulation and strength and upon discharge he will continue to receive home health w/ nursing and physical therapy. Home Meds and New Rx's Prescriptions: New cephalexin 500 mg capsule 500 mg PO QID 7 Days Qty: 28 0RF Continued (DME) diabetic shoes See Rx Instructions .Route .MEDSUPPLY Qty: 1 0RF Rx Instructions: As directed - Custom molded diabetic shoes - 1 pair. empagliflozin 10 mg tablet 20 mg PO QAM Qty: 180 4RF aspirin [Aspir-81] 81 MG tablet,delayed release (DR/EC) 81 mg PO DAILY Qty: 90 (DME) blood-glucose meter [FreeStyle Lite Meter] 1 EACH kit 1 ea Miscellaneous BID Qty: 1 (DME) lancets [FreeStyle Lancets] 28 gauge misc 1 ea Miscellaneous BID Qty: 200 5RF Rx Instructions: One BID citalopram 10 mg tablet 10 mg PO DAILY Qty: 90 0RF diltiazem HCl 180 mg capsule,extended release 24hr 180 mg PO QPM Qty: 90 0RF turmeric root extract 500 mg capsule 500 mg PO BID metformin 1,000 mg tablet 1,000 mg PO BID Qty: 180 4RF tamsulosin 0.4 mg capsule 0.8 mg PO HS Qty: 180 3RF metoprolol succinate 100 mg tablet extended release 24 hr 100 mg PO 0430 Qty: 90 4RF (DME) FreeStyle Lite Strips Strip 1 ea Miscellaneous BID Qty: 200 4RF Rx Instructions: 1 twice a day glipizide 10 mg tablet 10 mg PO DAILY Qty: 90 4RF Fish Oil 1 EACH capsule 2,000 mg PO DAILY ibuprofen 800 mg tablet 800 mg PO DAILY Rx Instructions: Take 1 tablet by mouth daily losartan-hydrochlorothiazide 100-25 mg tablet 1 tab PO DAILY Rx Instructions: Take 1 tablet by mouth daily red yeast rice 600 mg capsule 1,200 mg PO BID Rx Instructions: give with meal/snack polyethylene glycol 3350 17 gram Powder In Packet 17 g PO DAILY PRN PRN (Reason: Constipation) Qty: 0 0RF Discharge Instructions Instructions: Cephalexin (By mouth), Cellulitis (DC) Stand Alone Forms: Nursing Discharge Form Referrals: Arsh Holland EXTENSION SERVICE AGENT [Primary Care Provider] - Activity:: Activity as Tolerated Equipment/Supplies:: No Equipment Needed Diet:: Carb Counting Discharge Orders Discharge Orders: Discharge Order (Routine); Ordered 06/20/22 Ordered By: Beto Bailey DS: Summary Time Spent with Patient providing and/or coordinating discharge services: Greater than 30 minutes Specific discharge activities: Interview/exam of patient; review of discharge instructions, completion of prescriptions/discharge instructions; discussion w/ nursing and CM; documentation of hospital visit Status at Discharge Functional status at discharge: uses cane/walker Overall status at discharge: patient is progressing back to baseline Mental Status: mental status grossly normal Speech and Movement: speech and movement normal Mood: congruent mood Affect: normal affect Exam Narrative Exam Narrative: Sukhjinder is sitting up in his chair having finished breakfast. He is ready to return home LUngs: clear Heart: Regular Abdomen: obese, w/ large pannus, the margins of the erythema have shrunk from their original border and the redness has faded to faint pink to almost normal skin color Psych Mental Status: mental status grossly normal Speech and Movement: speech and movement normal Mood: congruent mood Affect: normal affect DS: Data Vitals/I&O Vitals and I&O: Vital Signs Temperature 35.8 C L 06/20/22 08:30 Temperature Source Tympanic 06/20/22 08:30 Pulse 58 L 06/20/22 08:30 Pulse Rhythm Regular 06/20/22 08:00 Pulse 83 06/14/22 22:31 Respiratory Rate 18 06/20/22 08:30 Respiratory Effort Normal, Non-Labored 06/20/22 08:00 Respiratory Depth Normal 06/20/22 08:00 Respiratory Pattern Normal 06/20/22 08:00 Blood Pressure 136/78 06/20/22 08:30 Blood Pressure Mean 62 06/14/22 22:31 Blood Pressure Position Supine 06/14/22 19:57 Pulse Oximetry 90 L 06/20/22 08:30 Oxygen Delivery Method Room Air 06/20/22 08:30 Oxygen Flow Rate 0 06/20/22 08:30 Fraction of Inspired Oxygen (FIO2) 21 06/19/22 21:00 Pain Level 0 06/20/22 08:30 Comment BP called over radio 06/18/22 15:27 Intake & Output 06/19/22 06/19/22 06/20/22 11:59 23:59 11:59 Intake Total 410 / 1475 1065 / 1475 485.5 / 485.5 Output Total 500 / 750 250 / 750 850 / 850 Balance -90 / 725 815 / 725 -364.5 / -364.5 Weight 160.7 kg 167.5 kg Intake: IV 110 / 335 225 / 335 135.5 / 135.5 Oral 300 / 1140 840 / 1140 350 / 350 Output: Urine 500 / 750 250 / 750 850 / 850 Other: Urine Color Yellow Yellow Straw Urine Appearance Clear Clear Clear Sediment Urine Odor Normal Normal Normal Comment unclear amount, pT voids independently. Voiding Methods Urinal Urinal Urinal PFSH All Active Problems (Updated 06/15/22 @ 19:59 by Rola Dc MD) Discharge planning issues (Acute) DVT prophylaxis (Acute) Cellulitis of abdominal wall (Acute) Sepsis (Acute) Lower urinary tract symptoms (LUTS) (Chronic) SVT (supraventricular tachycardia) (Chronic) Grief (Chronic) Non-healing wound of right lower extremity (Acute) PSVT (paroxysmal supraventricular tachycardia) (Chronic) Inguinal hernia (Acute) Carotid artery stenosis (Acute) Fatty liver (Chronic 08/04/16) Peripheral vascular disease (Chronic) Diabetic neuropathy (Chronic) Right knee pain (Acute) BPH w urinary obs/LUTS (Chronic) Essential hypertension (Chronic) Generalized osteoarthrosis (Chronic) knees; R>L Hyperlipidemia (Chronic) Type IV Morbid obesity (Chronic) Obstructive sleep apnea, adult (Chronic) C-PAP Spondylolisthesis (Chronic) L5-S1 Type 2 diabetes mellitus without complication, without long-term current use of insulin (Chronic 07/04/16) Medical History MRSA infection (09/03/15) Tubular adenoma 07/24/14 DR. ALLEN X 3 Umbilical hernia Repaired Venous stasis ulcers of both lower extremities (03/09/16) Surgical History Amputation of toe of right foot 04/08/20 - Right second toe ([facility]) Appendectomy (~08/1973) Colonoscopy - MAC (~02/2004) neg FX ANKLE 02/2013; [facility] [place] [place] knee repair (~1964) cartilage repair Family History Mother , age 78 Cancer Father , age 70 Heart disease Cancer Sister Essential hypertension Hyperlipidemia Breast cancer Brother Essential hypertension Skin cancer Brother Diabetes Essential hypertension Heart disease Hyperlipidemia Alcohol abuse Substance abuse Cancer Maternal Grandfather Heart disease Paternal Grandfather No problems noted. Maternal Grandmother Diabetes Essential hypertension Paternal Grandmother Heart disease Son Essential hypertension Heart disease Hyperlipidemia Daughter No problems noted. Daughter No problems noted. Brother , age 69 Diabetes Essential hypertension Hyperlipidemia Social History Smoking/Tobacco Use Status: Never Second Hand Exposure: Yes Smoking risk assessment performed?: Yes Alcohol Intake: never Drug use: Never Substance use type: does not use Household members: other Details: Nephew Housing: house Communication Needs: Corrective Lenses Do you need help understanding health information?: Rarely Pets and animals: Yes Pets and animals: cat(s) and dog(s) Sexually active: No Do you think of yourself as: straight/heterosexual Current gender identity: male What is your relationship status?: How often do you talk on the phone with friends or family?: three or more times per week How often do you get together with friends or relatives?: once per week How often do you attend catholic or baptist services?: 4 or more times per year Do you belong to any clubs or organized social groups?: no Panel score (0-1 are the most socially isolated patients): 2 What type of physical activity do you participate in: none Frequency: does not exercise Mally/Cheondoism: Jehovah'S Witness Special mally needs: No Seatbelt use: sometimes Helmet use: No Drive intox or 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 chain saw driver: No Do you feel safe at home: Yes Do you feel safe in your relationship?: Yes Time Spent with Patient Time Spent with Patient: <45 minutes Time was spent: preparing to see the patient(eg.review tests), ordering medications,tests, procedures, referring, communicating with other health hospice care transitions coordinator (Completing discharge instructions as well as discharge summary), indepentently interpreting results, counseling the patient and care coordination
--- NOTE | 2022-06-20 11:42 | PDOC.HHF2F_ITS ---
Home Health Referral Home Health Orders Clinical synopsis of why skilled professionals are needed: Nursing to evaluate patient continued response to antibiotics for his abdominal wall cellulitis and to coordinate medication changes. Physical therapy to continue home strengthening, gait and balance to improve patient's self performance of ADL and to improve his ambulation to promote independence. Medical diagnosis necessitation home health referral: abdominal wall cellulitis, gait instability, generalized weakness Registered Nurse: Check all that apply Instruct on new or changed medication(s)/assess compliance: Ordered Assess for exacerbation of medical condition, instruct patient/caregivers on signs and symptoms to report for early detection: Ordered Physical Therapist: Check all that apply Increase strength & endurance for safe mobility at home: Ordered To design/establish home maintenance program: Ordered Fall reduction therapy program for patient with history of frequent falls: Ordered Occupational Therapist: Evaluate and treat for patient unable to perform ADL/IADL/self-care: Ordered Costing Manager: Assist with community resources: Ordered Home Bound Status Requires the aid of supportive device (check all that apply): Walker Patient has a condition such that leaving home is medically contraindicated (Describe): increased risk of falls d/t general weakness and gait instability Describe why leaving home would require a considerable and taxing effort: Safety Concerns: describe (as above. increased risk of falls d/t gait instability and morbid obesity) Encounter Date and Reason: I certify that a FTF encounter for this patient was performed on June 20, 2022 and that such encounter was related to the primary reason the patient requires home health services. The encounter was conducted in the following manner: * By me as the certifying physician, SENIOR CORPORATE RECRUITER, PA or * By an inpatient physician, SENIOR CORPORATE RECRUITER or PA during an inpatient stay who communicated findings to me, Certification And Authentication I certify that I composed the above information based on my clinical judgment relating to this patient's medical condition and, if applicable, clinical findings communicated to me by the NPP or inpatient physician who performed the FTF encounter. Name of Provider that will be monitoring home health services: Arsh Holland
--- NOTE | 2022-06-20 12:26 | PDOC.CMDIS ---
Date of service: 06/20/22 Time of Service: 12:27 LACE Index Scoring Tool Questions: Length of Stay (in days): 4 - 6 Was the patient admitted via the E.D.?: Yes Comorbidities: Diabetes w/o Complication E.D. Visits: 2 Answers: Total Score: 10 Risk of Readmission: High Risk Care Management Discharge Plan Reason for Hospitalization: Sepsis, Cellulitis Discharge Plan: Edmatt will return home today with new orders for HH PT/OT. His daughter will drive him home via private vehicle, and his nephew will be staying with him. He will follow up with his PCP and discharge plan of care. He is happy to be going home. Patient/Family Education Needs: Review discharge instructions and limitations, discussion of self care needs including 'ask me three'. Services Needed at Discharge: Home Health Care Services (PT/OT)
--- NOTE | 2022-06-20 13:42 | NUR.NOTE ---
Patient has been DC. PIV to RAC was removed. All of patients belongings were bagged & ready to be transported upon DC P/U time of 1400.. All of DC orders were reviewed with the patient. All questions & or concerns were addressed. Nursing Note:
--- NOTE | 2022-06-23 12:15 | INDS_ITS ---
PT Notes Visit Reasons: Sepsis, Cellulitis Physical Therapy Inpatient Discharge Summary Treatment Dates: 06/15/2022 - 06/19/22 Referring Doctor: David Torres MD PT Orders: PT CONSULT: Safety consult for D/C Precautions: Standard. Activity as tolerated. This document serves as a summary of care. No PT services were provided on this date. Patient Profile/Admitting Diagnosis:? Sukhjinder is a 76-year-old male who presented to the ED on 03/23/2022 for management of sepsis, nonhealing wound of right LE, type II DM, UTI, and PSVT. He participated in skilled PT intervention for a total of 7 visits, with improved safety, mobility and activity tolerance, sufficient to allow for safe return home with PT. He was able to d/c home on 06/20/22. PMHX: All Active Problems?(Updated 06/15/22 @ 06:34 by David Torres) Cellulitis of abdominal wall (Acute) Sepsis (Acute) Lower urinary tract symptoms (LUTS) (Chronic) SVT (supraventricular tachycardia) (Chronic) Grief (Chronic) Non-healing wound of right lower extremity (Acute) PSVT (paroxysmal supraventricular tachycardia) (Chronic) Inguinal hernia (Acute) Carotid artery stenosis (Acute) Fatty liver (Chronic 08/04/16) Peripheral vascular disease (Chronic) Diabetic neuropathy (Chronic) Right knee pain (Acute) BPH w urinary obs/LUTS (Chronic) Essential hypertension (Chronic) Generalized osteoarthrosis (Chronic) knees; R>L Hyperlipidemia (Chronic) Type IV Morbid obesity (Chronic) Obstructive sleep apnea, adult (Chronic) C-PAP Spondylolisthesis (Chronic) L5-S1 Type 2 diabetes mellitus without complication, without long-term current use of insulin (Chronic 07/04/16) Medical History? MRSA infection (09/03/15) Tubular adenoma 07/24/14 DR. ALLEN X 3 Umbilical hernia RepairedVenous stasis ulcers of both lower extremities (03/09/16) Surgical History? Amputation of toe of right foot 04/08/20 - Right second toe ([facility]) Appendectomy (~08/1973) Colonoscopy - MAC (~02/2004) neg FX ANKLE 02/2013; [facility] [place] knee repair (~[place]) cartilage repair Social History/Home Situation: Lives with a family member in a private home with 6 steps to enter with rails on both sides.? recently passed.? Independent with all mobility ADL performance using 4 wheeled walker.? Still drives.? Does his own groceries. Nephew no longer able to provide neede support at home as nephew is not well himself. Equipment Owned/DME: FWW, 4WW Objective: ROM: Right Upper Extremity: ? Shoulder Flexion WFL. Shoulder abduction WFL. Elbow flexion WFL. Wrist flexion WFL. Functional opening and closing of hand WFL. Left Upper Extremity:? Shoulder Flexion WFL. Shoulder abduction WFL. Elbow flexion WFL. Wrist flexion WFL. Functional opening and closing of hand WFL. Right Lower Extremity: Hip flexion WFL. Hip abduction WFL. Knee flexion WFL. Ankle dorsiflexion WFL. Ankle plantarflexion WFL. Left Lower Extremity: Hip flexion WFL. Hip abduction WFL. Knee flexion WFL. Ankle dorsiflexion WFL. Ankle plantarflexion WFL. Strength: Right Upper Extremity: Shoulder flexors 4-/5. Shoulder abductors 4-/5. Elbow flexors 4-/5. Elbow extensors 4-/5. Director Of Patient Safety strong. Left Upper Extremity: Shoulder flexors 4-/5. Shoulder abductors 4-/5. Elbow flexors 4-/5. Elbow extensors 4-/5. Director Of Patient Safety strong. Right Lower Extremity: Hip flexors 4-/5. Hip abductors 4-/5. Knee flexors 4-/5. Knee extensors 4-/5. Ankle dorsiflexors 4-/5. Ankle plantarflexors 4-/5. Left Lower Extremity: Hip flexors 4-/5. Hip abductors 4-/5. Knee flexors 4-/5. Knee extensors 4-/5. Ankle dorsiflexors 4-/5. Ankle plantarflexors 4-/5. Bed Mobility/Transfers: Supine to sit independent with HOB at 30 degrees Sit to stand stand by assist with FWW Stand to sit stand by assist with FWW Bed to reclining chair stand by assist with FWW ?GAIT: Demonstrated ability to ambulate standby assist 600 feet with 2 seated rest breaks and 1 standing rest break. ? STAIRS: Patient ascends and descends 2 six inch stairs and 3 four in stairs. ? ? Balance: Static Sitting: Normal Dynamic Sitting: Normal Static Standing: Fair Dynamic Standing: Fair Assessment: Sukhjinder is a 76-year-old male who presented to the ED on 03/23/2022 for management of sepsis, nonhealing wound of right LE, type II DM, UTI, and PSVT. He participated in skilled PT intervention for a total of 7 visits, with improved safety, mobility and activity tolerance, sufficient to allow for safe return home with HH PT. Goals: Goals X1 week 1. Supine-Sit independent (progressing toward, with patient able to perform with SBA) 2. Sit-Supine independent(progressing toward, with patient able to perform with SBA) 3. Sit-Stand independent(progressing toward, with patient able to perform with SBA) 4. Stand-Sit independent with 4WW(progressing toward, with patient able to perform with SBA) 5. Bed-Chair independent with 4WW(progressing toward, with patient able to perform with SBA) 6. Chair-Bed independent with 4WW(progressing toward, with patient able to perform with SBA) 7. Independent gait on level surface with use of 4WW for at least 300 feet without report of pain nor dyspnea(progressing toward, with patient able to perform with SBA) 8. Independent stair negotiation while holding onto B rails for at least 6 steps without report of pain nor dyspnea(progressing toward, with patient able to perform with SBA) 9. Independent with home exercise program (met) 10. Good static and dynamic standing balance/tolerance (progressing toward) PLAN OF CARE/TREATMENT PLAN: D/C home with HH services. DISCHARGE RECOMMENDATIONS: [] ? Home with no services [] [] ? Home with services [] ? Home with outpatient PT [] [] ? SNF for continued rehabilitation [] [] ? Program And Research Coordinator Care [] [] ? SNF versus LTC based on ability to participate and progress [] [X] HH PT TREATMENT CODE/TIME: none Thank you for the opportunity to participate in the care of this patient. Fariha Diaz, PT, DPT [facility] [place], [place]
== END 2022-06-20 13:58 | disposition home health service (06) | DRG 872 ==
LOC: ER 23:45 → MS 06-15 00:06
PROVIDERS: Internal Medicine; Admitting Provider Family Medicine; Emergency Provider Student in an Organized Health Care Education/Training Program; PCP Nurse Practitioner Family; Visit Provider Family Medicine
DX: A41.9 Sepsis, unspecified organism (principal); L03.311 Cellulitis of abdominal wall; I47.1 Supraventricular tachycardia; Z68.43 Body mass index [BMI] 50.0-59.9, adult; E66.01 Morbid (severe) obesity due to excess calories; I10 Essential (primary) hypertension; I65.29 Occlusion and stenosis of unspecified carotid artery; I73.9 Peripheral vascular disease, unspecified; K76.0 Fatty (change of) liver, not elsewhere classified; E11.40 Type 2 diabetes mellitus with diabetic neuropathy, unspecified; N40.1 Benign prostatic hyperplasia with lower urinary tract symptoms; M15.9 Polyosteoarthritis, unspecified; K40.90 Unilateral inguinal hernia, without obstruction or gangrene, not specified as recurrent; E78.5 Hyperlipidemia, unspecified; G47.33 Obstructive sleep apnea (adult) (pediatric); M43.17 Spondylolisthesis, lumbosacral region; Z79.84 Long term (current) use of oral hypoglycemic drugs; Z79.82 Long term (current) use of aspirin
CPT/HCPCS: 36415; 80048; 80053; 84145; 85027; 87040; 87635; 93005; 96365; 96368; 97110; 97116; 97162; 97530; 99285; J1650; 71045; 73564; 80202; 81003; 81015; 83605; 83735; 84443; 85025; 86140; 93010; 99223; 99231; 99232; 99239

== ENCOUNTER 2022-08-17 10:15 | Inpatient (IN) | payer OTHER, SELFPAY ==
[2022-08-17] VITALS (83 sets, daily range): BP systolic 88–139; BP diastolic 46–92; PULSE 59–141; RESP 16–34; TEMP 36.2–36.8; O2SAT 80–97
--- NOTE | 2022-08-17 10:15 | RT.EKG_ITS ---
APPROVED REPORT Exam: Resting ECG Reason for Exam: SB Patient Location: E HR:136 bpm ECG Measurements Heart Rate 136 AXIS HI 117 P -66 QRSd 115 QRS 39 QT 347 T 76 QTc 523 Conclusion Sinus or ectopic atrial tachycardia...P axis (-45,135), rate> 99 Nonspecific intraventricular conduction delay...QRSd >115mS, not LBBB/RBBB ST elevation, consider inferior injury...ST >0.08mV, II III aVF Prolonged QT interval...QTc >500mS
[2022-08-17 10:41] LABS: BE (Venous) 1 mmol/L (-2-3); HCO3 (Venous) 27 mmol/L (23-28); O2 Sat (Venous) 66 %; TCO2 (Venous) 24 mmol/L (24-29); pCO2 (Venous) 49 mmHg (41-51); pH (Venous) 7.35 (7.31-7.41); pO2 (Venous) 36 mmHg
[2022-08-17] MEDS: Adenosine 6 MG/2 ML VIAL IVP (10:45)
[2022-08-17] MEDS: Normal Saline 1,000 ML 1000 ML IV (10:45)
--- NOTE | 2022-08-17 10:50 | DI.RAD_ITS ---
Exam(s) XR PORTABLE CHEST AP EXAM: XR PORTABLE CHEST AP CLINICAL HISTORY: sob. TECHNIQUE: 2D digital imaging was performed. COMPARISON: CR,XR XR CHEST 1V IN DI DEPT from 06/14/2022 FINDINGS: Single AP portable view. Cardiomegaly. Mediastinum unchanged. No obvious infiltrates nor pleural effusions. No pulmonary edema. No pneumothorax. No obvious frac tures. IMPRESSION: No obvious acute pulmonary findings on this single AP portable view of the chest. No significant change compared to 06/14/2022. DATA REPOSITORY: RADIATION DOSE DELIVERED:
[2022-08-17] MEDS: Adenosine 6 MG/2 ML VIAL (10:53)
--- NOTE | 2022-08-17 10:55 | ED.GENADUL_ITS ---
Discharge Plan Disposition Patient Disposition: Admit to [facility] Discharge Details Clinical Impression: SVT (supraventricular tachycardia), Atrial flutter Primary Care Provider: Arsh Holland ED Provider: Keith Guzmán Home Meds and New Rx's Prescriptions: No Action (DME) diabetic shoes See Rx Instructions .Route .MEDSUPPLY Qty: 1 0RF Rx Instructions: As directed - Custom molded diabetic shoes - 1 pair. diltiazem HCl 180 mg capsule,extended release 24hr 180 mg PO QPM Qty: 90 3RF aspirin [Aspir-81] 81 MG tablet,delayed release (DR/EC) 81 mg PO DAILY Qty: 90 (DME) blood-glucose meter [FreeStyle Lite Meter] 1 EACH kit 1 ea Miscellaneous BID Qty: 1 turmeric root extract 500 mg capsule 500 mg PO BID metformin 1,000 mg tablet 1,000 mg PO BID Qty: 180 4RF tamsulosin 0.4 mg capsule 0.8 mg PO HS Qty: 180 3RF metoprolol succinate 100 mg tablet extended release 24 hr 100 mg PO 0430 Qty: 90 4RF (DME) lancets [FreeStyle Lancets] 28 gauge misc 1 ea Miscellaneous BID Qty: 200 5RF Rx Instructions: One BID losartan-hydrochlorothiazide 100-25 mg tablet 1 tab PO DAILY Qty: 14 0RF Rx Instructions: Take 1 tablet by mouth daily glipizide 10 mg tablet 10 mg PO DAILY Qty: 14 0RF (DME) FreeStyle Lite Strips Strip 1 ea Miscellaneous BID Qty: 200 4RF Rx Instructions: 1 twice a day ibuprofen 800 mg tablet 800 mg PO DAILY Qty: 90 3RF Rx Instructions: Take 1 tablet by mouth daily empagliflozin 10 mg tablet 20 mg PO QAM Qty: 180 4RF Fish Oil 1 EACH capsule 2,000 mg PO DAILY red yeast rice 600 mg capsule 1,200 mg PO BID Rx Instructions: give with meal/snack polyethylene glycol 3350 17 gram Powder In Packet 17 g PO DAILY PRN PRN (Reason: Constipation) Qty: 0 0RF Medical Decision Making 76 yo male with hx of DM, HTN, PSVT, ISAAC, presents with sob, found to have svt in 130's. Failed adenosine x 2, so rate controlled with cardizem and gtt. Notably, repeat ekg shows A flutter. He is only on ASA 81 mg currently, CHADS2 vasc score 5, so reasonable to be on AC at this point. He has seen cards in past, declined ablation before, but did discuss with pt that this is a topic may need to revisit. HPI General Date/Time Provider Initiated Documentation: 08/17/22 10:16 . History of Present Illness described as moderate, Quality is described as other (sob), and is localized to the chest. Patient started experiencing this day(s) (3-4) and it has been constant. HPI Narrative: 76 year old male with hx of HTN, PSVT, DM, Carotid stenosis, PVD, presents to the ED with c/o increased sob over the past 3-4 days. He says that has been relatively persistent, has also had a little chest discomfort, as well. No palpitations. No fever/chills. He has a dry cough, non-productive. Related Data Home Medications Medication Instructions Recorded Confirmed omega-3 fatty acids-fish oil 340 2,000 mg PO DAILY 01/17/13 08/17/22 mg-1,000 mg capsule (Fish Oil) aspirin 81 mg tablet,delayed 81 mg PO DAILY #90 tab-caps 03/12/15 08/17/22 release (Aspir-) blood-glucose meter (FreeStyle ##1 07/05/16 08/17/22 Lite Meter kit) red yeast rice 600 mg capsule 1,200 mg PO BID 10/24/21 08/17/22 polyethylene glycol 3350 17 gram 17 g PO DAILY PRN PRN Constipation 03/28/22 08/17/22 oral powder packet #0 ea diabetic shoes #1 ea 04/07/22 08/17/22 turmeric root extract 500 mg 500 mg PO BID 04/18/22 08/17/22 capsule metformin 1,000 mg tablet 1,000 mg PO BID #180 tab-caps 05/03/22 08/17/22 metoprolol succinate 100 mg 100 mg PO 0430 #90 tab-caps 05/03/22 08/17/22 tablet,extended release 24 hr tamsulosin 0.4 mg capsule 0.8 mg PO HS #180 caps 05/03/22 08/17/22 lancets 28 gauge (FreeStyle #200 ea 06/22/22 08/17/22 Lancets) blood sugar diagnostic (FreeStyle #200 strips 06/23/22 08/17/22 Lite Strips) glipizide 10 mg tablet 10 mg PO DAILY #14 tabs 06/23/22 08/17/22 losartan 100 1 tab PO DAILY #14 tabs 06/23/22 08/17/22 mg-hydrochlorothiazide 25 mg tablet diltiazem HCl 180 mg 180 mg PO QPM #90 caps 07/06/22 08/17/22 capsule,extended release 24 hr empagliflozin 10 mg tablet 20 mg PO QAM #180 tabs 07/13/22 08/17/22 ibuprofen 800 mg tablet 800 mg PO DAILY #90 tabs 07/13/22 08/17/22 Previous Rx's Medication Instructions Recorded polyethylene glycol 3350 17 gram 17 g PO DAILY PRN PRN Constipation 03/28/22 oral powder packet #0 ea diabetic shoes #1 ea 04/07/22 metformin 1,000 mg tablet 1,000 mg PO BID #180 tab-caps 05/03/22 metoprolol succinate 100 mg 100 mg PO 0430 #90 tab-caps 05/03/22 tablet,extended release 24 hr tamsulosin 0.4 mg capsule 0.8 mg PO HS #180 caps 05/03/22 lancets 28 gauge (FreeStyle #200 ea 06/22/22 Lancets) blood sugar diagnostic (FreeStyle #200 strips 06/23/22 Lite Strips) glipizide 10 mg tablet 10 mg PO DAILY #14 tabs 06/23/22 losartan 100 1 tab PO DAILY #14 tabs 06/23/22 mg-hydrochlorothiazide 25 mg tablet diltiazem HCl 180 mg 180 mg PO QPM #90 caps 07/06/22 capsule,extended release 24 hr empagliflozin 10 mg tablet 20 mg PO QAM #180 tabs 07/13/22 ibuprofen 800 mg tablet 800 mg PO DAILY #90 tabs 07/13/22 Allergies Allergy/AdvReac Type Severity Reaction Status Date / Time atorvastatin calcium AdvReac INTOLERANCE Verified 08/17/22 10:28 [From Lipitor] General Stated Complaint: RespSymp JOSE: 2 Review of Systems Narrative: CONST: no fever or chills HEENT: no sore throat SKIN: no rashes PULM: +sob/cough CARD: +Chest pressure, No palpitations ABD: no abd pain EXTR: no swelling NEURO: No focal weakness PFSH All Active Problems (Updated 08/17/22 @ 12:06 by Keith Guzmán MD) SVT (supraventricular tachycardia) (Chronic) Atrial flutter (Acute) Cellulitis of abdominal wall (Acute) Lower urinary tract symptoms (LUTS) (Chronic) SVT (supraventricular tachycardia) (Chronic) Grief (Chronic) Non-healing wound of right lower extremity (Acute) PSVT (paroxysmal supraventricular tachycardia) (Chronic) Inguinal hernia (Acute) Carotid artery stenosis (Acute) Fatty liver (Chronic 08/04/16) Peripheral vascular disease (Chronic) Diabetic neuropathy (Chronic) Right knee pain (Acute) BPH w urinary obs/LUTS (Chronic) Essential hypertension (Chronic) Generalized osteoarthrosis (Chronic) knees; R>L Hyperlipidemia (Chronic) Type IV Morbid obesity (Chronic) Obstructive sleep apnea, adult (Chronic) C-PAP Spondylolisthesis (Chronic) L5-S1 Type 2 diabetes mellitus without complication, without long-term current use of insulin (Chronic 07/04/16) Medical History MRSA infection (09/03/15) Tubular adenoma 07/24/14 DR. ALLEN X 3 Umbilical hernia Repaired Venous stasis ulcers of both lower extremities (03/09/16) Surgical History Amputation of toe of right foot 04/08/20 - Right second toe ([facility]) Appendectomy (~08/1973) Colonoscopy - MAC (~02/2004) neg FX ANKLE 02/2013; [facility] [place] knee repair (~1964) cartilage repair Family History Mother , age 78 Cancer Father , age 70 Heart disease Cancer Sister Essential hypertension Hyperlipidemia Breast cancer Brother Essential hypertension Skin cancer Brother Diabetes Essential hypertension Heart disease Hyperlipidemia Alcohol abuse Substance abuse Cancer Maternal Grandfather Heart disease Paternal Grandfather No problems noted. Maternal Grandmother Diabetes Essential hypertension Paternal Grandmother Heart disease Son Essential hypertension Heart disease Hyperlipidemia Daughter No problems noted. Daughter No problems noted. Brother , age 69 Diabetes Essential hypertension Hyperlipidemia Social History Smoking/Tobacco Use Status: Never Second Hand Exposure: Yes Smoking risk assessment performed?: Yes Alcohol Intake: never Drug use: Never Substance use type: does not use Household members: other Details: Nephew Housing: house Communication Needs: Corrective Lenses Do you need help understanding health information?: Rarely Pets and animals: Yes Pets and animals: cat(s) and dog(s) Sexually active: No Do you think of yourself as: straight/heterosexual Current gender identity: male What is your relationship status?: How often do you talk on the phone with friends or family?: three or more times per week How often do you get together with friends or relatives?: once per week How often do you attend latter-day or yarsani services?: 4 or more times per year Do you belong to any clubs or organized social groups?: no Panel score (0-1 are the most socially isolated patients): 2 What type of physical activity do you participate in: none Frequency: does not exercise Mally/Zoroastrian: Church Special mally needs: No Seatbelt use: sometimes Helmet use: No Drive intox or 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 home delivery driver: No Do you feel safe at home: Yes Do you feel safe in your relationship?: Yes Exam Narrative Exam Narrative: Const: morbidly obese, mild resp distress HEENT: normocephalic, atraumatic; MMM Lungs: CTA, no wheezing or rales Heart: regular, tachycardia Abd: soft, NT/ND Ext: well perfused, +edema Neuro: non-focal Skin: no rashes Course 76 yo male with DM, HTN, PSVT, presents to the ED with sob, noted to have svt on monitor in 130's. He denies feeling this at all. Review of prior cards notes and event monitor noted multiple episodes SVT with rates 160-170s, but denied any sx's at those times, as well. Lungs otherwise clear. Suspect this is source of his sob. Will check labs, xray. He has been seen in ED with svt in past, had both cardizem and adenosine to convert, with first bp with try adenosine and see if improvement. Reevaluation(s) Initial Evaluation: 1101 - attempted both 6 mg and 12 mg adenosine with only transient improvement, afterwards back to svt. bp 119/69, will give IV dose cardizem, as well. Reevaluation: 1120 - HR 90's, still irregular, pt states breathing feels better. Will get repeat ekg, monitor looks like flutter. Reevaluation #2: 1145 - HR creeping up to 100's, will place on cardizem drip. Spoke to the hospitalist, will accept on service to ICU for further eval and tx Vital Signs Vital signs: Vital Signs Temperature 36.5 C 08/17/22 10:21 Pulse 136 H 08/17/22 10:21 Respiratory Rate 22 08/17/22 10:21 Blood Pressure 96/53 L 08/17/22 10:21 Pulse Oximetry 92 08/17/22 10:21 Temperature 36.5 C 08/17/22 10:21 Pulse 136 H 08/17/22 10:21 Respiratory Rate 22 08/17/22 10:21 Blood Pressure 96/53 L 08/17/22 10:21 Blood Pressure Position Sitting 08/17/22 10:21 Pulse Oximetry 92 08/17/22 10:21 Oxygen Delivery Method Room Air 08/17/22 10:21 Oxygen Flow Rate 0 08/17/22 10:21 Lab/Test Results Lab/Test Results: Laboratory Tests Range/Units 08/17/22 10:32 VBG pH (7.31-7.41) 7.35 VBG pCO2 (41-51) mmHg 49 VBG pO2 mmHg 36 VBG HCO3 (23-28) mmol/L 27 VBG Total CO2 (24-29) mmol/L 24 VBG O2 Saturation % 66 VBG Base Excess (-2-3) mmol/L 1 Critical Care Time Critical Care Time Critical Care Time: Yes Total Critical Care Time: 40 Attestation: Pt critically ill requiring potentially life saving interventions
[2022-08-17] MEDS: dilTIAZem 25 MG/5 ML VIAL 10 MG IVP (11:00)
[2022-08-17 11:05] LABS: ALT 49 U/L (16-63); AST 22 U/L (15-37); Albumin 3.4 g/dL (3.4-5.0); Alkaline Phosphatase 98 U/L (46-116); Anion Gap 9.7 mmol/L (3-11); BUN 25 mg/dL (7-18); Bilirubin, Total 0.5 mg/dL (0.2-1.0); CO2 27.3 mmol/L (21.0-32.0); Calcium 9.3 mg/dL (8.5-10.1); Chloride 104 mmol/L (98-107); Glucose 174 mg/dL (74-106); Lipase 68 U/L (16-77); NT-proBNP 913 pg/mL (<300); Potassium 4.5 mmol/L (3.5-5.1); Sodium 141 mmol/L (136-145)
[2022-08-17 11:07] LABS: Troponin I 63 ng/L (<or=60)
--- NOTE | 2022-08-17 11:15 | RT.EKG_ITS ---
APPROVED REPORT Exam: Resting ECG Reason for Exam: svt Patient Location: E HR:103 bpm ECG Measurements Heart Rate 103 AXIS WI [id number] P [id number] QRSd 99 QRS 1 QT 359 T 93 QTc 471 Conclusion Atrial flutter...A-rate 283
[2022-08-17] MEDS: dilTIAZem 125 MG in Normal Saline 100 ML IV (11:57)
--- NOTE | 2022-08-17 14:29 | W.PM.HP.N ---
Date of service: 08/17/22 Time of Service: 14:29 Assessment and Plan Assessment and plan (1) Atrial flutter: Status: Acute Assessment and plan: patient w/ known hx of PSVT/atrial flutter and is followed by [facility]. Patient had been recommended for ablation this past year but this was at a time when his was dying from cancer so the procedure was delayed. He has not been anticoagulated but should be. He has been on both diltiazem CD along w/ Toprol XL recently. Unclear as to what precipitated his acute loss of rate control but I suspect he has been in and out of control for sometime. HIs troponin I rise is minimal and probably represents type II demand ischemia from the tachycardia. I will trend out his troponin I and recheck echocardiogram for any new wall motion abnormalities. I will discuss anticoagulation further with him and his daughter, Pat. Professional time spent interviewing and examining patient, discussion of goals of care with hospital team (care management, nursing and consulting professionals) was 60 minutes. (2) Elevated troponin I level: Status: Acute Assessment and plan: likely secondary to type II demand ischemia rather than NSTEMI (3) (HFpEF) heart failure with preserved ejection fraction: Status: Acute Assessment and plan: needs some iv lasix as he has mild CHF. His offical CXR reading did not show this but his POCUS exam did demonstrate some bibasilar B lines although no effusion was seen. I will check formal echocardiogram and trend his I/O as well as his BMP and repeat his Pro-BNP prior to his discharge. The pemberton will be to achieve and maintain good rate control. Qualifiers: Heart failure chronicity: acute on chronic Qualified Code(s): I50.33 - Acute on chronic diastolic (congestive) heart failure (4) Type 2 diabetes mellitus without complication, without long-term current use of insulin: Status: Chronic Assessment and plan: will hold his metformin for now in light of his CHF and elevated troponin. cover w/ insulin SSI. continue Jardiance as this is helpful for his Chf as well as his DM (5) Non-healing wound of right lower extremity: Status: Acute Assessment and plan: continue wound care as per [facility], will consult wound care nurse to evaluate/treat (6) Peripheral vascular disease: Status: Chronic Assessment and plan: continue ASA, consider addition of apixaban for his atrial flutter. 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 has discussed use of biologics such as Repatha (7) Diabetic neuropathy: Status: Chronic Assessment and plan: not currently on gabapentin or Lyrica Qualifiers: Diabetes mellitus complication detail: diabetic mononeuropathy Diabetes mellitus type: type 2 Qualified Code(s): E11.41 - Type 2 diabetes mellitus with diabetic mononeuropathy (8) Essential hypertension: Status: Chronic Assessment and plan: continue losartan and HCTZ, monitor BP closely while we are titrating his BB and CCB (9) Hyperlipidemia: Status: Chronic Assessment and plan: intoleratnt of statins; takes red yeast rice and fish oils, consider biologics but this should be a matter deferred to his bolting machine operator and to his PCP Qualifiers: Hyperlipidemia type: mixed hyperlipidemia Qualified Code(s): E78.2 - Mixed hyperlipidemia (10) DVT prophylaxis: Status: Acute Assessment and plan: enoxaparin SC, but if patient decides on senior care anticoagulation then will switch from enoxaparin to a DOAC (may be limited in use of DOAC d/t his size) History of Present Illness History of Present Illness Chief Complaint: cough, shortness of breath, I think I have pneumonia Narrative: 76 yr old male w/ type II DM, obesity, PSVT, chronic UTI HLD, diabetic neuropathy who presented to the E.D. with sx of cough, nonproductive, increasing dyspnea, not associated w/ fever/chills and was found to be in rapid narrow complex tachycardiac that initially was thought to be PSVT. However, after repeated doses of adenosine failed to convert his PSVT to sinus rhythm and after beginning cardizem drip, his repeat EKG demonstrated atrial flutter at ventricular rate of 103 and variable AV conduction 3:1 to 4:1 w/ nonspecific ST-T abnormalities. Some associated chest heaviness which has since resolved. 1st troponin I was 63 @ 10:32 and repeat at 13:45 is 61 w/ pro-BNP of 913. CBC normal, no electrolyte abnormalities. Recent TSH 1.23 (as of 06/14/22, prior ones from 03/26/22 was also normal). Patient is not anticoagulated. Patient at home was on toprol XL 100 mg daily and cardizem CD 180 mg. Patient is now admitted to ICU for iv diltiazem rate control of his atrial flutter. Consideration for AC will be taken given his CHADS2 score 5. Review of Systems Cardiovascular Cardiovascular: Reports chest pain, Reports rapid heart rate, Reports palpitations, Reports dyspnea, Reports dyspnea on exertion and Reports orthopnea Respiratory Respiratory: Denies excessive phlegm production, Reports dyspnea and Reports dyspnea on exertion Gastrointestinal Gastrointestinal: Reports system reviewed and no additional complaints, except as documented Genitourinary Genitourinary: Reports system reviewed and no additional complaints, except as documented Musculoskeletal Musculoskeletal: Reports system reviewed and no additional complaints, except as documented Integumentary/Breasts Skin/Breast: Reports non-healing lesions and Reports skin ulcer (chronic ulcer dorsum right 2nd MTP) Neurologic Neurologic: Reports sensory deficit (both feet) Psychiatric Psychiatric: Reports system reviewed and no additional complaints, except as documented Endocrine Endocrine: Reports palpitations Hematologic/Lymphatic Hematologic/Lymphatic: Reports system reviewed and no additional complaints, except as documented Allergic/Immunologic Allergic/Immunologic: Reports system reviewed and no additional complaints, except as documented PFSH All Active Problems (Updated 08/17/22 @ 16:33 by Beto Bailey MD) DVT prophylaxis (Acute) Elevated troponin I level (Acute) (HFpEF) heart failure with preserved ejection fraction (Acute) SVT (supraventricular tachycardia) (Chronic) Atrial flutter (Acute) Cellulitis of abdominal wall (Acute) Lower urinary tract symptoms (LUTS) (Chronic) SVT (supraventricular tachycardia) (Chronic) Grief (Chronic) Non-healing wound of right lower extremity (Acute) PSVT (paroxysmal supraventricular tachycardia) (Chronic) Inguinal hernia (Acute) Carotid artery stenosis (Acute) Fatty liver (Chronic 08/04/16) Peripheral vascular disease (Chronic) Diabetic neuropathy (Chronic) Right knee pain (Acute) BPH w urinary obs/LUTS (Chronic) Essential hypertension (Chronic) Generalized osteoarthrosis (Chronic) knees; R>L Hyperlipidemia (Chronic) Type IV Morbid obesity (Chronic) Obstructive sleep apnea, adult (Chronic) C-PAP Spondylolisthesis (Chronic) L5-S1 Type 2 diabetes mellitus without complication, without long-term current use of insulin (Chronic 07/04/16) Medical History MRSA infection (09/03/15) Tubular adenoma 07/24/14 DR. ALLEN X 3 Umbilical hernia Repaired Venous stasis ulcers of both lower extremities (03/09/16) Surgical History Amputation of toe of right foot 04/08/20 - Right second toe ([facility]) Appendectomy (~08/1973) Colonoscopy - MAC (~02/2004) neg FX ANKLE 02/2013; [facility] knee repair (~1964) cartilage repair Family History Mother , age 78 Cancer Father , age 70 Heart disease Cancer Sister Essential hypertension Hyperlipidemia Breast cancer Brother Essential hypertension Skin cancer Brother Diabetes Essential hypertension Heart disease Hyperlipidemia Alcohol abuse Substance abuse Cancer Maternal Grandfather Heart disease Paternal Grandfather No problems noted. Maternal Grandmother Diabetes Essential hypertension Paternal Grandmother Heart disease Son Essential hypertension Heart disease Hyperlipidemia Daughter No problems noted. Daughter No problems noted. Brother , age 69 Diabetes Essential hypertension Hyperlipidemia Social History Smoking/Tobacco Use Status: Never Second Hand Exposure: Yes Smoking risk assessment performed?: Yes Alcohol Intake: never Drug use: Never Substance use type: does not use Household members: other Details: Nephew Housing: house Communication Needs: Corrective Lenses Do you need help understanding health information?: Rarely Pets and animals: Yes Pets and animals: cat(s) and dog(s) Sexually active: No Do you think of yourself as: straight/heterosexual Current gender identity: male What is your relationship status?: How often do you talk on the phone with friends or family?: three or more times per week How often do you get together with friends or relatives?: once per week How often do you attend temple or congregation services?: 4 or more times per year Do you belong to any clubs or organized social groups?: no Panel score (0-1 are the most socially isolated patients): 2 What type of physical activity do you participate in: none Frequency: does not exercise Mally/Spiritism: Episcopal Special mally needs: No Seatbelt use: sometimes Helmet use: No Drive 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 or 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 Do you feel safe at home: Yes Do you feel safe in your relationship?: Yes Meds Allergies and Home Medications Allergies Allergy/AdvReac Type Severity Reaction Status Date / Time atorvastatin calcium AdvReac INTOLERANCE Verified 08/17/22 10:28 [From Lipitor] Home Medications Medication Instructions Recorded Confirmed Type omega-3 fatty acids-fish oil 340 2,000 mg PO DAILY 01/17/13 08/17/22 History mg-1,000 mg capsule (Fish Oil) aspirin 81 mg tablet,delayed 81 mg PO DAILY #90 tab-caps 03/12/15 08/17/22 History release (Aspir-) blood-glucose meter (FreeStyle ##1 07/05/16 08/17/22 History Lite Meter kit) red yeast rice 600 mg capsule 1,200 mg PO BID 10/24/21 08/17/22 History polyethylene glycol 3350 17 gram 17 g PO DAILY PRN PRN Constipation 03/28/22 08/17/22 Rx oral powder packet #0 ea diabetic shoes #1 ea 04/07/22 08/17/22 Rx turmeric root extract 500 mg 500 mg PO BID 04/18/22 08/17/22 History capsule metformin 1,000 mg tablet 1,000 mg PO BID #180 tab-caps 05/03/22 08/17/22 Rx metoprolol succinate 100 mg 100 mg PO 0430 #90 tab-caps 05/03/22 08/17/22 Rx tablet,extended release 24 hr tamsulosin 0.4 mg capsule 0.8 mg PO HS #180 caps 05/03/22 08/17/22 Rx lancets 28 gauge (FreeStyle #200 ea 06/22/22 08/17/22 Rx Lancets) blood sugar diagnostic (FreeStyle #200 strips 06/23/22 08/17/22 Rx Lite Strips) glipizide 10 mg tablet 10 mg PO DAILY #14 tabs 06/23/22 08/17/22 Rx losartan 100 1 tab PO DAILY #14 tabs 06/23/22 08/17/22 Rx mg-hydrochlorothiazide 25 mg tablet diltiazem HCl 180 mg 180 mg PO QPM #90 caps 07/06/22 08/17/22 Rx capsule,extended release 24 hr empagliflozin 10 mg tablet 20 mg PO QAM #180 tabs 07/13/22 08/17/22 Rx ibuprofen 800 mg tablet 800 mg PO DAILY #90 tabs 06/08/23 07/13/23 Rx Exam Const General: cooperative and well groomed Nutritional Appearance: obese morbidly obese Orientation: alert, awake and oriented x3 [facility] Head: normal to inspection, no palpable skull fracture, normocephalic and atraumatic Ears: hearing grossly normal bilaterally General nose exam: external nose normal and nares normal Face and sinus: normal facial exam Mouth: oral mucosae normal Eyes General: appearance normal, both eyes and all related structures Alignment and Position: alignment normal Periorbital: periorbital findings normal Eyelids: eyelids normal Conjunctivae: conjunctivae normal Sclera: sclerae normal Cornea: corneas normal Neck Neck: normal visual inspection, full ROM, no lymphadenopathy, trachea midline, supple and no JVD Thyroid: thyroid normal Carotids: normal carotid upstroke Lymphatic: no lymphadenopathy noted Chest Chest: normal inspection of the chest and normal palpation of entire chest wall Resp Effort & Inspection: normal respiratory effort and able to speak in complete sentences Auscultation: rales bilaterally at the base Cardio Jugular venous pressure: no JVD Palpation: normal PMI Rate: tachycardic Rhythm: abnormal rhythm regularly irregular Pulses: brachial pulses present, radial pulses present, posterior tibial pulses present bilaterally 1+ and diminished and dorsalis pedis present bilaterally 1+ and diminished GI Inspection: normal to inspection Palpation: soft and no hepatosplenomegaly Auscultation: normal bowel sounds Back/Spine/Pelvis Thoracic/Lumbar Spine: thoracic and lumbar spine normal to inspection Skin Rashes: no rashes Wounds: amputation site (right 2nd MTP wound over dorsum w/out drainage) Hair: other (lack of hair over dorsum of feet) Neuro General: patient alert, patient awake, patient oriented x3 and no focal motor deficits Cranial Nerves: CN's II-XI intact bilaterally Cognition: normal cognition Speech: speech normal Motor: muscle tone normal throughout Extrem General: full ROM, capillary refill normal, no cyanosis and pedal edema bilaterally 1+ Right lower extremity: lower leg Details: other (bronze purplish discoloration of lower legs c/w stasis dermatitis) Left lower extremity: lower leg Details: other (bronze purplish discoloration of lower legs c/w stasis dermatitis) Results Imaging Chest x-ray: report reviewed and image reviewed (cardiomegaly, costophrenic and cardiophrenic angles blunted d/t body habitus/panniculus, mild interstitial edema) EKG: image reviewed (EKG @ 10:25 narrow complex tachycardia, suspicious for a. flutter @ 2:1 AV conduction vs SVT, no discernible P wave; EKG @ 11:23 clearly a. flutter @ 103 bpm, variable AV conduction 3:1, 4:1) Labs 08/17/22 10:32 Labs: Laboratory Results - last 24 hr 08/17/22 08/17/22 10:32 10:32 VBG pH 7.35 VBG pCO2 49 VBG pO2 36 VBG HCO3 27 VBG Total CO2 24 VBG O2 Saturation 66 VBG Base Excess 1 Sodium 141 Potassium 4.5 Chloride 104 Carbon Dioxide 27.3 Anion Gap 9.7 BUN 25 H Creatinine 1.0 Est GFR (CKD-EPI 2020) 78.00 Glucose 174 H Calcium 9.3 Total Bilirubin 0.5 AST 22 ALT 49 Alkaline Phosphatase 98 Troponin I 63 H* NT-Pro-B Natriuret Pep 913 H Total Protein 7.0 Albumin 3.4 Lipase 68 Last Vital Signs Temp 36.2 C L 08/17/22 13:02 Pulse 135 H 08/17/22 13:42 Resp 30 H 08/17/22 13:50 BP 119/64 08/17/22 13:42 Pulse Ox 96 08/17/22 13:50 Time Spent Time spent with Patient: 55-74 minutes Time was spent: preparing to see the patient(eg.review tests), obtaining and/or reviewing separately otained hiistory, ordering medications,tests, procedures, referring, communicating with other health clinical manager home care, indepentently interpreting results, counseling the patient (and patient's daughter) and care coordination
[2022-08-17 14:33] LABS: Troponin I 61 ng/L (<or=60)
[2022-08-17] MEDS: Enoxaparin 40 MG/0.4 ML SYR SC (14:36)
--- NOTE | 2022-08-17 15:46 | RESPIRATORY ---
[id number] Spoke with pt regarding CPAP for ISAAC. Pt stated his daughter Mary is going to be bringing in his home unit tonight. DME: [facility] CPAP: 14 O2: None with home use
[2022-08-17] MEDS: dilTIAZem 30 MG TAB 60 MG PO (16:10)
[2022-08-17] MEDS: Furosemide 20 MG/2 ML VIAL IVP (16:10)
[2022-08-17] MEDS: Normal Saline Flush 10 ML SYR IVP (16:11)
[2022-08-17] MEDS: Insulin Aspart 300 UNITS/3 ML PEN SC (17:46)
[2022-08-17] MEDS: Metoprolol 25 MG TAB PO (17:47)
[2022-08-17 19:16] LABS: Magnesium 1.9 mg/dL (1.8-2.4)
[2022-08-17 19:39] LABS: Troponin I 54 ng/L (<or=60)
[2022-08-17] MEDS: dilTIAZem 60 MG TAB PO (22:16)
[2022-08-18] VITALS (68 sets, daily range): BP systolic 87–129; BP diastolic 47–101; PULSE 46–148; RESP 18–104; TEMP 35.5–36.4; O2SAT 88–95
--- NOTE | 2022-08-18 | DI.US_ITS ---
APPROVED REPORT EXAM: Comprehensive 2D, Doppler, and color-flow Echocardiogram Patient Location: In-Patient Room/Bed: [address] Prescription Clerk: Ronny Mukherjee RDMS, RVT Indications: CHF, eval RV and LV function Other Information Study Quality: Technically Limited. Technically limited study due to body habitus, inability to posit ion patient. Conclusion Technically difficult study Left ventricle is mildly dilated. Ejection fraction is 55%. No segmental wall motion abnormalities are identified. The patient is in atrial fibrillation with [id number] variation Right ventricle appears mildly dilated. Right ventricular systolic function appears normal Both atria are mildly dilated Aortic valve is sclerotic with trace to mild regurgitation. There is no aortic stenosis Mildly dilated ascending aorta 3.84 cm Wall motion Left Ventricle Left ventricle is mildly dilated. Suboptimal subcostal imaging due to body habitus. Left ventricular systolic function is normal There is normal left ventricular wall thickness. There is normal LV segme ntal wall motion. There is no ventricular septal defect visualized. LVEF is 55%. Right Ventricle The right ventricle is mildly dilated The right ventricular systolic function is normal. The RVSP is 31.3 mmHg. Atria Left atrium is mildly dilated. Right atrium is mildly dilated. The interatrial septum is intact with no evidence for an atrial septal defect. Aortic Valve The aortic valve is sclerotic. Number of aortic valve leaflets could not be assessed. There is no aor tic valvular stenosis. Trace to mild aortic regurgitation. Mitral Valve The mitral valve is normal in structure. No evidence of mitral valve stenosis. Trace to mild mitral r egurgitation. Tricuspid Valve The tricuspid valve is normal in structure. There is no tricuspid valve stenosis. Trace tricuspid reg urgitation. Pulmonic Valve The pulmonary valve is normal in structure. There is no pulmonic valvular stenosis. Trace pulmonic re gurgitation. Great Vessels Aortic root is moderately dilated. The ascending aorta is mildly dilated. Aortic arch is not well vis ualized. IVC is normal in size and collapses >50% with inspiration. Pericardium There is no pericardial effusion. 2D Dimensions IVSD d PLAX 0.78 cm M: 0.6-1.2 LV Vol A2C d MOD 209.3 mL LVPW d PLAX 0.76 cm M: 0.6 - 1.2 LV Vol A4C d MOD 241.9 mL LVID d PLAX 6.45 cm M: 4.2 - 5.8 LA vol/ BSA A4C s A-L 36.7 mL/m2 LVDs 4.55 cm M: 2.5 - 4.0 LA Area A4C s MOD 30.26 cm2 Ao Root d 4.11 cm M: 3.1 - 3.7 LV EF A4C MOD 50.6 % Ao Asc Diam d 3.84 cm M: 2.6 - 3.4 LV EF A2C MOD 49.7 % LV EF Teichholz 54.6 % LV EF Biplane MOD 49.8 % LVEF (Troy's) 49.75 % M: 52 - 72 SV 117.32 mL LV Volume 160.16 mL M: 62 - 150 SV Index 42.05 mL/m2 LV Volume Index 57.40 mL/m2 M: 34 - 74 LV Vol Biplane MOD 235.8 mL FS 28.95 % M-Mode TAPSE 2.34 cm (M/F) >1.7 LV Diastology MV E' medial 0.099 (>0.07 m/s) E/A Ratio 3.0 LV E/e MED 10.40 (<14) MV E Vmax 1.04 (0.4-1.3 m/s) MV E' lateral 0.119 (>0.1 m/s) MV A Vmax 0.35 (0.4-1.3 m/s) LV E/e LAT 8.70 (<14) MV E/A Ratio 2.70 MV E/E' medial 10.43 MV E/E' lateral 8.71 Aortic Valve LVOT Area 4.31 cm2 AoV Area Vmax 3.04 cm2 LVOT Vmax 0.95 m/s AoV Area/ BSA (Vmax) 1.09 cm2/m2 LVOT Mean Orlin. 0.68 m/s DEBORAH Mean Orlin. 2.94 cm2 LVOT Peak Grad 3.6 mmHg DEBORAH Mean Orlin. Index 1.05 cm2/m2 LVOT Mean Grad 2.1 mmHg AR DT 3203 msec LVOT VTI 0.160 m AR PHT 929 msec LVOT Diam s 2.30 cm AoV Vmax 1.35 m/s Velocity Ratio 0.70 AoV Mean Orlin. 1.00 m/s AoV Peak Grad 7.3 mmHg LVOT SV 69.01 mL AoV Mean Grad 4.6 mmHg AoV VTI 0.211 m AoV Area VTI 3.28 cm2 AoV Area/ BSA (VTI) 1.17 cm/m2 Mitral Valve MV DT 159 (160-240 msec) MV PHT 46 msec MV Area PHT 4.78 cm2 MV VTI 0.302 m MV Area VTI 2.28 (4.0-6.0 cm2) Pulmonary Valve PV Vmax 0.77 (0.5-1.5 m/s) RVOT Peak Gr. 0.68 mmHg PV Peak Grad 2.4 mmHg RVOT Mean Gr. 0.40 mmHg PV Mean Grad 1.8 mmHg RVOT VTI 0.055 m PV VTI 0.103 m RVOT Vmax 0.41 m/s Tricuspid Valve TR Peak Grad 28.2 mmHg TR Vmax 2.66 m/s RA Pressure 3.00 mmHg RVSP (TR) 31.3 mmHg
[2022-08-18] MEDS: Metoprolol 25 MG TAB PO (02:24)
[2022-08-18] MEDS: MORPHine 2 MG/ML SYR (03:15)
--- NOTE | 2022-08-18 03:25 | WOUNDCONS ---
- If Service Date Differs Date of service: 08/18/22 Time of Service: 03:26 Wound Initial Evaluation Narrative: Sukhjinder is a 76 year old male who presented to the ED for respiratory symptoms and was admitted for atrial flutter with RVR on 08/17/22. Sukhjinder has had the second toe amputated on the right foot ~2years ago and is a client of [facility] podiatry with scheduled monthly appointments. Sukhjinder has an appointment scheduled for next week. Sukhjinder is agreeable to the wound consult and has signed a photo consent. Sukhjinder has PMH of morbid obesity, peripheral vascular disease and diabetes. Sukhjinder has a BMI of 56.9. The A1C drawn in Jul was 6.5%. Reports were reviewed including allergies, the H&P and recent labs. Sukhjinder uses a walker and has customized diabetic shoes for ambulation. Sukhjinder reports numbness in bilateral feet. This abstract writer was able to find a pedal pulse with use of the doppler ultrasound. Due to hospital Wi-Fi network difficulties the wound photo is unavailable for uploading from the wound tablet to this report. Body Four View: 1 - Second toe of right foot amputated ~2years ago per patient report. The small wound is between the great toe and the third toe. - Wound Right 2nd toe Wound Type: Amputation Wound General Appearance: Well Approximated Wound Bed Greatest Portion: Red (Granulation) Wound Surrounding Tissue Appearance: [place] Wound Length: 0.4 cm Wound Width: 0.3 cm Wound Depth: 0.2 cm Wound Drainage Amount: Minimal Wound Drainage Odor: None/Absent Wound Drainage Description: Serous, Brown Wound Topical Solution/Irrigant: Other Additional Other Comments: Bilateral feet were discolored and odorous at time of consult. This abstract writer cleaned feet with soap and water. - Circulation, Sensation, Motion Peripheral Pulse Strength: Absent Capillary Refill: Greater than 3 seconds Sensation Description: Numbness Additional Other Comments: Pedal pulse absent to palpation. Right pedal pulse found with Doppler ultrasound. - Pain Pain Level: 0 The wound is located between the great toe and the the third toe on the right foot. Sukhjinder reports that the dressing is changed daily at home. Sukhjinder has supplies from [facility] podiatry that he uses. - Treatment/Dressing Change Cleanse With: Anasept Dressing Types: Other Dressing Comment: Sukhjinder has supplies from [facility] podiatry for daily wound dressing change. Sukhjinder uses Mepilex Lite cut into small squares by himself and secured with cloth tape. Sukhjinder will continue to follow directions from [facility] podiatry. - Nutrition Education Reviewed Nutrition Education: Yes Note: This abstract writer discussed with Sukhjinder the need for protein for optimal wound healing. Sukhjinder agreed and verbalized that a well balanced meal will support wound healing. - Recomendation Recomendation:: Daily dressing change: -Remove old dressing and spray with Anasept wound cleanser -Apply personal lotion as patient requests surrounding the wound area -Patient will cut Mepilex Lite dressing to desired size and place the dressing on wound (sticky side away from the wound) -Place tape from dorsal to plantar position to secure the Mepilex Lite dressing Physcian/Nurse Practioner Notified: Yes Treatment Time - Time Total Time Spent with Patient: 45 minutes - Patient Will be Seen Weekly Treatment: daily - For: For:: 1 week (Sukhjinder plans to attend a scheduled podiatry appointment next week)
[2022-08-18] MEDS: dilTIAZem 60 MG TAB PO ×3 (06:17→23:15)
[2022-08-18 06:59] LABS: Anion Gap 9.2 mmol/L (3-11); BUN 20 mg/dL (7-18); CO2 27.8 mmol/L (21.0-32.0); CREATININE 0.9 mg/dL (0.70-1.30); Calcium 8.8 mg/dL (8.5-10.1); Chloride 104 mmol/L (98-107); Estimated GFR 88.51 (mL/min/1.73m2); Glucose 166 mg/dL (74-106); Magnesium 1.9 mg/dL (1.8-2.4); Potassium 3.9 mmol/L (3.5-5.1); Sodium 141 mmol/L (136-145)
--- NOTE | 2022-08-18 07:11 | NUR.NOTE ---
0300-pt c/o sob and chest pressure/pain of 3/10. pt sitting in the chair at the time. Dr. Torres called and ordered morphine 2mg ivp. pt medicated and stated relief. 0400- HR tachy and mostly up to 133. diltiazem gtt restarted at 5mg/h. increased to 7.5mg/h at 0435 for inadequqte control and 10mg at 0526.
[2022-08-18] MEDS: Insulin Aspart 300 UNITS/3 ML PEN SC ×3 (08:02→16:58)
[2022-08-18] MEDS: dilTIAZem 125 MG in Normal Saline 100 ML 10 MG IV (08:07)
--- NOTE | 2022-08-18 08:11 | W.PM.PROGNOT ---
Date of Service Date of service: 08/18/22 Time of Service: 08:12 Assessment and Plan Assessment and plan (1) Atrial flutter: Status: Acute Assessment and plan: Patient went back into a rapid rate during the night. He is required resumption of his Cardizem drip. We will try to wean him off the Cardizem drip. Have adjusted his metoprolol dose as diltiazem dose. I discussed anticoagulation with both the patient and his daughter. He has no contraindication to anticoagulation. No history of GI bleeding or peptic ulcer disease. Takes a baby aspirin daily for preventative measures has had no history of strokes or myocardial infarction. I explained to his daughter that if we start anticoagulation I will discontinue the aspirin to reduce his risk for GI bleeding. I will check with pharmacy whether or not he is still eligible for D.O.A.C. based on his weight. If not then we will consider warfarin. His daughter who is a nurse in the emergency department understands the risks of warfarin. I explained to both of them the need for frequent monitoring of INRs if he goes on warfarin and even suggested the use of a home Coumadin meter. Professional time spent interviewing and examining patient, discussion of goals of care with hospital team (care management, nursing and consulting professionals) was 45 minutes. (2) Elevated troponin I level: Status: Acute Assessment and plan: likely secondary to type II demand ischemia rather than NSTEMI. Troponin level last night peaked at 63 on admission and came down to 54 yesterday evening. Repeat level was not performed this morning but we will get another one in light of his history of chest pain during the night. I suspect his chest pain was probably his symptoms from his rapid atrial flutter and CHF. (3) (HFpEF) heart failure with preserved ejection fraction: Status: Acute Assessment and plan: Patient is net intake and output is a -971 mL. He had a urine output of 2500 mL yesterday. Patient will require further diuretics. I put him on scheduled dose of Lasix 40 mg IV every 8 hours for 24 hours and give him a dose of Zaroxolyn. Echocardiograms been ordered and is pending at this time. Qualifiers: Heart failure chronicity: acute on chronic Qualified Code(s): I50.33 - Acute on chronic diastolic (congestive) heart failure (4) Type 2 diabetes mellitus without complication, without long-term current use of insulin: Status: Chronic Assessment and plan: will hold his metformin and his glipizide for now in light of his CHF and elevated troponin. cover w/ insulin SSI. continue Jardiance as this is helpful for his Chf as well as his DM (5) Non-healing wound of right lower extremity: Status: Acute Assessment and plan: continue wound care as per [facility], wound care nurse consult obtained last night and reviewed. Greatly appreciated. We will follow her recommendations. (6) Peripheral vascular disease: Status: Chronic Assessment and plan: Patient's been on aspirin 81 mg daily however if he goes on a D.O.A.C. will probably hold the aspirin reduce his risk for bleeding complications. Patient's daughter should address his lipid treatment with his motion picture narrator. I would recommend one of the biologic agents for treating his cholesterol. 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 - Type 2 diabetes mellitus with diabetic mononeuropathy (8) Essential hypertension: Status: Chronic Assessment and plan: continue losartan and HCTZ, monitor BP closely while we are titrating his BB and CCB (9) Hyperlipidemia: Status: Chronic Assessment and plan: intoleratnt of statins; takes red yeast rice and fish oils, consider biologics but this should be a matter deferred to his motion picture narrator and to his PCP Qualifiers: Hyperlipidemia type: mixed hyperlipidemia Qualified Code(s): E78.2 - Mixed hyperlipidemia (10) DVT prophylaxis: Status: Acute Assessment and plan: enoxaparin SC, but if patient decides on intermediate anticoagulation then will switch from enoxaparin to a DOAC (may be limited in use of DOAC d/t his size) Subjective Subjective Interval history since last seen: Overnight patient's oxygen requirements went up during the night. He usually uses CPAP at home but is not on oxygen at home. He required 6 lpm in addition to his CPAP. He has nonproductive cough. He had CP during the night around 2 A.M. but no EKG was done and no repeat troponin was done. Patient is CP free now. Some dyspnea w/ any activity. he was put back on the diltiazem drip last night d/t rapid HR in the 130's. He is now on diltiazem 10 mg/hr and his HR is in the low 100's. Exam Narrative Exam Narrative: Morbidly obese white male who is lying in bed in no acute distress. He is alert and oriented person place time circumstance. Neck is obese difficult to discern JVD Lungs are clear anteriorly posteriorly has rales at both bases no rhonchi or wheezing Heart is irregularly irregular no appreciable murmur rub Abdomen obese soft and nontender Lower extremities trace of pedal edema legs with bronze venous stasis skin changes. Pedal pulses are difficult to palpate but they have been reportedly present by Doppler Objective Last Vital Signs Temp 36.3 C L 08/18/22 03:00 Pulse 74 08/18/22 06:20 Resp 28 H 08/18/22 06:20 BP 103/65 08/18/22 06:20 Pulse Ox 93 08/18/22 06:20 Laboratory Results - last 24 hr 08/17/22 08/17/22 08/17/22 10:32 10:32 13:45 VBG pH 7.35 VBG pCO2 49 VBG pO2 36 VBG HCO3 27 VBG Total CO2 24 VBG O2 Saturation 66 VBG Base Excess 1 Sodium 141 Potassium 4.5 Chloride 104 Carbon Dioxide 27.3 Anion Gap 9.7 BUN 25 H Creatinine 1.0 Est GFR (CKD-EPI 2020) 78.00 Glucose 174 H Calcium 9.3 Magnesium Total Bilirubin 0.5 AST 22 ALT 49 Alkaline Phosphatase 98 Troponin I 63 H* 61 H NT-Pro-B Natriuret Pep 913 H Total Protein 7.0 Albumin 3.4 Lipase 68 08/17/22 08/17/22 08/18/22 18:54 18:54 05:55 VBG pH VBG pCO2 VBG pO2 VBG HCO3 VBG Total CO2 VBG O2 Saturation VBG Base Excess Sodium 141 Potassium 3.9 Chloride 104 Carbon Dioxide 27.8 Anion Gap 9.2 BUN 20 H Creatinine 0.9 Est GFR (CKD-EPI 2020) 88.51 Glucose 166 H Calcium 8.8 Magnesium 1.9 1.9 Total Bilirubin AST ALT Alkaline Phosphatase Troponin I 54 NT-Pro-B Natriuret Pep Total Protein Albumin Lipase Time Spent with Patient Time Spent with Patient: 35-49 minutes Time was spent: preparing to see the patient(eg.review tests), ordering medications,tests, procedures, referring, communicating with other health animal care service worker, indepentently interpreting results, counseling the patient (And counseling daughter as well as patient) and care coordination
--- NOTE | 2022-08-18 08:15 | RT.EKG_ITS ---
APPROVED REPORT Exam: Resting ECG Reason for Exam: CP Patient Location: I HR:127 bpm ECG Measurements Heart Rate 127 AXIS AK [id number] P [id number] QRSd 96 QRS 1 QT 371 T 45 QTc 540 Conclusion Atrial flutter with 2:1 AV block...A-rate 267, V-rate> 99
[2022-08-18 08:27] LABS: Lab Add On Test DONE
--- NOTE | 2022-08-18 08:30 | NUR.NOTE ---
EKG is performed. RN calls lab to inform them that a troponin should be added to morning labs.Nursing Note:
--- NOTE | 2022-08-18 08:37 | NUR.NOTE ---
Patient is set up with breakfast tray.Nursing Note:
[2022-08-18 08:45] LABS: Troponin I < 50 ng/L (<or=60)
[2022-08-18] MEDS: hydroCHLOROthiazide 25 MG TAB PO (08:46)
[2022-08-18] MEDS: Losartan 50 MG TAB 100 MG PO (08:46)
[2022-08-18] MEDS: Empaglifozin 10 MG TAB 20 MG PO (08:46)
[2022-08-18] MEDS: metOLazone 2.5 MG TAB PO (08:47)
[2022-08-18] MEDS: Metoprolol 25 MG TAB 37.5 MG PO ×2 (08:47→13:32)
[2022-08-18] MEDS: Potassium Chloride 10 MEQ CAPCR 20 MEQ PO (08:58)
[2022-08-18] MEDS: Furosemide 40 MG/4 ML VIAL IVP ×2 (09:00→17:31)
[2022-08-18] MEDS: Normal Saline Flush 10 ML SYR IVP ×2 (09:03→23:46)
--- NOTE | 2022-08-18 09:08 | NUR.NOTE ---
Echocardiogram is commenced in patient room. Patient's Diltiazem drip is decreased to 5mg/hr. Patient receives 37.5mg of Metoprolol Lopressor.Nursing Note:
--- NOTE | 2022-08-18 10:11 | INITIAL_ITS ---
Date of service: 08/18/22 Time of Service: 10:11 Care Management Initial Assmt Initial Assessment REASON FOR HOSPITALIZATION:: Atrial Flutter w/ rapid ventricular response PREVIOUS FUNCTIONAL STATUS/SOCIAL/FAMILY SUPPORTS:: Sukhjinder lives in [place] in his own home. His nephew lives in his home and is supportive. He recently lost his of over 50 years. He has a very supportive family, including his daughter, Mary, who lives nearby. 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 He was also in the [employer] for 27 years. He is independent with ADL's at baseline. CURRENT FUNCTIONAL STATUS:: Ed was sitting up in his chair when CM met with him. He stated that he is doing well, and that things at home are also going well. Per report, he is currently requiring 4LO2; no O2 at baseline (only CPAP at night). He is on a cardizem drip, which will likely be discontinued today; his oral medications are being adjusted. He will be started on eliquis, which is a new medication for him; the coverage of this medication will need to be verified prior to discharge. CM will continue to follow. ADVANCE DIRECTIVES:: On file; Mary Mendozasrinivasan Hagen listed as [facility]; Dada Suarez listed as alternate agent. Has patient been provided with info about the portal/API?: Yes Did the patient sign up for the portal?: Yes CODE STATUS:: Full Code INSURANCE COVERAGE / FINANCIAL ISSUES:: [place] CURRENT HOME/COMMUNITY SERVICES/EQUIPMENT:: CPAP, walker, cane, lifeline alert. PRIMARY CARE PHYSICIAN:: Arsh Holland POTENTIAL DISCHARGE NEEDS:: Evaluations for further needs, SNF placement vs services at home, follow up appointments. PATIENT/FAMILY EDUCATION NEEDS:: Review discharge instructions and limitations, discussion of self care needs including ask me three. ANTICIPATED BARRIERS TO DISCHARGE:: None TRANSPORTATION:: Via private vehicle by family PLAN:: Ed is being closely monitored at ICU level of care. He plans to return home once medically cleared. His family will drive him home via private vehicle. He will follow up with his PCP and discharge plan of care. CM will continue to follow. PFSH All Active Problems (Updated 08/17/22 @ 16:33 by Beto Bailey MD) DVT prophylaxis (Acute) Elevated troponin I level (Acute) (HFpEF) heart failure with preserved ejection fraction (Acute) SVT (supraventricular tachycardia) (Chronic) Atrial flutter (Acute) Cellulitis of abdominal wall (Acute) Lower urinary tract symptoms (LUTS) (Chronic) SVT (supraventricular tachycardia) (Chronic) Grief (Chronic) Non-healing wound of right lower extremity (Acute) PSVT (paroxysmal supraventricular tachycardia) (Chronic) Inguinal hernia (Acute) Carotid artery stenosis (Acute) Fatty liver (Chronic 08/04/16) Peripheral vascular disease (Chronic) Diabetic neuropathy (Chronic) Right knee pain (Acute) BPH w urinary obs/LUTS (Chronic) Essential hypertension (Chronic) Generalized osteoarthrosis (Chronic) knees; R>L Hyperlipidemia (Chronic) Type IV Morbid obesity (Chronic) Obstructive sleep apnea, adult (Chronic) C-PAP Spondylolisthesis (Chronic) L5-S1 Type 2 diabetes mellitus without complication, without long-term current use of insulin (Chronic 07/04/16) Medical History MRSA infection (09/03/15) Tubular adenoma 07/24/14 DR. ALLEN X 3 Umbilical hernia Repaired Venous stasis ulcers of both lower extremities (03/09/16) Surgical History Amputation of toe of right foot 04/08/20 - Right second toe ([facility]) Appendectomy (~08/1973) Colonoscopy - MAC (~02/2004) neg FX ANKLE 02/2013; [facility] [place] [place] knee repair (~1964) cartilage repair Family History Mother , age 78 Cancer Father , age 70 Heart disease Cancer Sister Essential hypertension Hyperlipidemia Breast cancer Brother Essential hypertension Skin cancer Brother Diabetes Essential hypertension Heart disease Hyperlipidemia Alcohol abuse Substance abuse Cancer Maternal Grandfather Heart disease Paternal Grandfather No problems noted. Maternal Grandmother Diabetes Essential hypertension Paternal Grandmother Heart disease Son Essential hypertension Heart disease Hyperlipidemia Daughter No problems noted. Daughter No problems noted. Brother , age 69 Diabetes Essential hypertension Hyperlipidemia Social History Smoking/Tobacco Use Status: Never Second Hand Exposure: Yes Smoking risk assessment performed?: Yes Alcohol Intake: never Drug use: Never Substance use type: does not use Household members: other Details: Nephew Housing: house Communication Needs: Corrective Lenses Do you need help understanding health information?: Rarely Pets and animals: Yes Pets and animals: cat(s) and dog(s) Sexually active: No Do you think of yourself as: straight/heterosexual Current gender identity: male What is your relationship status?: How often do you talk on the phone with friends or family?: three or more times per week How often do you get together with friends or relatives?: once per week How often do you attend temple or rastafari services?: 4 or more times per year Do you belong to any clubs or organized social groups?: no Panel score (0-1 are the most socially isolated patients): 2 What type of physical activity do you participate in: none Frequency: does not exercise Mally/Zoroastrian: Catholic Special mally needs: No Seatbelt use: sometimes Helmet use: No Drive intox or 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 road oiling truck driver: No Do you feel safe at home: Yes Do you feel safe in your relationship?: Yes
[2022-08-18] MEDS: Pantoprazole 20 MG TABCR PO (10:28)
--- NOTE | 2022-08-18 12:08 | NUR.NOTE ---
Patient is set up with lunch tray and begins to feed himself. Patient remains up in chair.
[2022-08-18] MEDS: Polyethylene Glycol 3350 17 GM PACKET PO (13:14)
--- NOTE | 2022-08-18 15:34 | PHA.REVIEW2 ---
Pharmacy Admission Review Admission Clinical Review Admission Pharmacy Review: (Updated 08/17/22 @ 16:33 by Beto Bailey MD) DVT prophylaxis (Acute) Elevated troponin I level (Acute) (HFpEF) heart failure with preserved ejection fraction (Acute) Atrial flutter (Acute) Non-healing wound of right lower extremity (Acute) atorvastatin calcium [From Lipitor] Adverse Reaction (Verified 08/17/22 10:28) INTOLERANCE Resuscitation Status Full Code Height 5 ft 10 in Weight 174.3 kg Pharmacy Admission Review Renal Dosing Renal Dosing: BUN 20 mg/dL (7-18) H 08/18/22 05:55 Creatinine 0.9 mg/dL (0.70-1.30) 08/18/22 05:55 Medications needing adjustments: Reviewed (crcl = 100 mL/min, no adjustments needed) Anticoagulation Anticoagulation: Creatinine 0.9 mg/dL (0.70-1.30) 08/18/22 05:55 DVT Prophylaxis: Reviewed (received one dose of enoxaparin 40 mg yesterday at 1400, will be starting apixaban 5 mg this evening at 2000) Therapeutic Anticoagulation: Reviewed (apixaban 5 mg BID, indication: a flutter) Opiate Usage Evaluate Pain Scale/Pains Meds: Reviewed (one dose of morphine 2 mg given overnight otherwise no opiate usage) Relevant Labs Relevant Labs: Sodium 141 mmol/L (136-145) 08/18/22 05:55 Potassium 3.9 mmol/L (3.5-5.1) 08/18/22 05:55 Chloride 104 mmol/L (98-107) 08/18/22 05:55 Magnesium 1.9 mg/dL (1.8-2.4) 08/18/22 05:55 Electrolytes, C-Reactive P, ESR: Reviewed DM Control DM Control: Reviewed (on jardiance 20 mg daily + glipizide 10 mg daily at home, receiving jardiance plus sliding scale insulin aspart (with meals) while here) Cardiac Review Cardiac Review: Troponin I < 50 ng/L (<or=60) 08/18/22 05:55 NT-Pro-B Natriuret Pep 913 pg/mL (<300) H 08/17/22 10:32 BP, HR, EF%: Reviewed (on diltiazem drip, had been turned off last night, restarted this morning) QTc Review QTc: Reviewed (QTc = 540) List meds needing interventions: can be related to diltiazem which is required at this time for rate control IV to PO Switch IV Medications: Reviewed (receiving diltiazem IV & PO currently, dc drip once rate controlled) Current Meds Current Medication Order Review: Reviewed
[2022-08-18 16:22] LABS: Potassium 3.8 mmol/L (3.5-5.1)
--- NOTE | 2022-08-18 17:18 | CHAPLAIN ---
Ed and I know each other from previous admissions. His daughter is Fariha Qiu, the nursing technician of the ED. Ed sounded more short of breath than usually when talking with me. He was lying down in bed. He said he may need to go to [facility] for a procedure but it wasn't clear when he'd be able to go. He lives at home with his nephew, following the recent of his of 50, Wendi, who was a nursing knitting supervisor here.
[2022-08-18] MEDS: Metoprolol 25 MG TAB 50 MG PO ×2 (19:15→23:15)
[2022-08-18] MEDS: Magnesium Oxide 400 MG TAB PO (19:16)
[2022-08-18] MEDS: Potassium Chloride 20 MEQ TABCR PO (19:16)
[2022-08-18] MEDS: Apixaban 5 MG TAB PO (19:16)
[2022-08-19] VITALS (98 sets, daily range): BP systolic 89–119; BP diastolic 47–91; PULSE 71–143; RESP 10–37; TEMP 35.5–36.9; O2SAT 83–94
--- NOTE | 2022-08-19 01:50 | NUR.NOTE ---
Nursing Note: Patient easily arousable. offered bsc. declined. denies pain/discomfort.
[2022-08-19] MEDS: Metoprolol 25 MG TAB 50 MG PO (06:20)
[2022-08-19] MEDS: Pantoprazole 20 MG TABCR PO (06:20)
[2022-08-19] MEDS: dilTIAZem 60 MG TAB PO (06:20)
[2022-08-19] MEDS: Insulin Aspart 300 UNITS/3 ML PEN SC ×3 (07:36→18:15)
[2022-08-19] MEDS: Apixaban 5 MG TAB PO ×2 (07:45→20:44)
[2022-08-19] MEDS: Losartan 50 MG TAB 100 MG PO (07:45)
[2022-08-19] MEDS: Empaglifozin 10 MG TAB 20 MG PO (07:45)
[2022-08-19] MEDS: hydroCHLOROthiazide 25 MG TAB PO (07:45)
[2022-08-19] MEDS: Potassium Chloride 20 MEQ TABCR PO ×2 (07:46→20:43)
[2022-08-19] MEDS: Magnesium Oxide 400 MG TAB PO ×2 (07:46→20:44)
[2022-08-19 07:48] LABS: Anion Gap 8.6 mmol/L (3-11); BUN 27 mg/dL (7-18); CO2 26.4 mmol/L (21.0-32.0); CREATININE 0.9 mg/dL (0.70-1.30); Calcium 9.3 mg/dL (8.5-10.1); Chloride 99 mmol/L (98-107); Estimated GFR 88.51 (mL/min/1.73m2); Glucose 153 mg/dL (74-106); Magnesium 2.1 mg/dL (1.8-2.4); Potassium 4.1 mmol/L (3.5-5.1); Sodium 134 mmol/L (136-145)
--- NOTE | 2022-08-19 08:11 | PGE_ITS ---
Date of Service Date of service: 08/19/22 Time of Service: 08:11 Assessment and Plan Assessment and plan (1) Atrial flutter: Status: Acute Assessment and plan: cont. Eliquis (begun yesterday), change lopressor to Toprol XL and short acting diltiazem to CD, move to med/surg, continue to monitor; hopefully return home tomorrow Professional time spent interviewing and examining patient, discussion of goals of care with hospital team (care management, nursing and consulting professionals) was 45 minutes. (2) Elevated troponin I level: Status: Acute Assessment and plan: demand ischemia from rapid aflutter. echo yesterday technically difficult d/t his body habitus (morbid obesity), but LV fxn preserved, no RWMA, LVEF 55%, mildly dilated RV w/ normal RV systolic fxn, biatrial enlargment, dilated ascending aorta (3.84 cm), trace AI, trace to mild MR (3) (HFpEF) heart failure with preserved ejection fraction: Status: Acute Assessment and plan: see above regarding echo results. he has LVEF 55% no RWMA and mildly dilated RV but normal RV systolic fxn, trace to mild MR and trace AI; He has diuresed over net negative 7 liters this admission. iv lasix held last night. I will put him on scheduled oral doses of lasix, add spironolactone to his regimen and consoldidate his BB and CCB therapy, continue apixaban, continue Jardiance. Qualifiers: Heart failure chronicity: acute on chronic Qualified Code(s): I50.33 - Acute on chronic diastolic (congestive) heart failure (4) Type 2 diabetes mellitus without complication, without long-term current use of insulin: Status: Chronic Assessment and plan: will hold his metformin and his glipizide for now in light of his CHF and elevated troponin. cover w/ insulin SSI. continue Jardiance as this is helpful for his Chf as well as his DM (5) Non-healing wound of right lower extremity: Status: Acute Assessment and plan: continue wound care as per [facility], wound care nurse consult obtained last night and reviewed. Greatly appreciated. We will follow her recommenda tions. (6) Peripheral vascular disease: Status: Chronic Assessment and plan: Patient's been on aspirin 81 mg daily however if he goes on a D.O.A.C. will probably hold the aspirin reduce his risk for bleeding complications. Patient's daughter should address his lipid treatment with his converting operator. I would recommend one of the biologic agents for treating his cholesterol. 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 - Type 2 diabetes mellitus with diabetic mononeuropathy (8) Essential hypertension: Status: Chronic Assessment and plan: continue losartan and HCTZ, monitor BP closely while we are titrating his BB and CCB (9) Hyperlipidemia: Status: Chronic Assessment and plan: intoleratnt of statins; takes red yeast rice and fish oils, consider biologics but this should be a matter deferred to his converting operator and to his PCP Qualifiers: Hyperlipidemia type: mixed hyperlipidemia Qualified Code(s): E78.2 - Mixed hyperlipidemia (10) DVT prophylaxis: Status: Acute Assessment and plan: enoxaparin SC, but if patient decides on superintendent marine oil terminal anticoagulation then will switch from enoxaparin to a DOAC (may be limited in use of DOAC d/t his size) Subjective Subjective Interval history since last seen: Patient is feeling better. Dyspnea has improved, no CP. He diuresed over 7500 mL yesterday and his wt is down to 171.1 kg (down 9 kg since admission). HR has improved, running in the 80's to low 100, still atrial flutter. He has been off the diltiazem drip since 1 pm yesterday. He is ready to move to med/surg and I told him that I will consolidate his medications to long acting BB and CCB Exam Narrative Exam Narrative: Sukhjinder is sitting up in his chair eating breakfast watching TV alert and oriented person. Circumstance no acute respiratory distress. Lungs are clear anteriorly posteriorly still has some fine bibasilar rales no rhonchi or wheezing Heart irregularly irregular no appreciable murmur rub Abdomen is obese nontender Lower extremities show marked improvement in his pedal and pretibial edema. Down to 1+ pitting edema Objective Last Vital Signs Temp 36.4 C L 08/19/22 07:59 Pulse 82 08/19/22 07:52 Resp 17 08/19/22 07:52 BP 104/58 L 08/19/22 07:52 Pulse Ox 90 L 08/19/22 07:52 Laboratory Results - last 24 hr 08/18/22 08/18/22 08/18/22 05:55 05:55 16:06 Sodium Potassium 3.8 Chloride Carbon Dioxide Anion Gap BUN Creatinine Est GFR (CKD-EPI 2020) Glucose Calcium Magnesium Troponin I < 50 Add-On Test Request DONE 08/19/22 06:44 Sodium 134 L Potassium 4.1 Chloride 99 Carbon Dioxide 26.4 Anion Gap 8.6 BUN 27 H Creatinine 0.9 Est GFR (CKD-EPI 2020) 88.51 Glucose 153 H Calcium 9.3 Magnesium 2.1 Troponin I Add-On Test Request Time Spent with Patient Time Spent with Patient: 35-49 minutes Time was spent: preparing to see the patient(eg.review tests), ordering medications,tests, procedures, referring, communicating with other health home health care worker, indepentently interpreting results, counseling the patient and care coordination
[2022-08-19] MEDS: Furosemide 40 MG TAB PO ×2 (08:57→16:12)
[2022-08-19] MEDS: Docusate Sodium 100 MG CAP PO ×2 (08:57→20:45)
[2022-08-19] MEDS: Metoprolol CR 100 MG TABCR PO (09:34)
--- NOTE | 2022-08-19 12:09 | IN_ITS ---
PT Notes Visit Reasons: Artial flutter w/ rapid ventricular response Physical Therapy Inpatient Initial Evaluation Date: 08/19/22 Referring Doctor: Beto Bailey MD PT Orders: PT CONSULT: Fall safety assessment Precautions: Fall. Standard. Patient Profile/Admitting Diagnosis: Sukhjinder is 76 yo male that presented to the ER on 08/17/22 for shortness of breath. Was determined to have supraventricular tachycardia and atrial flutter. PMHX: See EMR Social History/Home Situation: Lives in home with 5 or 6 BECKY depending on which entry he uses. Adult nephew lives with him. No use of oxygen at baseline. Occasionally will access his basement. Ambulates with 4WW and otherwise independent. Equipment Owned/DME: 4WW, cane Subjective: Cleared by nursing to see patient and patient is agreeable to PT. Patient is sitting up in chair at time of consult and connected to telemetry, wolfe catheter, and 1L O2 via NC. Objective: General Observation: Pleasant and alert Mental Status: A&O x3 Pain: None reported ROM: Right Upper Extremity: Shoulder Flexion WFL. Shoulder abduction WFL. Elbow flexion WFL. Wrist flexion WFL. Opening and closing of hand WFL. Left Upper Extremity: Shoulder Flexion WFL. Shoulder abduction WFL. Elbow flexion WFL. Wrist flexion WFL. Opening and closing of hand WFL. Right Lower Extremity: Hip flexion WFL. Hip abduction WFL. Knee flexion WFL. Ankle dorsiflexion WFL. Ankle plantarflexion WFL. Left Lower Extremity: Hip flexion WFL. Hip abduction WFL. Knee flexion WFL. Ankle dorsiflexion WFL. Ankle plantarflexion WFL. Strength: Right Upper Extremity: Shoulder flexors 5/5. Shoulder abductors 5/5. Elbow flexors 5/5. Elbow extensors 5/5. Drafter Refrigeration strong. Left Upper Extremity: Shoulder flexors 4/5. Shoulder abductors 4/5. Elbow flexors 5/5. Elbow extensors 5/5. Drafter Refrigeration strong. Right Lower Extremity: Hip flexors 5/5. Knee flexors 5/5. Knee extensors 5/5. Ankle dorsiflexors 5/5. Ankle plantarflexors 5/5. Left Lower Extremity: Hip flexors 5/5. Knee flexors 5/5. Knee extensors 5/5. Ankle dorsiflexors 5/5. Ankle plantarflexors 5/5. Sensation: Intact as to pain and pressure on bilateral lower extremities. Bed Mobility/Transfers: Rolling: Not assessed today Supine to sit: Not assessed today Sit to supine: Not assessed today Sit to stand: Supervision Stand to sit: Supervision Gait: Ambulated 75 feet x2 with 1L O2 via NC using FWW and Supervision. Stairs: 6x2, 4 x3 using bilateral rails, supervision Balance: Static Sitting: Normal Dynamic Sitting: Good Static Standing: Good Dynamic Standing: Fair Therapeutic Activity ([id number]) dynamic movement and functional strengthening to improve physical performance: 10 minutes Walking and stair ambulation Special Tests: Mobility Limitations Standardized Measure [facility] AM-PAC 6 clicks Basic Mobility Inpatient Short Form: Raw Score: 15 CMS Score: 58% Informed Consent/Education: Patient instructed in purpose of PT consult and plan of care. Assessment: Patient demonstrates decreased overall endurance and some shortness of breath with activity. He is able to ambulate 75 feet with FWW on 1L of oxygen. He does require brief seated rest before performing stair ambulation. Able to do stairs with bilateral use of rails but again requires seated rest following the 5 steps. Discussed that he would like to attend outpatient physical therapy services at [facility] in a couple weeks for improved overall conditioning. Patient presents with clinical signs and symptoms consistent with current/admitting diagnoses that have resulted to mobility limitations, gait instability, generalized weakness, and impairment of motor control as demonstrated by the following impairment level findings: 1. Decreased strength to left shoulder major muscle groups 2. Impaired dynamic standing balance 3. Impaired activity tolerance/endurance Impairments are contributing to the following functional limitations: 1. Inability to safely ambulate without assistive device and physical assistance 2. Increase completion time for mobility ADL performance 3. Increased fall risk 4. Inability to negotiate steps alone safely Patient is assessed as a low complexity based on the following: History: 76 year old male with impairment level findings, functional limitations, and past medical history as indicated above Examination: Demonstrable impairment in strength, balance, and mobility level with underlying impairments and functional limitations as documented above Presentation: Stable Decision Making: Low complexity Goals: Goals x1 week 1. Independent gait on level surface with use of least restrictive device for at least 150 feet without report of pain nor dyspnea 2. Good dynamic standing balance/tolerance 3. Independent stair negotiation while holding onto bilateral rails for at least 10 steps without report of pain nor dyspnea Plan of Care/Treatment Plan: 1-2x/day, 7 days/week x1 week. Plan of care has been reviewed with the MUCK OPERATOR providing the service under Physical Therapy direction. Initiate Physical Therapy intervention for strengthening, bed mobility, transfers, gait, stairs, balance training, and use of assistive device. Discharge Plan DISCHARGE RECOMMENDATIONS: Home with outpatient PT for general conditioning and endurance at [facility] TREATMENT CODE/TIME: 10:38-11:04 (26 minutes), [id number], [id number] Thank you for the opportunity to participate in the care of this patient. Rashida Goetz, PT, DPT, OCS [facility] [place], [place]
[2022-08-19] MEDS: Metoprolol 5 MG/5 ML VIAL IVP (12:48)
[2022-08-19] MEDS: Metoprolol CR 50 MG TABCR PO (12:58)
[2022-08-19] MEDS: Normal Saline Flush 10 ML SYR IVP ×3 (13:02→23:06)
--- NOTE | 2022-08-19 13:03 | NUR.NOTE ---
Patient receives 5 mg of Metoprolol Tartrate IVP and 50 Toprol XL PO with good effect. Heart rate now in low 120sNursing Note:
--- NOTE | 2022-08-19 15:13 | NUR.NOTE ---
Change of plan in transferring this patient to Med/Surg. This patient will remain in ICU. Patient in 221 will be transferred to Med/Surg. This charge nurse made the decision that this patient is not stable enough to be first one out to Med/Surg and thus will remain on unit. Same is confirmed by High Lift Driver, Cintia Peterson RN.Nursing Note:
[2022-08-19] MEDS: dilTIAZem 25 MG/5 ML VIAL 10 MG IVP (16:52)
[2022-08-19] MEDS: dilTIAZem 30 MG TAB 60 MG PO (17:18)
[2022-08-19] MEDS: dilTIAZem CD 180 MG CAPCR PO (20:43)
[2022-08-19] MEDS: Acetaminophen 325 MG TAB PO (20:44)
[2022-08-20] VITALS (176 sets, daily range): BP systolic 95–131; BP diastolic 58–92; PULSE 66–137; RESP 13–36; TEMP 36.1–37.2; O2SAT 88–94
[2022-08-20] MEDS: Pantoprazole 20 MG TABCR PO (05:52)
[2022-08-20] MEDS: Milk of Magnesia 30 ML CUP PO (05:54)
[2022-08-20 06:56] LABS: BUN 29 mg/dL (7-18); CREATININE 0.9 mg/dL (0.70-1.30); Calcium 9.4 mg/dL (8.5-10.1); Chloride 101 mmol/L (98-107); Estimated GFR 88.51 (mL/min/1.73m2); Glucose 171 mg/dL (74-106); NT-proBNP 1338 pg/mL (<300); Potassium 4.2 mmol/L (3.5-5.1); Sodium 138 mmol/L (136-145)
[2022-08-20] MEDS: Empaglifozin 10 MG TAB 20 MG PO (08:11)
[2022-08-20] MEDS: Losartan 50 MG TAB PO (08:12)
[2022-08-20] MEDS: Magnesium Oxide 400 MG TAB PO ×2 (08:13→21:34)
[2022-08-20] MEDS: Apixaban 5 MG TAB PO ×2 (08:13→21:34)
[2022-08-20] MEDS: Metoprolol CR 100 MG TABCR 200 MG PO (08:14)
[2022-08-20] MEDS: Furosemide 40 MG TAB PO ×2 (08:15→15:32)
[2022-08-20] MEDS: Potassium Chloride 20 MEQ TABCR PO (08:15)
[2022-08-20] MEDS: Insulin Aspart 300 UNITS/3 ML PEN SC ×3 (08:15→16:53)
--- NOTE | 2022-08-20 08:20 | PGE_ITS ---
Date of Service Date of service: 08/20/22 Time of Service: 08:20 Assessment and Plan Assessment and plan (1) Atrial flutter: Status: Acute Assessment and plan: his HR continues to need in patient monitoring and adjustment of his Toprol XL and Dilitazem CD. I have increased his Toprol XL to 200 mg daily along w/ increase of his Diltiazem CD to 240 mg qpm. He has been started on Eliquis this admission (ASA was stopped). His daughter, Mary has reached out to his grinder needle tip, Dr. Dallas Carvajal to try to get him an appointment sooner than his October appt. The patient needs to be considered for ablation. Professional time spent interviewing and examining patient, discussion of goals of care with hospital team (care management, nursing and consulting professionals) was 35 minutes. (2) Elevated troponin I level: Status: Acute Assessment and plan: resolved. related to demand ischemia from rapid atrial flutter (3) (HFpEF) heart failure with preserved ejection fraction: Status: Acute Assessment and plan: Updated echo: LVEF 55% no RWMA and mildly dilated RV but normal RV systolic fxn, trace to mild MR and trace AI; He has diuresed over net negative 7 liters this admission. iv lasix held last night. I will put him on scheduled oral doses of lasix, add spironolactone to his regimen and consoldidate his BB and CCB therapy, continue apixaban, continue Jardiance. Qualifiers: Heart failure chronicity: acute on chronic Qualified Code(s): I50.33 - Acute on chronic diastolic (congestive) heart failure (4) Type 2 diabetes mellitus without complication, without long-term current use of insulin: Status: Chronic Assessment and plan: resume metformin, continue sliding scale coverage (5) Non-healing wound of right lower extremity: Status: Acute Assessment and plan: continue wound care as per [facility] pod[facility], wound care nurse consult obtained last night and reviewed. Greatly appreciated. We will follow her recommendations. (6) Peripheral vascular disease: Status: Chronic Assessment and plan: patient had been on ASA but now is on Eliquis; ideally he should be on a statin but has been intolerant. I recommend he and his daughter discuss w/ his grinder needle tip and PCP going on a biologic such as Repatha 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 - Type 2 diabetes mellitus with diabetic mononeuropathy (8) Essential hypertension: Status: Chronic Assessment and plan: continue losartan at reduced dose 50 mg daily in order to have adequate BP to titrate his BB and CCB. HCTZ was stopped in favoer of lasix and spironolactone (9) Hyperlipidemia: Status: Chronic Assessment and plan: intoleratnt of statins; takes red yeast rice and fish oils, consider biologics but this should be a matter deferred to his grinder needle tip and to his PCP Qualifiers: Hyperlipidemia type: mixed hyperlipidemia Qualified Code(s): E78.2 - Mixed hyperlipidemia (10) Constipation: Status: Acute Assessment and plan: I have changed his miralax and docusate to scheduled rather than prn and will try him on dulcolax suppository this a.m. If no BM then I will ask nursing to give him an enema (11) DVT prophylaxis: Status: Acute Assessment and plan: enoxaparin SC, but if patient decides on fdc anticoagulation then will switch from enoxaparin to a DOAC (may be limited in use of DOAC d/t his size) Subjective Subjective Interval history since last seen: Sukhjinder continues to have periodic rapid rates of his atrial flutter. After getting up out of bed today he has been in the 140's. He denies any CP or palpitations. He is not dyspneic at rest but w/ activity he gets dyspneic. He does not require supplemental oxygen at rest. At night he is requiring 1 lpm oxygen bled into his CPAP at night to maintain his SPO2 over 90%. His biggest concern this morning is that he still has not had a bowel movement. He has prn miralax ordered (last given on 08/18) and prn docusate (he had two doses yesterday). I will order scheduled doses of both along w/ dulcolax, if this does not work then will have nursing give him an enema Exam Narrative Exam Narrative: Patient is sitting up in his chair, watching TV, having finished his breakfast. No acute respiratory distress. He has an occasional dry cough Lungs: clear Heart: tachycardic, irregular Legs: edema has decr. considerably, now 1+ Objective Last Vital Signs Temp 36.1 C L 08/20/22 04:00 Pulse 123 H 08/20/22 07:27 Resp 20 08/20/22 07:27 BP 103/80 08/20/22 07:27 Pulse Ox 93 08/20/22 04:00 Laboratory Results - last 24 hr 08/20/22 05:42 Sodium 138 Potassium 4.2 Chloride 101 Carbon Dioxide 27.0 Anion Gap 10.0 BUN 29 H Creatinine 0.9 Est GFR (CKD-EPI 2020) 88.51 Glucose 171 H Calcium 9.4 NT-Pro-B Natriuret Pep 1338 H Time Spent with Patient Time Spent with Patient: 35-49 minutes Time was spent: preparing to see the patient(eg.review tests), ordering medications,tests, procedures, referring, communicating with other health patient care nursing assistant, indepentently interpreting results, counseling the patient and care coordination
[2022-08-20] MEDS: Spironolactone 25 MG TAB PO (09:10)
[2022-08-20] MEDS: metFORMIN 500 MG TAB 1000 MG PO ×2 (10:38→16:57)
--- NOTE | 2022-08-20 11:09 | PTTR_ITS ---
PT Notes Visit Reasons: Artial flutter w/ rapid ventricular response Date: 08/20/2022 Precautions: Fall. Standard. Activity as tolerated. Subjective: Pt in recliner when approached for therapy this morning, pt agreed to participating with therapy, assistance with donning gown and socks prior to session. Objective: General Observation: pt in recliner connected to telemetry, Mental Status: Alert and oriented as to person, place, time, and purpose. Able to pay attention, focus, and respond appropriately. Pain: none Vital Signs: Closely monitored by nursing staff, IV line on the LUE Bed Mobility/Transfers: Sit to stand from recliner supervision using FWW, cues provided to use both hands for support Stand to sit Supervision, cues provided to use both hands for support Gait: Instructed patient with level surface ambulation of 200? feet requiring stand by assist and use of FWW,? Julieth decreased. Step height decreased. Step length decreased.? Pt cue for DBE to help prevent SOB ASSESSMENT: Pt provided with wider FWW, setup for safety and proper usage of FWW, pt able to gait train from ICU to shower room with pt taking standing rest break after reaching entrance going out of hallway to take time for DBE to help with SOB. PLAN: Continue with balance training, global strengthening and general co nditioning for improved safety, mobility and activity tolerance. TREATMENT CODE/TIME: 77674 x1 18 minutes beginning at 9:30-9:48 AM.
[2022-08-20] MEDS: dilTIAZem 30 MG TAB 60 MG PO (12:06)
[2022-08-20] MEDS: Metoprolol 5 MG/5 ML VIAL IVP (17:49)
[2022-08-20] MEDS: Normal Saline Flush 10 ML SYR IVP ×2 (18:04→21:34)
--- NOTE | 2022-08-20 18:25 | NUR.NOTE ---
1749- pt sat on edge of bed to eat and at the end of the meal, HR increased to 130 and had been 65. BP-117/59... 5mg ivp metoprolol given 5mg ivp. BP after was 109/82. Hr at 1820 was still 130. Pt not c/o cp or sob.
[2022-08-20] MEDS: dilTIAZem CD 120 MG CAPCR 240 MG PO (18:48)
[2022-08-20] MEDS: dilTIAZem 25 MG/5 ML VIAL 10 MG IVP (21:33)
[2022-08-20] MEDS: Docusate Sodium 100 MG CAP PO (21:34)
[2022-08-21] VITALS (77 sets, daily range): BP systolic 105–117; BP diastolic 55–73; PULSE 68–133; RESP 13–31; TEMP 36.2–37.2; O2SAT 89–95
[2022-08-21 06:43] LABS: Anion Gap 8.5 mmol/L (3-11); BUN 29 mg/dL (7-18); CO2 28.5 mmol/L (21.0-32.0); Calcium 9.3 mg/dL (8.5-10.1); Chloride 102 mmol/L (98-107); Glucose 173 mg/dL (74-106); Potassium 3.8 mmol/L (3.5-5.1); Sodium 139 mmol/L (136-145)
[2022-08-21] MEDS: Empaglifozin 10 MG TAB 20 MG PO (08:39)
[2022-08-21] MEDS: Metoprolol CR 100 MG TABCR 200 MG PO (08:39)
[2022-08-21] MEDS: metFORMIN 500 MG TAB 1000 MG PO ×2 (08:40→16:58)
[2022-08-21] MEDS: Docusate Sodium 100 MG CAP PO (08:40)
[2022-08-21] MEDS: Losartan 50 MG TAB PO (08:40)
[2022-08-21] MEDS: Furosemide 40 MG TAB PO ×2 (08:40→16:58)
[2022-08-21] MEDS: Apixaban 5 MG TAB PO ×2 (08:40→20:36)
[2022-08-21] MEDS: Spironolactone 25 MG TAB PO (08:41)
[2022-08-21] MEDS: Magnesium Oxide 400 MG TAB PO ×2 (08:41→20:36)
[2022-08-21] MEDS: Pantoprazole 20 MG TABCR PO (08:41)
[2022-08-21] MEDS: Insulin Aspart 300 UNITS/3 ML PEN SC ×3 (08:42→17:09)
--- NOTE | 2022-08-21 10:36 | PGE_ITS ---
Date of Service Date of service: 08/21/22 Time of Service: 10:36 Assessment and Plan Assessment and plan (1) Atrial flutter: Status: Acute Assessment and plan: currently on Toprol 200 mg daily along with Cardizem CD 240 mg nightly as well as anticoagulated with Eliquis. Patient still having resting heart rates in the 120s to 130. We will increase his daily dose of Toprol-XL have a discussion with Dr. Dallas Carvajal his EP material specialist to discuss optimal treatment and try to arrange for an expedited outpatient visit to set up patient for an ablation Professional time spent interviewing and examining patient, discussion of goals of care with hospital team (care management, nursing and consulting professionals) was 30 minutes. (2) Elevated troponin I level: Status: Acute Assessment and plan: Altered elevation on admission secondary to demand ischemia from rapid atrial flutter/atrial fib (3) (HFpEF) heart failure with preserved ejection fraction: Status: Acute Assessment and plan: Follow-up echocardiogram from 08/18/2022 shows mildly dilated LV with EF 55% no regional wall motion abnormalities. RV is mildly dilated RV systolic function is normal he has mild biatrial enlargement. Aortic valve is sclerotic with trace to mild aortic insufficiency no aortic stenosis. He has a mildly dilated ascending aorta 3.84 cm. Patient is currently on goal-directed therapy including spironolactone 25 mg daily along with Jardiance 10 mg daily his losartan dose had to be decreased to 50 mg daily to allow enough blood pressure for adjustment of his calcium channel blockers and beta-blockers. Qualifiers: Heart failure chronicity: acute on chronic Qualified Code(s): I50.33 - Acute on chronic diastolic (congestive) heart failure (4) Type 2 diabetes mellitus without complication, without long-term current use of insulin: Status: Chronic Assessment and plan: Metformin has been resumed. He remains on Jardiance, is on sliding scale insulin coverage. Blood sugars are running in the 160s to 170s. (5) Peripheral vascular disease: Status: Chronic (6) Essential hypertension: Status: Chronic (7) DVT prophylaxis: Status: Acute Assessment and plan: Now on Eliquis Subjective Subjective Patient reports: no new complaints Interval history since last seen: Still has occasional nonproductive cough. Not dyspneic at rest, mildly dyspneic w/ ADL's but resolves w/ rest. Still having fast HR even at rest. I told Ed that I would like to release him today and we may be treating a number rather than his clinical condition. Ideally his resting HR should be under 90 and I would like for him to be under 100 at least. HR up to the 130's w/ activity is acceptable as long as it comes back down w/ rest. I told him that I will reach out to Dr. Dallas Carvajal, EP cardiology at [facility] today to discuss his regimen. Exam Narrative Exam Narrative: Alert oriented. Circumstance no acute distress sitting up in his chair. Lungs are clear to auscultation Barrel chested Heart is regular but tachycardic Abdomen obese soft and nontender Legs with 1+ pitting pretibial and pedal edema Objective Last Vital Signs Temp 37.2 C 08/21/22 04:27 Pulse 133 H 08/21/22 09:24 Resp 19 08/21/22 09:00 BP 112/71 08/21/22 08:53 Pulse Ox 95 08/21/22 00:08 Laboratory Results - last 24 hr 08/21/22 05:42 Sodium 139 Potassium 3.8 Chloride 102 Carbon Dioxide 28.5 Anion Gap 8.5 BUN 29 H Creatinine 1.0 Est GFR (CKD-EPI 2020) 78.00 Glucose 173 H Calcium 9.3 Time Spent with Patient Time Spent with Patient: 25-34 minutes Time was spent: preparing to see the patient(eg.review tests), ordering medications,tests, procedures, referring, communicating with other health child care center administrator, indepentently interpreting results, counseling the patient and care coordination
[2022-08-21] MEDS: Metoprolol CR 100 MG TABCR PO (11:01)
--- NOTE | 2022-08-21 11:51 | PDOC.CMPRO ---
Date of service: 08/21/22 Time of Service: 11:51 Care Management Progress Note Progress Note Text Progress Note Text: S/O: Ed was lying in bed when CM met with him. He stated that he is feeling much better, and was hoping to be discharged home today. Per RN, was discussing transfer this morning with his EP secretary board of commissioners, and it was recommended at this time to continue optimal treatment and arrange for and expedited outpatient visit for an ablation. He continues to be closely monitored. CM will continue to follow. A: Sukhjinder is a 76 year old male admitted to [facility] on 08/17/22 with atrial flutter w/rapid ventricular response. P: ?Ed is being closely monitored at ICU level of care. He plans to return home once medically cleared. His family will drive him home via private vehicle. He will follow up with his PCP and discharge plan of care. CM will continue to follow.
--- NOTE | 2022-08-21 14:45 | RT.EKG_ITS ---
APPROVED REPORT Exam: Resting ECG Reason for Exam: atrial flutter Patient Location: I HR:79 bpm ECG Measurements Heart Rate 79 AXIS GA [id number] P [id number] QRSd 196 QRS 40 QT 442 T 49 QTc 507 Conclusion Atrial flutter/fibrillation...A-rate 263, multiple Ps
[2022-08-21] MEDS: dilTIAZem 30 MG TAB 60 MG PO (14:49)
--- NOTE | 2022-08-21 15:07 | PTTR_ITS ---
PT Notes Visit Reasons: Artial flutter w/ rapid ventricular response Date: 08/21/2022 Precautions: Fall. Standard. Activity as tolerated. Subjective: Pt in recliner when approached for therapy this afternoon, pt agreed to participating with therapy, assistance with donning gown and socks prior to session. Objective: General Observation: pt in recliner connected to telemetry, Mental Status: Alert and oriented as to person, place, time, and purpose. Able to pay attention, focus, and respond appropriately. Pain: none Vital Signs: Closely monitored by nursing staff, IV line on the LUE Bed Mobility/Transfers: Sit to stand from recliner supervision using FWW, cues provided to use both hands for support Stand to sit Supervision, cues provided to use both hands for support Gait: Instructed patient with level surface ambulation of 100' x2, 200'x1 supervision, FWW,? Julieth decreased. Step height decreased. Step length decreased.? Pt cue for DBE to help prevent SOB Stair negotiation training 4steps on the 6, 6step 4 bilateral handrail, step through gait pattern. ASSESSMENT: pt tolerated activity well, pt able to manage foot traffic and room obstacles well without LOB. no complaints of pain the entire duration of session. PLAN: Continue with balance training, global strengthening and general cond itioning for improved safety, mobility and activity tolerance. TREATMENT CODE/TIME: 84068 gait training x1 20 minutes beginning at 2:45-3:05 PM.
[2022-08-21] MEDS: dilTIAZem 25 MG/5 ML VIAL 10 MG IVP (16:57)
[2022-08-21] MEDS: Normal Saline Flush 10 ML SYR IVP ×2 (19:30→20:37)
[2022-08-21] MEDS: dilTIAZem CD 120 MG CAPCR 240 MG PO (20:36)
[2022-08-22] VITALS (15 sets, daily range): BP systolic 100–122; BP diastolic 56–71; PULSE 44–131; RESP 17–31; TEMP 36.1–36.8; O2SAT 90–98
--- NOTE | 2022-08-22 | DI.RAD_ITS ---
Exam(s) XR PORTABLE CHEST AP EXAM: XR PORTABLE CHEST AP CLINICAL HISTORY: persistent cough TECHNIQUE: 2D digital imaging was performed of the chest. Two images were obtained. AP views were obtained. COMPARISON: CR XR PORTABLE CHEST AP from 08/17/2022 FINDINGS: MEDIASTINUM: Normal. HEART: Stable cardiac size. PULMONARY VASCULATURE: Normal. LUNGS: Clear. PLEURAL SPACE: No pleural effusion or pneumothorax. BONE:Within normal limits for the patient's age. OTHER FINDINGS:Normal. IMPRESSION: No acute pulmonary findings. DATA REPOSITORY: RADIATION DOSE DELIVERED:
[2022-08-22 08:40] LABS: Anion Gap 7.3 mmol/L (3-11); BUN 28 mg/dL (7-18); CO2 29.7 mmol/L (21.0-32.0); CREATININE 0.9 mg/dL (0.70-1.30); Calcium 9.1 mg/dL (8.5-10.1); Chloride 101 mmol/L (98-107); Estimated GFR 88.51 (mL/min/1.73m2); Glucose 162 mg/dL (74-106); Magnesium 2.1 mg/dL (1.8-2.4); Potassium 4.1 mmol/L (3.5-5.1); Sodium 138 mmol/L (136-145); TSH (W/Ref FT4) 1.36 uIU/mL (0.36-3.74)
[2022-08-22 09:18] LABS: Lab Add On Test DONE
[2022-08-22 09:45] LABS: NT-proBNP 1042 pg/mL (<300)
[2022-08-22] MEDS: Metoprolol CR 100 MG TABCR 300 MG PO (09:57)
[2022-08-22] MEDS: metFORMIN 500 MG TAB 1000 MG PO ×2 (09:57→18:04)
[2022-08-22] MEDS: Empaglifozin 10 MG TAB 20 MG PO (09:57)
[2022-08-22] MEDS: Magnesium Oxide 400 MG TAB PO ×2 (09:57→20:13)
[2022-08-22] MEDS: Spironolactone 25 MG TAB PO (09:58)
[2022-08-22] MEDS: Furosemide 40 MG TAB PO (09:58)
[2022-08-22] MEDS: Losartan 50 MG TAB PO (09:58)
[2022-08-22] MEDS: Pantoprazole 20 MG TABCR PO (09:58)
[2022-08-22] MEDS: Insulin Aspart 300 UNITS/3 ML PEN SC ×3 (09:58→18:00)
[2022-08-22] MEDS: Apixaban 5 MG TAB PO ×2 (09:58→20:13)
[2022-08-22 10:12] LABS: Procalcitonin < 0.1 ng/mL
[2022-08-22 11:06] LABS: COVID-19 PCR Negative (Negative); Influenza A PCR Negative (Negative); Influenza B PCR Negative (Negative); RSV PCR Negative (Negative)
[2022-08-22 11:09] LABS: Source Nasopharynx
[2022-08-22] MEDS: Furosemide 40 MG/4 ML VIAL IVP ×2 (11:18→18:04)
--- NOTE | 2022-08-22 11:23 | CMPROGNOTE_ITS ---
Date of service: 08/22/22 Time of Service: 11:23 Care Management Progress Note Progress Note Text Progress Note Text: S/O: Ed was sitting up in his chair when CM met with him. His daughter, Mary was in the room visiting. Mary stated that per MD, Ed would be transferred to [facility] [facility] for continued cardiac workup. He will transport via EMS once a bed becomes available. Ed stated that he is feeling good, and is happy with the plan to go to [facility] [place] to get it taken care of. CM will continue to follow. A: Sukhjinder is a 76 year old male admitted to [facility] on 08/17/22 with atrial flutter w/rapid ventricular response. P: ?Ed is being transferred to [facility] [place] for continued cardiac workup. He will transport via EMS, coordinated by RN Overlock Hemmer. He will follow up with his PCP and discharge plan of care. CM will continue to follow.
[2022-08-22] MEDS: Normal Saline Flush 10 ML SYR IVP ×2 (13:17→18:08)
--- NOTE | 2022-08-22 14:04 | DSE_ITS ---
Date of service: 08/22/22 Time of Service: 14:05 DS: Diagnosis Discharge Diagnosis (1) Atrial flutter: Status: Acute (2) (HFpEF) heart failure with preserved ejection fraction: Status: Acute (3) Elevated troponin I level: Status: Acute (4) Type 2 diabetes mellitus without complication, without long-term current use of insulin: Status: Chronic (5) Peripheral vascular disease: Status: Chronic (6) Essential hypertension: Status: Chronic Discharge Plan Disposition Specific Acute Inpt Facility: [facility] Condition: Stable Discharge Details Reason For Visit: Artial flutter w/ rapid ventricular response Admit Date/Time: 08/17/22 12:02 Admit Provider: Beto Bailey Attending Provider: Beto Bailey Primary Care Provider: Arsh Holland Hospital Course Hospital Course: Mr Suarez is a 76 year old male with PMHx of PSVT (no known Afib/flutter and not on anticoagulation as outpatient), non-insulin dependent DM with diabetic neuropathy, hypertension, hypercholesterolemia, ISAAC on CPAP, who was admitted to [facility] ICU under the hospitalist service on 08/17/22 with a narrow complex tachycardia and rate-dependent CHF. The narrow-complex tachycardia was initially thought to be SVT; however, upon administration of adenosine, did not convert to NSR, so he was started on cardizem drip. At that point, his EKGs were consistent with atrial flutter with heart rates in low 100s. He did have some chest discomfort when his rates were more rapid, but with improvement in rate control, his chest discomfort resolved. His troponins were minimally elevated but not enough to be clinically significant (Troponin I of 63->61->54-> <50 ng/L). There was no evidence of ischemia on EKG. He was diuresed. He was started on anticoagulation with apixaban for his atrial flutter. He was being treated with progressively higher doses of metoprolol and cardizem, as the cardizem drip was weaned off, but adequate rate control was not able to be achieved, with HR remaining in 120s-130s at rest. His echocardiogram revealed LVEF of 55% without evidence of segmental wall motion abnormalities. His RV appeared mildly dilated with preserved systolic function. Both atria appeared mildly dilated. Aortic valve appeared sclerotic with trace to mild regurgitation without evidence of aortic stenosis. His ascending aorta was mildly dilated at 3.84 cm. The patient was officially transferred to medical surgical floor on 08/19/22. Dr Bailey had consulted the patient's outpatient graduate advisor, Dr Carvajal, who was already considering doing an outpatient ablation on this patient in October. During this conversation, a transfer for a RAMIRO/cardioversion was also discussed and, since the patient cannot tolerate rapid rates without recurrent pulmonary edema, as evidenced by his exam today, the decision was made to transfer the [place] [facility] He is being accepted in transfer by Dr Smart for a RAMIRO and a cardioversion vs ablation. The patient is in agreement with transfer and is stable for transfer, pending bed availability. He is being made NPO after midnight. Care for patient as well as completion of his transfer summary on day of transfer took 60 minutes. Please, look for MAR for list of this patient's inpatient medications. The list below reflects his outpatient prescriptions. Home Meds and New Rx's Prescriptions: No Action (DME) diabetic shoes See Rx Instructions .Route .MEDSUPPLY Qty: 1 0RF Rx Instructions: As directed - Custom molded diabetic shoes - 1 pair. diltiazem HCl 180 mg capsule,extended release 24hr 180 mg PO QPM Qty: 90 3RF aspirin [Aspir-81] 81 MG tablet,delayed release (DR/EC) 81 mg PO DAILY Qty: 90 (DME) blood-glucose meter [FreeStyle Lite Meter] 1 EACH kit 1 ea Miscellaneous BID Qty: 1 turmeric root extract 500 mg capsule 500 mg PO BID metformin 1,000 mg tablet 1,000 mg PO BID Qty: 180 4RF tamsulosin 0.4 mg capsule 0.8 mg PO HS Qty: 180 3RF metoprolol succinate 100 mg tablet extended release 24 hr 100 mg PO 0430 Qty: 90 4RF (DME) lancets [FreeStyle Lancets] 28 gauge misc 1 ea Miscellaneous BID Qty: 200 5RF Rx Instructions: One BID losartan-hydrochlorothiazide 100-25 mg tablet 1 tab PO DAILY Qty: 14 0RF Rx Instructions: Take 1 tablet by mouth daily glipizide 10 mg tablet 10 mg PO DAILY Qty: 14 0RF (DME) FreeStyle Lite Strips Strip 1 ea Miscellaneous BID Qty: 200 4RF Rx Instructions: 1 twice a day ibuprofen 800 mg tablet 800 mg PO DAILY Qty: 90 3RF Rx Instructions: Take 1 tablet by mouth daily empagliflozin 10 mg tablet 20 mg PO QAM Qty: 180 4RF Fish Oil 1 EACH capsule 2,000 mg PO DAILY red yeast rice 600 mg capsule 1,200 mg PO BID Rx Instructions: give with meal/snack polyethylene glycol 3350 17 gram Powder In Packet 17 g PO DAILY PRN PRN (Reason: Constipation) Qty: 0 0RF Discharge Instructions Referrals: Arsh Holland NP [Primary Care Provider] - [place] Carvajal MD [MD CONSULTING PHYSICIAN] - Activity:: Activity as Tolerated Equipment/Supplies:: No Equipment Needed Diet:: consistent carb heart healthy DS: Summary Time Spent with Patient providing and/or coordinating discharge services: Greater than 30 minutes Status at Discharge Functional status at discharge: uses cane/walker Overall status at discharge: patient is back to baseline Mental Status: mental status grossly normal Speech and Movement: speech and movement normal Mood: congruent mood Affect: normal affect Exam Narrative Exam Narrative: General: Pleasant obese male who is sitting up in a chair, A&Ox3, NAD HEENT: EOMI, MMM Heart: RRR, tachycardic Lungs: crackles at B bases Abdomen: soft, nontender, nondistended Extremities: +1 BLE edema Psych Mental Status: mental status grossly normal Speech and Movement: speech and movement normal Mood: congruent mood Affect: normal affect DS: Data Vitals/I&O Vitals and I&O: Vital Signs Temperature 36.1 C L 08/22/22 13:04 Temperature Source Temporal Artery Scan 08/22/22 13:04 Pulse 130 H 08/22/22 13:01 Pulse Rhythm Irregular 08/22/22 07:30 Pulse 131 H 08/22/22 13:01 Respiratory Rate 26 H 08/22/22 13:01 Respiratory Effort Normal, Non-Labored 08/22/22 07:30 Respiratory Depth Normal 08/22/22 07:30 Respiratory Pattern Normal 08/22/22 07:30 Blood Pressure 100/66 08/22/22 13:01 Blood Pressure Mean 74 08/22/22 13:01 Blood Pressure Position Supine 08/19/22 14:40 Pulse Oximetry 90 L 08/22/22 13:01 Oxygen Delivery Method Cpap 08/21/22 00:08 Oxygen Flow Rate 1 08/21/22 03:57 Fraction of Inspired Oxygen (FIO2) 21 08/21/22 07:54 Pain Level 0 08/20/22 20:00 Comment Patient was on room air when O2 sat was checked. O2 saturation was 93%. Noted to have intermittent/consistent cough. Prefers HOB flat. Did not want CPAP on at this time. No cough noted with CPAP on. 08/20/22 04:00 Intake & Output 08/21/22 08/22/22 08/22/22 23:59 11:59 23:59 Intake Total 360 / 1080 320 / 820 500 / 820 Output Total 800 / 1600 1600 / 1600 Balance -440 / -520 -1280 / -780 500 / -780 Intake: Oral 360 / 1080 320 / 820 500 / 820 Output: Urine 800 / 1600 1600 / 1600 Other: Urine Color Light Trina Straw Urine Appearance Clear Clear Urine Odor Normal Normal Stool Size Large Stool Characteristics Soft Formed Voiding Methods Bedside Commode Urinal Data Completed and Pending Completed studies during hospitalization [Text1]: CXR 08/17/22: No obvious acute pulmonary findings on this single AP portable view of the chest. No significant change compared to 06/14/2022. Echo 08/18/22: Technically difficult study Left ventricle is mildly dilated. Ejection fraction is 55%. No segmental wall motion abnormalities are identified. The patient is in atrial fibrillation with sbgn-to-wrgl variation Right ventricle appears mildly dilated. Right ventricular systolic function appears normal Both atria are mildly dilated Aortic valve is sclerotic with trace to mild regurgitation. There is no aortic stenosis Mildly dilated ascending aorta 3.84 cm CXR 08/22/22: No acute pulmonary findings. Labs on day of discharge: Labs from last 24 hours 08/22/22 08/22/22 08/22/22 Unknown 10:10 08:05 Sodium Potassium Chloride Carbon Dioxide Anion Gap BUN Creatinine Est GFR (CKD-EPI 2020) Glucose Calcium Magnesium NT-Pro-B Natriuret Pep 1042 H Procalcitonin TSH COVID-19 Source Nasopharynx SARS-CoV-2 (PCR) Negative Influenza Type A (PCR) Negative Influenza Type B (PCR) Negative RSV (PCR) Negative Add-On Test Request Cancelled 08/22/22 08/22/22 08/22/22 08:05 08:05 08:05 Sodium 138 Potassium 4.1 Chloride 101 Carbon Dioxide 29.7 Anion Gap 7.3 BUN 28 H Creatinine 0.9 Est GFR (CKD-EPI 2020) 88.51 Glucose 162 H Calcium 9.1 Magnesium 2.1 NT-Pro-B Natriuret Pep Procalcitonin < 0.1 TSH 1.36 COVID-19 Source SARS-CoV-2 (PCR) Influenza Type A (PCR) Influenza Type B (PCR) RSV (PCR) Add-On Test Request DONE PFS All Active Problems (Updated 08/20/22 @ 08:45 by Beto Bailey MD) Constipation (Acute) DVT prophylaxis (Acute) Elevated troponin I level (Acute) (HFpEF) heart failure with preserved ejection fraction (Acute) SVT (supraventricular tachycardia) (Chronic) Atrial flutter (Acute) Cellulitis of abdominal wall (Acute) Lower urinary tract symptoms (LUTS) (Chronic) SVT (supraventricular tachycardia) (Chronic) Grief (Chronic) Non-healing wound of right lower extremity (Acute) PSVT (paroxysmal supraventricular tachycardia) (Chronic) Inguinal hernia (Acute) Carotid artery stenosis (Acute) Fatty liver (Chronic 08/04/16) Peripheral vascular disease (Chronic) Diabetic neuropathy (Chronic) Right knee pain (Acute) BPH w urinary obs/LUTS (Chronic) Essential hypertension (Chronic) Generalized osteoarthrosis (Chronic) knees; R>L Hyperlipidemia (Chronic) Type IV Morbid obesity (Chronic) Obstructive sleep apnea, adult (Chronic) C-PAP Spondylolisthesis (Chronic) L5-S1 Type 2 diabetes mellitus without complication, without long-term current use of insulin (Chronic 07/04/16) Medical History MRSA infection (09/03/15) Tubular adenoma 07/24/14 DR. ALLEN X 3 Umbilical hernia Repaired Venous stasis ulcers of both lower extremities (03/09/16) Surgical History Amputation of toe of right foot 04/08/20 - Right second toe ([facility]) Appendectomy (~08/1973) Colonoscopy - MAC (~02/2004) neg FX ANKLE 02/2013[place] [facility] [place] [facility] [place] repair (~[place]) cartilage repair Family History Mother , age 78 Cancer Father , age 70 Heart disease Cancer Sister Essential hypertension Hyperlipidemia Breast cancer Brother Essential hypertension Skin cancer Brother Diabetes Essential hypertension Heart disease Hyperlipidemia Alcohol abuse Substance abuse Cancer Maternal Grandfather Heart disease Paternal Grandfather No problems noted. Maternal Grandmother Diabetes Essential hypertension Paternal Grandmother Heart disease Son Essential hypertension Heart disease Hyperlipidemia Daughter No problems noted. Daughter No problems noted. Brother , age 69 Diabetes Essential hypertension Hyperlipidemia Social History Smoking/Tobacco Use Status: Never Second Hand Exposure: Yes Smoking risk assessment performed?: Yes Alcohol Intake: never Drug use: Never Substance use type: does not use Household members: other Details: Nephew Housing: house Communication Needs: Corrective Lenses Do you need help understanding health information?: Rarely Pets and animals: Yes Pets and animals: cat(s) and dog(s) Sexually active: No Do you think of yourself as: straight/heterosexual Current gender identity: male What is your relationship status?: How often do you talk on the phone with friends or family?: three or more times per week How often do you get together with friends or relatives?: once per week How often do you attend hindu or evangelical services?: 4 or more times per year Do you belong to any clubs or organized social groups?: no Panel score (0-1 are the most socially isolated patients): 2 What type of physical activity do you participate in: none Frequency: does not exercise Mally/Mormon: Taoism Special mally needs: No Seatbelt use: sometimes Helmet use: No Drive intox or 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 regional driver: No Do you feel safe at home: Yes Do you feel safe in your relationship?: Yes Time Spent with Patient Time Spent with Patient: 45-69 minutes Time was spent: preparing to see the patient(eg.review tests), obtaining and/or reviewing separately otained hiistory, ordering medications,tests, procedures, referring, communicating with other health child care coordinator, indepentently interpreting results, counseling the patient and care coordination
--- NOTE | 2022-08-22 14:39 | PTTR_ITS ---
PT Notes Visit Reasons: Artial flutter w/ rapid ventricular response Inpatient Physical Therapy Treatment Note [facility] Date: 08/22/2022 SUBJECTIVE: Ed reports that he is willing to go for a walk. He states that he is going to [facility] at some point either tonight or tomorrow. OBJECTIVE: [] BED MOBILITY/TRANSFERS pt sitting in recliner Sit-stand: S Stand-sit: S GAIT Assistive Device: FWW Weight bearing: full Assist: SBA Distance: approx 75' x2 Deviation: seated rest break. VITALS: HR stayed btwn 130-131 bpm t/o entire treatment session. STAIRS: ascend/descend 2x6 steps and 3x4 steps with S. ASSESSMENT: tolerated session well despite HR. No c/o pain, fatigue, SOB or LOB during ambulation this am. PLAN: will continue to work on functional mobility and endurance per PT POC. TREATMENT CODE/TIME: 24 min.([id number]) [id number]
--- NOTE | 2022-08-22 14:57 | PT.INTREAT ---
Date of service: 08/22/22 Time of Service: 11:29 PT Notes Visit Reasons: Artial flutter w/ rapid ventricular response Physical Therapy Inpatient Treatment Note Date: 08/22/2022 Precautions: Fall. Standard. Activity as tolerated. Subjective: Patient sitting on bedside recliner. Agreeable to working with PT. Denies headache, chest pain, and lightheadedness throughout session despite HR at 129-131 bpm. Hoping to go home with services whenever he is cleared to do so. Objective: General Observation: Sitting comfortably on bedside recliner. Telemetery monitring in place. High BMI. Mental Status: Alert and oriented as to person, place, time, and purpose. Able to pay attention, focus, and respond appropriately. Pain: Denies Vital Signs: HR non respoding to increased rest time after walking about 100 feet. Stayed at 129-131 bpm throughout session. Bed Mobility/Transfers: Sit to stand from recliner supervision using FWW, cues provided to use both hands for support Stand to sit supervision, cues provided to use both hands for support Gait: 100 feet + 100 feet with supervision using FWW. Denies headache, chest pain, and lightheadedness. Mildly SOB but resolved with rest. HR staying at 129-130 bpm despite longer rest taken, about 5 minutes. Stairs: Up and down 6 x 4-inch steps and 4 x 6-inch steps while holding onto B rails, step over step pattern, supervision assist only. HR staying between 129-131 bpm. Patient no symptoms. ASSESSMENT: HR unable to return to WNL despite adequate rests given to patient. Patient asymptomatic throughout. Works well with use of bariatric FWW. PLAN: Continue with balance training, global strengthening and general conditioning for improved safety, mobility and activity tolerance. TREATMENT CODE/TIME: 26616 x 41 minutes beginning at 11:29 PM.
[2022-08-22] MEDS: dilTIAZem CD 120 MG CAPCR 240 MG PO (20:13)
[2022-08-22] MEDS: Docusate Sodium 100 MG CAP PO (20:13)
--- NOTE | 2022-08-23 10:28 | PT.INDS ---
PT Notes Visit Reasons: Artial flutter w/ rapid ventricular response Physical Therapy Inpatient Discharge Summary Treatment Dates: 08/19/22 - 08/22/22 Referring Doctor: Beto Bailey MD PT Orders: PT CONSULT: Fall safety assessment Precautions: Fall. Standard. This document serves as a summary of care. No PT services were provided on this date. Patient Profile/Admitting Diagnosis: Sukhjinder is 76 yo male that presented to the ER on 08/17/22 for shortness of breath. Was determined to have supraventricular tachycardia and atrial flutter. He participated in PT intervention during acute care stay, then was transferred to [facility] [place] for further cardiac intervention on 08/22/22. PMHX: See EMR Social History/Home Situation: Lives in home with 5 or 6 BECKY depending on which entry he uses. Adult nephew lives with him. No use of oxygen at baseline. Occasionally will access his basement. Ambulates with 4WW and otherwise independent. Equipment Owned/DME: 4WW, cane Subjective: none obtained Objective: ROM: Right Upper Extremity: Shoulder Flexion WFL. Shoulder abduction WFL. Elbow flexion WFL. Wrist flexion WFL. Opening and closing of hand WFL. Left Upper Extremity: Shoulder Flexion WFL. Shoulder abduction WFL. Elbow flexion WFL. Wrist flexion WFL. Opening and closing of hand WFL. Right Lower Extremity: Hip flexion WFL. Hip abduction WFL. Knee flexion WFL. Ankle dorsiflexion WFL. Ankle plantarflexion WFL. Left Lower Extremity: Hip flexion WFL. Hip abduction WFL. Knee flexion WFL. Ankle dorsiflexion WFL. Ankle plantarflexion WFL. Strength: Right Upper Extremity: Shoulder flexors 5/5. Shoulder abductors 5/5. Elbow flexors 5/5. Elbow extensors 5/5. Glass Novelty Maker strong. Left Upper Extremity: Shoulder flexors 4/5. Shoulder abductors 4/5. Elbow flexors 5/5. Elbow extensors 5/5. Glass Novelty Maker strong. Right Lower Extremity: Hip flexors 5/5. Knee flexors 5/5. Knee extensors 5/5. Ankle dorsiflexors 5/5. Ankle plantarflexors 5/5. Left Lower Extremity: Hip flexors 5/5. Knee flexors 5/5. Knee extensors 5/5. Ankle dorsiflexors 5/5. Ankle plantarflexors 5/5. Sensation: Intact as to pain and pressure on bilateral lower extremities. Bed Mobility/Transfers: Sit to stand from recliner supervision using FWW, cues provided to use both hands for support Stand to sit supervision, cues provided to use both hands for support Gait: 100 feet + 100 feet with supervision using FWW.? Denies headache,? chest pain,? and lightheadedness.? Mildly SOB but resolved with rest.? HR staying at 129-130 bpm despite longer rest taken,? about 5 minutes. Stairs: Up and down 6 x 4-inch steps and 4 x 6-inch steps while holding onto B rails,? step over step pattern,? supervision assist only.? HR staying between 129-131 bpm.? Patient no symptoms. Balance: Static Sitting: Normal Dynamic Sitting: Good Static Standing: Good Dynamic Standing: Fair Assessment: Patient demonstrated improvement in activity tolerance and safety with short distance ambulation and was making good progress toward PT goals. He was transferred to [facility] [place] 08/22/22 for further medical care, and is appropriate for dishcarge from PT services in acute care setting. Goals: Goals x1 week 1. Independent gait on level surface with use of least restrictive device for at least 150 feet without report of pain nor dyspnea (progressing toward) 2. Good dynamic standing balance/tolerance (progressing toward) 3. Independent stair negotiation while holding onto bilateral rails for at least 10 steps without report of pain nor dyspnea (met) Plan of Care/Treatment Plan: D/C from PT services due to transfer to [facility] [place]. TREATMENT CODE/TIME: NONE Thank you for the opportunity to participate in the care of this patient. Fariha Diaz, PT, DPT [facility] [place], [place]
== END 2022-08-22 20:44 | disposition short-term general hospital (02) | DRG 308 ==
LOC: ER 12:06 → ICU 13:23
PROVIDERS: Internal Medicine; Admitting Provider Internal Medicine; Emergency Provider Emergency Medicine; PCP Nurse Practitioner Family; Visit Provider Internal Medicine
DX: I48.92 Unspecified atrial flutter (principal); I50.33 Acute on chronic diastolic (congestive) heart failure; I24.8 Other forms of acute ischemic heart disease; Z68.43 Body mass index [BMI] 50.0-59.9, adult; Z79.84 Long term (current) use of oral hypoglycemic drugs; I11.0 Hypertensive heart disease with heart failure; E78.2 Mixed hyperlipidemia; K59.00 Constipation, unspecified; I73.9 Peripheral vascular disease, unspecified; E66.01 Morbid (severe) obesity due to excess calories; I47.1 Supraventricular tachycardia; K76.0 Fatty (change of) liver, not elsewhere classified; M15.9 Polyosteoarthritis, unspecified; N40.1 Benign prostatic hyperplasia with lower urinary tract symptoms; I87.2 Venous insufficiency (chronic) (peripheral); T87.89 Other complications of amputation stump; E11.41 Type 2 diabetes mellitus with diabetic mononeuropathy
CPT/HCPCS: 36415; 80048; 80053; 82805; 83690; 84145; 87637; 93005; 94618; 96374; 96376; 97116; 97161; 97530; 99291; J1650; 71045; 83735; 83880; 84132; 84443; 84484; 93010; 93306; 94762; 99223; 99232; 99233; 99239; J0153; J1940; J1941; J2270

== ENCOUNTER 2022-08-25 06:45 | Emergency (ER) | payer OTHER, SELFPAY ==
[2022-08-25] VITALS (107 sets, daily range): BP systolic 89–140; BP diastolic 46–119; PULSE 44–91; RESP 13–29; TEMP 36.5; O2SAT 75–99
--- NOTE | 2022-08-25 06:45 | RT.EKG_ITS ---
APPROVED REPORT Exam: Resting ECG Reason for Exam: chest pain Patient Location: E HR:91 bpm ECG Measurements Heart Rate 91 AXIS VT 204 P 218 QRSd 111 QRS -5 QT 413 T 62 QTc 508 Conclusion Sinus or ectopic atrial rhythm...P axis (-45,135) Prolonged QT interval...QTc >500mS
--- NOTE | 2022-08-25 07:09 | DI.CT_ITS ---
Exam(s) CT CHEST PE CTA EXAM: CT CHEST PE CTA CLINICAL HISTORY: dyspnea, hypoxia, chest pain. TECHNIQUE: Imaging Protocol: Axial CT angiography was performed with multi-slice acquisition and mu lti-planar reconstructions as well as axial, coronal and sagittal MIP reconstructions. CONTRAST MATERIAL: Intravenous: Omnipaque 350 Contrast volume:100 ml COMPARISON: CT CT ABDOMEN PELVIS WO from 03/24/2022 CR XR PORTABLE CHEST AP from 08/17/2022 CR XR PORTABLE CHEST AP from 08/22/2022 FINDINGS: Exam is limited by patient body habitus. Evaluation of the lungs is limited by expiratory changes. There are small bilateral pleural effusions and basilar atelectasis, greater on the left. The heart is markedly enlarged. Coronary artery calcifications are seen. There is a trace pericardial effusio n. There is a fluid collection adjacent to the right atrium which may represent a pericardial cyst. It is larger when compared with the previous exam. No evidence of pulmonary emboli. 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 Gallstone. No gallbladder wal l thickening.. IMPRESSION: No evidence of pulmonary embolism. Small bilateral pleural effusions and basilar atelectasis, greater on the left. Findings called to Dr. Travis Multani of the emergency department. RADIATION DOSE DELIVERED: Total DLP DATA REPOSITORY: All CT scans at this facility are submitted to the National Radiology Data Registry (NRDR) Dose Index Registry (DIR) with the [employer] ([employer]). RADIATION OPTIMIZATION: All CT scans at this facility use at least one of these dose optimization te chniques: automated exposure control; mA and/or kV adjustment per patient size (includes targeted exa ms where dose is matched to clinical indication); or iterative reconstruction.
--- NOTE | 2022-08-25 07:12 | ED.GENADUL_ITS ---
Discharge Plan Discharge Details Chief Complaint: Chest Pain Primary Care Provider: Arsh Holland ED Provider: Lawrence Manjarrez Home Meds and New Rx's Prescriptions: No Action (DME) diabetic shoes See Rx Instructions .Route .MEDSUPPLY Qty: 1 0RF Rx Instructions: As directed - Custom molded diabetic shoes - 1 pair. diltiazem HCl 180 mg capsule,extended release 24hr 180 mg PO QPM Qty: 90 3RF aspirin [Aspir-81] 81 MG tablet,delayed release (DR/EC) 81 mg PO DAILY Qty: 90 (DME) blood-glucose meter [FreeStyle Lite Meter] 1 EACH kit 1 ea Miscellaneous BID Qty: 1 turmeric root extract 500 mg capsule 500 mg PO BID metformin 1,000 mg tablet 1,000 mg PO BID Qty: 180 4RF tamsulosin 0.4 mg capsule 0.8 mg PO HS Qty: 180 3RF (DME) lancets [FreeStyle Lancets] 28 gauge misc 1 ea Miscellaneous BID Qty: 200 5RF Rx Instructions: One BID losartan-hydrochlorothiazide 100-25 mg tablet 1 tab PO DAILY Qty: 14 0RF Rx Instructions: Take 1 tablet by mouth daily glipizide 10 mg tablet 10 mg PO DAILY Qty: 14 0RF (DME) FreeStyle Lite Strips Strip 1 ea Miscellaneous BID Qty: 200 4RF Rx Instructions: 1 twice a day empagliflozin 10 mg tablet 20 mg PO QAM Qty: 180 4RF Fish Oil 1 EACH capsule 2,000 mg PO DAILY red yeast rice 600 mg capsule 1,200 mg PO BID Rx Instructions: give with meal/snack polyethylene glycol 3350 17 gram Powder In Packet 17 g PO DAILY PRN PRN (Reason: Constipation) Qty: 0 0RF furosemide 40 mg tablet 40 mg PO DAILY metoprolol succinate 50 mg tablet extended release 24 hr PO metoprolol succinate 50 mg tablet extended release 24 hr 50 mg PO DAILY acetaminophen [Tylenol Extra Strength] 500 mg Tablet 1,000 mg PO DAILY losartan 25 mg tablet 25 mg PO DAILY apixaban 5 mg Tablet 5 mg PO BID ibuprofen 800 mg tablet 800 mg PO PRN PRN Rx Instructions: Take 1 tablet by mouth daily metoprolol succinate 100 mg tablet extended release 24 hr 100 mg PO DAILY Medical Decision Making 76 yo male with hx of recent admission for aflutter and [place] [facility] [place] that was done yesterday and was d/c'd last night, hx of HFrEF with echo during last admission of 25% EF, HTN, pvd, t2dm, who comes in with chest pain since 4am this morning he describes as a mild pressure in the anterior chest. Denies radiation of pain, no diaphoresis, has shortness of breath and mild cough that he says has been present since last admission. No fevers or chills. HE is caox4 on exam speaking clearly. He has no wheezing but does have diminished breath sounds at the bases, edema of the legs bilaterally to the mid tibia, on bedside pocus has continued reduced EF, no pericardial effusion and no significant amount of b lines on lung exam. Unclear etiology for his symptoms at present, will proceed with troponin, cbc, cmp, and cta of the chest to evaluate for pe vs infiltrate vs effusion vs edema given his pain, dyspnea and o2 sats on room air around 90%. Diastolic BP 50 so nitro held, he declines any medication presently Pt signed out to oncoming provider to f/u on labs and imaging and dispo. Differential Diagnosis Differential Diagnosis: nstemi, pneumonia, pe Medical Records Medical records reviewed: Yes I reviewed the patient's medical records. Lab Data Lab results reviewed: Yes I reviewed the patient's lab results. ECG Data Attestation: I personally reviewed and interpreted this ECG (s) as follows: Prior ECG tracings: available for review Interpretation: ectopic atrial rhythm, pr 204, qtc 508 no stemi HPI General Date/Time Provider Initiated Documentation: 08/25/22 06:46 . Limitations to Documentation: no limitations . Information obtained by: patient and family . History of Present Illness 76 year old M presents to the emergency department with the chief complaint of chest pain, described as moderate, Patient started experiencing this hour(s) (3) and it has been constant. No relieving factors improve symptom(s), No exacerbating factors reported . Patient notes shortness of breath. Patient did receive the following treatments prior to arrival, none Related Data Home Medications Medication Instructions Recorded Confirmed omega-3 fatty acids-fish oil 340 2,000 mg PO DAILY 01/17/13 08/25/22 mg-1,000 mg capsule (Fish Oil) aspirin 81 mg tablet,delayed 81 mg PO DAILY #90 tab-caps 03/12/15 08/25/22 release (Aspir-) blood-glucose meter (FreeStyle ##1 07/05/16 08/17/22 Lite Meter kit) red yeast rice 600 mg capsule 1,200 mg PO BID 10/24/21 08/25/22 polyethylene glycol 3350 17 gram 17 g PO DAILY PRN PRN Constipation 03/28/22 08/25/22 oral powder packet #0 ea diabetic shoes #1 ea 04/07/22 08/17/22 turmeric root extract 500 mg 500 mg PO BID 04/18/22 08/25/22 capsule metformin 1,000 mg tablet 1,000 mg PO BID #180 tab-caps 05/03/22 08/25/22 tamsulosin 0.4 mg capsule 0.8 mg PO HS #180 caps 05/03/22 08/25/22 lancets 28 gauge (FreeStyle #200 ea 06/22/22 08/17/22 Lancets) blood sugar diagnostic (FreeStyle #200 strips 06/23/22 08/17/22 Lite Strips) glipizide 10 mg tablet 10 mg PO DAILY #14 tabs 06/23/22 08/25/22 losartan 100 1 tab PO DAILY #14 tabs 06/23/22 08/25/22 mg-hydrochlorothiazide 25 mg tablet diltiazem HCl 180 mg 180 mg PO QPM #90 caps 07/06/22 08/25/22 capsule,extended release 24 hr empagliflozin 10 mg tablet 20 mg PO QAM #180 tabs 07/13/22 08/25/22 acetaminophen 500 mg tablet 1,000 mg PO DAILY 08/25/22 08/25/22 (Tylenol Extra Strength) apixaban 5 mg tablet 5 mg PO BID 08/25/22 08/25/22 furosemide 40 mg tablet 40 mg PO DAILY 08/25/22 08/25/22 ibuprofen 800 mg tablet 800 mg PO PRN PRN 08/25/22 08/25/22 losartan 25 mg tablet 25 mg PO DAILY 08/25/22 08/25/22 metoprolol succinate 100 mg 100 mg PO DAILY 08/25/22 08/25/22 tablet,extended release 24 hr metoprolol succinate 50 mg 50 mg PO DAILY 08/25/22 08/25/22 tablet,extended release 24 hr metoprolol succinate 50 mg mg PO 08/25/22 08/25/22 tablet,extended release 24 hr Previous Rx's Medication Instructions Recorded polyethylene glycol 3350 17 gram 17 g PO DAILY PRN PRN Constipation 03/28/22 oral powder packet #0 ea diabetic shoes #1 ea 04/07/22 metformin 1,000 mg tablet 1,000 mg PO BID #180 tab-caps 05/03/22 tamsulosin 0.4 mg capsule 0.8 mg PO HS #180 caps 05/03/22 lancets 28 gauge (FreeStyle #200 ea 06/22/22 Lancets) blood sugar diagnostic (FreeStyle #200 strips 06/23/22 Lite Strips) glipizide 10 mg tablet 10 mg PO DAILY #14 tabs 06/23/22 losartan 100 1 tab PO DAILY #14 tabs 06/23/22 mg-hydrochlorothiazide 25 mg tablet diltiazem HCl 180 mg 180 mg PO QPM #90 caps 07/06/22 capsule,extended release 24 hr empagliflozin 10 mg tablet 20 mg PO QAM #180 tabs 07/13/22 Allergies Allergy/AdvReac Type Severity Reaction Status Date / Time atorvastatin calcium AdvReac INTOLERANCE Verified 08/25/22 06:55 [From Lipitor] General Stated Complaint: Chest Pain JOSE: 2 Review of Systems All systems reviewed & are unremarkable except as noted in HPI and below Constitutional Constitutional: Denies chills, Denies fever(s) and Denies weakness ENT Ears, Nose, Mouth, and Throat: Denies change in voice Cardiovascular Cardiovascular: Reports dyspnea Respiratory Respiratory: Reports cough and Reports dyspnea Gastrointestinal Gastrointestinal: Denies abdominal pain, Denies nausea and Denies vomiting Genitourinary Genitourinary: Denies dysuria Integumentary/Breasts Skin/Breast: Denies rash Neurologic Neurologic: Denies weakness Psychiatric Psychiatric: Denies depression PFSH All Active Problems (Updated 08/23/22 @ 00:10 by EVELIN RIDDLE) Constipation (Acute) Elevated troponin I level (Acute) (HFpEF) heart failure with preserved ejection fraction (Acute) SVT (supraventricular tachycardia) (Chronic) Atrial flutter (Acute) Cellulitis of abdominal wall (Acute) Lower urinary tract symptoms (LUTS) (Chronic) SVT (supraventricular tachycardia) (Chronic) Grief (Chronic) Non-healing wound of right lower extremity (Acute) PSVT (paroxysmal supraventricular tachycardia) (Chronic) Inguinal hernia (Acute) Carotid artery stenosis (Acute) Fatty liver (Chronic 08/04/16) Peripheral vascular disease (Chronic) Diabetic neuropathy (Chronic) Right knee pain (Acute) BPH w urinary obs/LUTS (Chronic) Essential hypertension (Chronic) Generalized osteoarthrosis (Chronic) knees; R>L Hyperlipidemia (Chronic) Type IV Morbid obesity (Chronic) Obstructive sleep apnea, adult (Chronic) C-PAP Spondylolisthesis (Chronic) L5-S1 Type 2 diabetes mellitus without complication, without long-term current use of insulin (Chronic 07/04/16) Medical History MRSA infection (09/03/15) Tubular adenoma 07/24/14 DR. ALLEN X 3 Umbilical hernia Repaired Venous stasis ulcers of both lower extremities (03/09/16) Surgical History Amputation of toe of right foot 04/08/20 - Right second toe ([facility]) Appendectomy (~08/1973) Colonoscopy - MAC (~02/2004) neg FX [place]2013[place] [facility] [place] repair (~1964) cartilage repair Family History Mother , age 78 Cancer Father , age 70 Heart disease Cancer Sister Essential hypertension Hyperlipidemia Breast cancer Brother Essential hypertension Skin cancer Brother Diabetes Essential hypertension Heart disease Hyperlipidemia Alcohol abuse Substance abuse Cancer Maternal Grandfather Heart disease Paternal Grandfather No problems noted. Maternal Grandmother Diabetes Essential hypertension Paternal Grandmother Heart disease Son Essential hypertension Heart disease Hyperlipidemia Daughter No problems noted. Daughter No problems noted. Brother , age 69 Diabetes Essential hypertension Hyperlipidemia Social History Smoking/Tobacco Use Status: Never Second Hand Exposure: Yes Smoking risk assessment performed?: Yes Alcohol Intake: never Drug use: Never Substance use type: does not use Household members: other Details: Nephew Housing: house Communication Needs: Corrective Lenses Do you need help understanding health information?: Rarely Pets and animals: Yes Pets and animals: cat(s) and dog(s) Sexually active: No Do you think of yourself as: straight/heterosexual Current gender identity: male What is your relationship status?: How often do you talk on the phone with friends or family?: three or more times per week How often do you get together with friends or relatives?: once per week How often do you attend yazidi or religion services?: 4 or more times per year Do you belong to any clubs or organized social groups?: no Panel score (0-1 are the most socially isolated patients): 2 What type of physical activity do you participate in: none Frequency: does not exercise Mally/Latter-Day: Scientologist Special mally needs: No Seatbelt use: sometimes Helmet use: No Drive intox or 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 feedmobile driver: No Do you feel safe at home: Yes Do you feel safe in your relationship?: Yes Exam Const General: no acute distress Orientation: alert HENMT Head: normal to inspection Ears: external ears normal General nose exam: external nose normal Mouth: moist mucous membranes Eyes General: appearance normal, both eyes and all related structures Neck Neck: normal visual inspection Resp Auscultation: no wheezes Cardio Rate: regular rate Heart Sounds: no murmurs GI Palpation: nontender Skin General skin exam: no rashes or lesions noted Neuro General: patient alert and patient oriented x3 Extrem General: normal to inspection Psych Mental Status: mental status grossly normal Course Vital Signs Vital signs: Vital Signs Temperature 36.5 C 08/25/22 06:49 Pulse 63 08/25/22 06:49 Respiratory Rate 28 H 08/25/22 06:49 Blood Pressure 113/50 L 08/25/22 06:49 Pulse Oximetry 91 L 08/25/22 06:49 Temperature 36.5 C 08/25/22 06:49 Temperature Source Oral 08/25/22 06:49 Pulse 63 08/25/22 06:49 Respiratory Rate 22 08/25/22 07:03 Respiratory Effort Normal 08/25/22 07:03 Respiratory Depth Normal 08/25/22 07:03 Respiratory Pattern Normal 08/25/22 07:03 Blood Pressure 113/50 L 08/25/22 06:49 Pulse Oximetry 93 08/25/22 07:09 Oxygen Delivery Method Nasal Cannula 08/25/22 07:09 Oxygen Flow Rate 1 08/25/22 07:09 Pain Level 3 08/25/22 06:49 POCUS Exam (ED) Limited Cardiac Exam DATE OF EXAM: 08/25/22 TIME OF EXAM: 07:18 PROVIDER THAT PERFORMED THE STUDY: Lawrence Manjarrez IS THIS A REPEAT EXAM DURING THIS ENCOUNTER: no REASON FOR EXAM: Chest pain VISUALIZED STRUCTURES: Left ventricle and Right ventricle VIEW OBTAINED: Parasternal long-axis PERTINENT FINDINGS/IMPRESSION: LV dysfunction; No pericardial effusion Exam complete Limited Thoracic Lung Exam DATE OF EXAM: 08/25/22 TIME OF EXAM: 07:19 PROVIDER THAT PERFORMED THE STUDY: Lawrence Manjarrez REASON FOR EXAM: Shortness ofBreath VISUALIZED STRUCTURES: right anterior and left anterior PERTINENT FINDINGS/IMPRESSION: lung sliding left side, lung sliding left side, no B-Lines/left side and no B-lines/left side Exam complete
--- NOTE | 2022-08-25 07:22 | NUR.NOTE ---
Nursing Note: this RN took report from manufacturing shift supervisor RN. Patient currently reports 0/10 chest pain, lungs are clear throughout. IV 18RT AC patent. Call light within reach of patient at this time
[2022-08-25 07:29] LABS: Abs Immature Grans 0.03 10^3/uL (0.0-0.06); Absolute Basophil Count 0.05 10^3/uL (0.0-0.2); Absolute Eosinophil Count 0.09 10^3/uL (0.0-0.7); Absolute Lymphocyte Count 1.15 10^3/uL (1.2-3.4); Absolute Monocyte Count 0.55 10^3/uL (0.1-0.8); Absolute Neutrophil Count 5.84 10^3/uL (1.2-6.7); Basophils % 0.6; Eosinophils % 1.2; HGB 15.3 g/dL (13.5-17.5); Immature Grans % 0.4; Lymphocytes % 14.9; MCH 28.7 pg (27.0-33.0); MCHC 31.9 % (32.0-36.0); MCV 90 fL (80-95); Monocytes % 7.1; Neutrophils % 75.8; Platelet Count 204 10^3/uL (130-400); RBC 5.34 10^6/uL (4.36-5.78); RDW 14.4 % (11.8-14.1); RDW-SD 47.8 fL; WBC 7.71 10^3/uL (4.4-10.8)
[2022-08-25 07:44] LABS: INR 1.1 (0.9-1.1); PTT Activated 26.7 sec (21.5-31.9); Prothrombin Time 11.4 sec (9.3-11.0)
[2022-08-25 07:50] LABS: ALT 37 U/L (16-63); AST 55 U/L (15-37); Albumin 3.1 g/dL (3.4-5.0); Alkaline Phosphatase 92 U/L (46-116); Anion Gap 6.6 mmol/L (3-11); BUN 20 mg/dL (7-18); Bilirubin, Total 0.7 mg/dL (0.2-1.0); CO2 29.4 mmol/L (21.0-32.0); CREATININE 0.9 mg/dL (0.70-1.30); Calcium 8.8 mg/dL (8.5-10.1); Chloride 104 mmol/L (98-107); Estimated GFR 88.51 (mL/min/1.73m2); Glucose 156 mg/dL (74-106); Magnesium 2.1 mg/dL (1.8-2.4); NT-proBNP 572 pg/mL (<300); Potassium 4.2 mmol/L (3.5-5.1); Sodium 140 mmol/L (136-145); Total Protein 6.8 g/dL (6.4-8.2)
[2022-08-25 08:01] LABS: Troponin I 540 ng/L (<or=60)
[2022-08-25] MEDS: Omnipaque 350 MG/ML 100 ML BTL IJ (08:15)
[2022-08-25] MEDS: Normal Saline - Diluent 50 ML VIAL IJ (08:16)
[2022-08-25] MEDS: Normal Saline Flush 10 ML SYR IVP (08:17)
[2022-08-25] MEDS: Heparin in 0.45% NaCl 25,000 UNIT/250 ML BAG 10 UNIT IV (08:41)
--- NOTE | 2022-08-25 08:45 | RT.EKG_ITS ---
APPROVED REPORT Exam: Resting ECG Reason for Exam: Repeat EKG Patient Location: E HR:53 bpm ECG Measurements Heart Rate 53 AXIS MT 195 P 10 QRSd 114 QRS 2 QT 442 T 53 QTc 415 Conclusion Sinus bradycardia...rate< 60
[2022-08-25 09:25] LABS: Troponin I 451 ng/L (<or=60)
[2022-08-25] MEDS: Aspirin 325 MG TAB PO (09:47)
--- NOTE | 2022-08-25 10:20 | ED.PROG_ITS ---
Date of service: 08/25/22 Time of Service: 10:21 Medical Decision Making 1000 -- Care was signed out by Dr. Manjarrez, please see his documentation regarding initial ED presentation course. Plan at signout was to follow-up on CT chest and labs. CT of the chest was interpreted by radiology who and spoke with: No pulmonary embolism, cardiomegaly, mild bilateral pleural effusions, cystic structure adjacent to heart noted, no pericardial effusion. Repeat EKG was reviewed and interpreted by me: Sinus bradycardia 53 bpm, no STEMI. Labs reviewed and troponin is elevated initial at 7 AM 540, repeat at 9 AM 451. Patient reassessed and notes no chest pain at this time. He notes chest pain resolved sometime around 730. Concern for potential NSTEMI. I called and requested consultation with cardiology at [facility] to discuss potential transfer. Awaiting callback. -- I spoke with TORY Rojas for cardiology, discussed ED presentation and course, requested transfer. He was discussing case with EP and requested third troponin rechecked. He recommended stopping heparin until 12 hours post prior apixaban dose. Third troponin trending down. This was conveyed to transfer center. -- I spoke again with TORY Rojas for cardiology at [facility]. He recommends admitting here for continued monitoring. I spoke with Dr. Dc, on-call hospitalist, she does not feel comfortable admitting the patient here and request that he be transferred. Spoke again with Enzo Sparrow and connected him with Dr. Dc. [facility] cardiology to accept the patient in transfer. Accepting physician is Dr. Renteria. Lab Data Lab results reviewed: Yes I reviewed the patient's lab results. Labs: Laboratory Tests Range/Units 08/25/22 08/25/22 08/25/22 07:00 07:00 07:00 WBC (4.4-10.8) 10^3/uL 7.71 RBC (4.36-5.78) 10^6/uL 5.34 Hgb (13.5-17.5) g/dL 15.3 Hct (40.0-50.0) % 48.0 MCV (80-95) fL 90 MCH (27.0-33.0) pg 28.7 MCHC (32.0-36.0) % 31.9 L RDW (11.8-14.1) % 14.4 H Plt Count (130-400) 10^3/uL 204 MPV (8.0-11.0) fL 9.0 Immature Gran % 0.4 Neutrophils % 75.8 Lymphocytes % 14.9 Monocytes % 7.1 Eosinophils % 1.2 Basophils % 0.6 Nucleated RBC % (0.0-0.3) % 0.0 Absolute Neutrophils (1.2-6.7) 10^3/uL 5.84 Absolute Lymphocytes (1.2-3.4) 10^3/uL 1.15 L Absolute Monocytes (0.1-0.8) 10^3/uL 0.55 Absolute Eosinophils (0.0-0.7) 10^3/uL 0.09 Absolute Basophils (0.0-0.2) 10^3/uL 0.05 PT (9.3-11.0) sec 11.4 H INR (0.9-1.1) 1.1 APTT (21.5-31.9) sec 26.7 Sodium (136-145) mmol/L 140 Potassium (3.5-5.1) mmol/L 4.2 Chloride (98-107) mmol/L 104 Carbon Dioxide (21.0-32.0) mmol/L 29.4 Anion Gap (3-11) mmol/L 6.6 BUN (7-18) mg/dL 20 H Creatinine (0.70-1.30) mg/dL 0.9 Est GFR (CKD-EPI 2020) (mL/min/1.73m2) 88.51 Glucose (74-106) mg/dL 156 H Calcium (8.5-10.1) mg/dL 8.8 Magnesium (1.8-2.4) mg/dL 2.1 Total Bilirubin (0.2-1.0) mg/dL 0.7 AST (15-37) U/L 55 H ALT (16-63) U/L 37 Alkaline Phosphatase (46-116) U/L 92 Troponin I (<or=60) ng/L 540 H* NT-Pro-B Natriuret Pep (<300) pg/mL 572 H Total Protein (6.4-8.2) g/dL 6.8 Albumin (3.4-5.0) g/dL 3.1 L Range/Units 07/21/23 08:59 WBC (4.4-10.8) 10^3/uL RBC (4.36-5.78) 10^6/uL Hgb (13.5-17.5) g/dL Hct (40.0-50.0) % MCV (80-95) fL MCH (27.0-33.0) pg MCHC (32.0-36.0) % RDW (11.8-14.1) % Plt Count (130-400) 10^3/uL MPV (8.0-11.0) fL Immature Gran % Neutrophils % Lymphocytes % Monocytes % Eosinophils % Basophils % Nucleated RBC % (0.0-0.3) % Absolute Neutrophils (1.2-6.7) 10^3/uL Absolute Lymphocytes (1.2-3.4) 10^3/uL Absolute Monocytes (0.1-0.8) 10^3/uL Absolute Eosinophils (0.0-0.7) 10^3/uL Absolute Basophils (0.0-0.2) 10^3/uL PT (9.3-11.0) sec INR (0.9-1.1) APTT (21.5-31.9) sec Sodium (136-145) mmol/L Potassium (3.5-5.1) mmol/L Chloride (98-107) mmol/L Carbon Dioxide (21.0-32.0) mmol/L Anion Gap (3-11) mmol/L BUN (7-18) mg/dL Creatinine (0.70-1.30) mg/dL Est GFR (CKD-EPI 2020) (mL/min/1.73m2) Glucose (74-106) mg/dL Calcium (8.5-10.1) mg/dL Magnesium (1.8-2.4) mg/dL Total Bilirubin (0.2-1.0) mg/dL AST (15-37) U/L ALT (16-63) U/L Alkaline Phosphatase (46-116) U/L Troponin I (<or=60) ng/L 451 H* NT-Pro-B Natriuret Pep (<300) pg/mL Total Protein (6.4-8.2) g/dL Albumin (3.4-5.0) g/dL Sign Out Sign Out Data: Sign Out Comment: Recent admission for aflutter and chf (see Dr. Cooley's note for more details) and transferred to [facility] [place] and had ablation done yesterday and d/c'd comes in today with chest pain. Room air saturation is 90%, notes some dyspnea and dry cough but states this is improving. HAd EF of 55% on recent echo and on pocus still has reduced EF, no pericardial effusion or significant B lines. Follow up on labs, CTA, reassessment and dispo. Last updated by Lawrence Manjarrez MD at 08/25/22 07:22 Discharge Plan Disposition Patient Disposition: Transfer-Acute Inpatient Care Specific Acute Inpt Facility: [facility] Condition: Serious Discharge Details Chief Complaint: Chest Pain Clinical Impression: Chest pain, Elevated troponin, Pericardial cyst Primary Care Provider: Arsh Holland ED Provider: Travis Multani Home Meds and New Rx's Prescriptions: No Action (DME) diabetic shoes See Rx Instructions .Route .MEDSUPPLY Qty: 1 0RF Rx Instructions: As directed - Custom molded diabetic shoes - 1 pair. diltiazem HCl 180 mg capsule,extended release 24hr 180 mg PO QPM Qty: 90 3RF aspirin [Aspir-81] 81 MG tablet,delayed release (DR/EC) 81 mg PO DAILY Qty: 90 (DME) blood-glucose meter [FreeStyle Lite Meter] 1 EACH kit 1 ea Miscellaneous BID Qty: 1 turmeric root extract 500 mg capsule 500 mg PO BID metformin 1,000 mg tablet 1,000 mg PO BID Qty: 180 4RF tamsulosin 0.4 mg capsule 0.8 mg PO HS Qty: 180 3RF (DME) lancets [FreeStyle Lancets] 28 gauge misc 1 ea Miscellaneous BID Qty: 200 5RF Rx Instructions: One BID losartan-hydrochlorothiazide 100-25 mg tablet 1 tab PO DAILY Qty: 14 0RF Rx Instructions: Take 1 tablet by mouth daily glipizide 10 mg tablet 10 mg PO DAILY Qty: 14 0RF (DME) FreeStyle Lite Strips Strip 1 ea Miscellaneous BID Qty: 200 4RF Rx Instructions: 1 twice a day empagliflozin 10 mg tablet 20 mg PO QAM Qty: 180 4RF Fish Oil 1 EACH capsule 2,000 mg PO DAILY red yeast rice 600 mg capsule 1,200 mg PO BID Rx Instructions: give with meal/snack polyethylene glycol 3350 17 gram Powder In Packet 17 g PO DAILY PRN PRN (Reason: Constipation) Qty: 0 0RF furosemide 40 mg tablet 40 mg PO DAILY metoprolol succinate 50 mg tablet extended release 24 hr PO metoprolol succinate 50 mg tablet extended release 24 hr 50 mg PO DAILY acetaminophen [Tylenol Extra Strength] 500 mg Tablet 1,000 mg PO DAILY losartan 25 mg tablet 25 mg PO DAILY apixaban 5 mg Tablet 5 mg PO BID ibuprofen 800 mg tablet 800 mg PO PRN PRN Rx Instructions: Take 1 tablet by mouth daily metoprolol succinate 100 mg tablet extended release 24 hr 100 mg PO DAILY
[2022-08-25 12:39] LABS: Troponin I 425 ng/L (<or=60)
== END 2022-08-25 17:20 | disposition short-term general hospital (02) ==
PROVIDERS: Emergency Medicine; Emergency Provider Student in an Organized Health Care Education/Training Program; PCP Nurse Practitioner Family
DX: R07.9 Chest pain, unspecified (principal); R94.31 Abnormal electrocardiogram [ECG] [EKG]; J90 Pleural effusion, not elsewhere classified; I51.7 Cardiomegaly; I11.0 Hypertensive heart disease with heart failure; I50.32 Chronic diastolic (congestive) heart failure; E11.9 Type 2 diabetes mellitus without complications; E78.5 Hyperlipidemia, unspecified; Z82.49 Family history of ischemic heart disease and other diseases of the circulatory system; Z79.84 Long term (current) use of oral hypoglycemic drugs; Z79.82 Long term (current) use of aspirin
CPT/HCPCS: 36415; 71275; 76604; 80053; 93005; 93308; 96365; 96366; 99285; 83735; 83880; 84484; 85025; 85610; 85730; 93010; 99284; J3490

== ENCOUNTER 2022-09-01 08:31 | Outpatient (CLI) | payer OTHER, SELFPAY ==
[2022-09-01 12:38] LABS: Anion Gap 11.8 mmol/L (3-11); BUN 20 mg/dL (7-18); CO2 27.2 mmol/L (21.0-32.0); Calcium 9.7 mg/dL (8.5-10.1); Chloride 103 mmol/L (98-107); Glucose 113 mg/dL (74-106); Potassium 4.3 mmol/L (3.5-5.1); Sodium 142 mmol/L (136-145)
== END 2022-09-01 08:32 | disposition home or self-care (01) ==
LOC: LOS 08:31
PROVIDERS: PCP Nurse Practitioner Family; Referring Provider Family Medicine; Visit Provider Family Medicine
DX: I50.22 Chronic systolic (congestive) heart failure (principal); I10 Essential (primary) hypertension
CPT/HCPCS: 36415; 80048

== ENCOUNTER 2022-09-04 13:48 | Outpatient (RCR) | payer OTHER, SELFPAY | END 2022-09-04 23:59 | disposition home or self-care (01) | LOC: CR 13:48 | PROVIDERS: PCP Family Medicine; Referring Provider Internal Medicine Cardiovascular Disease; Visit Provider Internal Medicine Cardiovascular Disease | DX: I21.4 Non-ST elevation (NSTEMI) myocardial infarction (principal) ==

== ENCOUNTER 2022-10-04 10:00 | Outpatient (RCR) | payer OTHER, SELFPAY | END 2022-10-05 23:59 | disposition home or self-care (01) | LOC: CR 10:00 | PROVIDERS: PCP Family Medicine; Referring Provider Internal Medicine Cardiovascular Disease; Visit Provider Internal Medicine Cardiovascular Disease | DX: I25.2 Old myocardial infarction (principal); Z51.89 Encounter for other specified aftercare | CPT/HCPCS: S9472 ==

== ENCOUNTER 2022-10-13 13:37 | Emergency (ER) | payer OTHER, SELFPAY ==
[2022-10-13] VITALS (36 sets, daily range): BP systolic 98–135; BP diastolic 51–97; PULSE 47–104; RESP 18–24; TEMP 37.1; O2SAT 89–96
--- NOTE | 2022-10-13 13:45 | DI.US_ITS ---
Exam(s) US LOWER EXTREMITY VENOUS RT EXAM: US LOWER EXTREMITY VENOUS RT CLINICAL HISTORY: right leg swelling TECHNIQUE: Right lower extremity venous ultrasound performed using grayscale, color-flow, and spectr al Doppler analysis. COMPARISON: No exams were available for comparison FINDINGS: The right common femoral, femoral and popliteal veins demonstrate normal compressibility, augmentatio n, and color Doppler. The mid femoral vein is difficult to visualize due to the patient's body habit us. There is however normal compression of the proximal aspect of the femoral veins suggesting paten cy. The posterior tibial and peroneal veins are patent. The saphenofemoral junction is unremarkable . There is no evidence of a Sosa cyst. The soft tissues are unremarkable. IMPRESSION: No evidence of a right lower extremity DVT. DATA REPOSITORY:
--- NOTE | 2022-10-13 13:57 | W.ED.GENAD ---
Discharge Plan Disposition Patient Disposition: Admit to [facility] Condition: Stable Discharge Details Clinical Impression: Open wound of right foot, Cellulitis of leg, right Primary Care Provider: Denita Enriquez ED Provider: Lawrence Manjarrez Ada Meds and New Rx's Prescriptions: No Action (DME) diabetic shoes See Rx Instructions .Route .MEDSUPPLY Qty: 1 0RF Rx Instructions: As directed - Custom molded diabetic shoes - 1 pair. atorvastatin 10 mg tablet 10 mg PO QHS Entresto 49-51 mg tablet 1 tab PO BID ropinirole 1 mg tablet 1 mg PO QHS glipizide 10 mg tablet 10 mg PO BID Qty: 180 3RF empagliflozin 25 mg tablet 25 mg PO QAM Qty: 90 4RF ezetimibe 10 mg tablet 10 mg PO DAILY Qty: 90 3RF Rx Instructions: Per [facility] Cardiology. 08/30/22. -hb torsemide 20 mg tablet 20 mg PO DAILY Qty: 90 3RF Rx Instructions: Per [facility] Cardiology. 08/30/22. -hb aspirin [Aspir-81] 81 MG tablet,delayed release (DR/EC) 81 mg PO DAILY Qty: 90 (DME) blood-glucose meter [FreeStyle Lite Meter] 1 EACH kit 1 ea Miscellaneous BID Qty: 1 metformin 1,000 mg tablet 1,000 mg PO BID Qty: 180 4RF (DME) lancets [FreeStyle Lancets] 28 gauge misc 1 ea Miscellaneous BID Qty: 200 5RF Rx Instructions: One BID apple cider vinegar 500 mg tablet 1,000 mg PO DAILY turmeric 100 mg capsule 200 mg PO DAILY tamsulosin 0.4 mg capsule 0.4 mg PO HS Qty: 180 3RF red yeast rice extract 600mg capsule 1,200 mg PO DAILY metoprolol succinate 100 mg tablet extended release 24 hr 100 mg PO DAILY Qty: 14 3RF (DME) FreeStyle Lite Strips Strip 1 ea Miscellaneous BID Qty: 200 4RF Rx Instructions: 1 twice a day Fish Oil 1 EACH capsule 2,000 mg PO DAILY polyethylene glycol 3350 17 gram Powder In Packet 17 g PO DAILY PRN PRN (Reason: Constipation) Qty: 0 0RF acetaminophen [Tylenol Extra Strength] 500 mg Tablet 1,000 mg PO DAILY apixaban 5 mg Tablet 5 mg PO BID Medical Decision Making 76 yo male with hx of multiple medical problems including htn, t2dm, HFrEF, prior right toe amputation, who comes in with one week of a right foot wound with drainage and right leg swelling, also notes subjective fevers and chills. Denies severe pain in the foot but does states he has neuropathy in his legs and doesn't have great sensation in his feet or legs. Denies chest pain, dyspnea. He arrives hemodynamically stable, has a 3cm open wound between the great toe and 3rd toe, it is foul smelling but no current drainage. He does appear mildly fatigued. His right leg is swollen compared to the left, is warm to touch though no significant erythema. suspect diabetic wound infection and possible osteo, will proceed with cbc, inflammatory markers, procalcitonin, xray of the foot and dvt u/s. cbc unremarkable, does have elevated crp and esr, u/s and xray negative. Given pt's comorbidities and swelling of his leg feel he would benefit from IV antibiotics, will discuss with hospitalist. Differential Diagnosis Differential Diagnosis: dvt, cellulitis, osteo Medical Records Medical records reviewed: Yes I reviewed the patient's medical records. Imaging Data Radiologic Study: Attestation: I personally reviewed and interpreted this imaging study as follows: Imaging: Ultrasound Radiologist's impression: Exam(s) US LOWER EXTREMITY VENOUS RT EXAM:? US LOWER EXTREMITY VENOUS RT CLINICAL HISTORY:? right leg swelling? TECHNIQUE:? Right lower extremity venous ultrasound performed using grayscale, color-flow, and spectral Doppler analysis. COMPARISON:? No exams were available for comparison FINDINGS: The right common femoral, femoral and popliteal veins demonstrate normal compressibility, augmentation, and color Doppler.? The mid femoral vein is difficult to visualize due to the patient's body habitus.? There is however normal compression of the proximal aspect of the femoral veins suggesting patency.? The posterior tibial and peroneal veins are patent.? The saphenofemoral junction is unremarkable.? There is no evidence of a Sosa cyst.? The soft tissues are unremarkable. IMPRESSION: No evidence of a right lower extremity DVT. Radiologic Study #2: Attestation: I personally reviewed and interpreted this imaging study as follows: Imaging: X-Ray Radiologist's impression: no acute findings Lab Data Lab results reviewed: Yes I reviewed the patient's lab results. HPI General Date/Time Provider Initiated Documentation: 10/13/22 13:42. Limitations to Documentation: no limitations. Information obtained by: patient. History of Present Illness 76 year old M presents to the emergency department with the chief complaint of right foot wound, described as moderate, Patient started experiencing this week(s) (1) and it has been constant. No relieving factors improve symptom(s), No exacerbating factors reported . Patient notes fever/chills. Patient did receive the following treatments prior to arrival, none Related Data Home Medications Medication Instructions Recorded Confirmed omega-3 fatty acids-fish oil 340 2,000 mg PO DAILY 01/17/13 10/13/22 mg-1,000 mg capsule (Fish Oil) aspirin 81 mg tablet,delayed 81 mg PO DAILY #90 tab-caps 03/12/15 10/13/22 release (Aspir-) blood-glucose meter (FreeStyle ##1 07/05/16 10/13/22 Lite Meter kit) polyethylene glycol 3350 17 gram 17 g PO DAILY PRN PRN Constipation 03/28/22 10/13/22 oral powder packet #0 ea diabetic shoes #1 ea 04/07/22 10/13/22 metformin 1,000 mg tablet 1,000 mg PO BID #180 tab-caps 05/03/22 10/13/22 lancets 28 gauge (FreeStyle #200 ea 06/22/22 10/13/22 Lancets) acetaminophen 500 mg tablet 1,000 mg PO DAILY 08/25/22 10/13/22 (Tylenol Extra Strength) apixaban 5 mg tablet 5 mg PO BID 08/25/22 10/13/22 empagliflozin 25 mg tablet 25 mg PO QAM #90 tabs 09/01/22 10/13/22 ezetimibe 10 mg tablet 10 mg PO DAILY #90 tabs 09/01/22 10/13/22 torsemide 20 mg tablet 20 mg PO DAILY #90 tabs 09/01/22 10/13/22 apple cider vinegar 500 mg tablet 1,000 mg PO DAILY 09/07/22 10/13/22 red yeast rice extract 600mg 1,200 mg PO DAILY 09/07/22 10/13/22 tamsulosin 0.4 mg capsule 0.4 mg PO HS #180 caps 09/07/22 10/13/22 turmeric 100 mg 200 mg PO DAILY 09/07/22 10/13/22 metoprolol succinate 100 mg 100 mg PO DAILY #14 tabs 09/27/22 10/13/22 tablet,extended release 24 hr atorvastatin 10 mg tablet 10 mg PO QHS 10/10/22 10/13/22 glipizide 10 mg tablet 10 mg PO BID #180 tabs 10/10/22 10/13/22 ropinirole 1 mg tablet 1 mg PO QHS 10/10/22 10/13/22 sacubitril 49 mg-valsartan 51 mg 1 tab PO BID 10/10/22 10/13/22 tablet (Entresto) blood sugar diagnostic (FreeStyle #200 strips 10/12/22 10/13/22 Lite Strips) Previous Rx's Medication Instructions Recorded polyethylene glycol 3350 17 gram 17 g PO DAILY PRN PRN Constipation 03/28/22 oral powder packet #0 ea diabetic shoes #1 ea 04/07/22 metformin 1,000 mg tablet 1,000 mg PO BID #180 tab-caps 05/03/22 lancets 28 gauge (FreeStyle #200 ea 06/22/22 Lancets) empagliflozin 25 mg tablet 25 mg PO QAM #90 tabs 09/01/22 ezetimibe 10 mg tablet 10 mg PO DAILY #90 tabs 09/01/22 torsemide 20 mg tablet 20 mg PO DAILY #90 tabs 09/01/22 tamsulosin 0.4 mg capsule 0.4 mg PO HS #180 caps 09/07/22 metoprolol succinate 100 mg 100 mg PO DAILY #14 tabs 09/27/22 tablet,extended release 24 hr glipizide 10 mg tablet 10 mg PO BID #180 tabs 10/10/22 blood sugar diagnostic (FreeStyle #200 strips 10/12/22 Lite Strips) Allergies Allergy/AdvReac Type Severity Reaction Status Date / Time atorvastatin calcium AdvReac INTOLERANCE Verified 10/13/22 13:51 [From Lipitor] General Stated Complaint: GenMedical JOSE: 3 Review of Systems All systems reviewed & are unremarkable except as noted in HPI and below Constitutional Constitutional: Reports chills, Reports fever(s) and Denies weakness Cardiovascular Cardiovascular: Denies chest pain and Denies dyspnea Respiratory Respiratory: Denies cough and Denies dyspnea Gastrointestinal Gastrointestinal: Denies abdominal pain, Denies nausea and Denies vomiting Genitourinary Genitourinary: Denies dysuria Neurologic Neurologic: Denies weakness Psychiatric Psychiatric: Denies depression PFSH All Active Problems (Updated 10/13/22 @ 15:30 by Lawrence Manjarrez MD) Spondylolisthesis (Chronic) L5-S1 Obstructive sleep apnea, adult (Chronic) C-PAP Morbid obesity (Chronic) Hyperlipidemia (Chronic) Type IV Generalized osteoarthrosis (Chronic) knees; R>L Fatty liver (Chronic 08/04/16) Essential hypertension (Chronic) BPH w urinary obs/LUTS (Chronic) Right knee pain (Chronic) uses a cane Diabetic neuropathy (Chronic) Peripheral vascular disease (Chronic) Carotid artery stenosis (Acute 04/2021) right moderate plaque <70% stenosis Inguinal hernia (Acute) Chronic HFrEF (heart failure with reduced ejection fraction) (Acute) Type 2 diabetes mellitus with neurologic complication, without long-term current use of insulin (Acute) H/O long-term (current) use of anticoagulants (Acute) Infection of right foot (Acute) Open wound of right foot (Acute) Cellulitis of leg, right (Acute) Medical History (Updated 10/13/22 @ 15:30 by Lawrence Manjarrez MD) Atrial flutter (08/2022) s/p ablation 08/2022 MRSA infection (09/03/15) NSTEMI (non-ST elevated myocardial infarction) (08/2022) 08/29/22 [facility] Cardiology. Cath with no flow-limiting CAD. PSVT (paroxysmal supraventricular tachycardia) Tubular adenoma 07/24/14 DR. ALLEN X 3 Umbilical hernia Repaired Venous stasis ulcers of both lower extremities (03/09/16) Surgical History (Updated 09/01/22 @ 08:40 by Denita Enriquez MD) Amputation of toe of right foot 04/08/20 - Right second toe ([facility]) H/O cardiac catheterization 08/26/22 at [facility]. -hb History of open reduction and internal fixation (ORIF) procedure (2013) S/P ablation of atrial flutter 08/23/2022. -hb Status post appendectomy Family History Mother , age 78 Cancer Father , age 70 Heart disease Cancer Sister Essential hypertension Hyperlipidemia Breast cancer Brother Essential hypertension Skin cancer Brother Diabetes Essential hypertension Heart disease Hyperlipidemia Alcohol abuse Substance abuse Cancer Maternal Grandfather Heart disease Paternal Grandfather No problems noted. Maternal Grandmother Diabetes Essential hypertension Paternal Grandmother Heart disease Son Essential hypertension Heart disease Hyperlipidemia Daughter No problems noted. Daughter No problems noted. 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 Pets and animals: Yes Pets and animals: cat(s) and dog(s) Sexually active: No Do you think of yourself as: straight/heterosexual Current gender identity: male What is your relationship status?: How often do you talk on the phone with friends or family?: three or more times per week How often do you get together with friends or relatives?: once per week How often do you attend hoahaoism or anglican services?: 4 or more times per year Do you belong to any clubs or organized social groups?: no Panel score (0-1 are the most socially isolated patients): 2 What type of physical activity do you participate in: none Frequency: does not exercise Mally/Jehovah'S Witness: Bahai Special mally needs: No Seatbelt use: sometimes Helmet use: No Drive intox or 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 courier delivery driver: No Do you feel safe at home: Yes Do you feel safe in your relationship?: Yes Exam Const General: no acute distress Orientation: alert HENMT Head: normal to inspection Ears: external ears normal General nose exam: external nose normal Mouth: moist mucous membranes Eyes General: appearance normal, both eyes and all related structures Neck Neck: normal visual inspection Resp Effort & Inspection: normal respiratory effort and able to speak in complete sentences Cardio Rate: regular rate Skin General skin exam: no rashes or lesions noted Neuro General: patient alert and patient oriented x3 Extrem General: full ROM and no calf tenderness Psych Mental Status: mental status grossly normal Course Vital Signs Vital signs: Vital Signs Temperature 37.1 C 10/13/22 13:47 Pulse 80 10/13/22 13:47 Respiratory Rate 24 10/13/22 13:47 Blood Pressure 132/63 10/13/22 13:47 Pulse Oximetry 96 10/13/22 13:47 Temperature 37.1 C 10/13/22 13:47 Temperature Source Oral 10/13/22 13:47 Pulse 80 10/13/22 13:47 Respiratory Rate 24 10/13/22 13:47 Blood Pressure 132/63 10/13/22 13:47 Blood Pressure Position Supine 10/13/22 13:47 Pulse Oximetry 96 10/13/22 13:47 Oxygen Delivery Method Bi-pap 10/13/22 13:47 Pain Level 0 10/13/22 13:47 Lab/Test Results Lab/Test Results: 10/13/22 13:46 Blood Blood Culture - Pending 10/13/22 13:46 Blood Blood Culture - Pending
[2022-10-13 14:30] LABS: Abs Immature Grans 0.03 10^3/uL (0.0-0.06); Absolute Basophil Count 0.03 10^3/uL (0.0-0.2); Absolute Eosinophil Count 0.06 10^3/uL (0.0-0.7); Absolute Lymphocyte Count 1.47 10^3/uL (1.2-3.4); Absolute Monocyte Count 0.74 10^3/uL (0.1-0.8); Absolute Neutrophil Count 4.27 10^3/uL (1.2-6.7); Basophils % 0.5; Eosinophils % 0.9; HGB 15.3 g/dL (13.5-17.5); Immature Grans % 0.5; Lymphocytes % 22.3; MCH 28.3 pg (27.0-33.0); MCHC 32.6 % (32.0-36.0); MCV 87 fL (80-95); MPV 9.5 fL (8.0-11.0); Monocytes % 11.2; Neutrophils % 64.6; Platelet Count 157 10^3/uL (130-400); RDW 15.1 % (11.8-14.1); RDW-SD 47.8 fL
[2022-10-13 14:33] LABS: ESR 42 mm/hr (0-20)
[2022-10-13 14:44] LABS: PTT Activated 28.8 sec (21.5-31.9); Prothrombin Time 10.1 sec (9.3-11.0)
[2022-10-13 14:56] LABS: ALT 27 U/L (16-63); AST 24 U/L (15-37); Albumin 3.2 g/dL (3.4-5.0); Alkaline Phosphatase 91 U/L (46-116); Anion Gap 9.6 mmol/L (3-11); BUN 26 mg/dL (7-18); Bilirubin, Total 0.4 mg/dL (0.2-1.0); C-Reactive Protein 6.22 mg/dL (0.0-0.3); CO2 27.4 mmol/L (21.0-32.0); CREATININE 0.9 mg/dL (0.70-1.30); Calcium 9.4 mg/dL (8.5-10.1); Chloride 103 mmol/L (98-107); Estimated GFR 88.51 (mL/min/1.73m2); Glucose 130 mg/dL (74-106); Potassium 4.3 mmol/L (3.5-5.1); Sodium 140 mmol/L (136-145); TSH (W/Ref FT4) 1.91 uIU/mL (0.36-3.74); Total Protein 7.2 g/dL (6.4-8.2)
[2022-10-13 15:00] LABS: Procalcitonin < 0.1 ng/mL
--- NOTE | 2022-10-13 15:09 | DI.RAD_ITS ---
Exam(s) XR FOOT RT COMPLETE EXAM: XR FOOT RT COMPLETE CLINICAL HISTORY: foot wound/cellulitis. TECHNIQUE: 2D digital imaging was performed of the right foot. Three images were obtained. AP, obl ique and lateral views were obtained. COMPARISON: CR,XR XR FOOT RT COMPLETE from 03/23/2022 FINDINGS: BONES: No acute fracture is present. No bony destructive lesion is seen. There is a plantar spur. Th ere are orthopedic screws seen in the distal fibula and tibia. There again seen findings of amputati on of the 2nd toe. JOINTS: No dislocation present. The joint spaces are well maintained. SOFT TISSUE: There is soft tissue swelling of the foot. IMPRESSION: 1. No radiographic evidence to suggest osteomyelitis. 2. Soft tissue swelling of the foot. DATA REPOSITORY: RADIATION DOSE DELIVERED:
[2022-10-13] MEDS: VANCOMYCIN/WATER (PEG) 2 GM/400 ML BAG IVPB (15:21)
[2022-10-13 15:44] LABS: Bilirubin Negative (Negative); Blood Negative (Negative); Clarity Clear (Clear); Glucose 500 mg/dL (Negative); Ketones Negative (Negative); Leukocyte Esterase Negative (Negative); Nitrite Negative (Negative); Specific Gravity 1.015 (1.005-1.025); pH 5.5 (5-8)
--- NOTE | 2022-10-13 16:06 | MCONE_ITS ---
Date of service: 10/13/22 Time of Service: 16:07 Assessment and Plan Assessment and plan (1) Diabetic infection of right foot: Status: Acute Assessment and plan: I discussed outpatient versus inpatient treatment with the patient and his daughter Mary is one of her ER workers. Both Mary and her father feel comfortable treating him as an outpatient. I told her he shows no signs of systemic infection i.e. his CBC is normal he is afebrile and his procalcitonin level is normal. I think they caught the infection early enough that he can be treated with oral antibiotics. Because of concern for possible staph infection I am prescribing Zyvox 600 mg p.o. twice daily for 10 days. He is currently receiving vancomycin in the emergency department. Vancomycin should be good for tonight and that he can start the Zyvox in the morning. Our pharmacy will dispense a prescription for 10-day course. Mary and her father no signs and symptoms to watch for worsening infection such as fevers, redness going up the foot increased pain increased swelling rigors or increased drainage from. Did recommend that sterile wash her dad's foot daily with pHisoHex and then rinse with pHisoHex soft and pat the skin dry. She can apply a Telfa pad between the toes to prevent toes from rubbing and using antibiotic ointment. He should try to elevate the foot is much as possible. Case was discussed with the ED staff including Dr. Wayne who took over for Dr. Manjarrez. History of Present Illness History of Present Illness Chief Complaint: Diabetic foot cellulitis Narrative: Mr. Suarez is a 76-year-old male with a history of PSVT, atrial flutter w/ RVR, s/p recent ablation x 2 done at [facility], HFPEF, type 2 diabetes, diabetic neuropathy, hypertension, ISAAC on CPAP, status post previous amputation of second digit on the right foot recently followed through wound clinic [facility] in [facility]. Patient states about a week ago he stubbed his foot on a threshold at home. He does walk around his bare feet. He had a recent follow-up with his primary care provider Dr. Enriquez on 10/10/2022 and failed to tell her about this. However he started having some recent drainage in the space between the right great toe and the third toe with a small skin fi ssure and some purulent drainage and showed his daughter within try to get him into see the environmental protection specialist at [facility] but they were closed today and he was referred to his primary care provider. Patient was seen by Dr. Enriquez today. Because Dr. Guevara was concerned that the patient is at risk for developing sepsis she referred the patient to the emergency department. Dr. Manjarrez from the ED department evaluated him performed x-ray of his right foot as well as routine labs. Right foot x-ray showed soft tissue swelling of the foot and evidence of previous amputation of the second toe. There is no radiographic evidence to suggest osteomyelitis. There is no gas noted. Laboratory studies were unremarkable. CBC showed a normal white count 6600 no anemia and no left shift. Sed rate was mildly elevated at 42. Blood lactate was not performed but a procalcitonin was performed and found to be normal at less than 0.1. CRP was mildly elevated at 6.22. Rest of his chemistry panel was unremarkable with normal renal and liver function tests. Blood cultures were obtained and the patient was started on vancomycin [address] Manjarrez requested hospitalist evaluation for admission. I presented to the emergency room and interviewed both him and his daughter Mary. Patient admits that he has been walking around barefoot and got up during the night and did not have his slippers on when he walked across the threshold between the linoleum and the carpeted floor stubbing his foot causing a opening in the skin. He neglected to tell his primary care provider about it until he saw her today. His daughter Mary said that they got concerned because Sukhjinder had some recent chills but not rigors. He has had no chest pain. He said no increased shortness of breath beyond his normal baseline. He gets exertional dyspnea due to his obesity and his heart failure with preserved ejection fraction. Mary states since his cardiac ablation and up titration of his Jardiance and metoprolol he has been doing better. [facility] All Active Problems (Updated 10/13/22 @ 16:38 by Beto Bailey MD) Diabetic infection of right foot (Acute) Spondylolisthesis (Chronic) L5-S1 Obstructive sleep apnea, adult (Chronic) C-PAP Morbid obesity (Chronic) Hyperlipidemia (Chronic) Type IV Generalized osteoarthrosis (Chronic) knees; R>L Fatty liver (Chronic 08/04/16) Essential hypertension (Chronic) BPH w urinary obs/LUTS (Chronic) Right knee pain (Chronic) uses a cane Diabetic neuropathy (Chronic) Peripheral vascular disease (Chronic) Carotid artery stenosis (Acute 04/2021) right moderate plaque <70% stenosis Inguinal hernia (Acute) Chronic HFrEF (heart failure with reduced ejection fraction) (Acute) Type 2 diabetes mellitus with neurologic complication, without long-term current use of insulin (Acute) H/O long-term (current) use of anticoagulants (Acute) Infection of right foot (Acute) Open wound of right foot (Acute) Cellulitis of leg, right (Acute) Medical History Atrial flutter (08/2022) s/p ablation 08/2022 MRSA infection (09/03/15) NSTEMI (non-ST elevated myocardial infarction) (08/2022) 08/29/22 [facility] Cardiology. Cath with no flow-limiting CAD. PSVT (paroxysmal supraventricular tachycardia) Tubular adenoma 07/24/14 DR. ALLEN X 3 Umbilical hernia Repaired Venous stasis ulcers of both lower extremities (03/09/16) Surgical History Amputation of toe of right foot 04/08/20 - Right second toe ([facility]) H/O cardiac catheterization 08/26/22 at [facility]. -hb History of open reduction and internal fixation (ORIF) procedure (2013) S/P ablation of atrial flutter 08/23/2022. -hb Status post appendectomy Family History Mother , age 78 Cancer Father , age 70 Heart disease Cancer Sister Essential hypertension Hyperlipidemia Breast cancer Brother Essential hypertension Skin cancer Brother Diabetes Essential hypertension Heart disease Hyperlipidemia Alcohol abuse Substance abuse Cancer Maternal Grandfather Heart disease Paternal Grandfather No problems noted. Maternal Grandmother Diabetes Essential hypertension Paternal Grandmother Heart disease Son Essential hypertension Heart disease Hyperlipidemia Daughter No problems noted. Daughter No problems noted. 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 Pets and animals: Yes Pets and animals: cat(s) and dog(s) Sexually active: No Do you think of yourself as: straight/heterosexual Current gender identity: male What is your relationship status?: How often do you talk on the phone with friends or family?: three or more times per week How often do you get together with friends or relatives?: once per week How often do you attend adventist or catholic services?: 4 or more times per year Do you belong to any clubs or organized social groups?: no Panel score (0-1 are the most socially isolated patients): 2 What type of physical activity do you participate in: none Frequency: does not exercise Mally/Moravian: Christianity Special mally needs: No Seatbelt use: sometimes Helmet use: No Drive intox or 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 van driver helper: No Do you feel safe at home: Yes Do you feel safe in your relationship?: Yes Exam Narrative Exam Narrative: Sukhjinder Suarez was evaluated in the emergency department room 6. He was lying on a gurney in a semirecumbent position. He did not appear to be in any distress. He denies any chest pain or acute dyspnea. He has no pain in the foot Examination of his legs shows that he has chronic bilateral edema but improved compared to how they usually look. Both legs have a chronic rubor discoloration. Right foot is missing the second toe. Between the great toe and the third toe there is a crack in the skin with no visible fistulous track. Skin appears to be macerated a little bit dried yellowish discharge. I spread the toes apart could not see any track in that superficial fissure. He has palpable pedal pulses although in the are weak over the DP PT is stronger. Doppler signal was adequate. Results Last Vital Signs Temp 37.1 C 10/13/22 13:47 Pulse 72 10/13/22 15:46 Resp 18 10/13/22 14:10 BP 127/70 10/13/22 15:46 Pulse Ox 94 10/13/22 15:32 Labs 10/13/22 14:10 10/13/22 14:10 Labs: Laboratory Results - last 24 hr 10/13/22 10/13/22 10/13/22 14:10 14:10 14:10 WBC RBC Hgb Hct MCV MCH MCHC RDW Plt Count MPV Immature Gran % Neutrophils % Lymphocytes % Monocytes % Eosinophils % Basophils % Nucleated RBC % Absolute Neutrophils Absolute Lymphocytes Absolute Monocytes Absolute Eosinophils Absolute Basophils ESR 42 H PT INR APTT Sodium 140 Potassium 4.3 Chloride 103 Carbon Dioxide 27.4 Anion Gap 9.6 BUN 26 H Creatinine 0.9 Est GFR (CKD-EPI 2020) 88.51 Glucose 130 H Calcium 9.4 Magnesium 2.0 Total Bilirubin 0.4 AST 24 ALT 27 Alkaline Phosphatase 91 C-Reactive Protein 6.22 H Total Protein 7.2 Albumin 3.2 L Procalcitonin < 0.1 TSH 1.91 Urine Color Urine Clarity Urine pH Ur Specific Coulters Urine Protein Urine Ketones Urine Blood Urine Nitrite Urine Bilirubin Urine Urobilinogen Ur Leukocyte Esterase Urine Glucose 10/13/22 10/13/22 10/13/22 14:10 14:10 15:40 WBC 6.60 RBC 5.40 Hgb 15.3 Hct 47.0 MCV 87 MCH 28.3 MCHC 32.6 RDW 15.1 H Plt Count 157 MPV 9.5 Immature Gran % 0.5 Neutrophils % 64.6 Lymphocytes % 22.3 Monocytes % 11.2 Eosinophils % 0.9 Basophils % 0.5 Nucleated RBC % 0.0 Absolute Neutrophils 4.27 Absolute Lymphocytes 1.47 Absolute Monocytes 0.74 Absolute Eosinophils 0.06 Absolute Basophils 0.03 ESR PT 10.1 INR 1.0 APTT 28.8 Sodium Potassium Chloride Carbon Dioxide Anion Gap BUN Creatinine Est GFR (CKD-EPI 2020) Glucose Calcium Magnesium Total Bilirubin AST ALT Alkaline Phosphatase C-Reactive Protein Total Protein Albumin Procalcitonin TSH Urine Color Yellow Urine Clarity Clear Urine pH 5.5 Ur Specific Coulters 1.015 Urine Protein Negative Urine Ketones Negative Urine Blood Negative Urine Nitrite Negative Urine Bilirubin Negative Urine Urobilinogen 1.0 H Ur Leukocyte Esterase Negative Urine Glucose 500 H
--- NOTE | 2022-10-13 16:11 | W.EDPROG ---
Date of service: 10/13/22 Time of Service: 16:11 Medical Decision Making 76-year-old male history of diabetes, here for evaluation of right foot infection. Patient evaluated by day team physician who consulted hospitalist Dr. Al for potential admission. After bedside evaluation and discussion with patient, Dr. Alyssia Canseco is comfortable having patient go home on antibiotics which she has called into the pharmacy. Home care instructions and strict return precautions given. Family and patient amenable to plan. Patient currently hemodynamically stable Sign Out Sign Out Data: Sign Out Comment: hospitalist coming to evaluate the patient and determine if admission required Last updated by Lawrence Manjarrez MD at 10/13/22 15:43 Discharge Plan Disposition Patient Disposition: Home Condition: Stable Discharge Details Clinical Impression: Open wound of right foot, Cellulitis of leg, right Primary Care Provider: Denita Enriquez ED Provider: Huseyin Hale Home Meds and New Rx's Prescriptions: No Action (DME) diabetic shoes See Rx Instructions .Route .MEDSUPPLY Qty: 1 0RF Rx Instructions: As directed - Custom molded diabetic shoes - 1 pair. atorvastatin 10 mg tablet 10 mg PO QHS Entresto 49-51 mg tablet 1 tab PO BID ropinirole 1 mg tablet 1 mg PO QHS glipizide 10 mg tablet 10 mg PO BID Qty: 180 3RF empagliflozin 25 mg tablet 25 mg PO QAM Qty: 90 4RF ezetimibe 10 mg tablet 10 mg PO DAILY Qty: 90 3RF Rx Instructions: [place] [facility] [place]/22. -hb torsemide 20 mg tablet 20 mg PO DAILY Qty: 90 3RF Rx Instructions: [place] [facility] [place] 08/[place]/22. -hb aspirin [Aspir-81] 81 MG tablet,delayed release (DR/EC) 81 mg PO DAILY Qty: 90 (DME) blood-glucose meter [FreeStyle Lite Meter] 1 EACH kit 1 ea Miscellaneous BID Qty: 1 metformin 1,000 mg tablet 1,000 mg PO BID Qty: 180 4RF (DME) lancets [FreeStyle Lancets] 28 gauge misc 1 ea Miscellaneous BID Qty: 200 5RF Rx Instructions: One BID apple cider vinegar 500 mg tablet 1,000 mg PO DAILY turmeric 100 mg capsule 200 mg PO DAILY tamsulosin 0.4 mg capsule 0.4 mg PO HS Qty: 180 3RF red yeast rice extract 600mg capsule 1,200 mg PO DAILY metoprolol succinate 100 mg tablet extended release 24 hr 100 mg PO DAILY Qty: 14 3RF (DME) FreeStyle Lite Strips Strip 1 ea Miscellaneous BID Qty: 200 4RF Rx Instructions: 1 twice a day Fish Oil 1 EACH capsule 2,000 mg PO DAILY polyethylene glycol 3350 17 gram Powder In Packet 17 g PO DAILY PRN PRN (Reason: Constipation) Qty: 0 0RF acetaminophen [Tylenol Extra Strength] 500 mg Tablet 1,000 mg PO DAILY apixaban 5 mg Tablet 5 mg PO BID Discharge Instructions Instructions: Cellulitis (DC), Acute Wound Care (ED)
== END 2022-10-13 17:44 | disposition home or self-care (01) ==
PROVIDERS: Emergency Medicine; Emergency Provider Emergency Medicine; PCP Family Medicine
DX: E11.628 Type 2 diabetes mellitus with other skin complications (principal); L03.115 Cellulitis of right lower limb; E11.40 Type 2 diabetes mellitus with diabetic neuropathy, unspecified; I10 Essential (primary) hypertension; I47.1 Supraventricular tachycardia; I48.92 Unspecified atrial flutter; Z79.84 Long term (current) use of oral hypoglycemic drugs; Z79.82 Long term (current) use of aspirin; Z79.01 Long term (current) use of anticoagulants; Z89.421 Acquired absence of other right toe(s)
CPT/HCPCS: 36415; 80053; 84145; 85652; 87040; 96365; 96366; 99283; 99284; 73630; 81003; 83735; 84443; 85025; 85610; 85730; 86140; 93971; 99285

== ENCOUNTER 2022-11-03 10:02 | Outpatient (RCR) | payer OTHER, SELFPAY | END 2022-11-04 23:59 | disposition home or self-care (01) | LOC: CR 10:02 | PROVIDERS: PCP Family Medicine; Referring Provider Internal Medicine Cardiovascular Disease; Visit Provider Internal Medicine Cardiovascular Disease | DX: I25.2 Old myocardial infarction (principal); Z51.89 Encounter for other specified aftercare | CPT/HCPCS: S9472 ==

== ENCOUNTER 2022-12-04 09:43 | Outpatient (RCR) | payer OTHER, SELFPAY | END 2022-12-05 23:59 | disposition home or self-care (01) | LOC: CR 09:43 | PROVIDERS: PCP Family Medicine; Referring Provider Internal Medicine Cardiovascular Disease; Visit Provider Internal Medicine Cardiovascular Disease | DX: I25.2 Old myocardial infarction (principal); Z51.89 Encounter for other specified aftercare | CPT/HCPCS: S9472 ==

== ENCOUNTER 2023-01-03 09:43 | Outpatient (RCR) | payer OTHER, SELFPAY | END 2023-01-04 23:59 | disposition home or self-care (01) | LOC: CR 09:43 | PROVIDERS: PCP Family Medicine; Referring Provider Internal Medicine Cardiovascular Disease; Visit Provider Internal Medicine Cardiovascular Disease | DX: I25.2 Old myocardial infarction (principal); Z51.89 Encounter for other specified aftercare | CPT/HCPCS: S9472 ==

== ENCOUNTER 2023-01-31 10:00 | Outpatient (RCR) | payer OTHER, SELFPAY | END 2023-02-04 23:59 | disposition home or self-care (01) | LOC: CR 10:00 | PROVIDERS: PCP Family Medicine; Referring Provider Internal Medicine Cardiovascular Disease; Visit Provider Internal Medicine Cardiovascular Disease | DX: I25.2 Old myocardial infarction (principal); Z51.89 Encounter for other specified aftercare | CPT/HCPCS: S9472 ==

== ENCOUNTER → 2023-02-09 11:54 | Outpatient (CLI) | payer OTHER, SELFPAY ==
--- NOTE | 2023-02-09 09:31 | DI.RAD_ITS ---
Exam(s) XR FOOT RT COMPLETE EXAM: XR FOOT RT COMPLETE CLINICAL HISTORY: E11.628 type 2 DM other skin complicationsright foot infection. TECHNIQUE: 2D digital imaging was performed. Three views. COMPARISON: CR XR FOOT RT COMPLETE from 10/13/2022 FINDINGS: BONES: No acute fracture is present. No bony destructive lesion is seen. Amputation of the 2nd toe a gain noted. Hardware in distal tibia and fibula. Plantar calcaneal spur. JOINTS: No dislocation present. SOFT TISSUE: Swelling. No foreign body or abnormal gas collection. IMPRESSION: Unremarkable radiographs of the right foot. DATA REPOSITORY: RADIATION DOSE DELIVERED:
== END ==
PROVIDERS: PCP Family Medicine; Visit Provider Family Medicine
DX: E11.628 Type 2 diabetes mellitus with other skin complications (principal); L08.9 Local infection of the skin and subcutaneous tissue, unspecified
CPT/HCPCS: 73630

== ENCOUNTER 2023-02-09 11:55 | Outpatient (CLI) | payer OTHER, SELFPAY ==
[2023-02-09 09:06] LABS: Abs Immature Grans 0.03 10^3/uL (0.0-0.06); Absolute Basophil Count 0.06 10^3/uL (0.0-0.2); Absolute Eosinophil Count 0.11 10^3/uL (0.0-0.7); Absolute Lymphocyte Count 1.46 10^3/uL (1.2-3.4); Absolute Monocyte Count 0.79 10^3/uL (0.1-0.8); Absolute Neutrophil Count 6.43 10^3/uL (1.2-6.7); Basophils % 0.7; Eosinophils % 1.2; HCT 48.4 % (40.0-50.0); HGB 15.5 g/dL (13.5-17.5); Immature Grans % 0.3; Lymphocytes % 16.4; MCH 29.5 pg (27.0-33.0); MCV 92 fL (80-95); MPV 8.7 fL (8.0-11.0); Monocytes % 8.9; Neutrophils % 72.5; Platelet Count 175 10^3/uL (130-400); RBC 5.26 10^6/uL (4.36-5.78); RDW-SD 47.7 fL; WBC 8.88 10^3/uL (4.4-10.8)
[2023-02-09 09:13] LABS: ESR 7 mm/hr (0-20)
== END 2023-02-09 11:56 | disposition home or self-care (01) ==
LOC: LBO 11:56
PROVIDERS: PCP Family Medicine; Visit Provider Family Medicine
DX: E11.628 Type 2 diabetes mellitus with other skin complications (principal); L08.89 Other specified local infections of the skin and subcutaneous tissue
CPT/HCPCS: 36415; 85652; 85025

== ENCOUNTER 2023-02-28 14:37 | Outpatient (CLI) | payer OTHER, SELFPAY ==
[2023-02-28 14:45] LABS: Abs Immature Grans 0.04 10^3/uL (0.0-0.06); Absolute Basophil Count 0.05 10^3/uL (0.0-0.2); Absolute Eosinophil Count 0.05 10^3/uL (0.0-0.7); Absolute Lymphocyte Count 1.67 10^3/uL (1.2-3.4); Absolute Monocyte Count 0.81 10^3/uL (0.1-0.8); Absolute Neutrophil Count 6.94 10^3/uL (1.2-6.7); Basophils % 0.5; Eosinophils % 0.5; HGB 14.3 g/dL (13.5-17.5); Immature Grans % 0.4; Lymphocytes % 17.5; MCH 29.4 pg (27.0-33.0); MCHC 32.5 % (32.0-36.0); MCV 91 fL (80-95); MPV 8.8 fL (8.0-11.0); Monocytes % 8.5; Neutrophils % 72.6; Platelet Count 205 10^3/uL (130-400); RBC 4.86 10^6/uL (4.36-5.78); RDW 14.3 % (11.8-14.1); RDW-SD 47.1 fL; WBC 9.56 10^3/uL (4.4-10.8)
[2023-02-28 15:46] LABS: Anion Gap 7.6 mmol/L (3-11); BUN 29 mg/dL (7-18); CO2 31.4 mmol/L (21.0-32.0); Calcium 9.7 mg/dL (8.5-10.1); Chloride 102 mmol/L (98-107); Estimated GFR 77.52 (mL/min/1.73m2); Glucose 145 mg/dL (74-106); NT-proBNP 268 pg/mL (<300); Potassium 4.6 mmol/L (3.5-5.1); Procalcitonin < 0.1 ng/mL; Sodium 141 mmol/L (136-145)
== END 2023-02-28 14:38 | disposition home or self-care (01) ==
LOC: LBO 14:37
PROVIDERS: PCP Family Medicine; Visit Provider Family Medicine
DX: E11.628 Type 2 diabetes mellitus with other skin complications (principal); L08.9 Local infection of the skin and subcutaneous tissue, unspecified; I50.22 Chronic systolic (congestive) heart failure
CPT/HCPCS: 36415; 80048; 84145; 83880; 85025

== ENCOUNTER → 2023-02-28 14:37 | Outpatient (CLI) | payer OTHER, SELFPAY ==
--- NOTE | 2023-02-28 13:30 | DI.RAD_ITS ---
Exam(s) XR CHEST 2V PA LATERAL EXAM: XR CHEST 2V PA LATERAL CLINICAL HISTORY: dyspnea, cough I50.9 HEART FAILURE TECHNIQUE: 2D digital imaging was performed. COMPARISON: CR XR PORTABLE CHEST AP from 08/22/[address] CHEST PE CTA from 08/25/2022 FINDINGS: Limb exam is limited by patient body habitus and under penetration at the lung bases. HEART: Enlarged. Aorta: Not dilated. PULMONARY VASCULATURE: Normal. LUNGS: Clear. PLEURAL SPACE: No pleural effusion or pneumothorax. BONE:Unremarkable for age. Soft tissues: Electronic device projects over the anterior lower chest. IMPRESSION: No acute abnormality. DATA REPOSITORY: RADIATION DOSE DELIVERED:
== END ==
PROVIDERS: PCP Family Medicine; Visit Provider Family Medicine
DX: I50.9 Heart failure, unspecified (principal)
CPT/HCPCS: 71046

== ENCOUNTER 2023-03-09 09:26 | Outpatient (CLI) | payer OTHER, SELFPAY ==
[2023-03-09 09:18] LABS: Abs Immature Grans 0.04 10^3/uL (0.0-0.06); Absolute Basophil Count 0.03 10^3/uL (0.0-0.2); Absolute Eosinophil Count 0.07 10^3/uL (0.0-0.7); Absolute Lymphocyte Count 1.75 10^3/uL (1.2-3.4); Absolute Monocyte Count 0.68 10^3/uL (0.1-0.8); Absolute Neutrophil Count 6.43 10^3/uL (1.2-6.7); Basophils % 0.3; Eosinophils % 0.8; HGB 15.4 g/dL (13.5-17.5); Immature Grans % 0.4; Lymphocytes % 19.4; MCH 29.3 pg (27.0-33.0); MCHC 32.8 % (32.0-36.0); MCV 89 fL (80-95); MPV 8.5 fL (8.0-11.0); Monocytes % 7.6; Neutrophils % 71.5; Platelet Count 247 10^3/uL (130-400); RBC 5.26 10^6/uL (4.36-5.78); RDW 14.5 % (11.8-14.1); RDW-SD 46.8 fL
[2023-03-09 09:23] LABS: ESR 25 mm/hr (0-20)
[2023-03-09 09:32] LABS: Anion Gap 9.9 mmol/L (3-11); BUN 27 mg/dL (7-18); C-Reactive Protein 2.11 mg/dL (<0.5); CO2 28.1 mmol/L (21.0-32.0); Calcium 9.5 mg/dL (8.5-10.1); Chloride 100 mmol/L (98-107); Estimated GFR 77.52 (mL/min/1.73m2); Glucose 162 mg/dL (74-106); Potassium 4.8 mmol/L (3.5-5.1); Sodium 138 mmol/L (136-145)
== END 2023-03-09 09:27 | disposition home or self-care (01) ==
LOC: LBO 09:26
PROVIDERS: PCP Family Medicine; Visit Provider Family Medicine
DX: E11.628 Type 2 diabetes mellitus with other skin complications (principal); L08.9 Local infection of the skin and subcutaneous tissue, unspecified; I10 Essential (primary) hypertension; I50.22 Chronic systolic (congestive) heart failure
CPT/HCPCS: 36415; 80048; 85652; 85025; 86140

== ENCOUNTER 2023-05-04 10:40 | Outpatient (RCR) | payer SELFPAY ==
[2023-04-11 11:30] VITALS: BP 113/59; PULSE 78
[2023-04-13 11:33] VITALS: BP 115/61; PULSE 74
[2023-04-18 15:10] VITALS: BP 108/57; PULSE 73
[2023-04-20 11:00] VITALS: BP 115/57; PULSE 75; O2SAT 92
[2023-04-25 15:49] VITALS: BP 103/57; PULSE 79
[2023-05-02 12:19] VITALS: BP 112/51; PULSE 74
[2023-05-04 11:00] VITALS: BP 108/60; PULSE 85
[2023-05-09 11:22] VITALS: BP 118/59; PULSE 75; O2SAT 92
== END 2023-05-06 23:59 | disposition home or self-care (01) ==
LOC: CR 10:40
PROVIDERS: PCP Family Medicine; Visit Provider Internal Medicine Cardiovascular Disease
DX: R69 Illness, unspecified (principal)

== ENCOUNTER 2023-05-23 11:57 | Emergency (ER) | payer OTHER, SELFPAY ==
[2023-05-23] VITALS (103 sets, daily range): BP systolic 64–137; BP diastolic 23–64; PULSE 62–82; RESP 11–27; O2SAT 90–100
--- NOTE | 2023-05-23 12:00 | RT.EKG_ITS ---
APPROVED REPORT Exam: Resting ECG Reason for Exam: lightheaded Patient Location: E HR:78 bpm ECG Measurements Heart Rate 78 AXIS OR 289 P 11 QRSd 108 QRS -25 QT 361 T 117 QTc 411 Conclusion Sinus rhythm...normal P axis, V-rate 60- 99 Prolonged OR interval...OR >220, V-rate 50- 90 Nonspecific T abnormalities, lateral leads...T <-0.10mV, I aVL V5 V6 Physician: no stemi
--- NOTE | 2023-05-23 12:05 | ED.GENADUL_ITS ---
Discharge Plan Disposition Patient Disposition: Home Condition: Good Discharge Details Chief Complaint: Dizzy/Sync Clinical Impression: Acute kidney injury, Dehydration, Acute hyperkalemia Primary Care Provider: Denita Enriquez ED Provider: Johan Terry Home Meds and New Rx's Prescriptions: No Action atorvastatin 10 mg tablet 10 mg PO QHS ropinirole 1 mg tablet 1 mg PO QHS glipizide 10 mg tablet 10 mg PO BID Qty: 180 3RF dulaglutide 4.5 mg/0.5 mL pen injector 4.5 mg subcut QWEEK Qty: 2 5RF Patient Comments: takes on sundays (DME) diabetic shoes See Rx Instructions .Route .MEDSUPPLY Qty: 1 0RF Rx Instructions: As directed - Custom molded diabetic shoes - 1 pair. torsemide 20 mg tablet 40 mg PO DAILY Qty: 180 3RF Rx Instructions: Per [facility]. 08/30/22. -hb apixaban 5 mg tablet 5 mg PO BID Qty: 180 3RF empagliflozin 25 mg tablet 25 mg PO QAM Qty: 90 4RF ezetimibe 10 mg tablet 10 mg PO DAILY Qty: 90 3RF Rx Instructions: Per [facility] [place] Cardiology. 08/30/22. -hb tamsulosin 0.4 mg capsule 0.8 mg PO DAILY Entresto 97-103 mg tablet 1 tab PO BID aspirin [Aspir-81] 81 MG tablet,delayed release (DR/EC) 81 mg PO DAILY Qty: 90 (DME) blood-glucose meter [FreeStyle Lite Meter] 1 EACH kit 1 ea Miscellaneous BID Qty: 1 metformin 1,000 mg tablet 1,000 mg PO BID Qty: 180 4RF apple cider vinegar 500 mg tablet 1,000 mg PO DAILY turmeric 100 mg capsule 200 mg PO DAILY metoprolol succinate 100 mg tablet extended release 24 hr 100 mg PO DAILY Qty: 14 3RF (DME) FreeStyle Lite Strips Strip 1 ea Miscellaneous BID Qty: 200 4RF Rx Instructions: 1 twice a day (DME) lancets [FreeStyle Lancets] 28 gauge misc 1 ea Miscellaneous BID Qty: 30 0RF Rx Instructions: One BID spironolactone 25 mg tablet 25 mg PO DAILY Qty: 90 1RF Fish Oil 1 EACH capsule 2,000 mg PO DAILY polyethylene glycol 3350 17 gram Powder In Packet 17 g PO DAILY PRN PRN (Reason: Constipation) Qty: 0 0RF acetaminophen [Tylenol Extra Strength] 500 mg Tablet 1,000 mg PO DAILY Discharge Instructions Instructions: Dehydration (ED), Acute Kidney Injury (DC) Additional Instructions: At this time your potassium level has normalized. You are slightly dehydrated. Please have a slight increase in your regular daily fluids for the next few days. Please transition back to the 20 mg of turosemide daily. Please monitor your weight closely. If you notice any worsening of your symptoms, or any new symptoms such as vomiting, diarrhea, fever, chills, shortness of breath, chest pain, numbness, weakness, or fainting , please return immediately to the emergency department for reevaluation. Please follow up with your primary care provider as soon as possible for reassessment and reevaluation. As always, it was a pleasure participating in your medical care today. Referrals: Denita Enriquez MD [Primary Care Provider] - [facility] General Date/Time Provider Initiated Documentation: 05/23/23 12:03 . HPI Narrative: 77-year-old male with a past medical history of PSVT and a flutter on apixaban, [id number] diabetes mellitus, hypertension, high cholesterol, obstructive sleep apnea on CPAP, heart failure, who presents today for evaluation of weakness. Patient states that over the last few days he has felt lightheaded and weak with activity. He admits to mild shortness of breath but denies any chest pain. He denies any vomiting or diarrhea. He denies any syncope. He was at cardiac rehab today when his symptoms are slightly worse than normal. Family members checked his blood pressure and it was in the 80s systolic. Heart rate was slightly elevated. About 2 weeks ago the patient's torsemide was increased from 20 to 40mg daily. He denies urinary complaints otherwise. He has no other complaints at this time. No other modifying factors. Related Data Home Medications Medication Instructions Recorded Confirmed omega-3 fatty acids-fish oil 340 2,000 mg PO DAILY 01/17/13 05/23/23 mg-1,000 mg capsule (Fish Oil) aspirin 81 mg tablet,delayed 81 mg PO DAILY #90 tab-caps 03/12/15 05/23/23 release (Aspir-) blood-glucose meter (FreeStyle ##1 07/05/16 05/23/23 Lite Meter kit) polyethylene glycol 3350 17 gram 17 g PO DAILY PRN PRN Constipation 03/28/22 05/23/23 oral powder packet #0 ea metformin 1,000 mg tablet 1,000 mg PO BID #180 tab-caps 05/03/22 05/23/23 acetaminophen 500 mg tablet 1,000 mg PO DAILY 08/25/22 05/23/23 (Tylenol Extra Strength) empagliflozin 25 mg tablet 25 mg PO QAM #90 tabs 09/01/22 05/23/23 ezetimibe 10 mg tablet 10 mg PO DAILY #90 tabs 09/01/22 05/23/23 apple cider vinegar 500 mg tablet 1,000 mg PO DAILY 09/07/22 05/23/23 turmeric 100 mg 200 mg PO DAILY 09/07/22 05/23/23 metoprolol succinate 100 mg 100 mg PO DAILY #14 tabs 09/27/22 05/23/23 tablet,extended release 24 hr atorvastatin 10 mg tablet 10 mg PO QHS 10/10/22 05/23/23 glipizide 10 mg tablet 10 mg PO BID #180 tabs 10/10/22 05/23/23 ropinirole 1 mg tablet 1 mg PO QHS 10/10/22 05/23/23 blood sugar diagnostic (FreeStyle #200 strips 10/12/22 05/23/23 Lite Strips) lancets 28 gauge (FreeStyle #30 ea 10/20/22 05/23/23 Lancets) sacubitril 97 mg-valsartan 103 mg 1 tab PO BID decreased EF 02/09/23 05/23/23 tablet (Entresto) tamsulosin 0.4 mg capsule 0.8 mg PO DAILY 02/09/23 05/23/23 apixaban 5 mg tablet 5 mg PO BID #180 tabs 02/28/23 05/23/23 spironolactone 25 mg tablet 25 mg PO DAILY #90 tabs 03/20/23 05/23/23 diabetic shoes #1 ea 05/11/23 05/23/23 dulaglutide 4.5 mg/0.5 mL 4.5 mg (0.5 mL) subcut QWEEK #2 mL 05/11/23 05/23/23 subcutaneous pen injector torsemide 20 mg tablet 40 mg (2 x 20 mg) PO DAILY #180 05/11/23 05/23/23 tabs Previous Rx's Medication Instructions Recorded polyethylene glycol 3350 17 gram 17 g PO DAILY PRN PRN Constipation 03/28/22 oral powder packet #0 ea metformin 1,000 mg tablet 1,000 mg PO BID #180 tab-caps 05/03/22 empagliflozin 25 mg tablet 25 mg PO QAM #90 tabs 09/01/22 ezetimibe 10 mg tablet 10 mg PO DAILY #90 tabs 09/01/22 metoprolol succinate 100 mg 100 mg PO DAILY #14 tabs 09/27/22 tablet,extended release 24 hr glipizide 10 mg tablet 10 mg PO BID #180 tabs 10/10/22 blood sugar diagnostic (FreeStyle #200 strips 10/12/22 Lite Strips) lancets 28 gauge (FreeStyle #30 ea 10/20/22 Lancets) apixaban 5 mg tablet 5 mg PO BID #180 tabs 02/28/23 spironolactone 25 mg tablet 25 mg PO DAILY #90 tabs 03/20/23 diabetic shoes #1 ea 05/11/23 dulaglutide 4.5 mg/0.5 mL 4.5 mg (0.5 mL) subcut QWEEK #2 mL 05/11/23 subcutaneous pen injector torsemide 20 mg tablet 40 mg (2 x 20 mg) PO DAILY #180 05/11/23 tabs Allergies Allergy/AdvReac Type Severity Reaction Status Date / Time atorvastatin calcium AdvReac INTOLERANCE Verified 05/23/23 12:04 [From Lipitor] General Stated Complaint: Dizzy/Sync JOSE: 3 Review of Systems All systems reviewed & are unremarkable except as noted in HPI and below Exam Narrative Exam Narrative: 1.Const: Well-nourished, Well-developed, appearing stated age 2.Eyes: PERRL, no conjunctival injection, and symmetrical lids. 3.ENT: Atraumatic external nose and ears. Moist MM. Neck: Symmetric, trachea midline, No thyromegaly. 4.CVS: +S1/S2, No murmurs or gallops. Peripheral pulses 2+ and equal in all extremities. Brisk capillary refill in all extremities. 5.RESP: Unlabored respiratory effort. Clear to auscultation bilaterally. No wheezes rales or rhonchi 6.GI: Soft, Nontender/Nondistended, No hepatosplenomegaly. No guarding or rebound. 7.MSK: Normocephalic/Atraumatic, Extremities w/o deformity or ttp No cyanosis or clubbing, Normal movement of all extremities, no pitting edema. No calf tenderness 8.Skin: Warm, Dry. No rashes or lesions. 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 Sensation grossly intact, no focal neurologic deficits. 10.Psych: (AAO) x3. Appropriate mood and affect Course Vital Signs Vital signs: Vital Signs Pulse 82 05/23/23 12:00 Respiratory Rate 22 05/23/23 12:00 Blood Pressure 136/52 L 05/23/23 12:00 Pulse Oximetry 93 05/23/23 12:00 Pulse 82 05/23/23 12:00 Respiratory Rate 22 05/23/23 12:00 Blood Pressure 136/52 L 05/23/23 12:00 Blood Pressure Position Sitting 05/23/23 12:00 Pulse Oximetry 93 05/23/23 12:00 Oxygen Delivery Method Room Air 05/23/23 12:00 Oxygen Flow Rate 0 05/23/23 12:00 Pain Level 0 05/23/23 12:00 Medical Decision Making 77-year-old male with a past medical history of PSVT and a flutter on apixaban, [id number]-[id number] diabetes mellitus, hypertension, high cholesterol, obstructive sleep apnea on CPAP, heart failure, who presents today for evaluation of weakness. Patient states that over the last few days he has felt lightheaded and weak with activity. He admits to mild shortness of breath but denies any chest pain. He denies any vomiting or diarrhea. He denies any syncope. He was at cardiac rehab today when his symptoms are slightly worse than normal. Family members checked his blood pressure and it was in the 80s systolic. Heart rate was slightly elevated. About 2 weeks ago the patient's torsemide was increased from 20 to 40mg daily. He denies urinary complaints otherwise. He has no other complaints at this time. No other modifying factors. Exam demonstrates well-appearing male, no guarding or rebound. No calf tenderness or pitting edema. Oxygen saturations are normal, blood pressure initially was slightly high, but shortly thereafter dropped to the 80s. Mucous membranes dry. Symptoms appear consistent with mild dehydration, likely secondary to accidental increase diuresis. We will evaluate for concerning etiologies electrolyte abnormalities and cardiac etiology, however we will also evaluate for potential dehydration. Will monitor closely and reassess. 2:47 PM Troponin normal, proBNP notably normal at 168, thyroid function normal. Creatinine is slightly higher than normal at 1.5, and BUN high at 55. These are both higher than normal for the patient, suggesting mild prerenal azotemia in conjunction with enhanced diuresis. Additionally the patient's potassium is 5.7, however EKG is benign. Blood draw was easy per nursing staff with no prolonged tourniquet time. We will give calcium, IV insulin, amp of D50, and an albuterol updraft. Will gently rehydrate with an initial 250 cc bolus followed by an additional 250 cc bolus if indicated. Will monitor closely and reassess. Additionally I did contact the patient's primary care provider Dr. Enriquez, she agrees with the plan and will follow closely with him. We will cut back down to his previous dosing of 20 mg daily for his furosemide for continued outpatient management. 4:05 PM On reassessment after 500 total cc of fluid the patient is doing well. Repeat potassium is now 4.5, BUN and creatinine are slightly improving. Blood pressure is in the 120s systolic. Heart rate is in the 60s. Blood sugar was slightly low in the 60s secondary to the insulin that was given, he was given food and he ate well. Patient is feeling stable. Did offer for continued observation versus discharge, patient would prefer to go home at this time. After discussion with patient and family, patient has elected to go home. Patient will be discharged. Recommend slight increase in regular fluid intake over the next few days. Recommend close follow-up with PCP, as well as repeat lab draw in the next week. Recommend continued eating at home. Patient otherwise stable for discharge. Discussed red flags which to return. I have extensively reviewed the treatment plan and discharge instructions with the patient. I have addressed all patient concerns at this time. The patient was made aware of what symptoms to monitor for that would warrant a return to the emergency department. Discussed the plan with the patient, they demonstrate verbal understanding and agreement with our assessment and plan at this time. The documentation in this chart was dictated using Dragon dictation software. Please excuse any dictation errors. Quality:SDOH Health Related Social Needs: No Data to Display Critical Care Time Critical Care Time Critical Care Time: Yes Total Critical Care Time: 45 Attestation: Upon my evaluation, this patient had a high probability of imminent or life- threatening deterioration, which required my direct attention, intervention, and personal management. I have personally provided 45 minutes of critical care time exclusive of time spent on separately billable procedures. Time includes review of laboratory data, radiology results, discussion with consultants, and monitoring for potential decompensation. Interventions were performed as documented. COUNT INCLUDES THE [facility] All Active Problems (Updated 05/23/23 @ 16:12 by Johan Terry DO) Acute hyperkalemia (Acute) Dehydration (Acute) Acute kidney injury (Acute) H/O long-term (current) use of anticoagulants (Acute) Type 2 diabetes mellitus with neurologic complication, without long-term current use of insulin (Acute) Chronic HFrEF (heart failure with reduced ejection fraction) (Acute) Inguinal hernia (Acute) Carotid artery stenosis (Acute 04/2021) right moderate plaque <70% stenosis Peripheral vascular disease (Chronic) Diabetic neuropathy (Chronic) Right knee pain (Chronic) uses a cane BPH w urinary obs/LUTS (Chronic) Essential hypertension (Chronic) Fatty liver (Chronic 08/04/16) Generalized osteoarthrosis (Chronic) knees; R>L Hyperlipidemia (Chronic) Type IV Morbid obesity (Chronic) Obstructive sleep apnea, adult (Chronic) C-PAP Spondylolisthesis (Chronic) L5-S1 Medical History NSTEMI (non-ST elevated myocardial infarction) (08/2022) 08/29/22 [facility] Cardiology. Cath with no flow-limiting CAD. Atrial flutter (08/2022) s/p ablation 08/2022 PSVT (paroxysmal supraventricular tachycardia) MRSA infection (09/03/15) Tubular adenoma 07/24/14 DR. ALLEN X 3 Umbilical hernia Repaired Venous stasis ulcers of both lower extremities (03/09/16) Surgical History H/O cardiac catheterization 08/26/22 at [facility]. -hb S/P ablation of atrial flutter 08/23/2022. -hb Amputation of toe of right foot 04/08/20 - Right second toe ([facility]) History of open reduction and internal fixation (ORIF) procedure (2013) Status post appendectomy Family History Mother , age 78 Cancer Father , age 70 Heart disease Cancer Sister Essential hypertension Hyperlipidemia Breast cancer Brother Essential hypertension Skin cancer Brother Diabetes Essential hypertension Heart disease Hyperlipidemia Alcohol abuse Substance abuse Cancer Maternal Grandfather Heart disease Paternal Grandfather No problems noted. Maternal Grandmother Diabetes Essential hypertension Paternal Grandmother Heart disease Son Essential hypertension Heart disease Hyperlipidemia Daughter No problems noted. Daughter No problems noted. 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 Pets and animals: Yes Pets and animals: cat(s) and dog(s) Sexually active: No Do you think of yourself as: straight/heterosexual Current gender identity: male What is your relationship status?: How often do you talk on the phone with friends or family?: three or more times per week How often do you get together with friends or relatives?: once per week How often do you attend mormon or evangelical services?: 4 or more times per year Do you belong to any clubs or organized social groups?: no Panel score (0-1 are the most socially isolated patients): 2 What type of physical activity do you participate in: none Frequency: does not exercise Mally/Congregation: Catholic Special mally needs: No Seatbelt use: sometimes Helmet use: No Drive 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 or 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 Technically challenging study secondary to patient's body habitus. Unable to completely visualize entire left ventricle. Exam complete
[2023-05-23 12:17] LABS: BE (Venous) 1 mmol/L (-2-3); HCO3 (Venous) 26 mmol/L (23-28); O2 Sat (Venous) 45 %; TCO2 (Venous) 24 mmol/L (24-29); pCO2 (Venous) 49 mmHg (41-51); pH (Venous) 7.34 (7.31-7.41); pO2 (Venous) 27 mmHg
[2023-05-23 12:18] LABS: Abs Immature Grans 0.03 10^3/uL (0.0-0.06); Absolute Basophil Count 0.04 10^3/uL (0.0-0.2); Absolute Eosinophil Count 0.04 10^3/uL (0.0-0.7); Absolute Monocyte Count 0.61 10^3/uL (0.1-0.8); Absolute Neutrophil Count 7.27 10^3/uL (1.2-6.7); Basophils % 0.4; Eosinophils % 0.4; HCT 44.6 % (40.0-50.0); HGB 14.5 g/dL (13.5-17.5); Immature Grans % 0.3; MCH 29.5 pg (27.0-33.0); MCHC 32.5 % (32.0-36.0); MCV 91 fL (80-95); MPV 8.9 fL (8.0-11.0); Monocytes % 6.6; Neutrophils % 78.3; Platelet Count 185 10^3/uL (130-400); RBC 4.91 10^6/uL (4.36-5.78); RDW 14.9 % (11.8-14.1); RDW-SD 50.1 fL; WBC 9.29 10^3/uL (4.4-10.8)
[2023-05-23 12:37] LABS: INR 1.1 (0.9-1.1); PTT Activated 29.8 sec (23.6-32.8); Prothrombin Time 11.1 sec (9.1-11.1)
[2023-05-23 12:44] LABS: ALT 25 U/L (16-63); AST 15 U/L (15-37); Albumin 3.7 g/dL (3.4-5.0); Alkaline Phosphatase 88 U/L (46-116); Anion Gap 9.2 mmol/L (3-11); BUN 55 mg/dL (7-18); Bilirubin, Total 0.6 mg/dL (0.2-1.0); CO2 26.8 mmol/L (21.0-32.0); CREATININE 1.5 mg/dL (0.70-1.30); Calcium 9.4 mg/dL (8.5-10.1); Chloride 103 mmol/L (98-107); Estimated GFR 47.65 (mL/min/1.73m2); Glucose 165 mg/dL (74-106); NT-proBNP 168 pg/mL (<300); Potassium 5.7 mmol/L (3.5-5.1); Sodium 139 mmol/L (136-145); TSH (W/Ref FT4) 2.43 uIU/mL (0.36-3.74); Total Protein 7.5 g/dL (6.4-8.2); Troponin I < 50 ng/L (< or =60)
--- NOTE | 2023-05-23 13:02 | DI.RAD_ITS ---
Exam(s) XR PORTABLE CHEST AP EXAM: XR PORTABLE CHEST AP CLINICAL HISTORY: sob TECHNIQUE: 2D digital imaging was performed. COMPARISON: CR XR CHEST 2V PA LATERAL from 02/28/2023 FINDINGS: Exam is limited by under penetration. Leads overlie the chest. LUNGS: Visualized portions of the lungs are clear. No pleural abnormality seen. HEART: Enlarged, unchanged. AORTA: Tortuous. BONES: Spine is mostly obscured. Soft tissues: Unremarkable. IMPRESSION: No acute findings. DATA REPOSITORY: RADIATION DOSE DELIVERED:
[2023-05-23] MEDS: Albuterol 2.5 MG/3 ML INH SOLN VIAL UPD (13:52)
[2023-05-23] MEDS: Calcium Gluconate 4.65 MEQ/10 ML VIAL 4.65 MG IVP (13:52)
[2023-05-23] MEDS: Dextrose 50%-Water 25 GM/50 ML SYR IVP (14:00)
[2023-05-23] MEDS: Normal Saline 500 ML IV (14:02)
[2023-05-23] MEDS: Insulin REGULAR-Human 100 UNITS/ML UNIT 10 UNITS IV (14:48)
[2023-05-23 15:42] LABS: Anion Gap 10.3 mmol/L (3-11); BUN 54 mg/dL (7-18); CO2 27.7 mmol/L (21.0-32.0); CREATININE 1.4 mg/dL (0.70-1.30); Calcium 9.5 mg/dL (8.5-10.1); Chloride 106 mmol/L (98-107); Estimated GFR 51.77 (mL/min/1.73m2); Glucose 67 mg/dL (74-106); Potassium 4.5 mmol/L (3.5-5.1); Sodium 144 mmol/L (136-145)
[2023-05-23 16:03] LABS: Troponin I < 50 ng/L (< or =60)
== END 2023-05-23 17:14 | disposition home or self-care (01) ==
PROVIDERS: Emergency Provider Student in an Organized Health Care Education/Training Program; PCP Family Medicine
DX: R42 Dizziness and giddiness (principal); N17.9 Acute kidney failure, unspecified; E86.0 Dehydration; E87.5 Hyperkalemia; I48.92 Unspecified atrial flutter; E11.40 Type 2 diabetes mellitus with diabetic neuropathy, unspecified; I25.2 Old myocardial infarction; I11.0 Hypertensive heart disease with heart failure; I50.22 Chronic systolic (congestive) heart failure; Z79.84 Long term (current) use of oral hypoglycemic drugs; Z79.85 Long-term (current) use of injectable non-insulin antidiabetic drugs; Z79.01 Long term (current) use of anticoagulants; Z79.82 Long term (current) use of aspirin
CPT/HCPCS: 36415; 80048; 80053; 82805; 93005; 93308; 94640; 96361; 96374; 99285; 71045; 83880; 84443; 84484; 85025; 85610; 85730; 93010; 99284; J0612; J1815; J7613

== ENCOUNTER 2023-05-30 10:07 | Outpatient (CLI) | payer OTHER, SELFPAY ==
[2023-05-30 10:28] LABS: ALT 26 U/L (16-63); AST 18 U/L (15-37); Albumin 3.4 g/dL (3.4-5.0); Alkaline Phosphatase 88 U/L (46-116); Anion Gap 13.5 mmol/L (3-11); BUN 44 mg/dL (7-18); Bilirubin, Total 0.5 mg/dL (0.2-1.0); CO2 23.5 mmol/L (21.0-32.0); CREATININE 1.3 mg/dL (0.70-1.30); Calcium 9.4 mg/dL (8.5-10.1); Chloride 104 mmol/L (98-107); Estimated GFR 56.58 (mL/min/1.73m2); Glucose 138 mg/dL (74-106); Sodium 141 mmol/L (136-145); Total Protein 7.3 g/dL (6.4-8.2)
[2023-05-31 19:44] LABS: COMMENT (LAB VIEW ONLY) 21.44 mg/dL; Microalb ug/mg Crea 13.5 ug/mg Cr
[2023-05-31 19:46] LABS: Calculated LDL 31 mg/dL (<100); Cholesterol 113 mg/dL (<200); HDL Cholesterol 32 mg/dL (40-60); Triglyceride 250 mg/dL (<150)
== END 2023-05-30 10:08 | disposition home or self-care (01) ==
LOC: LBO 10:07
PROVIDERS: PCP Family Medicine; Visit Provider Family Medicine
DX: E11.42 Type 2 diabetes mellitus with diabetic polyneuropathy
CPT/HCPCS: 36415; 80053; 80061; 82043; 82570

== ENCOUNTER 2023-06-01 11:05 | Outpatient (RCR) | payer SELFPAY ==
[2023-05-09 12:41] VITALS: BP 118/59; PULSE 75
[2023-05-16 11:10] VITALS: BP 112/61; PULSE 71
[2023-05-18 11:24] VITALS: BP 97/55; PULSE 81
[2023-05-23 11:14] VITALS: BP 93/54; PULSE 87
[2023-05-25 12:30] VITALS: BP 113/52; PULSE 82
[2023-06-01 11:00] VITALS: BP 107/49; PULSE 69
== END 2023-06-05 23:59 | disposition home or self-care (01) ==
LOC: CR 11:05
PROVIDERS: PCP Family Medicine; Visit Provider Internal Medicine Cardiovascular Disease
DX: R69 Illness, unspecified (principal)

== ENCOUNTER 2023-06-17 03:18 | Emergency (ER) | payer OTHER, SELFPAY ==
[2023-06-17] VITALS (25 sets, daily range): BP systolic 113–156; BP diastolic 49–101; PULSE 59–97; RESP 15–27; TEMP 36.6; O2SAT 90–96
--- NOTE | 2023-06-17 03:15 | RT.EKG_ITS ---
APPROVED REPORT Exam: Resting ECG Reason for Exam: lightheaded Patient Location: E HR:91 bpm ECG Measurements Heart Rate 91 AXIS IA 238 P 3 QRSd 106 QRS -8 QT 354 T 115 QTc 436 Conclusion Sinus rhythm...normal P axis, V-rate 60- 99 Prolonged IA interval...IA >215, V-rate 91-120 Nonspecific T abnormalities, lateral leads...T <-0.10mV, I aVL V5 V6 Physician: no stemi
[2023-06-17 03:40] LABS: Abs Immature Grans 0.15 10^3/uL (0.0-0.06); Absolute Basophil Count 0.04 10^3/uL (0.0-0.2); Absolute Eosinophil Count 0.04 10^3/uL (0.0-0.7); Absolute Lymphocyte Count 1.35 10^3/uL (1.2-3.4); Absolute Monocyte Count 1.03 10^3/uL (0.1-0.8); Absolute Neutrophil Count 6.73 10^3/uL (1.2-6.7); Basophils % 0.4 %; Eosinophils % 0.4 %; HCT 40.2 % (40.0-50.0); HGB 13.3 g/dL (13.5-17.5); Immature Grans % 1.6 %; Lymphocytes % 14.5 %; MCH 30.1 pg (27.0-33.0); MCHC 33.1 % (32.0-36.0); MCV 91 fL (80-95); MPV 9.1 fL (8.0-11.0); Neutrophils % 72.1 %; Platelet Count 172 10^3/uL (130-400); RBC 4.42 10^6/uL (4.36-5.78); RDW 15.4 % (11.8-14.1); RDW-SD 51.5 fL; WBC 9.34 10^3/uL (4.4-10.8)
[2023-06-17 03:44] LABS: ESR 15 mm/hr (0-20)
--- NOTE | 2023-06-17 03:48 | DI.RAD_ITS ---
Exam(s) XR PORTABLE CHEST AP EXAM: XR PORTABLE CHEST AP CLINICAL HISTORY: sob, cough TECHNIQUE: 2D digital imaging was performed of the chest. One image was obtained. An AP view was ob tained. COMPARISON: CR XR PORTABLE CHEST AP from 05/23/2023 FINDINGS: MEDIASTINUM: Normal. HEART: Normal. PULMONARY VASCULATURE: Normal. LUNGS: Clear. PLEURAL SPACE: No pleural effusion or pneumothorax. BONE:Within normal limits for the patient's age. OTHER FINDINGS:Normal. IMPRESSION: No acute pulmonary findings. DATA REPOSITORY: RADIATION DOSE DELIVERED:
[2023-06-17 03:50] LABS: INR 1.1 (0.9-1.1); PTT Activated 28.4 sec (23.6-32.8); Prothrombin Time 11.1 sec (9.1-11.1)
[2023-06-17 03:58] LABS: C-Reactive Protein 9.12 mg/dL (<or=0.5); Magnesium 1.9 mg/dL (1.8-2.4)
[2023-06-17 04:00] LABS: ALT 27 U/L (16-63); AST 18 U/L (15-37); Albumin 3.2 g/dL (3.4-5.0); Alkaline Phosphatase 63 U/L (46-116); Anion Gap 7.8 mmol/L (3-11); BUN 34 mg/dL (7-18); Bilirubin, Total 0.7 mg/dL (0.2-1.0); CO2 28.2 mmol/L (21.0-32.0); CREATININE 1.3 mg/dL (0.70-1.30); Calcium 9.5 mg/dL (8.5-10.1); Chloride 104 mmol/L (98-107); Estimated GFR 56.58 (mL/min/1.73m2); Glucose 137 mg/dL (74-106); NT-proBNP 376 pg/mL (<300); Potassium 4.8 mmol/L (3.5-5.1); Sodium 140 mmol/L (136-145); Total Protein 7.2 g/dL (6.4-8.2)
[2023-06-17 04:17] LABS: D-Dimer 783 ng/mlFEU (<500)
[2023-06-17 04:22] LABS: Procalcitonin 0.1 ng/mL
--- NOTE | 2023-06-17 04:33 | NUR.NOTE ---
Pt placed on care management referral list for a referral to wound care for a wound on the right foot. To be seen as soon as possible.
--- NOTE | 2023-06-17 04:34 | NUR.NOTE ---
Tefla dressing with antibacterial ointment applied between 1st and second toe. PT tolerated well. Nursing Note:
[2023-06-17] MEDS: ceFAZolin 3,000 MG in Normal Saline 100 ML 200 MG IVPB (04:43)
--- NOTE | 2023-06-17 04:53 | W.ED.GENAD ---
Discharge Plan Disposition Patient Disposition: Home Condition: Good Discharge Details Clinical Impression: Cellulitis of leg, right Primary Care Provider: Denita Enriquez ED Provider: Johan Terry Home Meds and New Rx's Prescriptions: New cephalexin 500 mg capsule 500 mg PO QID 7 Days Qty: 28 0RF No Action atorvastatin 10 mg tablet 10 mg PO QHS ropinirole 1 mg tablet 1 mg PO QHS glipizide 10 mg tablet 10 mg PO BID Qty: 180 3RF dulaglutide 4.5 mg/0.5 mL pen injector 4.5 mg subcut QWEEK Qty: 2 5RF Patient Comments: takes on sundays (DME) diabetic shoes See Rx Instructions .Route .MEDSUPPLY Qty: 1 0RF Rx Instructions: As directed - Custom molded diabetic shoes - 1 pair. torsemide 20 mg tablet 40 mg PO DAILY Qty: 180 3RF Rx Instructions: Per [facility] Cardiology. 08/30/22. -hb apixaban 5 mg tablet 5 mg PO BID Qty: 180 3RF empagliflozin 25 mg tablet 25 mg PO QAM Qty: 90 4RF ezetimibe 10 mg tablet 10 mg PO DAILY Qty: 90 3RF Rx Instructions: Per [facility] Cardiology. 08/30/22. -hb tamsulosin 0.4 mg capsule 0.8 mg PO DAILY Entresto 97-103 mg tablet 1 tab PO BID aspirin [Aspir-81] 81 MG tablet,delayed release (DR/EC) 81 mg PO DAILY Qty: 90 (DME) blood-glucose meter [FreeStyle Lite Meter] 1 EACH kit 1 ea Miscellaneous BID Qty: 1 metformin 1,000 mg tablet 1,000 mg PO BID Qty: 180 4RF apple cider vinegar 500 mg tablet 1,000 mg PO DAILY turmeric 100 mg capsule 200 mg PO DAILY metoprolol succinate 100 mg tablet extended release 24 hr 100 mg PO DAILY Qty: 14 3RF (DME) FreeStyle Lite Strips Strip 1 ea Miscellaneous BID Qty: 200 4RF Rx Instructions: 1 twice a day (DME) lancets [FreeStyle Lancets] 28 gauge misc 1 ea Miscellaneous BID Qty: 30 0RF Rx Instructions: One BID spironolactone 25 mg tablet 25 mg PO DAILY Qty: 90 1RF Fish Oil 1 EACH capsule 2,000 mg PO DAILY polyethylene glycol 3350 17 gram Powder In Packet 17 g PO DAILY PRN PRN (Reason: Constipation) Qty: 0 0RF acetaminophen [Tylenol Extra Strength] 500 mg Tablet 1,000 mg PO DAILY Discharge Instructions Instructions: Cellulitis (ED) Additional Instructions: At this time there is evidence of cellulitis on your right johnson. Please take the antibiotic Keflex as directed. Is been sent to your pharmacy on file. Due to your resistance that you have had in the past, if you do not notice any improvement over the next 3 to 4 days and you may need recheck and potential stronger antibiotics. Please follow-up with wound care for the lesion on your toes. In the meantime please bandage it with triple antibiotic every day, and change the bandage twice per day. If you notice any worsening of your symptoms, or any new symptoms such as vomiting, diarrhea, fever, chills, shortness of breath, chest pain, numbness, weakness, or fainting , please return immediately to the emergency department for reevaluation. Please follow up with your primary care provider as soon as possible for reassessment and reevaluation. As always, it was a pleasure participating in your medical care today. Referrals: Denita Enriquez MD [Primary Care Provider] - [facility] General Date/Time Provider Initiated Documentation: 06/17/23 03:23. [facility] Narrative: 77-year-old male with past medical history of PSVT, atrial flutter on apixaban, type 2 diabetes mellitus, hypertension, high cholesterol, obstructive sleep apnea on CPAP, heart failure, who presents today for evaluation of redness on his right leg. Patient does have a chronic wound on his right foot between his great toe and the remaining digit, recently over the last few days this has opened up again. He had been doing well and had graduated from wound care, however symptoms have returned. Additionally he noticed some redness on his anterior johnson over the last 12 hours, and it worsened throughout the day. He denies fever or chills. He does admit to getting slightly lightheaded and dizzy earlier today, but no syncope or headache. No significant cough. Mild chronic shortness of breath. He denies any falls or trauma. He states he has been taking his medications as directed. No other complaints at this time. No other modifying factors. Related Data Home Medications Medication Instructions Recorded Confirmed omega-3 fatty acids-fish oil 340 2,000 mg PO DAILY 01/17/13 06/17/23 mg-1,000 mg capsule (Fish Oil) aspirin 81 mg tablet,delayed 81 mg PO DAILY #90 tab-caps 03/12/15 06/17/23 release (Aspir-) blood-glucose meter (FreeStyle ##1 07/05/16 05/24/23 Lite Meter kit) polyethylene glycol 3350 17 gram 17 g PO DAILY PRN PRN Constipation 03/28/22 06/17/23 oral powder packet #0 ea metformin 1,000 mg tablet 1,000 mg PO BID #180 tab-caps 05/03/22 06/17/23 acetaminophen 500 mg tablet 1,000 mg PO DAILY 08/25/22 06/17/23 (Tylenol Extra Strength) empagliflozin 25 mg tablet 25 mg PO QAM #90 tabs 09/01/22 06/17/23 ezetimibe 10 mg tablet 10 mg PO DAILY #90 tabs 09/01/22 06/17/23 apple cider vinegar 500 mg tablet 1,000 mg PO DAILY 09/07/22 06/17/23 turmeric 100 mg 200 mg PO DAILY 09/07/22 06/17/23 metoprolol succinate 100 mg 100 mg PO DAILY #14 tabs 09/27/22 06/17/23 tablet,extended release 24 hr atorvastatin 10 mg tablet 10 mg PO QHS 10/10/22 06/17/23 glipizide 10 mg tablet 10 mg PO BID #180 tabs 10/10/22 06/17/23 ropinirole 1 mg tablet 1 mg PO QHS 10/10/22 06/17/23 blood sugar diagnostic (FreeStyle #200 strips 10/12/22 05/24/23 Lite Strips) lancets 28 gauge (FreeStyle #30 ea 10/20/22 05/24/23 Lancets) sacubitril 97 mg-valsartan 103 mg 1 tab PO BID decreased EF 02/09/23 06/17/23 tablet (Entresto) tamsulosin 0.4 mg capsule 0.8 mg PO DAILY 02/09/23 06/17/23 apixaban 5 mg tablet 5 mg PO BID #180 tabs 02/28/23 06/17/23 spironolactone 25 mg tablet 25 mg PO DAILY #90 tabs 03/20/23 06/17/23 diabetic shoes #1 ea 05/11/23 05/24/23 dulaglutide 4.5 mg/0.5 mL 4.5 mg (0.5 mL) subcut QWEEK #2 mL 05/11/23 06/17/23 subcutaneous pen injector torsemide 20 mg tablet 40 mg (2 x 20 mg) PO DAILY #180 05/11/23 06/17/23 tabs cephalexin 500 mg capsule 500 mg PO QID 7 days #28 caps 06/17/23 Previous Rx's Medication Instructions Recorded polyethylene glycol 3350 17 gram 17 g PO DAILY PRN PRN Constipation 03/28/22 oral powder packet #0 ea metformin 1,000 mg tablet 1,000 mg PO BID #180 tab-caps 05/03/22 empagliflozin 25 mg tablet 25 mg PO QAM #90 tabs 09/01/22 ezetimibe 10 mg tablet 10 mg PO DAILY #90 tabs 09/01/22 metoprolol succinate 100 mg 100 mg PO DAILY #14 tabs 09/27/22 tablet,extended release 24 hr glipizide 10 mg tablet 10 mg PO BID #180 tabs 10/10/22 blood sugar diagnostic (FreeStyle #200 strips 10/12/22 Lite Strips) lancets 28 gauge (FreeStyle #30 ea 10/20/22 Lancets) apixaban 5 mg tablet 5 mg PO BID #180 tabs 02/28/23 spironolactone 25 mg tablet 25 mg PO DAILY #90 tabs 03/20/23 diabetic shoes #1 ea 05/11/23 dulaglutide 4.5 mg/0.5 mL 4.5 mg (0.5 mL) subcut QWEEK #2 mL 05/11/23 subcutaneous pen injector torsemide 20 mg tablet 40 mg (2 x 20 mg) PO DAILY #180 05/11/23 tabs cephalexin 500 mg capsule 500 mg PO QID 7 days #28 caps 06/17/23 Allergies Allergy/AdvReac Type Severity Reaction Status Date / Time atorvastatin calcium AdvReac INTOLERANCE Verified 06/17/23 03:31 [From Lipitor] General Stated Complaint: GenMedical JOSE: 3 Review of Systems All systems reviewed & are unremarkable except as noted in HPI and below Exam Narrative Exam Narrative: 1.Const: Well-nourished, Well-developed, appearing stated age 2.Eyes: PERRL, no conjunctival injection, and symmetrical lids. 3.ENT: Atraumatic external nose and ears. Moist MM. Neck: Symmetric, trachea midline, No thyromegaly. 4.CVS: +S1/S2, No murmurs or gallops. Peripheral pulses 2+ and equal in all extremities. Brisk capillary refill in all extremities. 5.RESP: Unlabored respiratory effort. Clear to auscultation bilaterally. No wheezes rales or rhonchi 6.GI: Soft, Nontender/Nondistended, No hepatosplenomegaly. No guarding or rebound. 7.MSK: Normocephalic/Atraumatic, Extremities w/o deformity or ttp No cyanosis or clubbing, Normal movement of all extremities 8.Skin: Warm, Dry. Patient's right anterior johnson demonstrates few areas of erythema tenderness on the anterior johnson. Diameter is roughly 3 to 4 cm. No fluctuance or subcutaneous crepitus. No calf tenderness. Between the patient's great toe on the right foot and the remaining digit there does appear to be a chronic wound noted without significant erythema. Minimal crusting is noted. 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 Sensation grossly intact, no focal neurologic deficits. 10.Psych: (AAO) x3. Appropriate mood and affect Course Vital Signs Vital signs: Vital Signs Temperature 36.6 C 06/17/23 03:22 Pulse 95 H 06/17/23 03:22 Respiratory Rate 18 06/17/23 03:22 Blood Pressure 156/56 H 06/17/23 03:22 Pulse Oximetry 94 06/17/23 03:22 Temperature 36.6 C 06/17/23 03:22 Temperature Source Temporal Artery Scan 06/17/23 03:22 Pulse 76 06/17/23 04:31 Pulse 78 06/17/23 04:40 Respiratory Rate 20 06/17/23 04:40 Respiratory Effort Short of Breath 06/17/23 03:26 Blood Pressure 128/59 L 06/17/23 04:31 Blood Pressure Mean 85 06/17/23 04:31 Pulse Oximetry 93 06/17/23 04:40 Oxygen Delivery Method Room Air 06/17/23 03:22 Oxygen Flow Rate 0 06/17/23 03:22 Pain Level 0 06/17/23 03:22 Lab/Test Results Lab/Test Results: Laboratory Tests Range/Units 06/17/23 03:30 WBC (4.4-10.8) 10^3/uL 9.34 RBC (4.36-5.78) 10^6/uL 4.42 Hgb (13.5-17.5) g/dL 13.3 L Hct (40.0-50.0) % 40.2 MCV (80-95) fL 91 MCH (27.0-33.0) pg 30.1 MCHC (32.0-36.0) % 33.1 RDW (11.8-14.1) % 15.4 H Plt Count (130-400) 10^3/uL 172 MPV (8.0-11.0) fL 9.1 Immature Gran % % 1.6 Neutrophils % % 72.1 Lymphocytes % % 14.5 Monocytes % % 11.0 Eosinophils % % 0.4 Basophils % % 0.4 Nucleated RBC % (0.0-0.3) % 0.0 Absolute Neutrophils (1.2-6.7) 10^3/uL 6.73 H Absolute Lymphocytes (1.2-3.4) 10^3/uL 1.35 Absolute Monocytes (0.1-0.8) 10^3/uL 1.03 H Absolute Eosinophils (0.0-0.7) 10^3/uL 0.04 Absolute Basophils (0.0-0.2) 10^3/uL 0.04 ESR (0-20) mm/hr 15 PT (9.1-11.1) sec 11.1 INR (0.9-1.1) 1.1 APTT (23.6-32.8) sec 28.4 D-Dimer (<500) ng/mlFEU 783 H Sodium (136-145) mmol/L 140 Potassium (3.5-5.1) mmol/L 4.8 Chloride (98-107) mmol/L 104 Carbon Dioxide (21.0-32.0) mmol/L 28.2 Anion Gap (3-11) mmol/L 7.8 BUN (7-18) mg/dL 34 H Creatinine (0.70-1.30) mg/dL 1.3 Est GFR (CKD-EPI 2020) (mL/min/1.73m2) 56.58 Glucose (74-106) mg/dL 137 H Calcium (8.5-10.1) mg/dL 9.5 Magnesium (1.8-2.4) mg/dL 1.9 Total Bilirubin (0.2-1.0) mg/dL 0.7 AST (15-37) U/L 18 ALT (16-63) U/L 27 Alkaline Phosphatase (46-116) U/L 63 C-Reactive Protein (<or=0.5) mg/dL 9.12 H NT-Pro-B Natriuret Pep (<300) pg/mL 376 H Total Protein (6.4-8.2) g/dL 7.2 Albumin (3.4-5.0) g/dL 3.2 L Procalcitonin ng/mL 0.1 Medical Decision Making 77-year-old male with past medical history of PSVT, atrial flutter on apixaban, type 2 diabetes mellitus, hypertension, high cholesterol, obstructive sleep apnea on CPAP, heart failure, who presents today for evaluation of redness on his right leg. Patient does have a chronic wound on his right foot between his great toe and the remaining digit, recently over the last few days this has opened up again. He had been doing well and had graduated from wound care, however symptoms have returned. Additionally he noticed some redness on his anterior johnson over the last 12 hours, and it worsened throughout the day. He denies fever or chills. He does admit to getting slightly lightheaded and dizzy earlier today, but no syncope or headache. No significant cough. Mild chronic shortness of breath. He denies any falls or trauma. He states he has been taking his medications as directed. No other complaints at this time. No other modifying factors. Exam demonstrates relatively well-appearing male, vital signs stable, mild erythema on the anterior aspect of the right lower johnson, suggestive of cellulitis. No fluctuance or abscess to suggest necrotizing fasciitis, abscess, or other concerning skin lesion. DVT is notably less likely given his anticoagulant use, but is of concern. Additionally electrolyte abnormality, cardiac abnormality, or atypical fluid status is of concern for his other symptoms. Will evaluate for these etiologies, monitor closely and reassess. 5 AM Laboratory workup demonstrates no white count bandemia or left shift, stable electrolytes, improving renal function, CRP minimally elevated, proBNP stable, procalcitonin minimally elevated at 0.1. Chest x-ray read as negative per radiology. EKG is unremarkable. Patient continues to demonstrate stable vital signs. No evidence of sepsis, significant fluid abnormality, pneumonia, or other significant abnormality. Limited bedside ultrasound was performed and shows no evidence of DVT. Will treat the patient's cellulitis with 3 g dose of Ancef here, and Keflex for home use. Will redress the new wound by his great toe and schedule referral for wound care. Discussed all of this with the patient and his daughter Mary. Patient stable for discharge. I have extensively reviewed the treatment plan and discharge instructions with the patient and their family. I have addressed all patient concerns at this time. The patient and family was made aware of what symptoms to monitor for that would warrant a return to the emergency department. Discussed the plan with the patient and family, they demonstrate verbal understanding and agreement with our assessment and plan at this time. The documentation in this chart was dictated using [employer] dictation software. Please excuse any dictation errors. FINDINGS: Lungs: Unremarkable. No consolidation. Pleural spaces: Unremarkable. No pleural effusion. No pneumothorax. Heart/Mediastinum: Unremarkable. No cardiomegaly. Bones/joints: Unremarkable. IMPRESSION: No acute findings. Thank you for allowing us to participate in the care of your patient. Dictated and Authenticated by: Ronal Vogel MD 06/17/2023 4:59 AM Eastern Time ([place] & [place]) Quality:SDOH Health Related Social Needs: No Data to Display PFSH All Active Problems (Updated 06/17/23 @ 05:14 by Johan Terry DO) Cellulitis of leg, right (Acute) Acute hyperkalemia (Acute) Dehydration (Acute) Acute kidney injury (Acute) H/O long-term (current) use of anticoagulants (Acute) Type 2 diabetes mellitus with neurologic complication, without long-term current use of insulin (Acute) Chronic HFrEF (heart failure with reduced ejection fraction) (Acute) Inguinal hernia (Acute) Carotid artery stenosis (Acute 04/2021) right moderate plaque <70% stenosis Peripheral vascular disease (Chronic) Diabetic neuropathy (Chronic) Right knee pain (Chronic) uses a cane BPH w urinary obs/LUTS (Chronic) Essential hypertension (Chronic) Fatty liver (Chronic 08/04/16) Generalized osteoarthrosis (Chronic) knees; R>L Hyperlipidemia (Chronic) Type IV Morbid obesity (Chronic) Obstructive sleep apnea, adult (Chronic) C-PAP Spondylolisthesis (Chronic) L5-S1 Medical History NSTEMI (non-ST elevated myocardial infarction) (08/2022) 08/29/22 [facility] Cardiology. Cath with no flow-limiting CAD. Atrial flutter (08/2022) s/p ablation 08/2022 PSVT (paroxysmal supraventricular tachycardia) MRSA infection (09/03/15) Tubular adenoma 07/24/14 DR. ALLEN X 3 Umbilical hernia Repaired Venous stasis ulcers of both lower extremities (03/09/16) Surgical History H/O cardiac catheterization 08/26/22 at [facility]. -hb S/P ablation of atrial flutter 08/23/2022. -hb Amputation of toe of right foot 04/08/20 - Right second toe ([facility]) History of open reduction and internal fixation (ORIF) procedure (2013) Status post appendectomy Family History Mother , age 78 Cancer Father , age 70 Heart disease Cancer Sister Essential hypertension Hyperlipidemia Breast cancer Brother Essential hypertension Skin cancer Brother Diabetes Essential hypertension Heart disease Hyperlipidemia Alcohol abuse Substance abuse Cancer Maternal Grandfather Heart disease Paternal Grandfather No problems noted. Maternal Grandmother Diabetes Essential hypertension Paternal Grandmother Heart disease Son Essential hypertension Heart disease Hyperlipidemia Daughter No problems noted. Daughter No problems noted. 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 Pets and animals: Yes Pets and animals: cat(s) and dog(s) Sexually active: No Do you think of yourself as: straight/heterosexual Current gender identity: male What is your relationship status?: How often do you talk on the phone with friends or family?: three or more times per week How often do you get together with friends or relatives?: once per week How often do you attend buddhism or restorationism services?: 4 or more times per year Do you belong to any clubs or organized social groups?: no Panel score (0-1 are the most socially isolated patients): 2 What type of physical activity do you participate in: none Frequency: does not exercise Mally/Orthodox: Tenriism Special mally needs: No Seatbelt use: sometimes Helmet use: No Drive intox or 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 charter driver: No Do you feel safe at home: Yes Do you feel safe in your relationship?: Yes POCUS Exam (ED) Limited Vascular Exam DATE OF EXAM: 06/17/23 TIME OF EXAM: 05:49 PROVIDER THAT PERFORMED THE STUDY: Johan Terry IS THIS A REPEAT EXAM DURING THIS ENCOUNTER: No Vascular Exam: Right lower extremity REASON FOR EXAM: Concern for DVT right lower extremity VISUALIZED STRUCTURES: Right common femoral vein, Right popliteal vein, Right superficial femoral vein and Right greater saphenous vein PERTINENT FINDINGS/IMPRESSION: No apparent abnormalities Exam Complete
--- NOTE | 2023-06-17 05:00 | DI.VRAD_ITS ---
PROCEDURE INFORMATION: Exam: XR Chest Exam date and time: 06/17/2023 3:43 AM Age: 77 years old Clinical indication: Cough and shortness of breath; Patient HX: SOB, cough TECHNIQUE: Imaging protocol: Radiologic exam of the chest. Views: 1 view. COMPARISON: CR XR PORTABLE CHEST AP 05/23/2023 12:58 PM FINDINGS: Lungs: Unremarkable. No consolidation. Pleural spaces: Unremarkable. No pleural effusion. No pneumothorax. Heart/Mediastinum: Unremarkable. No cardiomegaly. Bones/joints: Unremarkable. IMPRESSION: No acute findings. Dictated and Authenticated by: Ronal Vogel MD. Ordering:EUGENIO Prado MD
== END 2023-06-17 05:32 | disposition home or self-care (01) ==
PROVIDERS: Emergency Provider Student in an Organized Health Care Education/Training Program; PCP Family Medicine
DX: L03.115 Cellulitis of right lower limb (principal); E11.628 Type 2 diabetes mellitus with other skin complications; I10 Essential (primary) hypertension; R42 Dizziness and giddiness
CPT/HCPCS: 36415; 80053; 84145; 85652; 93005; 93971; 96365; 99284; 71045; 83735; 83880; 85025; 85379; 85610; 85730; 86140; 93010; 99283; J0690

== ENCOUNTER 2023-06-22 11:23 | Outpatient (RCR) | payer SELFPAY ==
[2023-06-06 11:12] VITALS: BP 106/57; PULSE 64; O2SAT 88
[2023-06-08 15:03] VITALS: BP 109/59; PULSE 62
[2023-06-13 11:00] VITALS: BP 113/59; PULSE 73; O2SAT 89
[2023-06-22 11:32] VITALS: BP 115/60; PULSE 85
== END 2023-07-06 23:59 | disposition home or self-care (01) ==
LOC: CR 11:23
PROVIDERS: PCP Family Medicine; Visit Provider Internal Medicine Cardiovascular Disease
DX: R69 Illness, unspecified (principal)

== ENCOUNTER 2023-08-10 08:14 | Outpatient (CLI) | payer OTHER, SELFPAY ==
[2023-08-10 12:56] LABS: Abs Immature Grans 0.04 10^3/uL (0.0-0.06); Absolute Basophil Count 0.07 10^3/uL (0.0-0.2); Absolute Lymphocyte Count 1.58 10^3/uL (1.2-3.4); Absolute Monocyte Count 0.55 10^3/uL (0.1-0.8); Absolute Neutrophil Count 5.09 10^3/uL (1.2-6.7); Basophils % 0.9 %; Eosinophils % 1.3 %; HGB 14.6 g/dL (13.5-17.5); Immature Grans % 0.5 %; Lymphocytes % 21.3 %; MCH 29.8 pg (27.0-33.0); MCHC 31.7 % (32.0-36.0); MCV 94 fL (80-95); MPV 9.7 fL (8.0-11.0); Monocytes % 7.4 %; Neutrophils % 68.6 %; Platelet Count 199 10^3/uL (130-400); RDW 14.7 % (11.8-14.1); RDW-SD 51.3 fL; WBC 7.43 10^3/uL (4.4-10.8)
[2023-08-10 13:52] LABS: Hemoglobin A1C 6.4 % (<5.7)
[2023-08-10 13:56] LABS: ALT 25 U/L (16-63); AST 18 U/L (15-37); Albumin 3.8 g/dL (3.4-5.0); Alkaline Phosphatase 77 U/L (46-116); Anion Gap 11.7 mmol/L (3-11); BUN 29 mg/dL (7-18); Bilirubin, Total 0.58 mg/dL (0.2-1.0); CO2 25.3 mmol/L (21.0-32.0); CREATININE 1.1 mg/dL (0.70-1.30); Calcium 9.6 mg/dL (8.5-10.1); Chloride 106 mmol/L (98-107); Estimated GFR 69.14 (mL/min/1.73m2); Glucose 160 mg/dL (74-106); Potassium 4.6 mmol/L (3.5-5.1); Sodium 143 mmol/L (136-145); Total Protein 7.6 g/dL (6.4-8.2); Vitamin B12 300 pg/mL (193-986)
== END 2023-08-10 08:15 | disposition home or self-care (01) ==
LOC: LOS 08:14
PROVIDERS: PCP Family Medicine; Visit Provider Family Medicine
DX: E11.42 Type 2 diabetes mellitus with diabetic polyneuropathy (principal); Z92.29 Personal history of other drug therapy; Z00.00 Encounter for general adult medical examination without abnormal findings; R73.01 Impaired fasting glucose
CPT/HCPCS: 36415; 80053; 82607; 83036; 85025

== ENCOUNTER 2023-11-05 03:31 | Outpatient (CLI) | payer OTHER, SELFPAY ==
[2023-11-05 10:49] LABS: Hemoglobin A1C 6.2 % (<5.7)
[2023-11-05 10:57] LABS: ALT 25 U/L (16-63); AST 18 U/L (15-37); Albumin 3.5 g/dL (3.4-5.0); Alkaline Phosphatase 102 U/L (46-116); Anion Gap 8.4 mmol/L (3-11); BUN 31 mg/dL (7-18); Bilirubin, Total 0.41 mg/dL (0.2-1.0); CO2 28.6 mmol/L (21.0-32.0); CREATININE 1.3 mg/dL (0.70-1.30); Calcium 9.5 mg/dL (8.5-10.1); Calculated LDL 25 mg/dL (<100); Chloride 104 mmol/L (98-107); Cholesterol 108 mg/dL (<200); Estimated GFR 56.58 (mL/min/1.73m2); Glucose 156 mg/dL (74-106); HDL Cholesterol 32 mg/dL (40-60); Potassium 4.5 mmol/L (3.5-5.1); Sodium 141 mmol/L (136-145); Total Protein 7.2 g/dL (6.4-8.2); Triglyceride 256 mg/dL (<150)
== END 2023-11-05 03:32 | disposition home or self-care (01) ==
LOC: LBO 03:31
PROVIDERS: PCP Family Medicine; Visit Provider Family Medicine
DX: E11.42 Type 2 diabetes mellitus with diabetic polyneuropathy
CPT/HCPCS: 36415; 80053; 80061; 83036

== ENCOUNTER 2024-03-24 01:13 | Outpatient (CLI) | payer OTHER, SELFPAY ==
--- NOTE | 2024-03-24 06:45 | DI.RAD_ITS ---
Exam(s) XR ANKLE RT COMPLETE EXAM: XR ANKLE RT COMPLETE CLINICAL HISTORY: Right ankle pain,h/o open reduction,internal fixation,Z98.890,M25.571. TECHNIQUE: 2D digital imaging was performed of the right ankle. Three images were obtained. AP, la teral and oblique views were obtained. COMPARISON: CR RIGHT TIB/FIB from 01/31/2013 CR RIGHT ANKLE COMPLETE from 01/31/2013 CR,XR XR FOOT RT COMPLETE from 03/23/2022 CR XR FOOT RT COMPLETE from 02/09/2023 FINDINGS: BONES: No acute fracture is present. No bony destructive lesion is seen. There again seen 2 partiall y threaded screws in the medial malleolus and an intramedullary vamshi in the right fibula. The orthope dic hardware appears intact. There well corticated osseous densities at the tip of the medial malleo fred which are chronic. There is a plantar calcaneal spur and a tiny enthesophyte at the posterior ca lcaneus. JOINTS: The ankle mortise is normally aligned. SOFT TISSUE: Calcifications are seen in the soft tissues. IMPRESSION: No acute abnormality. Stable postsurgical changes are seen in the distal tibia and fibula. DATA REPOSITORY: RADIATION DOSE DELIVERED:
== END 2024-03-24 01:33 ==
LOC: DI 01:13
PROVIDERS: PCP Family Medicine; Visit Provider Family Medicine
DX: Z98.890 Other specified postprocedural states (principal); M25.571 Pain in right ankle and joints of right foot
CPT/HCPCS: 73610

== ENCOUNTER 2024-07-04 00:49 | Outpatient (CLI) | payer OTHER, SELFPAY ==
[2024-07-04 12:37] LABS: Hemoglobin A1C 6.8 % (<5.7)
[2024-07-04 12:42] LABS: ALT 22 U/L (16-63); AST 18 U/L (15-37); Albumin 3.7 g/dL (3.4-5.0); Alkaline Phosphatase 77 U/L (46-116); Anion Gap 11.3 mmol/L (3-11); BUN 54 mg/dL (7-18); Bilirubin, Total 0.7 mg/dL (0.2-1.0); CO2 25.7 mmol/L (21.0-32.0); CREATININE 1.5 mg/dL (0.70-1.30); Calcium 9.5 mg/dL (8.5-10.1); Calculated LDL 22 mg/dL (<100); Chloride 103 mmol/L (98-107); Cholesterol 95 mg/dL (<200); Estimated GFR 47.36 (mL/min/1.73m2); Glucose 143 mg/dL (74-106); HDL Cholesterol 31 mg/dL (>or=40); Potassium 4.4 mmol/L (3.5-5.1); Sodium 140 mmol/L (136-145); Triglyceride 213 mg/dL (<150)
[2024-07-04 13:46] LABS: Microalb ug/mg Crea 130.1 ug/mg Cr
== END 2024-07-04 00:50 | disposition home or self-care (01) ==
LOC: LOS 00:50
PROVIDERS: PCP Family Medicine; Visit Provider Family Medicine
DX: E11.42 Type 2 diabetes mellitus with diabetic polyneuropathy
CPT/HCPCS: 36415; 80053; 80061; 82043; 82570; 83036

== ENCOUNTER 2024-09-05 08:47 | Emergency (ER) | payer OTHER, SELFPAY ==
[2024-09-05 08:51] VITALS: BP 153/61; PULSE 67; RESP 18; TEMP 36.6; O2SAT 96
[2024-09-05 09:21] VITALS: BP 130/55; PULSE 55; O2SAT 97
--- NOTE | 2024-09-05 09:22 | W.ED.GENAD ---
Discharge Plan Disposition Patient Disposition: Home Condition: Good Discharge Details Clinical Impression: Lumbar radiculopathy, acute Primary Care Provider: Denita Enriquez ED Provider: Hilda Moya Home Meds and New Rx's Prescriptions: New methocarbamol 750 mg tablet 750 mg PO Q8H Qty: 10 0RF Continued (DME) diabetic shoes See Rx Instructions .Route .MEDSUPPLY Qty: 1 0RF Rx Instructions: As directed - Custom molded diabetic shoes - 1 pair. dulaglutide 4.5 mg/0.5 mL pen injector 4.5 mg subcut QWEEK Qty: 6 5RF Patient Comments: takes on sundays ropinirole 1 mg tablet 1 mg PO QHS Qty: 90 4RF atorvastatin 10 mg tablet 10 mg PO QHS Qty: 90 3RF (DME) blood-glucose meter [FreeStyle Lite Meter] Kit 1 ea Miscellaneous BID Qty: 1 0RF Rx Instructions: As directed torsemide 10 mg tablet See Rx Instructions PO DAILY Rx Instructions: 20mg alternating with 10mg orally daily; aspirin [Aspir-81] 81 MG tablet,delayed release (DR/EC) 81 mg PO DAILY Qty: 90 apple cider vinegar 500 mg tablet 1,000 mg PO DAILY turmeric 100 mg capsule 200 mg PO DAILY (DME) lancets [FreeStyle Lancets] 28 gauge misc 1 ea Miscellaneous BID Qty: 30 0RF Rx Instructions: One BID metoprolol succinate 100 mg tablet extended release 24 hr 100 mg PO DAILY Qty: 90 3RF empagliflozin 25 mg tablet 25 mg PO QAM Qty: 90 4RF spironolactone 25 mg tablet 25 mg PO DAILY Qty: 90 3RF Entresto 97-103 mg tablet 1 tab PO BID Qty: 180 3RF apixaban 5 mg tablet 5 mg PO BID Qty: 60 0RF tamsulosin 0.4 mg capsule 0.8 mg PO DAILY Qty: 180 2RF ezetimibe 10 mg tablet 10 mg PO DAILY Qty: 90 2RF Rx Instructions: Per [facility] [place] Cardiology. 08/30/22. -hb (DME) FreeStyle Lite Strips Strip 1 ea Miscellaneous BID Qty: 200 3RF Rx Instructions: 1 twice a day Fish Oil 1 EACH capsule 2,000 mg PO DAILY polyethylene glycol 3350 17 gram Powder In Packet 17 g PO DAILY PRN PRN (Reason: Constipation) Qty: 0 0RF metformin 1,000 mg tablet 500 mg PO DAILY acetaminophen [Tylenol Extra Strength] 500 mg Tablet 1,000 mg PO DAILY Discharge Instructions Instructions: Radiculopathy (DC) Additional Instructions: Please call your primary care provider's office to schedule follow-up appointment early next week for reevaluation. A referral to physical therapy may be helpful Your symptoms are most consistent with L3 radiculopathy, that is nerve pain from the lower back likely related to your fall. There were no fractures or bony abnormalities noted on x-ray other than degenerative/arthritis changes You may use tylenol 650 mg every 8 hours as needed for pain control. Lidocaine patches, heat/ice (not to be used over lidocaine patches), and gentle massage/stretching may also be helpful. Return to emergency care if you develop fevers associated with back pain, numbness in your underwear area, change in bowel/bladder function (inability to empty bladder, loss of bladder/bowel control), leg weakness or numbness, or if you are very worried and need to be rechecked again immediately. Referrals: Denita Enriquez MD [Primary Care Provider, Medicine] Discharge Data Discharge Date/Time-TO BE ENTERED AT DEPARTURE: 09/05/24 11:50 HPI General Date/Time Provider Initiated Documentation: 09/05/24 08:47. HPI Narrative: Sukhjinder is a 78-year-old male who presents to the emergency department for evaluation of right lower back pain that wraps around from the hip down the front of his leg to the medial knee. Back pain extends to the front of the leg, originating from the hip, began a week ago after a fall while stacking wood; reports he fell onto his right side on the ground, denies head injury. Reports that this is an aching pain on the front of his leg, like muscle discomfort, worsens with standing or movement, says he is able to get comfortable at rest with certain positions. This is accompanied by some medial knee numbness. No history of similar pain, has had sciatic pain in the past, but says that was a burning pain down the side of the leg. Denies associated fever, chills, nausea, vomiting, chest pain, difficulty breathing, change in bowel or bladder function, hematuria, saddle anesthesia. Regular bowel movements, ongoing diarrhea managed by PCP, possibly due to Trulicity after metformin dose adjustment. Uses walker for mobility. Tylenol, ibuprofen, muscle rubs, massager, arthritis cream ineffective for pain. PMH significant for: T2DM, carotid artery stenosis, diabetic neuropathy, BPH, HTN, HLD, obesity, ISAAC, CHF PAST SURGICAL HISTORY: Knee surgery and lumbar spine fusion at L4-L5 at age 15. Related Data Home Medications ?Medication ?Instructions ?Recorded ?Confirmed omega-3 fatty acids-fish oil 340 2,000 mg PO DAILY 01/17/13 09/05/24 mg-1,000 mg capsule (Fish Oil) aspirin 81 mg tablet,delayed 81 mg PO DAILY #90 tab-caps 03/12/15 09/05/24 release (Aspir-) polyethylene glycol 3350 17 gram 17 g PO DAILY PRN PRN Constipation 03/28/22 09/05/24 oral powder packet #0 ea acetaminophen 500 mg tablet 1,000 mg PO DAILY 08/25/22 09/05/24 (Tylenol Extra Strength) apple cider vinegar 500 mg tablet 1,000 mg PO DAILY 09/07/22 09/05/24 turmeric 100 mg 200 mg PO DAILY 09/07/22 09/05/24 lancets 28 gauge (FreeStyle #30 ea 10/20/22 09/05/24 Lancets) diabetic shoes #1 ea 05/11/23 09/05/24 empagliflozin 25 mg tablet 25 mg PO QAM #90 tabs 10/12/23 09/05/24 metoprolol succinate 100 mg 100 mg PO DAILY #90 tabs 10/12/23 09/05/24 tablet,extended release 24 hr atorvastatin 10 mg tablet 10 mg PO QHS #90 tabs 11/09/23 09/05/24 dulaglutide 4.5 mg/0.5 mL 4.5 mg (0.5 mL) subcut QWEEK #6 mL 11/09/23 09/05/24 subcutaneous pen injector ropinirole 1 mg tablet 1 mg PO QHS #90 tabs 11/09/23 09/05/24 spironolactone 25 mg tablet 25 mg PO DAILY #90 tabs 11/19/23 09/05/24 sacubitril 97 mg-valsartan 103 mg 1 tab PO BID decreased EF #180 tabs 12/23/24 08/01/25 tablet (Entresto) blood-glucose meter (FreeStyle #1 ea 03/05/24 09/05/24 Lite Meter kit) apixaban 5 mg tablet 5 mg PO BID #60 tabs 03/25/24 09/05/24 ezetimibe 10 mg tablet 10 mg PO DAILY #90 tabs 06/02/24 09/05/24 tamsulosin 0.4 mg capsule 0.8 mg (2 x 0.4 mg) PO DAILY #180 06/02/24 09/05/24 caps blood sugar diagnostic (FreeStyle #200 strips 06/16/24 09/05/24 Lite Strips) torsemide 10 mg tablet See Rx Instructions PO DAILY 08/22/24 09/05/24 metformin 1,000 mg tablet 500 mg PO DAILY 09/05/24 09/05/24 methocarbamol 750 mg tablet 750 mg PO Q8H #10 tabs 09/05/24 Previous Rx's ?Medication ?Instructions ?Recorded polyethylene glycol 3350 17 gram 17 g PO DAILY PRN PRN Constipation 03/28/22 oral powder packet #0 ea lancets 28 gauge (FreeStyle #30 ea 10/20/22 Lancets) diabetic shoes #1 ea 05/11/23 empagliflozin 25 mg tablet 25 mg PO QAM #90 tabs 10/12/23 metoprolol succinate 100 mg 100 mg PO DAILY #90 tabs 10/12/23 tablet,extended release 24 hr atorvastatin 10 mg tablet 10 mg PO QHS #90 tabs 11/09/23 dulaglutide 4.5 mg/0.5 mL 4.5 mg (0.5 mL) subcut QWEEK #6 mL 11/09/23 subcutaneous pen injector ropinirole 1 mg tablet 1 mg PO QHS #90 tabs 11/09/23 spironolactone 25 mg tablet 25 mg PO DAILY #90 tabs 11/19/23 sacubitril 97 mg-valsartan 103 mg 1 tab PO BID decreased EF #180 tabs 01/28/24 tablet (Entresto) blood-glucose meter (FreeStyle #1 ea 03/05/24 Lite Meter kit) apixaban 5 mg tablet 5 mg PO BID #60 tabs 02/18/25 ezetimibe 10 mg tablet 10 mg PO DAILY #90 tabs 06/02/24 tamsulosin 0.4 mg capsule 0.8 mg (2 x 0.4 mg) PO DAILY #180 06/02/24 caps blood sugar diagnostic (FreeStyle #200 strips 06/16/24 Lite Strips) methocarbamol 750 mg tablet 750 mg PO Q8H #10 tabs 09/05/24 Allergies Allergy/AdvReac Type Severity Reaction Status Date / Time atorvastatin calcium (From AdvReac INTOLERANCE Verified 09/05/24 08:57 Lipitor) General Stated Complaint: Orthopedic JOSE: 3 Exam Narrative Exam Narrative: General Appearance: Normal. Vital signs: Within normal limits. Gastrointestinal: Abdomen nondistended, nontender to palpation, no rigidity or guarding. Back, Musculoskeletal: Diffuse tenderness to palpation of lumbar spine, patient says is unchanged from baseline. No step-off/deformity/point tenderness. No significant paraspinal tenderness. No CVA tenderness. Extremities: Pain on palpation and movement of right medial knee. No pain on palpation of right quadriceps. Full painless range of motion to hip. Skin: Warm and dry, no rash, color change, coolness. Lateral hemosiderin staining noted to lower extremities Neurological: Sensation intact in lower extremities. Mild numbness in left knee. 5/5 muscle strength to lower extremities. Able to ambulate with walker (per baseline) Psychiatric: Normal. Course Vital Signs Vital signs: Vital Signs Temperature 36.6 C 09/05/24 08:51 Pulse 67 09/05/24 08:51 Respiratory Rate 18 09/05/24 08:51 Blood Pressure 153/61 H 09/05/24 08:51 Pulse Oximetry 96 09/05/24 08:51 Temperature 36.6 C 09/05/24 08:51 Temperature Source Oral 09/05/24 08:51 Pulse 67 09/05/24 08:51 Respiratory Rate 18 09/05/24 08:51 Blood Pressure 153/61 H 09/05/24 08:51 Blood Pressure Position Supine 09/05/24 08:51 Pulse Oximetry 96 09/05/24 08:51 Oxygen Delivery Method Room Air 09/05/24 08:51 Oxygen Flow Rate 0 09/05/24 08:51 Pain Level 8 09/05/24 08:51 Medical Decision Making Initial Assessment: 78-year-old male with back and leg pain starting at the hip, radiating down the front of the leg, described as burning pain. Pain began a week ago after a fall. Knee numbness post-fall. Pain worsens with movement, somewhat alleviated by heating pad and massager. Differential Diagnosis includes but is not limited to lumbar radiculopathy (distribution is consistent with L3 radiculopathy), vertebral fracture, hip fracture or bony abnormality of knee less likely. No red flags concerning for cauda equina/spinal cord compressive syndromes, spinal epidural abscess, or other serious etiologies of back pain. ED Course: - History and physical examination performed. - Pain management discussed. - X-rays performed, no acute abnormalities noted On the emergency department Edward received a lidocaine patch and Robaxin for muscle cramps/radiculopathy. He felt significantly better, was able to ambulate without difficulty. Final Assessment: Back and leg pain started after a fall, radiates down the front of the leg. Pain management includes heating pad and massager. Knee numbness post-fall. Clinical Impression: - Lumbar radiculopathy Disposition: Discharge: Home. Recommend close follow-up with PCP, including PT referral. Limited course of Robaxin prescribed. Return precautions include worsening pain, new numbness, or inability to walk. Follow-Up: Primary care physician for management of lower back pain/radiculopathy. Physical therapy for back and leg pain. Patient Education: Discussed pain management strategies including heating pad, massager, and rest. Patient consented to the use of [facility] Imaging Data Radiologic Study: Radiologist's impression: Exam(s) XR KNEE RT 4V AP,LAT,FLAVIA,PAT EXAM: XR KNEE RT 4V AP,LAT,FLAVIA,PAT CLINICAL HISTORY: R hip/upper leg/knee pain. TECHNIQUE: 2D digital imaging was performed. COMPARISON: CR,XR XR KNEE RT 4V AP,LAT,FLAVIA,PAT from 06/14/2022 FINDINGS: Four views. There is no evidence of acute fracture or obvious joint effusion. Again noted is an advanced narrowing of the medial compartment and chondrocalcinosis. Lateral compartment exhibits relatively maintained height. There are moderate degenerative changes in the patellofemoral compartment. There is also lung truly orientated calcification within the distal quadriceps tendon just above the superior pole the patella,, previously present. No obvious loose intra-articular bodies. IMPRESSION: Advanced degenerative changes in the knee, similar to previous. No obvious joint effusion. Radiologic Study #2: Radiologist's impression: Exam(s) XR LUMBAR SPINE COMPLETE EXAM: XR LUMBAR SPINE COMPLETE CLINICAL HISTORY: R sided leg pain. TECHNIQUE: 2D digital imaging was performed. COMPARISON: No exams were available for comparison FINDINGS: Five views There is sacralization of the L5 segment. No evidence of acute fracture. IMPRESSION: No acute fractures evident. Radiologic Study #3: Radiologist's impression: Exam(s) XR HIP RT COMPLETE AP PELVIS EXAM: XR HIP RT COMPLETE AP PELVIS CLINICAL HISTORY: R lower back/leg pain. TECHNIQUE: 2D digital imaging was performed. COMPARISON: No exams were available for comparison FINDINGS: 3 views No evidence of pelvic nor obvious hip fractures. No significant hip joint space narrowing. SI joints appear unremarkable. IMPRESSION: No acute osseous findings in the pelvis and hips. PFSH All Active Problems (Updated 09/05/24 @ 11:13 by Hilda Harper) Lumbar radiculopathy, acute (Acute) Osteoarthritis of right knee (Acute) DEPO MEDROL 07/14/24 Ulnar neuropathy at wrist (Acute ~03/05/24) H/O long-term (current) use of anticoagulants (Chronic) Type 2 diabetes mellitus with neurologic complication, without long-term current use of insulin (Chronic) Chronic HFrEF (heart failure with reduced ejection fraction) (Chronic) Inguinal hernia (Chronic) Carotid artery stenosis (Chronic 04/2021) right moderate plaque <70% stenosis Peripheral vascular disease (Chronic) Diabetic neuropathy (Chronic) Right knee pain (Chronic) uses a cane BPH w urinary obs/LUTS (Chronic) Essential hypertension (Chronic) Fatty liver (Chronic 08/04/16) Generalized osteoarthrosis (Chronic) knees; R>L Hyperlipidemia (Chronic) Type IV Morbid obesity (Chronic) Obstructive sleep apnea, adult (Chronic) C-PAP Spondylolisthesis (Chronic) L5-S1 Medical History NSTEMI (non-ST elevated myocardial infarction) (08/2022) 08/29/22 [facility] [place] Cardiology. Cath with no flow-limiting CAD. Atrial flutter (08/2022) s/p ablation 08/2022 PSVT (paroxysmal supraventricular tachycardia) MRSA infection (09/03/15) Tubular adenoma 07/24/14 DR. ALLEN X 3 Umbilical hernia Repaired Venous stasis ulcers of both lower extremities (03/09/16) Surgical History H/O cardiac catheterization 08/26/22 at [facility] [place]. -hb S/P ablation of atrial flutter 08/23/2022. -hb Amputation of toe of right foot 04/08/20 - Right second toe ([facility]) History of open reduction and internal fixation (ORIF) procedure (2013) Status post appendectomy Family History (Updated 08/10/23 @ 07:51 by Denita Enriquez MD) Mother , age 78 Cancer Father , age 70 Heart disease Cancer Sister Essential hypertension Hyperlipidemia Breast cancer Brother Essential hypertension Skin cancer Heart disease Brother Diabetes Essential hypertension Heart disease Hyperlipidemia Alcohol abuse Substance abuse Cancer Maternal Grandfather Heart disease Paternal Grandfather No problems noted. Maternal Grandmother Diabetes Essential hypertension Paternal Grandmother Heart disease Son Essential hypertension Heart disease Hyperlipidemia Daughter No problems noted. Daughter No problems noted. 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 Pets and animals: Yes Pets and animals: cat(s) and dog(s) Sexually active: No Do you think of yourself as: straight/heterosexual Current gender identity: male What is your relationship status?: How often do you talk on the phone with friends or family?: three or more times per week How often do you get together with friends or relatives?: once per week How often do you attend methodist or baptism services?: 4 or more times per year Do you belong to any clubs or organized social groups?: no Panel score (0-1 are the most socially isolated patients): 2 What type of physical activity do you participate in: none Frequency: does not exercise Mally/Baptist: Druze Special mally needs: No Seatbelt use: sometimes Helmet use: No Drive 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
[2024-09-05 09:31] VITALS: BP 128/53; PULSE 61; O2SAT 95
--- NOTE | 2024-09-05 10:00 | DI.RAD_ITS ---
Exam(s) XR HIP RT COMPLETE AP PELVIS EXAM: XR HIP RT COMPLETE AP PELVIS CLINICAL HISTORY: R lower back/leg pain. TECHNIQUE: 2D digital imaging was performed. COMPARISON: No exams were available for comparison FINDINGS: 3 views No evidence of pelvic nor obvious hip fractures. No significant hip joint space narrowing. SI joints appear unremarkable. IMPRESSION: No acute osseous findings in the pelvis and hips. DATA REPOSITORY: RADIATION DOSE DELIVERED:
--- NOTE | 2024-09-05 10:24 | DI.RAD_ITS ---
Exam(s) XR KNEE RT 4V AP,LAT,FLAVIA,PAT EXAM: XR KNEE RT 4V AP,LAT,FLAVIA,PAT CLINICAL HISTORY: R hip/upper leg/knee pain. TECHNIQUE: 2D digital imaging was performed. COMPARISON: CR,XR XR KNEE RT 4V AP,LAT,FLAVIA,PAT from 06/14/2022 FINDINGS: Four views. There is no evidence of acute fracture or obvious joint effusion. Again noted is an advanced narrowing of the medial compartment and chondrocalcinosis. Lateral compartment exhibits relatively maintained height. There are moderate degenerative changes in the patellofemoral compartment. There is also lung truly orientated calcification within the distal quadriceps t endon just above the superior pole the patella,, previously present. No obvious loose intra-articular bodies. IMPRESSION: Advanced degenerative changes in the knee, similar to previous. No obvious joint effusion. DATA REPOSITORY: RADIATION DOSE DELIVERED:
--- NOTE | 2024-09-05 10:25 | DI.RAD_ITS ---
Exam(s) XR LUMBAR SPINE COMPLETE EXAM: XR LUMBAR SPINE COMPLETE CLINICAL HISTORY: R sided leg pain. TECHNIQUE: 2D digital imaging was performed. COMPARISON: No exams were available for comparison FINDINGS: Five views There is sacralization of the L5 segment. No evidence of acute fracture. IMPRESSION: No acute fractures evident. DATA REPOSITORY: RADIATION DOSE DELIVERED:
[2024-09-05] MEDS: Lidocaine 5% Patch 1 PATCH TP (10:30)
[2024-09-05] MEDS: Methocarbamol 750 MG TAB PO (10:30)
[2024-09-05 10:31] VITALS: BP 102/34; PULSE 67; O2SAT 96
[2024-09-05 10:56] VITALS: BP 122/83; PULSE 58; O2SAT 96
[2024-09-05 11:38] VITALS: BP 113/58; PULSE 63; RESP 20; TEMP 36.9; O2SAT 99
== END 2024-09-05 11:50 | disposition home or self-care (01) ==
PROVIDERS: Emergency Provider Nurse Practitioner Family; PCP Family Medicine
DX: M54.16 Radiculopathy, lumbar region (principal); I25.2 Old myocardial infarction; Z79.899 Other long term (current) drug therapy
CPT/HCPCS: 99283; 72110; 73502; 73564

== ENCOUNTER 2024-09-19 09:04 | Emergency (ER) | payer OTHER, SELFPAY ==
[2024-09-19] VITALS (17 sets, daily range): BP systolic 93–144; BP diastolic 51–59; PULSE 66–88; RESP 16; TEMP 36.7; O2SAT 91–97
--- NOTE | 2024-09-19 09:50 | DI.CT_ITS ---
Exam(s) CT LUMBAR SPINE WO EXAM: CT LUMBAR SPINE WO CLINICAL HISTORY: low back through R ankle pain; s/p fall. TECHNIQUE: Imaging Protocol: Axial computed tomography images with coronal and sagittal reformatted images were created and reviewed COMPARISON: CT CT ABDOMEN PELVIS WO from 03/24/2022 CR XR LUMBAR SPINE COMPLETE from 09/05/2024 FINDINGS: Bones: The last intervertebral disc space is designated the L5/S1 level for the numbering purpose of this examination. No acute fracture is seen. There is severe narrowing of the L5-S1 disc space. There is bilateral L5 spondylolysis and L5-S1 spondylolisthesis. There is a prominent osteophyte noted anteriorly at this level. The findings appear unchanged from 2022. Remaining disc heights are maintained. There are degenerative changes of the SI joints. No SI joint widening. Soft Tissues: The paraspinal soft tissues are unremarkable. Calcification in the abdominal aorta. IMPRESSION: Stable appearance of severe degenerative disc changes at L5-S1 bilateral L5 spondylolysis and spondylolisthesis. No evidence of acute fracture. RADIATION DOSE DELIVERED: 2,313.59mGy.cm Total DLP DATA REPOSITORY: All CT scans at this facility are submitted to the National Radiology Data Registry (NRDR) Dose Index Registry (DIR) with the [employer] ([employer]). RADIATION OPTIMIZATION: All CT scans at this facility use at least one of these dose optimization techniques: automated exposure control; mA and/or kV adjustment per patient size (includes targeted exams where dose is matched to clinical indication); or iterative reconstruction.
--- NOTE | 2024-09-19 09:55 | DI.CT_ITS ---
Exam(s) CT PELVIC WO EXAM: CT PELVIC WO CLINICAL HISTORY: low back through R ankle pain; s/p fall. TECHNIQUE: Imaging Protocol: Axial computed tomography images with coronal and sagittal reformatted images were created and reviewed. CONTRAST MATERIAL: Oral: / no COMPARISON: CT CT ABDOMEN PELVIS WO from 03/24/[address] CHEST PE CTA from 08/25/2022 CR XR HIP RT COMPLETE AP PELVIS from 09/05/2024 FINDINGS: Bones: No acute fracture. Degenerative changes of the sacroiliac joints. Mild degenerative changes of the hip joints. Soft tissues: Unremarkable. IMPRESSION: No acute abnormality. RADIATION DOSE DELIVERED: 2,313.59mGy.cmTotal DLP DATA REPOSITORY: All CT scans at this facility are submitted to the National Radiology Data Registry (NRDR) Dose Index Registry (DIR) with the [employer] (ACR). RADIATION OPTIMIZATION: All CT scans at this facility use at least one of these dose optimization techniques: automated exposure control; mA and/or kV adjustment per patient size (includes targeted exams where dose is matched to clinical indication); or iterative reconstruction.
--- NOTE | 2024-09-19 10:02 | DI.CT_ITS ---
Exam(s) CT LOWER EXTREMITY RT WO EXAM: CT LOWER EXTREMITY RT WO CLINICAL HISTORY: low back through R ankle pain; s/p fall. TECHNIQUE: Imaging Protocol: Axial computed tomography images with coronal and sagittal reformatted images were created and reviewed. The field of view includes the hip through the ankle. CONTRAST MATERIAL: Noncontrast COMPARISON: CR XR FOOT RT COMPLETE from 02/09/2023 CR XR KNEE RT 4V AP,LAT,FLAVIA,PAT from 09/05/[address] PELVIC WO from 09/19/2024 FINDINGS: Bones: There is no evidence of acute fracture or dislocation. There are old healed fractures of the distal tibia and fibula. Metallic vamshi in mid through distal fibula. Two screws are present in the medial malleolus related to remote fractures. No osteomyelitic changes are identified. No lytic or sclerotic lesions are identified. Joints: Advanced degenerative changes of the knee. Small joint effusion. There are degenerative changes at the ankle. Soft Tissues: Muscular atrophy, severe in the lower leg. Mild vascular calcifications. IMPRESSION: No acute abnormality of the right lower extremity.. RADIATION DOSE DELIVERED: Total DLP DATA REPOSITORY: All CT scans at this facility are submitted to the National Radiology Data Registry (NRDR) Dose Index Registry (DIR) with the [employer] ([employer]). RADIATION OPTIMIZATION: All CT scans at this facility use at least one of these dose optimization techniques: automated exposure control; mA and/or kV adjustment per patient size (includes targeted exams where dose is matched to clinical indication); or iterative reconstruction.
[2024-09-19 10:22] LABS: Abs Immature Grans 0.04 10^3/uL (0.0-0.06); HCT 43.5 % (40.0-50.0); HGB 13.9 g/dL (13.5-17.5); Immature Grans % 0.5 %; MCH 29.3 pg (27.0-33.0); MCHC 32.0 % (32.0-36.0); MCV 92 fL (80-95); MPV 9.2 fL (8.0-11.0); Platelet Count 177 10^3/uL (130-400); RBC 4.74 10^6/uL (4.36-5.78); RDW 14.2 % (11.8-14.1); RDW-SD 48.2 fL; WBC 7.48 10^3/uL (4.4-10.8)
[2024-09-19 10:37] LABS: ALT 28 U/L (16-63); AST 18 U/L (15-37); Albumin 3.2 g/dL (3.4-5.0); Alkaline Phosphatase 65 U/L (46-116); Anion Gap 10.9 mmol/L (3-11); BUN 43 mg/dL (7-18); Bilirubin, Total 0.7 mg/dL (0.2-1.0); CO2 26.1 mmol/L (21.0-32.0); Calcium 9.0 mg/dL (8.5-10.1); Chloride 104 mmol/L (98-107); Estimated GFR 47.36 (mL/min/1.73m2); Glucose 196 mg/dL (74-106); Potassium 4.2 mmol/L (3.5-5.1); Sodium 141 mmol/L (136-145); Total Protein 6.0 g/dL (6.4-8.2)
--- NOTE | 2024-09-19 10:37 | W.ED.GENAD ---
Discharge Plan Disposition Patient Disposition: Home Condition: Stable Discharge Details Clinical Impression: Right leg pain, Superficial fungal infection of skin Primary Care Provider: Denita Enriquez ED Provider: Johan Cardenas Home Meds and New Rx's Prescriptions: New butenafine 1 % cream 3 applic topical DAILY 28 Days Qty: 30 0RF Continued (DME) diabetic shoes See Rx Instructions .Route .MEDSUPPLY Qty: 1 0RF Rx Instructions: As directed - Custom molded diabetic shoes - 1 pair. dulaglutide 4.5 mg/0.5 mL pen injector 4.5 mg subcut QWEEK Qty: 6 5RF Patient Comments: takes on sundays ropinirole 1 mg tablet 1 mg PO QHS Qty: 90 4RF atorvastatin 10 mg tablet 10 mg PO QHS Qty: 90 3RF (DME) blood-glucose meter [FreeStyle Lite Meter] Kit 1 ea Miscellaneous BID Qty: 1 0RF Rx Instructions: As directed torsemide 10 mg tablet See Rx Instructions PO DAILY Rx Instructions: 20mg alternating with 10mg orally daily; empagliflozin 25 mg tablet 25 mg PO QAM Qty: 90 4RF metoprolol succinate 100 mg tablet extended release 24 hr 50 mg PO DAILY Qty: 90 3RF aspirin [Aspir-81] 81 MG tablet,delayed release (DR/EC) 81 mg PO DAILY Qty: 90 apple cider vinegar 500 mg tablet 1,000 mg PO DAILY turmeric 100 mg capsule 200 mg PO DAILY (DME) lancets [FreeStyle Lancets] 28 gauge misc 1 ea Miscellaneous BID Qty: 30 0RF Rx Instructions: One BID spironolactone 25 mg tablet 25 mg PO DAILY Qty: 90 3RF sacubitril-valsartan [Entresto] 97-103 mg tablet 1 tab PO BID Qty: 180 3RF apixaban 5 mg tablet 5 mg PO BID Qty: 60 0RF tamsulosin 0.4 mg capsule 0.8 mg PO DAILY Qty: 180 2RF ezetimibe 10 mg tablet 10 mg PO DAILY Qty: 90 2RF [place] Instructions: [place] [facility] [place]. -[place] (DME) FreeStyle Lite Strips Strip 1 ea Miscellaneous BID Qty: 200 3RF Rx Instructions: 1 twice a day Fish Oil 1 EACH capsule 2,000 mg PO DAILY polyethylene glycol 3350 17 gram Powder In Packet 17 g PO DAILY PRN PRN (Reason: Constipation) Qty: 0 0RF oxycodone 5 mg tablet 5 mg PO Q6H PRN Patient Comments: TAKE ONE TABLET BY MOUTH EVERY 6 HOURS NEEDED FOR PAIN MAXIMUM DAILY DOSE = 4 TABLETS acetaminophen [Tylenol Extra Strength] 500 mg Tablet 1,000 mg PO DAILY Discharge Instructions Instructions: Butenafine, Fungal Skin Rash ED, Leg Pain (ED) Additional Instructions: You were seen in the emergency department for your right flank pain with no acute findings on your CT scan it is safe for your known L5-S1 degeneration. You have a fungal infection to your groin and I have prescribed Lotrimin ultra lotion and apply this 4 times per day for exam, use your walker and cane at home, take your at home pain medications and follow-up with orthopedics, there is no evidence for any spinal emergency or fracture of the lower extremity this is likely some muscle strain strain to get up after your follow-up weeks ago. Referrals: Denita Enriquez MD [Primary Care Provider, Medicine] Discharge Data Discharge Date/Time-TO BE ENTERED AT DEPARTURE: 09/19/24 11:49 HPI <TORY Ding - Last Filed: 09/21/24 12:46> General Date/Time Provider Initiated Documentation: 09/19/24 09:17. HPI Narrative: 78-year-old male presents with his daughter today by POV/ambulating with persistent pain from his right lower back throughout his right lower extremity to his medial right distal calf and ankle after a ground-level fall 3 weeks ago. The pain could be lingering in his ankle, remote past trimalleolar fracture, he states that he was straining to get up recently and possibly has muscle strain of his extremity, he has no other trauma or head strike or LOC, he has chronic changes to his lower extremities from diabetes and chronic venous insufficiency without open lesions. No radiation to complete numbness or inability to ambulate, no radiation to urinary or bowel changes or saddle anesthesia, pain is moderate Related Data Home Medications ?Medication ?Instructions ?Recorded ?Confirmed omega-3 fatty acids-fish oil 340 2,000 mg PO DAILY 01/17/13 09/19/24 mg-1,000 mg capsule (Fish Oil) aspirin 81 mg tablet,delayed 81 mg PO DAILY #90 tab-caps 03/12/15 09/19/24 release (Aspir-) polyethylene glycol 3350 17 gram 17 g PO DAILY PRN PRN Constipation 03/28/22 09/19/24 oral powder packet #0 ea acetaminophen 500 mg tablet 1,000 mg PO DAILY 08/25/22 09/19/24 (Tylenol Extra Strength) apple cider vinegar 500 mg tablet 1,000 mg PO DAILY 09/07/22 09/19/24 turmeric 100 mg 200 mg PO DAILY 09/07/22 09/19/24 lancets 28 gauge (FreeStyle #30 ea 10/20/22 09/19/24 Lancets) diabetic shoes #1 ea 05/11/23 09/19/24 atorvastatin 10 mg tablet 10 mg PO QHS #90 tabs 11/09/23 09/19/24 dulaglutide 4.5 mg/0.5 mL 4.5 mg (0.5 mL) subcut QWEEK #6 mL 11/09/23 09/19/24 subcutaneous pen injector ropinirole 1 mg tablet 1 mg PO QHS #90 tabs 11/09/23 09/19/24 spironolactone 25 mg tablet 25 mg PO DAILY #90 tabs 11/19/23 09/19/24 sacubitril 97 mg-valsartan 103 mg 1 tab PO BID decreased EF #180 tabs 01/28/24 09/19/24 tablet (Entresto) blood-glucose meter (FreeStyle #1 ea 03/05/24 09/19/24 Lite Meter kit) apixaban 5 mg tablet 5 mg PO BID #60 tabs 03/25/24 09/19/24 ezetimibe 10 mg tablet 10 mg PO DAILY #90 tabs 06/02/24 09/19/24 tamsulosin 0.4 mg capsule 0.8 mg (2 x 0.4 mg) PO DAILY #180 06/02/24 09/19/24 caps blood sugar diagnostic (FreeStyle #200 strips 06/16/24 09/19/24 Lite Strips) torsemide 10 mg tablet See Rx Instructions PO DAILY 08/22/24 09/19/24 empagliflozin 25 mg tablet 25 mg PO QAM #90 tabs 09/10/24 09/19/24 metoprolol succinate 100 mg 50 mg (1/2 x 100 mg) PO DAILY #90 09/10/24 09/19/24 tablet,extended release 24 hr tabs butenafine 1 % topical cream 3 applic topical DAILY 4 weeks #30 09/19/24 09/19/24 grams oxycodone 5 mg tablet 5 mg PO Q6H PRN 09/19/24 09/19/24 Previous Rx's ?Medication ?Instructions ?Recorded polyethylene glycol 3350 17 gram 17 g PO DAILY PRN PRN Constipation 03/28/22 oral powder packet #0 ea lancets 28 gauge (FreeStyle #30 ea 10/20/22 Lancets) diabetic shoes #1 ea 05/11/23 atorvastatin 10 mg tablet 10 mg PO QHS #90 tabs 11/09/23 dulaglutide 4.5 mg/0.5 mL 4.5 mg (0.5 mL) subcut QWEEK #6 mL 11/09/23 subcutaneous pen injector ropinirole 1 mg tablet 1 mg PO QHS #90 tabs 11/09/23 spironolactone 25 mg tablet 25 mg PO DAILY #90 tabs 11/19/23 sacubitril 97 mg-valsartan 103 mg 1 tab PO BID decreased EF #180 tabs 01/28/24 tablet (Entresto) blood-glucose meter (FreeStyle #1 ea 03/05/24 Lite Meter kit) apixaban 5 mg tablet 5 mg PO BID #60 tabs 03/25/24 ezetimibe 10 mg tablet 10 mg PO DAILY #90 tabs 06/02/24 tamsulosin 0.4 mg capsule 0.8 mg (2 x 0.4 mg) PO DAILY #180 06/02/24 caps blood sugar diagnostic (FreeStyle #200 strips 06/16/24 Lite Strips) empagliflozin 25 mg tablet 25 mg PO QAM #90 tabs 09/10/24 metoprolol succinate 100 mg 50 mg (1/2 x 100 mg) PO DAILY #90 09/10/24 tablet,extended release 24 hr tabs butenafine 1 % topical cream 3 applic topical DAILY 4 weeks #30 09/19/24 grams Allergies Allergy/AdvReac Type Severity Reaction Status Date / Time atorvastatin calcium (From AdvReac INTOLERANCE Verified 09/19/24 09:25 Lipitor) General Stated Complaint: Fall/Non TraumaCriteria JOSE: 3 Review of Systems <TORY Ding - Last Filed: 09/21/24 12:46> All systems reviewed & are unremarkable except as noted in HPI and below Exam <TORY Ding - Last Filed: 09/21/24 12:46> Narrative Exam Narrative: GENERAL APPEARANCE: Well-nourished, non-toxic, awake and alert, atraumatic, no acute distress. SKIN: Warm, pink, dry, intact, severe yeast infection to groin HEAD: Normocephalic, atraumatic, normal hair distribution for gender/age. EYES: Normal conjunctiva, no exudates on lids/lashes. ENT: Nares patent, no circumoral cyanosis, no facial swelling NECK: Supple, trachea midline, painless cervical ROM. LUNGS/CHEST: Non-labored respirations, normal A/P diameter, symmetrical expansion, no chest wall deformity HEART (CV/PV): Regular rate, no peripheral edema, no JVD. ABDOMEN: Soft, non-distended, no guarding. 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 Motor: No focal weakness - strength 5/5 in bilateral UEs and LEs, proximal and distal, symmetric. Sensory: sensation intact to light touch globally. Gait antalgic. PSYCH: euthymic, cooperative, pleasant, appropriate speech Course <TORY Ding - Last Filed: 09/21/24 12:46> Vital Signs Vital signs: Vital Signs Temperature 36.7 C 09/19/24 09:11 Pulse 81 09/19/24 09:11 Respiratory Rate 16 09/19/24 09:11 Blood Pressure 144/57 H 09/19/24 09:11 Pulse Oximetry 97 09/19/24 09:11 Temperature 36.7 C 09/19/24 09:11 Temperature Source Oral 09/19/24 09:11 Pulse 78 09/19/24 10:20 Respiratory Rate 16 09/19/24 09:11 Blood Pressure 104/51 L 09/19/24 09:31 Blood Pressure Mean 67 09/19/24 09:31 Blood Pressure Position Sitting 09/19/24 09:11 Pulse Oximetry 94 09/19/24 10:20 Oxygen Delivery Method Room Air 09/19/24 09:11 Oxygen Flow Rate 0 09/19/24 09:11 Pain Level 10 09/19/24 09:18 Lab/Test Results Lab/Test Results: Laboratory Tests Range/Units 09/19/24 10:15 WBC (4.4-10.8) 10^3/uL 7.48 RBC (4.36-5.78) 10^6/uL 4.74 Hgb (13.5-17.5) g/dL 13.9 Hct (40.0-50.0) % 43.5 MCV (80-95) fL 92 MCH (27.0-33.0) pg 29.3 MCHC (32.0-36.0) % 32.0 RDW (11.8-14.1) % 14.2 H Plt Count (130-400) 10^3/uL 177 MPV (8.0-11.0) fL 9.2 Immature Gran % % 0.5 Neutrophils % % 75.6 Lymphocytes % % 15.1 Monocytes % % 7.6 Eosinophils % % 0.8 Basophils % % 0.4 Nucleated RBC % (0.0-0.3) % 0.0 Absolute Neutrophils (1.2-6.7) 10^3/uL 5.65 Absolute Lymphocytes (1.2-3.4) 10^3/uL 1.13 L Absolute Monocytes (0.1-0.8) 10^3/uL 0.57 Absolute Eosinophils (0.0-0.7) 10^3/uL 0.06 Absolute Basophils (0.0-0.2) 10^3/uL 0.03 Medical Decision Making <TORY Ding - Last Filed: 09/21/24 12:46> This dictation utilizes [id number] dictation software and may contain unedited grammatical errors. 78-year-old male presents with his daughter today by POV/ambulating with persistent pain from his right lower back throughout his right lower extremity to his medial right distal calf and ankle after a ground-level fall 3 weeks ago. The pain could be lingering in his ankle, remote past trimalleolar fracture, he states that he was straining to get up recently and possibly has muscle strain of his extremity, he has no other trauma or head strike or LOC, he has chronic changes to his lower extremities from diabetes and chronic venous insufficiency without open lesions. No radiation to complete numbness or inability to ambulate, no radiation to urinary or bowel changes or saddle anesthesia, pain is moderate. Patients' medical history: NSTEMI, atrial flutter, history of sciatica, venous stasis, lumbar radiculopathy, T2DM, CHF, PVD, diabetic neuropathy, hyperlipidemia. Family and social history: Lives independently with no EtOH or drug use. 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 Differential / pathologies of concern include fracture, lumbar radiculopathy, muscle strain, yeast infection. Diagnostic studies of: - CT lumbar spine without CT pelvis without, CT of the extremity right knee without, CBC, CMP. - CBC benign - CMP benign - CT lumbar spine shows stable degenerative changes at L5-S1 - CT Pelvis wo shows no hip fracture, or other abnormality - CT lower extremity shows no bony abnormalities Interventions of: -Recommend continue oxycodone and other pain meds at home, use cane as needed- follow-up orthopaedics. ED Course/Assessment/Plan: 78-year-old male has persistent pain throughout the right lower back and right leg and hip after a ground-level fall 3 weeks ago, straining to get up, pain is most focal in the right hip and above the medial right ankle with no bony abnormalities noted on CT, has chronic L5-S1 degeneration, likely contributing at least partially to his syndrome with lower extremity pain. He has oxycodone at home and can take Tylenol, he has canes and walkers. He has a yeast infection. I am prescribing some Lotrimin ultra and topical for, I recommend he follow-up with orthopedics for his leg pain. Findings not consistent with fracture, neurovascular compromise, cauda equina syndrome. Disposition of superficial fungal skin infection, right leg pain. Patient verbalized understanding of the plan and return to ED criteria and engaged in shared decision making. Medical Records Medical records reviewed: Yes I reviewed the patient's medical records. Imaging Data Radiologic Study: Attestation: I personally reviewed and interpreted this imaging study as follows: Imaging: CT Scan Radiologist's impression: EXAM: CT LUMBAR SPINE WO CLINICAL HISTORY: low back through R ankle pain; s/p fall. TECHNIQUE: Imaging Protocol: Axial computed tomography images with coronal and sagittal reformatted images were created and reviewed COMPARISON: CT CT ABDOMEN PELVIS WO from 03/24/2022 CR XR LUMBAR SPINE COMPLETE from 09/05/2024 FINDINGS: Bones: The last intervertebral disc space is designated the L5/S1 level for the numbering purpose of this examination. No acute fracture is seen. There is severe narrowing of the L5-S1 disc space. There is bilateral L5 spondylolysis and L5-S1 spondylolisthesis. There is a prominent osteophyte noted anteriorly at this level. The findings appear unchanged from 2022. Remaining disc heights are maintained. There are degenerative changes of the SI joints. No SI joint widening. Soft Tissues: The paraspinal soft tissues are unremarkable. Calcification in the abdominal aorta. IMPRESSION: Stable appearance of severe degenerative disc changes at L5-S1 bilateral L5 spondylolysis and spondylolisthesis. No evidence of acute fracture. Radiologic Study #2: Attestation: I personally reviewed and interpreted this imaging study as follows: Imaging: CT Scan Radiologist's impression: EXAM: CT PELVIC WO CLINICAL HISTORY: low back through R ankle pain; s/p fall. TECHNIQUE: Imaging Protocol: Axial computed tomography images with coronal and sagittal reformatted images were created and reviewed. CONTRAST MATERIAL: Oral: / no COMPARISON: CT CT ABDOMEN PELVIS WO from 03/24/[address] CHEST PE CTA from 08/25/2022 CR XR HIP RT COMPLETE AP PELVIS from 09/05/2024 FINDINGS: Bones: No acute fracture. Degenerative changes of the sacroiliac joints. Mild degenerative changes of the hip joints. Soft tissues: Unremarkable. IMPRESSION: No acute abnormality. Radiologic Study #3: Attestation: I personally reviewed and interpreted this imaging study as follows: Imaging: CT Scan Radiologist's impression: EXAM: CT LOWER EXTREMITY RT WO CLINICAL HISTORY: low back through R ankle pain; s/p fall. TECHNIQUE: Imaging Protocol: Axial computed tomography images with coronal and sagittal reformatted images were created and reviewed. The field of view includes the hip through the ankle. CONTRAST MATERIAL: Noncontrast COMPARISON: CR XR FOOT RT COMPLETE from 02/09/2023 CR XR KNEE RT 4V AP,LAT,FLAVIA,PAT from 09/05/[address] PELVIC WO from 09/19/2024 FINDINGS: Bones: There is no evidence of acute fracture or dislocation. There are old healed fractures of the distal tibia and fibula. Metallic vamshi in mid through distal fibula. Two screws are present in the medial malleolus related to remote fractures. No osteomyelitic changes are identified. No lytic or sclerotic lesions are identified. Joints: Advanced degenerative changes of the knee. Small joint effusion. There are degenerative changes at the ankle. Soft Tissues: Muscular atrophy, severe in the lower leg. Mild vascular calcifications. IMPRESSION: No acute abnormality of the right lower extremity.. Lab Data Lab results reviewed: Yes I reviewed the patient's lab results. Labs: Laboratory Tests Range/Units 09/19/24 10:15 WBC (4.4-10.8) 10^3/uL 7.48 RBC (4.36-5.78) 10^6/uL 4.74 Hgb (13.5-17.5) g/dL 13.9 Hct (40.0-50.0) % 43.5 MCV (80-95) fL 92 MCH (27.0-33.0) pg 29.3 MCHC (32.0-36.0) % 32.0 RDW (11.8-14.1) % 14.2 H Plt Count (130-400) 10^3/uL 177 MPV (8.0-11.0) fL 9.2 Immature Gran % % 0.5 Neutrophils % % 75.6 Lymphocytes % % 15.1 Monocytes % % 7.6 Eosinophils % % 0.8 Basophils % % 0.4 Nucleated RBC % (0.0-0.3) % 0.0 Absolute Neutrophils (1.2-6.7) 10^3/uL 5.65 Absolute Lymphocytes (1.2-3.4) 10^3/uL 1.13 L Absolute Monocytes (0.1-0.8) 10^3/uL 0.57 Absolute Eosinophils (0.0-0.7) 10^3/uL 0.06 Absolute Basophils (0.0-0.2) 10^3/uL 0.03 Sodium (136-145) mmol/L 141 Potassium (3.5-5.1) mmol/L 4.2 Chloride (98-107) mmol/L 104 Carbon Dioxide (21.0-32.0) mmol/L 26.1 Anion Gap (3-11) mmol/L 10.9 BUN (7-18) mg/dL 43 H Creatinine (0.70-1.30) mg/dL 1.5 H Est GFR (CKD-EPI 2020) (mL/min/1.73m2) 47.36 Glucose (74-106) mg/dL 196 H Calcium (8.5-10.1) mg/dL 9.0 Total Bilirubin (0.2-1.0) mg/dL 0.7 AST (15-37) U/L 18 ALT (16-63) U/L 28 Alkaline Phosphatase (46-116) U/L 65 Total Protein (6.4-8.2) g/dL 6.0 L Albumin (3.4-5.0) g/dL 3.2 L <Travis Multani MD - Last Filed: 09/19/24 16:44> Date: 09/19/24 Time: 11:00 Note: Patient was seen with TORY Cardenas. I agree with history and assessment as documented and discussed. PFSH <TORY Ding - Last Filed: 09/21/24 12:46> All Active Problems (Updated 09/19/24 @ 11:12 by TORY Ding) Superficial fungal infection of skin (Acute) Right leg pain (Acute) Lumbar radiculopathy, acute (Acute) Osteoarthritis of right knee (Acute) DEPO MEDROL 07/14/24 Ulnar neuropathy at wrist (Acute ~03/05/24) H/O long-term (current) use of anticoagulants (Chronic) Type 2 diabetes mellitus with neurologic complication, without long-term current use of insulin (Chronic) Chronic HFrEF (heart failure with reduced ejection fraction) (Chronic) Inguinal hernia (Chronic) Carotid artery stenosis (Chronic 04/2021) right moderate plaque <70% stenosis Peripheral vascular disease (Chronic) Diabetic neuropathy (Chronic) Right knee pain (Chronic) uses a cane BPH w urinary obs/LUTS (Chronic) Essential hypertension (Chronic) Fatty liver (Chronic 08/04/16) Generalized osteoarthrosis (Chronic) knees; R>L Hyperlipidemia (Chronic) Type IV Morbid obesity (Chronic) Obstructive sleep apnea, adult (Chronic) C-PAP Spondylolisthesis (Chronic) L5-S1 Medical History NSTEMI (non-ST elevated myocardial infarction) (08/2022) [place] [facility] [place] with no flow-limiting CAD. Atrial flutter (08/2022) s/p ablation 08/2022 PSVT (paroxysmal supraventricular tachycardia) MRSA infection (09/03/15) Tubular adenoma 07/24/14 DR. ALLEN X 3 Umbilical hernia Repaired Venous stasis ulcers of both lower extremities (03/09/16) Surgical History [place] [facility] [place] S[place]P ablation of atrial flutter 08/23/2022. -hb Amputation of toe of right foot 04/08/20 - Right second toe ([facility]) History of open reduction and internal fixation (ORIF) procedure (2013) Status post appendectomy Family History (Updated 08/10/23 @ 07:51 by Denita Enriquez MD) Mother , age 78 Cancer Father , age 70 Heart disease Cancer Sister Essential hypertension Hyperlipidemia Breast cancer Brother Essential hypertension Skin cancer Heart disease Brother Diabetes Essential hypertension Heart disease Hyperlipidemia Alcohol abuse Substance abuse Cancer Maternal Grandfather Heart disease Paternal Grandfather No problems noted. Maternal Grandmother Diabetes Essential hypertension Paternal Grandmother Heart disease Son Essential hypertension Heart disease Hyperlipidemia Daughter No problems noted. Daughter No problems noted. 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 Pets and animals: Yes Pets and animals: cat(s) and dog(s) Sexually active: No Do you think of yourself as: straight/heterosexual Current gender identity: male What is your relationship status?: How often do you talk on the phone with friends or family?: three or more times per week How often do you get together with friends or relatives?: once per week How often do you attend voodoo or shinto services?: 4 or more times per year Do you belong to any clubs or organized social groups?: no Panel score (0-1 are the most socially isolated patients): 2 What type of physical activity do you participate in: none Frequency: does not exercise Mally/Confucianism: Jehovah'S Witness Special mally needs: No Seatbelt use: sometimes Helmet use: No Drive intox or 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 haulpak driver: No Do you feel safe at home: Yes Do you feel safe in your relationship?: Yes
== END 2024-09-19 11:49 | disposition home or self-care (01) ==
PROVIDERS: Emergency Provider Physician Assistant; PCP Family Medicine
DX: M79.604 Pain in right leg (principal); B36.9 Superficial mycosis, unspecified; W19.XXXA Unspecified fall, initial encounter; M54.50 Low back pain, unspecified
CPT/HCPCS: 99284 ×2; 36415; 80053; 72131; 72192; 73700; 85025

== ENCOUNTER 2024-10-13 07:42 | Outpatient (CLI) | payer OTHER, SELFPAY ==
--- NOTE | 2024-10-13 08:30 | DI.US_ITS ---
APPROVED REPORT EXAM: Comprehensive 2D, Doppler, and color-flow Echocardiogram Patient Location: Out-Patient Program Technician: Ronny Mukherjee RDCS (AE) Indications: Worsening hypotension Other Information Study Quality: Fair. Technically limited study due to body habitus. Conclusion Normal left ventricular wall thickness and chamber size. Ejection fraction is 55 to 60%. Wall motion is normal Normal right ventricular size and function Both atria are normal in size Aortic valve is sclerotic with moderate regurgitation Moderately dilated ascending aorta 3.91 cm Wall motion Left Ventricle The left ventricle is normal size. The left ventricular systolic function is normal. The left ventricular ejection fraction is within the normal range. There is normal left ventricular wall thickness. There is normal LV segmental wall motion. There is no ventricular septal defect visualized. LVEF is 55-60%. Right Ventricle The right ventricle is normal size. The right ventricular systolic function is normal. Atria The left atrium size is normal. The right atrium size is normal. The interatrial septum is intact with no evidence for an atrial septal defect. Aortic Valve The aortic valve is sclerotic. Aortic valve is trileaflet. There is no aortic valvular stenosis. Moderate aortic regurgitation. Mitral Valve The mitral valve is normal in structure. No evidence of mitral valve stenosis. There is no mitral valve regurgitation noted. Tricuspid Valve The tricuspid valve is normal in structure. There is no tricuspid valve stenosis. Trace tricuspid regurgitation. Pulmonic Valve The pulmonary valve is normal in structure. There is no pulmonic valvular stenosis. Mild pulmonic regurgitation. Great Vessels The aortic root is normal in size. The ascending aorta is moderately dilated. IVC is normal in size and collapses >50% with inspiration. Pericardium There is no pericardial effusion. 2D Dimensions IVSD d PLAX 1.20 cm M: 0.6-1.2 Ao Root d 3.65 cm M: 3.1 - 3.7 LVPW d PLAX 1.10 cm M: 0.6 - 1.2 Ao Asc Diam d 3.91 cm M: 2.6 - 3.4 LVID d PLAX 6.86 cm M: 4.2 - 5.8 LVDs 4.84 cm M: 2.5 - 4.0 LV EF Teichholz 55.1 % FS 29.49 % LV EDV (Teich) 244.3 mL LV ESV (Teich) 109.6 mL Stroke Vol Index (Teich) 54.56 M-Mode TAPSE 1.59 cm (M/F) >1.7 Auto EF LV EDV A4C 234.6 mL LV EDV A2C 146.8 mL LV EDV BP 193.4 mL LV ESV A4C 94.7 mL LV ESV A2C 66.7 mL LV ESV BP 78.6 mL LVEF(%) A4C 59.6 % LVEF(%) A2C 54.6 % LVEF(%) BP 59.4 % LV SV A4C 139.9 ml LV SV A2C 80.1 ml LV SV BP 114.8 ml LV CO A4C 9.7 L/min LV CO A2C 5.9 L/min LV CO BP 7.8 L/min HR A4C 69.50 BPM HR A2C 74.07 BPM LV EDV Index (BP) LA Volume LA Length A4C 5.1 cm LA Length A2C 4.9 cm LA Area A4C s 13.80 cm2 LA Area A2C s 14.23 cm2 LA Vol A4C A-L 31.46 mL LA Vol A2C A-L 35.13 mL LA Vol Biplane A-L 34.1 mL LA Vol/BSA A4C A-L LA Vol/BSA A2C A-L LA Vol/BSA BP A-L 13.8 mL/m2 LA Vol A4C MOD 30.2 mL LA Vol A2C MOD 32.8 mL LA Vol BP MOD 32.0 mL RA Volume RA Area A4C 8.1 cm2 RA ESV A4C (A-L) 11.2mL RA Vol/BSA A4C A-L RA Length A4C 5.0 cm RA ESV A4C (MOD) 11.6mL LV Diastology MV E' medial 0.051 (>0.07 m/s) MV E Vmax 0.50 (0.4-1.3 m/s) MV E/E' MED 9.90 (<14) MV A Vmax 0.65 (0.4-1.3 m/s) MV E' lateral 0.073 (>0.1 m/s) E/A Ratio 0.8 MV E/E' LAT 6.88 (<14) MV E' Average 0.062 m/s MV E/E'(average) 8.12 Aortic Valve AoV Vmax 1.75 m/s LVOT Vmax 0.76 m/s AoV Peak Grad 40.8 mmHg LVOT Peak Grad 2.3 mmHg AoV Area (Vmax) 1.57 cm2 LVOT VTI 0.159 m AoV VTI 0.370 m LVOT Mean Grad 1.5 mmHg AoV Mean Orlin. 1.27 m/s LVOT SV 57.50 mL AoV Mean Grad 7.3 mmHg LVOT Diam s 2.10 cm AoV Area (VTI) 1.55 cm2 AV Regurg Peak Gr. 12.22 mmHg Velocity Ratio 0.43 AR Decel [place] 2.1m/sec2 AR DT 1946 msec AR PHT 564 msec AR Vmax 4.16 m/s Mitral Valve MV DT 115 (160-240 msec) Pulmonary Valve PV Vmax 0.71 (0.5-1.5 m/s) RVOT Vmax 0.45 m/s PV Peak Grad 2.0 mmHg RVOT Peak Gr. 0.8 mmHg PV Mean Orlin 0.49 m/s RVOT VTI 0.100 m PV Mean Grad 1.1 mmHg RVOT Mean Gr. 0.4 mmHg Tricuspid Valve TR Vmax 2.43 m/s TR Peak Grad 23.5 mmHg
== END 2024-10-13 08:02 ==
LOC: DI 10-14 07:42
PROVIDERS: PCP Family Medicine; Visit Provider Internal Medicine Cardiovascular Disease
DX: I50.22 Chronic systolic (congestive) heart failure (principal)
CPT/HCPCS: 93306

== ENCOUNTER 2024-11-12 09:06 | Outpatient (CLI) | payer OTHER, SELFPAY ==
[2024-11-12 14:17] LABS: Anion Gap 13.4 mmol/L (3-11); BUN 46 mg/dL (7-18); CO2 22.6 mmol/L (21.0-32.0); Calcium 9.0 mg/dL (8.5-10.1); Chloride 105 mmol/L (98-107); Estimated GFR 77.04 (mL/min/1.73m2); Glucose 140 mg/dL (74-106); Potassium 4.4 mmol/L (3.5-5.1); Sodium 141 mmol/L (136-145)
[2024-11-12 14:34] LABS: Hemoglobin A1C 6.2 % (<5.7)
[2024-11-12 14:50] LABS: Glucose 500 mg/dL (Negative)
[2024-11-12 15:02] LABS: C & S Indicated? No; RBC Negative HPF (0-2); WBC 0-2 HPF (0-5)
== END 2024-11-12 09:07 | disposition home or self-care (01) ==
LOC: LOS 09:09
PROVIDERS: PCP Family Medicine; Visit Provider Family Medicine
DX: R73.01 Impaired fasting glucose (principal); E11.42 Type 2 diabetes mellitus with diabetic polyneuropathy; I10 Essential (primary) hypertension; I50.22 Chronic systolic (congestive) heart failure; R30.0 Dysuria
CPT/HCPCS: 36415; 80048; 81003; 81015; 83036